=== PATIENT | female | born 1935 | race African-American/Black ===

== ENCOUNTER 2017-05-02 08:40 | Emergency (ER) | payer MEDICARE ==
[2017-05-02] MEDS ORDERED: SODIUM CHLORIDE 0.9% 1,000 ML IV STA (09:14)
--- NOTE | 2017-05-02 09:17 | ED ---
General Adult HPI <Tank Loaiza - Last Filed: 05/02/17 12:12> - General Source: patient, RN notes reviewed Mode of arrival: wheelchair Limitations: no limitations <JeisonHaider - Last Filed: 05/02/17 12:14> - General Chief complaint: Abdominal Pain Stated complaint: POST OP/CATH ABDOMINAL SWELLING AND PAIN Time Seen by Provider: 05/02/17 09:05 - History of Present Illness Initial comments: Patient 81-year-old female status post heart catheterization 2 weeks, who presents emergency room today with a chief complaint of increased abdominal pain swelling over the last 2 weeks since her procedure. Patient believes that she did have a stent placed. She states it was done at [facility]. Patient does admit to some swelling locally to the right groin area since procedure but does admit that it is improving. Patient does admit to a history kidney stones states that she had surgery on the kidney stones was concerned that possibly from the heart catheterization that something could've been affected and came to make sure that over the was okay in her abdomen. Patient does admit that she's had some mild cough congestion. She does admit to feeling nauseated. She denies any other complaints or associated symptoms at this time. Patient denies any recent fever, chills, shortness of breath, chest pain, back pain, vomiting, numbness or tingling, dysuria or hematuria, constipation or diarrhea, headaches or visual changes, or any other complaints. (Haider Mchugh) - Related Data Home Medications Medication Instructions Recorded Confirmed Esomeprazole Magnesium [NexIUM] 40 mg PO QAM 12/29/15 08/17/16 Acetaminophen with Codeine 1 tab PO Q6HR PRN 04/20/16 08/17/16 [Tylenol w/codeine #4] Hydrocodone/Acetaminophen [[place] 1 tab PO Q4HR PRN 04/20/16 08/17/16 5-325] Metoprolol Tartrate [Lopressor] 100 mg PO BID 04/20/16 08/17/16 amLODIPine [Norvasc] 10 mg PO QAM 04/20/16 08/17/16 Advair (Unknown Dose) 1 puff INHALATION RT-BID 08/17/16 08/17/16 Albuterol Inhaler [Ventolin Hfa 2 puff INHALATION RT-Q6H PRN 08/17/16 08/17/16 Inhaler] Albuterol Nebulized [Ventolin 2.5 mg INHALATION RT-Q6H 08/17/16 08/17/16 Nebulized] Aspirin EC [Ecotrin] 325 mg PO DAILY 08/17/16 08/17/16 Budesonide/Formoterol Fumarate 2 puff INHALATION RT-BID 08/17/16 08/17/16 [Symbicort 160-4.5 Mcg Inhaler] metFORMIN HCL [Glucophage] 500 mg PO BID 08/17/16 08/17/16 Previous Rx's Medication Instructions Recorded Clopidogrel [Plavix] 75 mg PO DAILY #30 tab 09/10/15 Nitroglycerin Sl Tabs [Nitrostat] 0.4 mg SUBLINGUAL Q5M PRN #50 tab 09/10/15 Allergies Allergy/AdvReac Type Severity Reaction Status Date / Time Iodinated Contrast Media - Allergy Rash/Hives Verified 05/02/17 08:53 Oral and [Iodinated Contrast Media - IV Dye] Review of Systems ROS Other: All systems not noted in ROS Statement are negative. <Tank Loaiza - Last Filed: 05/02/17 12:12> ROS Other: All systems not noted in ROS Statement are negative. <Haider Mchugh - Last Filed: 05/02/17 12:14> ROS Statement: Those systems with pertinent positive or pertinent negative responses have been documented in the HPI. Past Medical History Past Medical History: Coronary Artery Disease (CAD), Chest Pain / Angina, COPD, Diabetes Mellitus, Hyperlipidemia, Hypertension, Myocardial Infarction ([place]) Additional Past Medical History / Comment(s): 04/20/16 IP FOR GI BLEED/LOW HGB. kdiney stones Last Myocardial Infarction Date:: 1997 History of Any Multi-Drug Resistant Organisms: None Reported Past Surgical History: Coronary Bypass/CABG, Heart Catheterization With Stent, Hysterectomy, Orthopedic Surgery Additional Past Surgical History / Comment(s): CABG 1997. Left total hip replacement, colonoscopy nov 2015, angioplasty left leg. KIDNEY SURGERY FOR STONE REMOVAL. Past Anesthesia/Blood Transfusion Reactions: No Reported Reaction Additional Past Anesthesia/Blood Transfusion Reaction / Comment(s): Pt has recieved blood in the past with kidney surgery without reaction. Date of Last Stent Placement:: 10/02/09. 08/2015. Past Psychological History: No Psychological Hx Reported Smoking Status: Former smoker Past Alcohol Use History: None Reported Past Drug Use History: None Reported, Prescription Drug Abuse - Past Family History Mother Family Medical History: Cancer Father Additional Family Medical History / Comment(s): aneurysm <Haider Mchugh - Last Filed: 05/02/17 12:14> General Exam <Tank Loaiza - Last Filed: 05/02/17 12:12> Limitations: no limitations <Haider Mchugh - Last Filed: 05/02/17 12:14> - General Exam Comments Initial Comments: General: The patient is awake and alert, in no distress, and does not appear acutely ill. Eye: Pupils are equal, round and reactive to light, extra-ocular movements are intact. No nystagmus. There is normal conjunctiva bilaterally. No signs of icterus. Ears, nose, mouth and throat: There are moist mucous membranes and no oral lesions. Neck: The neck is supple, there is no tenderness or JVD. Cardiovascular: There is a regular rate and rhythm. No murmur, rub or gallop is appreciated. Respiratory: Lungs are clear to auscultation, respirations are non-labored, breath sounds are equal. No wheezes, stridor, rales, or rhonchi. Gastrointestinal: No tenderness in the epigastric. Mild tenderness in the right lower quadrant. No rebound tenderness. No guarding. No CVA tenderness. Musculoskeletal: Normal ROM, no tenderness. Strength 5/5. Sensation intact. Pulses equal bilaterally 2+. Neurological: A&O x 3. CN II-XII intact, There are no obvious motor or sensory deficits. Coordination appears grossly intact. Speech is normal. Skin: Skin is warm and dry and no rashes or lesions are noted. Psychiatric: Cooperative, appropriate mood & affect, normal judgment. (Haider Mchugh) Course <Tank Loaiza - Last Filed: 05/02/17 12:12> <Haider Mchugh - Last Filed: 05/02/17 12:14> Vital Signs 05/02/17 05/02/17 05/02/17 08:51 09:55 10:23 Temperature 98.8 F 99.3 F Pulse Rate 59 L 53 L Respiratory 16 18 Rate Blood Pressure 197/77 195/79 218/86 O2 Sat by Pulse 98 95 Oximetry 05/02/17 05/02/1705/02/17 10:36 11:08 11:19 Temperature 98 F Pulse Rate 64 Respiratory 18 Rate Blood Pressure 177/77 204/89 170/74 O2 Sat by Pulse 97 Oximetry 05/02/17 05/02/17 11:42 12:07 Temperature Pulse Rate 60 Respiratory 18 18 Rate Blood Pressure 164/74 161/72 O2 Sat by Pulse 96 Oximetry - Reevaluation(s) Reevaluation #1: 05/02/17 12:12 I did personally do a [id number] evaluation the patient discuss [employer] the patient and her family. She relates his symptoms started after her catheterization. Labs and CT were reviewed no acute findings or is a residual hematoma that is noted. The patient is to follow-up with her doctor. (Tank Loaiza) Medical Decision Making - Lab Data Result diagrams: 05/02/17 09:35 05/02/17 09:35 <Tank Loaiza - Last Filed: 05/02/17 12:12> - Lab Data Result diagrams: 05/02/17 09:35 05/02/17 09:35 <Haider Mchugh - Last Filed: 05/02/17 12:14> - Medical Decision Making Patient's CT abdomen and pelvis reviewed. 1. Incidentally, there is a prior femoral to femoral bypass. 2. Soft tissue bruising within the right greater than the left groins from prior catheter access. Some mild perivascular hematoma extends up to the right retroperitoneum 4.3 cm to the level of the distal right external iliac vessels, axial images 69-76. 3. 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 4.Hiatal hernia, mild to distal sigmoid diverticulosis, and decreasing size of the right renal cyst, now at 3.7 cm. As read by radiologist Dr Alfredo. results discussed with the patient. Patient resting comfortably. Patient will be discharged home advised to follow family doctor with. Advised return if any symptoms increase or worsen or for any other concerns. (Haider Mchugh) - Lab Data Lab Results 05/02/17 05/02/17 05/02/17 Range/Units 09:35 09:35 09:35 WBC 3.5 L (3.8-10.6) k/uL RBC 3.61 L (3.80-5.40) m/uL Hgb 12.1 (11.4-16.0) gm/dL Hct 36.5 (34.0-46.0) % MCV 101.2 H (80.0-100.0) fL MCH 33.6 (25.0-35.0) pg MCHC 33.3 (31.0-37.0) g/dL RDW 14.4 (11.5-15.5) % Plt Count 118 L (150-450) k/uL Neutrophils % 66 % Lymphocytes % 20 % Monocytes % 8 % Eosinophils % 3 % Basophils % 0 % Neutrophils # 2.3 (1.3-7.7) k/uL Lymphocytes # 0.7 L (1.0-4.8) k/uL Monocytes # 0.3 (0-1.0) k/uL Eosinophils # 0.1 (0-0.7) k/uL Basophils # 0.0 (0-0.2) k/uL Macrocytosis Slight PT (9.0-12.0) sec INR (<1.1) APTT (22.0-30.0) sec Sodium 143 (137-145) mmol/L Potassium 4.4 (3.5-5.1) mmol/L Chloride 106 (98-107) mmol/L Carbon Dioxide 27 (22-30) mmol/L Anion Gap 10 mmol/L BUN 15 (7-17) mg/dL Creatinine 1.13 H (0.52-1.04) mg/dL Est GFR (MDRD) Af Amer 56 (>60 ml/min/1.73 sqM) Est GFR (MDRD) Non-Af 46 (>60 ml/min/1.73 sqM) Glucose 119 H (74-99) mg/dL Calcium 8.9 (8.4-10.2) mg/dL Total Bilirubin 1.1 (0.2-1.3) mg/dL AST 40 H (14-36) U/L ALT 38 (9-52) U/L Alkaline Phosphatase 123 (38-126) U/L Total Creatine Kinase 51 (30-135) U/L CK-MB (CK-2) 0.6 (0.0-2.4) ng/mL CK-MB (CK-2) Rel Index 1.2 Troponin I 0.020 (0.000-0.034) ng/mL NT-Pro-B Natriuret Pep pg/mL Total Protein 7.2 (6.3-8.2) g/dL Albumin 3.6 (3.5-5.0) g/dL Urine Color Urine Appearance (Clear) Urine pH (5.0-8.0) Ur Specific [place] (1.001-1.035) Urine Protein (Negative) Urine Glucose (UA) (Negative) Urine Ketones (Negative) Urine Blood (Negative) Urine Nitrite (Negative) Urine Bilirubin (Negative) Urine Urobilinogen (<2.0) mg/dL Ur Leukocyte Esterase (Negative) Urine RBC (0-5) /hpf Urine WBC (0-5) /hpf Ur Squamous Epith Cells (0-4) /hpf Urine Bacteria (None) /hpf Urine Mucus (None) /hpf 05/02/17 05/02/17 05/02/17 Range/Units 09:35 09:35 11:30 WBC (3.8-10.6) k/uL RBC (3.80-5.40) m/uL Hgb (11.4-16.0) gm/dL Hct (34.0-46.0) % MCV (80.0-100.0) fL MCH (25.0-35.0) pg MCHC (31.0-37.0) g/dL RDW (11.5-15.5) % Plt Count (150-450) k/uL Neutrophils % % Lymphocytes % % Monocytes % % Eosinophils % % Basophils % % Neutrophils # (1.3-7.7) k/uL Lymphocytes # (1.0-4.8) k/uL Monocytes # (0-1.0) k/uL Eosinophils # (0-0.7) k/uL Basophils # (0-0.2) k/uL Macrocytosis PT 10.9 (9.0-12.0) sec INR 1.1 (<1.1) APTT 23.7 (22.0-30.0) sec Sodium (137-145) mmol/L Potassium (3.5-5.1) mmol/L Chloride (98-107) mmol/L Carbon Dioxide (22-30) mmol/L Anion Gap mmol/L BUN (7-17) mg/dL Creatinine (0.52-1.04) mg/dL Est GFR (MDRD) Af Amer (>60 ml/min/1.73 sqM) Est GFR (MDRD) Non-Af (>60 ml/min/1.73 sqM) Glucose (74-99) mg/dL Calcium (8.4-10.2) mg/dL Total Bilirubin (0.2-1.3) mg/dL AST (14-36) U/L ALT (9-52) U/L Alkaline Phosphatase (38-126) U/L Total Creatine Kinase (30-135) U/L CK-MB (CK-2) (0.0-2.4) ng/mL CK-MB (CK-2) Rel Index Troponin I (0.000-0.034) ng/mL NT-Pro-B Natriuret Pep 971 pg/mL Total Protein (6.3-8.2) g/dL Albumin (3.5-5.0) g/dL Urine Color Yellow Urine Appearance Clear (Clear) Urine pH 5.5 (5.0-8.0) Ur Specific [place] 1.015 (1.001-1.035) Urine Protein Trace H (Negative) Urine Glucose (UA) Negative (Negative) Urine Ketones Negative (Negative) Urine Blood Negative (Negative) Urine Nitrite Negative (Negative) Urine Bilirubin Negative (Negative) Urine Urobilinogen 2.0 (<2.0) mg/dL Ur Leukocyte Esterase Trace H (Negative) Urine RBC 1 (0-5) /hpf Urine WBC 3 (0-5) /hpf Ur Squamous Epith Cells 5 H (0-4) /hpf Urine Bacteria Rare H (None) /hpf Urine Mucus Rare H (None) /hpf Disposition <Tank Loaiza - Last Filed: 05/02/17 12:12> Time of Disposition: 12:14 <Haider Mchugh - Last Filed: 05/02/17 12:14> Clinical Impression: Abdominal pain Disposition: HOME SELF-CARE Condition: Good Instructions: Abdominal Pain (ED) Additional Instructions: Please use medication as discussed. Please follow-up with family doctor in the next 2 days of symptoms have not improved. Please return to emergency room if the symptoms increase or worsen or for any other concerns. Referrals: Cedrick Leach MD [Primary Care Provider] - 1-2 days
[2017-05-02 09:56] VITALS: RESP 18
[2017-05-02 09:57] LABS: Basophils % (A) 0 %; CH 33.4; CHCM 33.2; Eosinophils # (A) 0.1 k/uL (0-0.7); Eosinophils % (A) 3 %; HCT 36.5 % (34.0-46.0); HDW 2.59; HGB 12.1 gm/dL (11.4-16.0); Luc % (Auto) 3; Lymphocytes # (A) 0.7 k/uL (1.0-4.8); Lymphocytes % (A) 20 %; MCH 33.6 pg (25.0-35.0); MCHC 33.3 g/dL (31.0-37.0); MCV 101.2 fL (80.0-100.0); Macrocytosis Slight; Mean Platelet Volume 7.8; Monocytes # (A) 0.3 k/uL (0-1.0); Monocytes % (A) 8 %; Neutrophils # (A) 2.3 k/uL (1.3-7.7); Neutrophils % (A) 66 %; RBC 3.61 m/uL (3.80-5.40); RDW 14.4 % (11.5-15.5); WBC 3.5 k/uL (3.8-10.6); WBC (Perox) 3.51
[2017-05-02] MEDS ORDERED: hydrALAZINE HCL 20 MG/ML 1 ML VIAL IVP STA (10:01)
[2017-05-02 10:05] LABS: INR 1.1 (<1.1); Partial Thromboplastin Time 23.7 sec (22.0-30.0); Prothrombin Time 10.9 sec (9.0-12.0)
[2017-05-02 10:06] LABS: Calcium 8.9 mg/dL (8.4-10.2); Potassium 4.4 mmol/L (3.5-5.1); Total Bilirubin 1.1 mg/dL (0.2-1.3); Total Protein 7.2 g/dL (6.3-8.2)
--- NOTE | 2017-05-02 10:27 | XR ---
EXAMINATION TYPE: XR KUB DATE OF EXAM: 05/02/2017 CLINICAL DATA: 81-year-old female with pain, PHH COMPARISON: 05/02/2013 FINDINGS: Lung bases are clear. Supine imaging limited for assessment of free intraperitoneal air. No dilated small and bowel. Scattered air and stool seen throughout the colon extending distally into the rectum. Mild stool burden. Stable round calcification right paramedian mid to lower abdomen and phlebolith in the right hemipelv is. Partially visualized left total hip arthroplasty. Moderate degenerative change of the right hip. IMPRESSION: Nonobstructive bowel gas pattern. Mild stool burden.
--- NOTE | 2017-05-02 10:28 | XR ---
EXAMINATION TYPE: XR chest 2V DATE OF EXAM: 05/02/2017 COMPARISON: 08/17/2016 HISTORY: 81-year-old female with pain TECHNIQUE: AP and lateral views FINDINGS: Heart is upper limits of normal in size. Median sternotomy wires and post-CABG clips in the mediastin um. Mild interstitial prominence is chronic. Strandy atelectasis in the lower lungs. No consolidation or pleural effusion. IMPRESSION: Chronic changes without acute cardiopulmonary process.
[2017-05-02 10:36] LABS: Creatine Kinase MB 0.6 ng/mL (0.0-2.4); Troponin I 0.02 ng/mL (0.000-0.034)
[2017-05-02] MEDS ORDERED: HYDROmorphone 1 MG/ML 1 ML SYRINGE IVP STA (11:08)
[2017-05-02] MEDS ORDERED: ONDANSETRON 4 MG/2 ML VIAL IVP STA (11:08)
[2017-05-02] MEDS ORDERED: ACETAMINOPHEN IV (For NPO) 1,000 MG in SALINE 100 100ML.BAG IVPB STA (11:15)
--- NOTE | 2017-05-02 11:22 | CT ---
EXAMINATION TYPE: CT abdomen pelvis wo con DATE OF EXAM: 05/02/2017 COMPARISON: 05/02/2013 HISTORY: 81-year-old female postop catheterization on 04/15/2017 with abdominal swelling and pain. CT DLP: 908.7 mGycm. Automated exposure control for dose reduction was used. TECHNIQUE: Contiguous axial scanning of the abdomen and pelvis without IV contrast. Coronal and sagit lisbeth reconstructions performed. FINDINGS: Heart upper limits of normal in size without pericardial effusion. Some patchy atelectasis at the lef t base with strandy areas of scarring, stable from prior. Tiny hiatal hernia. Noncontrast appearance of the liver, gallbladder, adrenal glands, left kidney, and pancreas show no g ross abnormality. Stable splenomegaly 15.4 cm as compared to 2013. The right mid pole renal cyst is smaller as compared to 2013 now measuring 3.7 cm versus 5.6 cm, prev iously. No dilated small bowel, free fluid, or free air. Moderate atherosclerotic calcifications within the abdominal aorta and iliac arteries. Fusiform ectas ia of the infrarenal abdominal aorta has increased from 2013 now measuring 2.9 cm versus 2.6 cm, prev iously. No mesenteric or retroperitoneal lymphadenopathy. Mid to distal sigmoid diverticulosis. There is mild stool burden without pericolonic inflammatory belinda nge. Bladder is urine distended. Uterus surgically absent. Neither ovary well visualized but the smaller a lso surgically absent. There is evidence of femoral to femoral bypass graft. Patency is not assessed on this noncontrast nani dy. As compared to prior exam, there is new focal fat stranding in the right greater than left groin sugg esting bruising and some soft tissue hemorrhage. On the right, changes are more confluent and extend up the distal right external iliac vessels by 4.3 cm and also extend slightly along the upper right i nguinal canal., Axial images 69 through 76. Bones: Left hip total arthroplasty. Moderate to severe degenerative changes right hip. Additional deg enerative changes lower lumbar spine. Grade 1 anterolisthesis L4-L5. No osseous destructive process. IMPRESSION: 1. Incidentally, there is prior femoral to femoral bypass. 2. Soft tissue bruising within the right greater than left groins from prior catheter access. Some m ild perivascular hematoma extends up the right retroperitoneum by 4.3 cm to the level of the distal r ight external iliac vessels, axial images 69 through 76. 3. 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 4. Tiny hiatal hernia, mid to distal sigmoid diverticulosis, and decreasing size of the right renal cyst, now at 3.7 cm.
[2017-05-02 12:08] LABS: Appearance,Urine Clear (Clear); Bacteria,Urine Rare /hpf; Bilirubin,Urine Negative (Negative); Glucose,Urine (UA) Negative (Negative); Ketones,Urine Negative (Negative); Leukocyte Esterase,Urine Trace (Negative); Mucus,Urine Rare /hpf; Nitrite,Urine Negative (Negative); PH, Urine 5.5 (5.0-8.0); Particle Count 2571; Protein,Urine Trace (Negative); RBC,Urine 1 /hpf (0-5); Specific Gravity,Urine 1.015 (1.001-1.035); Squamous Epithelial Cell,Urine 5 /hpf (0-4); UA Billing (MACRO vs. MICRO) MICRO; WBC,Urine 3 /hpf (0-5)
[2017-05-02 12:09] VITALS: BP 161/72; PULSE 60
[2017-05-02 12:25] VITALS: TEMP 98.3
== END 2017-05-02 12:26 | disposition home or self-care (01) ==
LOC: EC 08:40
DX: T85.898A Other specified complication of other internal prosthetic devices, implants and grafts, initial encounter (principal); K91.871 Postprocedural hematoma of a digestive system organ or structure following other procedure; I77.811 Abdominal aortic ectasia; N28.1 Cyst of kidney, acquired; K57.30 Diverticulosis of large intestine without perforation or abscess without bleeding; K44.9 Diaphragmatic hernia without obstruction or gangrene; R11.0 Nausea; I10 Essential (primary) hypertension; E11.9 Type 2 diabetes mellitus without complications; J44.9 Chronic obstructive pulmonary disease, unspecified; I25.10 Atherosclerotic heart disease of native coronary artery without angina pectoris; I25.2 Old myocardial infarction; Z87.891 Personal history of nicotine dependence; Z79.51 Long term (current) use of inhaled steroids; Z79.82 Long term (current) use of aspirin; Z79.84 Long term (current) use of oral hypoglycemic drugs; Z79.899 Other long term (current) drug therapy; Z91.041 Radiographic dye allergy status; Z95.1 Presence of aortocoronary bypass graft; Z95.5 Presence of coronary angioplasty implant and graft; Z86.79 Personal history of other diseases of the circulatory system; Z95.828 Presence of other vascular implants and grafts; Z53.20 Procedure and treatment not carried out because of patient's decision for unspecified reasons; Y84.0 Cardiac catheterization as the cause of abnormal reaction of the patient, or of later complication, without mention of misadventure at the time of the procedure
CPT/HCPCS: 36415; 93005; 83880; 80053; 82550; 82553; 84484; 85025; 85610; 85730; 81001; 71020; 74000; 74176; 99285; 96365; 96375; 96361 ×2; J0360; J0131

== ENCOUNTER 2018-01-06 22:12 | Observation (INO) | payer MEDICARE ==
[2018-01-06 22:51] LABS: Anisocytosis Slight; HCT 26.8 % (34.0-46.0); Hypochromasia Marked; MCH 26.5 pg (25.0-35.0); MCV 88.3 fL (80.0-100.0); Mean Platelet Volume 9.7; Platelet Count 132 k/uL (150-450); Poikilocytosis Slight; RBC 3.04 m/uL (3.80-5.40); RDW 16.8 % (11.5-15.5); WBC 2.5 k/uL (3.8-10.6)
[2018-01-06 23:02] LABS: Albumin 3.8 g/dL (3.5-5.0); Calcium 9.3 mg/dL (8.4-10.2); Potassium 4.2 mmol/L (3.5-5.1); Total Bilirubin 0.3 mg/dL (0.2-1.3); Total Protein 7.4 g/dL (6.3-8.2)
--- NOTE | 2018-01-06 23:07 | ED ---
Chest Pain HPI - General Chief Complaint: Chest Pain Stated Complaint: Weakness, arm pain Time Seen by Provider: 01/06/18 22:30 Source: patient, family, RN notes reviewed Mode of arrival: ambulatory Limitations: no limitations - History of Present Illness Initial Comments: This is a 82-year-old female history of anemia history of heart disease who presents with complaints of exertional dyspnea and retrosternal chest pain going to her left arm. She states this is been off about a month getting worse so she stated she did not like to come the hospital less he really needed to. She also feels as if she did when she needed a transfusion last time at rest she has no pain no dyspnea on exertion. She states when she does have the pain is almost 10/10. She has a fevers chills nausea vomiting sweats or any other symptoms at this time. MD Complaint: chest pain, other - Related Data Home Medications Medication Instructions Recorded Confirmed Hydrocodone/Acetaminophen [[place] 1 tab PO BID PRN 04/20/16 01/06/18 5-325] Metoprolol Tartrate [Lopressor] 100 mg PO BID 05/02/17 01/06/18 amLODIPine [Norvasc] 10 mg PO DAILY 05/02/17 01/06/18 Aspirin EC [Ecotrin] 325 mg PO DAILY 01/06/18 01/06/18 Esomeprazole Magnesium [NexIUM] 40 mg PO DAILY 01/06/18 01/06/18 metFORMIN HCL [Glucophage] 500 mg PO BID 01/06/18 01/06/18 Previous Rx's Medication Instructions Recorded Nitroglycerin Sl Tabs [Nitrostat] 0.4 mg SUBLINGUAL Q5M PRN #50 tab 09/10/15 Allergies Allergy/AdvReac Type Severity Reaction Status Date / Time Iodinated Contrast- Oral and Allergy Rash/Hives Verified 01/06/18 22:42 IV Dye [Iodinated Contrast Media - IV Dye] shellfish derived [Shellfish] Allergy Rash/Hives Verified 01/06/18 22:42 Review of Systems ROS Statement: Those systems with pertinent positive or pertinent negative responses have been documented in the HPI. ROS Other: All systems not noted in ROS Statement are negative. EKG Findings - EKG Results: EKG: interpreted by ROBIN (Sinus rhythm with a left exodeviation and left bundle- branch block rate was [address] QRS 154 daily since QTC of 476/495 this compares with an EKG dated 05/02/17) Past Medical History Past Medical History: Coronary Artery Disease (CAD), Chest Pain / Angina, COPD, Diabetes Mellitus, Hyperlipidemia, Hypertension, Myocardial Infarction ([place]) Additional Past Medical History / Comment(s): 04/20/16 IP FOR GI BLEED/LOW HGB. kdiney stones Last Myocardial Infarction Date:: 1997 History of Any Multi-Drug Resistant Organisms: None Reported Past Surgical History: Coronary Bypass/CABG, Heart Catheterization With Stent, Hysterectomy, Orthopedic Surgery Additional Past Surgical History / Comment(s): CABG 1997. Left total hip replacement, colonoscopy nov 2015, angioplasty left leg. KIDNEY SURGERY FOR STONE REMOVAL. Stents placed her heart in the last year Past Anesthesia/Blood Transfusion Reactions: No Reported Reaction Additional Past Anesthesia/Blood Transfusion Reaction / Comment(s): Pt has recieved blood in the past with kidney surgery without reaction. Date of Last Stent Placement:: 10/02/09. 08/2015. Past Psychological History: No Psychological Hx Reported Smoking Status: Former smoker Past Alcohol Use History: None Reported Past Drug Use History: None Reported, Prescription Drug Abuse - Past Family History Mother Family Medical History: Cancer Father Additional Family Medical History / Comment(s): aneurysm General Exam - General Exam Comments Initial Comments: This is a well-developed well-nourished awake alert oriented 3 female Limitations: no limitations General appearance: alert, in no apparent distress Head exam: Present: atraumatic, normocephalic, normal inspection Eye exam: Present: normal appearance, PERRL, EOMI, other (Pale conjunctiva). Absent: scleral icterus, conjunctival injection, periorbital swelling ENT exam: Present: normal exam, mucous membranes moist Neck exam: Present: normal inspection. Absent: tenderness, meningismus, lymphadenopathy Respiratory exam: Present: decreased breath sounds. Absent: respiratory distress, wheezes, rales, rhonchi, stridor Cardiovascular Exam: Present: regular rate, normal rhythm, normal heart sounds. Absent: systolic murmur, diastolic murmur, rubs, gallop, clicks GI/Abdominal exam: Present: soft, normal bowel sounds. Absent: distended, tenderness, guarding, rebound, rigid Extremities exam: Present: normal inspection, full ROM, normal capillary refill. Absent: tenderness, pedal edema, joint swelling, calf tenderness Back exam: Present: normal inspection Neurological exam: Present: alert, oriented X3, CN II-XII intact Psychiatric exam: Present: normal affect, normal mood Skin exam: Present: warm, dry, intact, pallor. Absent: rash Course Vital Signs 01/06/18 01/06/18 01/06/18 22:14 22:20 22:39 Temperature 98.9 F Pulse Rate 64 66 60 Respiratory 18 18 20 Rate Blood Pressure 182/80 228/98 O2 Sat by Pulse 100 99 97 Oximetry 01/06/18 01/06/18 23:20 23:42 Temperature Pulse Rate 60 61 Respiratory 22 20 Rate Blood Pressure 204/67 189/77 O2 Sat by Pulse 97 97 Oximetry Chest Pain MDM - MDM ABG reveals no acute findings. Patient remains asymptomatic arrest was symptomatic with exertion. I did discuss case with her and her family as well as with Dr. Lyn. Patient be admitted due to her symptoms and low hemoglobin she'll be given a unit of blood. Cardiology will be consulted. And [facility] will be held at this time Disposition Clinical Impression: Unstable angina pectoris, Symptomatic anemia, Hypertension Disposition: ADMITTED IP TO THIS HOSP Condition: Stable Referrals: Kwan Lyn MD [Primary Care Provider] - 1-2 days
[2018-01-06 23:13] LABS: Prothrombin Time 10.2 sec (9.0-12.0)
--- NOTE | 2018-01-06 23:15 | XR ---
EXAMINATION TYPE: XR chest 2V DATE OF EXAM: 01/06/2018 COMPARISON: 05/02/2017 HISTORY: Chest pain TECHNIQUE: Frontal and lateral views of the chest are obtained. FINDINGS: There is no heart failure nor confluent pneumonic infiltrate. Thoracic aorta is atheromato us. There are sternal wires. There is spurring in the thoracic spine. There are chest leads. IMPRESSION: No active cardiopulmonary disease. Atherosclerotic changes. No change.
[2018-01-06 23:16] LABS: Eosinophils # (M) 0.05 k/uL (0-0.7); Lymphocytes # (M) 0.53 k/uL (1.0-4.8); Neutrophils # (M) 1.63 k/uL (1.3-7.7); Neutrophils % (M) 65 %; Nucleated Red Blood Cells 0 /100 WBC (0-0); Total Cells Counted 100
[2018-01-06 23:22] LABS: Partial Thromboplastin Time 22.4 sec (22.0-30.0)
[2018-01-06 23:28] LABS: Creatine Kinase 62 U/L (30-135)
[2018-01-06 23:40] LABS: Creatine Kinase MB 0.6 ng/mL (0.0-2.4); Troponin I <0.012 ng/mL (0.000-0.034)
[2018-01-06 23:46] LABS: Magnesium 1.9 mg/dL (1.6-2.3)
[2018-01-07] MEDS ORDERED: METOPROLOL TARTRATE 5 MG/5 ML VIAL IVP ONE (00:04)
[2018-01-07] MEDS ORDERED: NITROGLYCERIN SL TABS 0.4 MG TAB SUBLINGUAL PRN (00:07)
[2018-01-07] MEDS ORDERED: HYDROcodone/APAP 5-325MG 1 EACH TAB PO PRN (00:09)
[2018-01-07 01:38] VITALS: BMI 33.7
[2018-01-07] MEDS ORDERED: METOPROLOL TARTRATE 5 MG/5 ML VIAL IVP STA (02:07)
[2018-01-07] MEDS: SODIUM CHLORIDE 0.9% 1,000 ML IV SCH (02:19)
[2018-01-07 06:46] LABS: Glucose,Whole Blood 111 mg/dL (75-99)
[2018-01-07] MEDS: INSULIN ASPART 100 UNIT/ML 1 ML 10 ML VIAL SQ SCH ×4 (07:01→21:45)
[2018-01-07] MEDS: metFORMIN 500 MG TAB PO SCH ×2 (07:01→19:06)
--- NOTE | 2018-01-07 08:04 | P.HPIM ---
History of Present Illness H&P Date: 01/07/18 Chief Complaint: Chest pressure. This is a history and physical 82-year-old white female who states left substernal chest pressure which is made worse with breathing. No significant nausea but there is supposed some diaphoresis. She has history of cervical aneurysm that we are following recently but she has been lost to follow-up and last year secondary to financial constraints. The patient states 3-4 day history of worsening chest pressure. She also states up her respiratory congestion. There is secondhand smoke in the household. There is also history of atherosclerotic vascular disease. She states she has been on Plavix in the past. I will review her old chart and office, again it is been a while since his been in my office. Otherwise, given her overall evaluation emergency room, she was admitted for appropriate rule out Review of Systems Constitutional: Denies chills, Denies fever Eyes: denies blurred vision, denies pain Ears, nose, mouth and throat: Denies headache, Denies sore throat Cardiovascular: Reports chest pain, Reports palpitations, Denies rapid heart beat, Denies shortness of breath Respiratory: Denies cough Genitourinary: Denies dysuria, Denies hematuria Musculoskeletal: Denies myalgias Integumentary: Denies pruritus, Denies rash Neurological: Denies numbness, Denies weakness Endocrine: Denies fatigue, Denies weight change Past Medical History Past Medical History: Coronary Artery Disease (CAD), Chest Pain / Angina, Heart Failure, COPD, CVA/TIA, Diabetes Mellitus, GI Bleed, Hyperlipidemia, Hypertension, Myocardial Infarction ([place]) Additional Past Medical History / Comment(s): 04/20/16 possible GI bleed with low Hgb. kdiney stones, parkinsons Last Myocardial Infarction Date:: 1997 History of Any Multi-Drug Resistant Organisms: None Reported Past Surgical History: Coronary Bypass/CABG, Heart Catheterization With Stent, Hysterectomy, Orthopedic Surgery Additional Past Surgical History / Comment(s): CABG 1997. Left total hip replacement, colonoscopy nov 2015, angioplasty left leg. kidney surgery with stone removal. multiple heart stents. Past Anesthesia/Blood Transfusion Reactions: No Reported Reaction Additional Past Anesthesia/Blood Transfusion Reaction / Comment(s): Pt has recieved blood in the past with kidney surgery without reaction. Date of Last Stent Placement:: 04/15/2017 Past Psychological History: No Psychological Hx Reported Additional Psychological History / Comment(s): Pt resides with her spouse and daughter. She uses no assistive device. She is independent. She drives a car. Smoking Status: Former smoker Past Alcohol Use History: None Reported Additional Past Alcohol Use History / Comment(s): Pt started smoking in 1952 and quit in 1993. She had been a 2-3 ppd smoker. Past Drug Use History: None Reported, Prescription Drug Abuse - Past Family History Mother Family Medical History: Cancer Father Additional Family Medical History / Comment(s): aneurysm Medications and Allergies Home Medications Medication Instructions Recorded Confirmed Type Nitroglycerin Sl Tabs [Nitrostat] 0.4 mg SUBLINGUAL Q5M PRN #50 tab 09/10/15 Rx Hydrocodone/Acetaminophen [[place] 1 tab PO BID PRN 04/20/16 01/06/18 History 5-325] Metoprolol Tartrate [Lopressor] 100 mg PO BID 05/02/17 01/06/18 History amLODIPine [Norvasc] 10 mg PO DAILY 05/02/17 01/06/18 History Aspirin EC [Ecotrin] 325 mg PO DAILY 01/06/18 01/06/18 History Esomeprazole Magnesium [NexIUM] 40 mg PO DAILY 01/06/18 01/06/18 History metFORMIN HCL [Glucophage] 500 mg PO BID 01/06/18 01/06/18 History Allergies Allergy/AdvReac Type Severity Reaction Status Date / Time Iodinated Contrast- Oral and Allergy Rash/Hives Verified 01/06/18 22:42 IV Dye [Iodinated Contrast Media - IV Dye] shellfish derived [Shellfish] Allergy Rash/Hives Verified 01/06/18 22:42 Physical Exam Vitals: Vital Signs Temp Pulse Pulse Resp BP BP Pulse Ox 01/07/18 06:09 98.3 F 56 L 16 180/74 100 01/07/18 04:00 97.6 F 59 L 16 162/74 99 01/07/18 03:59 97.6 F 59 L 16 162/74 99 01/07/18 03:29 97.7 F 62 16 166/71 98 01/07/18 03:19 97.7 F 63 16 147/79 99 01/07/18 02:08 209/119 01/07/18 00:46 97.2 F L 60 18 188/85 98 03/15/18 00:42 59 L 18 168/74 99 01/07/18 00:00 60 18 177/77 99 01/06/18 23:42 61 20 189/77 97 01/06/18 23:20 60 22 204/67 97 01/06/18 22:39 60 20 228/98 97 01/06/18 22:20 66 18 182/80 99 01/06/18 22:14 98.9 F 64 18 100 Intake and Output 01/06/18 01/07/18 01/07/18 22:59 06:59 14:59 Intake Total 310 Balance 310 Intake: Blood Product 310 Rc Pheresis 2 As3 Unit 310 [id number] Other: Voiding Method Toilet # Voids 2 Weight 91.626 kg 94.8 kg - Constitutional General appearance: obese - EENT Eyes: EOMI - Neck Neck: no lymphadenopathy - Respiratory Respiratory: bilateral: CTA - Cardiovascular Rhythm: regular Heart sounds: normal: S1, S2 Abnormal Heart Sounds: no S3 Gallop - Gastrointestinal General gastrointestinal: soft, no tenderness - Neurologic Neurologic: CNII-XII intact - Psychiatric Psychiatric: A&O x's 3, appropriate affect, intact judgment & insight Results CBC & Chem 7: 01/06/18 22:34 01/06/18 22:34 Labs: Abnormal Lab Results - Last 24 Hours (Table) 01/06/18 01/06/18 01/06/18 Range/Units 22:34 22:34 22:34 WBC 2.5 L (3.8-10.6) k/uL RBC 3.04 L (3.80-5.40) m/uL Hgb 8.0 L (11.4-16.0) gm/dL Hct 26.8 L (34.0-46.0) % MCHC 30.0 L (31.0-37.0) g/dL RDW 16.8 H (11.5-15.5) % Plt Count 132 L (150-450) k/uL Lymphocytes # (Manual) 0.53 L (1.0-4.8) k/uL Chloride 108 H (98-107) mmol/L Creatinine 1.10 H (0.52-1.04) mg/dL Glucose 154 H (74-99) mg/dL POC Glucose (mg/dL) (75-99) mg/dL AST 48 H (14-36) U/L Crossmatch See Detail 01/07/18 Range/Units 06:44 WBC (3.8-10.6) k/uL RBC (3.80-5.40) m/uL Hgb (11.4-16.0) gm/dL Hct (34.0-46.0) % MCHC (31.0-37.0) g/dL RDW (11.5-15.5) % Plt Count (150-450) k/uL Lymphocytes # (Manual) (1.0-4.8) k/uL Chloride (98-107) mmol/L Creatinine (0.52-1.04) mg/dL Glucose (74-99) mg/dL POC Glucose (mg/dL) 111 H (75-99) mg/dL AST (14-36) U/L Crossmatch Thrombosis Risk Factor Assmnt - Choose All That Apply Any of the Below Risk Factors Present?: Yes Each Factor Represents 1 point: Medical pt on bed rest, Obesity (BMI >25) Other Risk Factors: Yes Each Risk Factor Represents 2 Points: Patient confined to bed Each Risk Factor Represents 3 Points: Age 75 years or older Other congenital or acquired thrombophilia - If yes, enter type in comment: No Thrombosis Risk Factor Assessment Total Risk Factor Score: 7 Thrombosis Risk Factor Assessment Level: High Risk Assessment and Plan (1) Hypertension Current Visit: Yes Status: Acute Code(s): I10 - ESSENTIAL (PRIMARY) HYPERTENSION SNOMED Code(s): 35063729 (2) Symptomatic anemia Current Visit: Yes Status: Acute Code(s): D64.9 - ANEMIA, UNSPECIFIED SNOMED Code(s): 558883429 (3) Atrial fibrillation Current Visit: No Status: Acute Code(s): I48.91 - UNSPECIFIED ATRIAL FIBRILLATION SNOMED Code(s): 97835572 (4) Chest pain Current Visit: No Status: Acute Code(s): R07.9 - CHEST PAIN, UNSPECIFIED SNOMED Code(s): 48693735 (5) Essential (primary) hypertension Current Visit: No Status: Acute Code(s): I10 - ESSENTIAL (PRIMARY) HYPERTENSION SNOMED Code(s): 59124045 Plan: Rule out myocardial infarction. No significant enzymatic elevation is otherwise noted. With her history of CAD and history of myocardial infraction, stress testing versus cardiac catheterization. However, the pain seems to be more pleuritic. We'll continue follow with cardiology. See orders otherwise.
[2018-01-07 08:09] LABS: Creatine Kinase 52 U/L (30-135)
[2018-01-07 08:15] LABS: Anisocytosis Slight; HCT 25.9 % (34.0-46.0); HGB 7.8 gm/dL (11.4-16.0); Hypochromasia Marked; MCH 26.4 pg (25.0-35.0); MCHC 29.9 g/dL (31.0-37.0); MCV 88.1 fL (80.0-100.0); Mean Platelet Volume 9.1; Platelet Count 109 k/uL (150-450); Poikilocytosis Moderate; RBC 2.94 m/uL (3.80-5.40); RDW 16.3 % (11.5-15.5); WBC 2.2 k/uL (3.8-10.6)
[2018-01-07 08:20] LABS: Creatine Kinase MB 0.5 ng/mL (0.0-2.4); Troponin I <0.012 ng/mL (0.000-0.034)
[2018-01-07] MEDS ORDERED: REGADENOSON 0.4 MG/5 ML SYRINGE IV ONE (08:36)
[2018-01-07] MEDS ORDERED: AMINOPHYLLINE 500 MG/20 ML VIAL IV PRN (08:36)
[2018-01-07] MEDS: ASPIRIN 81 MG PO SCH (09:03)
[2018-01-07] MEDS: amLODIPine 10 MG TAB PO SCH (09:03)
[2018-01-07] MEDS: PANTOPRAZOLE 40 MG TABLET PO SCH (09:03)
[2018-01-07] MEDS: METOPROLOL TARTRATE 50 MG TAB PO SCH ×2 (09:03→20:46)
--- NOTE | 2018-01-07 12:00 | P.CRDCN ---
History of Present Illness History of present illness: Patient presenting with chest pain with radiation of the left arm Severe anemia Known coronary artery disease coronary artery bypass grafting not on statins Diabetic Non-cardiac enzymes, underlying left bundle branch block Suggest Angina exacerbated by severe anemia Anemia workup Maximal medical therapy including aspirin statins and beta blockers for now 2-D echo and Doppler study Avoid invasive therapy at this time Past Medical History Past Medical History: Coronary Artery Disease (CAD), Chest Pain / Angina, Heart Failure, COPD, CVA/TIA, Diabetes Mellitus, GI Bleed, Hyperlipidemia, Hypertension, Myocardial Infarction ([place]) Additional Past Medical History / Comment(s): 04/20/16 possible GI bleed with low Hgb. kdiney stones, parkinsons Last Myocardial Infarction Date:: 1997 History of Any Multi-Drug Resistant Organisms: None Reported Past Surgical History: Coronary Bypass/CABG, Heart Catheterization With Stent, Hysterectomy, Orthopedic Surgery Additional Past Surgical History / Comment(s): CABG 1997. Left total hip replacement, colonoscopy nov 2015, angioplasty left leg. kidney surgery with stone removal. multiple heart stents. Past Anesthesia/Blood Transfusion Reactions: No Reported Reaction Additional Past Anesthesia/Blood Transfusion Reaction / Comment(s): Pt has recieved blood in the past with kidney surgery without reaction. Date of Last Stent Placement:: 04/15/2017 Past Psychological History: No Psychological Hx Reported Additional Psychological History / Comment(s): Pt resides with her spouse and daughter. She uses no assistive device. She is independent. She drives a car. Smoking Status: Former smoker Past Alcohol Use History: None Reported Additional Past Alcohol Use History / Comment(s): Pt started smoking in 1953 and quit in 1993. She had been a 2-3 ppd smoker. Past Drug Use History: None Reported, Prescription Drug Abuse - Past Family History Mother Family Medical History: Cancer Father Additional Family Medical History / Comment(s): aneurysm Medications and Allergies Home Medications Medication Instructions Recorded Confirmed Type Nitroglycerin Sl Tabs [Nitrostat] 0.4 mg SUBLINGUAL Q5M PRN #50 tab 09/10/15 Rx Hydrocodone/Acetaminophen [[place] 1 tab PO BID PRN 04/20/16 01/06/18 History 5-325] Metoprolol Tartrate [Lopressor] 100 mg PO BID 05/02/17 01/06/18 History amLODIPine [Norvasc] 10 mg PO DAILY 05/02/17 01/06/18 History Aspirin EC [Ecotrin] 325 mg PO DAILY 01/06/18 01/06/18 History Esomeprazole Magnesium [NexIUM] 40 mg PO DAILY 01/06/18 01/06/18 History metFORMIN HCL [Glucophage] 500 mg PO BID 01/06/18 01/06/18 History Allergies Allergy/AdvReac Type Severity Reaction Status Date / Time Iodinated Contrast- Oral and Allergy Rash/Hives Verified 01/06/18 22:42 IV Dye [Iodinated Contrast Media - IV Dye] shellfish derived [Shellfish] Allergy Rash/Hives Verified 01/06/18 22:42 Physical Exam Vitals: Vital Signs Temp Pulse Pulse Resp BP BP Pulse Ox 01/07/18 08:00 97.4 F L 58 L 18 168/72 94 L 01/07/18 06:09 98.3 F 56 L 16 180/74 100 01/07/18 04:00 97.6 F 59 L 16 162/74 99 01/07/18 03:59 97.6 F 59 L 16 162/74 99 01/07/18 03:29 97.7 F 62 16 166/71 98 01/07/18 03:19 97.7 F 63 16 147/79 99 01/07/18 02:08 209/119 01/07/18 00:46 97.2 F L 60 18 188/85 98 01/07/18 00:42 59 L 18 168/74 99 01/07/18 00:00 60 18 177/77 99 01/06/18 23:42 61 20 189/77 97 01/06/18 23:20 60 22 204/67 97 01/06/18 22:39 60 20 228/98 97 01/06/18 22:20 66 18 182/80 99 01/06/18 22:14 98.9 F 64 18 100 Intake and Output 01/06/18 01/07/18 01/07/18 22:59 06:59 14:59 Intake Total 310 Balance 310 Intake: Blood Product 310 Rc Pheresis 2 As3 Unit 310 [id number] Other: Voiding Method Toilet # Voids 2 Weight 91.626 kg 94.8 kg Results 01/07/18 07:31 01/06/18 22:34 Cardiac Enzymes 0301/06/18 01/07/18 Range/Units 22:34 22:34 07:31 AST 48 H (14-36) U/L CK-MB (CK-2) 0.6 0.5 (0.0-2.4) ng/mL Troponin I <0.012 <0.012 (0.000-0.034) ng/mL Coagulation 01/06/18 Range/Units 22:34 PT 10.2 (9.0-12.0) sec APTT 22.4 (22.0-30.0) sec CBC 01/06/18 01/07/18 Range/Units 22:34 07:31 WBC 2.5 L 2.2 L (3.8-10.6) k/uL RBC 3.04 L 2.94 L (3.80-5.40) m/uL Hgb 8.0 L 7.8 L (11.4-16.0) gm/dL Hct 26.8 L 25.9 L (34.0-46.0) % Plt Count 132 L 109 L (150-450) k/uL Comprehensive Metabolic Panel 01/06/18 Range/Units 22:34 Sodium 143 (137-145) mmol/L Potassium 4.2 (3.5-5.1) mmol/L Chloride 108 H (98-107) mmol/L Carbon Dioxide 25 (22-30) mmol/L BUN 16 (7-17) mg/dL Creatinine 1.10 H (0.52-1.04) mg/dL Glucose 154 H (74-99) mg/dL Calcium 9.3 (8.4-10.2) mg/dL AST 48 H (14-36) U/L ALT 37 (9-52) U/L Alkaline Phosphatase 103 (38-126) U/L Total Protein 7.4 (6.3-8.2) g/dL Albumin 3.8 (3.5-5.0) g/dL Current Medications Generic Name Dose Route Start Last Admin Trade Name Freq PRN Reason Stop Dose Admin Hydrocodone Bitart/Acetaminophen 1 each 01/07/18 00:09 [place] 5-325 PO BID PRN Pain Aminophylline 100 mg 01/07/18 08:36 Aminophylline IV 01/07/18 23:00 ONCE PRN Patient Response Amlodipine Besylate 10 mg 01/07/18 09:00 01/07/18 09:03 Norvasc PO 10 mg DAILY MACIEL Administration Aspirin 81 mg 01/07/18 09:00 01/07/18 09:03 Aspirin PO 81 mg DAILY [facility] Administration Sodium Chloride 1,000 mls @ 20 mls/hr 01/07/18 00:15 01/07/18 02:19 Saline 0.9% IV 20 mls/hr .Q24H MACIEL Administration Insulin Aspart 0 unit 01/07/18 07:30 01/07/18 07:01 Novolog SQ Not Given ACHS [facility] Protocol Metformin HCl 500 mg 01/07/18 07:30 01/07/18 07:01 Glucophage PO Not Given BID-W/MEALS [facility] Metoprolol Tartrate 100 mg 01/07/18 09:00 01/07/18 09:03 Lopressor PO 100 mg BID [facility] Administration Nitroglycerin 0.4 mg 01/07/18 00:07 Nitrostat SUBLINGUAL Q5M PRN Chest Pain Pantoprazole Sodium 40 mg 01/07/18 09:00 01/07/18 09:03 Protonix PO 40 mg DAILY [facility] Administration Intake and Output 01/06/18 01/07/18 01/07/18 22:59 06:59 14:59 Intake Total 310 Balance 310 Intake: Blood Product 310 Rc Pheresis 2 As3 Unit 310 [id number] Other: Voiding Method Toilet # Voids 2 Weight 91.626 kg 94.8 kg 01/07/18 07:31 01/06/18 22:34
[2018-01-07 12:15] LABS: Glucose,Whole Blood 124 mg/dL (75-99)
--- NOTE | 2018-01-07 12:15 | ECHOF ---
Referral Reason:chest pain MEASUREMENTS -------- HEIGHT: 167.6 cm WEIGHT: 94.3 kg BP: IVSd: 2.0 cm (0.6 - 1.1) LVIDd: 4.1 cm (3.9 - 5.3) LVPWd: 1.7 cm (0.6 - 1.1) IVSs: 2.5 cm LVIDs: 2.4 cm LVPWs: 2.4 cm Ao Diam: 3.2 cm (2.0 - 3.7) AV Cusp: 2.1 cm (1.5 - 2.6) LA Diam: 3.7 cm (2.7 - 3.8) MV EXCURSION: 14.577 mm (> 18.000) MV EF SLOPE: 79 mm/s (70 - 150) EPSS: 0.6 cm MV E Nando: 0.84 m/s MV DecT: 408 ms MV A Nando: 0.63 m/s MV E/A Ratio: 1.33 RAP: 5.00 mmHg RVSP: 42.13 mmHg FINDINGS -------- Sinus rhythm with extra systolic beats. This was a technically difficult study with suboptimal views. The left ventricular size is normal. There is severe concentric left ventricular hypertrophy. Ove rall left ventricular systolic function is low-normal with, an EF between 50 - 55 %. Septal wall mo tion is delayed, and consistent with conduction delay/bundle branch block. The right ventricle is normal in size and function. The left atrium is normal in size. The right atrium is normal in size. 1.5mg of Definity was utilized for enhancement of images The aortic valve is trileaflet, and appears structurally normal. No aortic stenosis or regurgitation. The mitral valve leaflets are mildly thickened. Mild mitral regurgitation is present. Mild tricuspid regurgitation present. There is mild pulmonary hypertension. The right ventricular systolic pressure, as measured by Doppler, is 42.13mmHg. Trace/mild (physiologic) pulmonic regurgitation. The aortic root size is normal. Normal inferior vena cava with normal inspiratory collapse consistent with estimated right atrial pre ssure of 5 mmHg. There is a trivial pericardial effusion present. CONCLUSIONS -------- 1. Sinus rhythm with extra systolic beats. 2. This was a technically difficult study with suboptimal views. 3. The left ventricular size is normal. 4. There is severe concentric left ventricular hypertrophy. 5. Septal wall motion is delayed, and consistent with conduction delay/bundle branch block. 6. The right ventricle is normal in size and function. 7. The left atrium is normal in size. 8. The right atrium is normal in size. 9. There is a trivial pericardial effusion present. 10. Lumason used 11. The aortic valve is trileaflet, and appears structurally normal. No aortic stenosis or regurgitat ion. 12. The mitral valve leaflets are mildly thickened. 13. Mild mitral regurgitation is present. 14. Mild tricuspid regurgitation present. 15. There is mild pulmonary hypertension. 16. The right ventricular systolic pressure, as measured by Doppler, is 42.13mmHg. 17. Trace/mild (physiologic) pulmonic regurgitation. 18. The aortic root size is normal. 19. Normal inferior vena cava with normal inspiratory collapse consistent with estimated right atrial pressure of 5 mmHg. PEPPER PICKER: Anuja Cornelius RDCS
[2018-01-07 12:29] LABS: Creatine Kinase 54 U/L (30-135)
[2018-01-07 12:40] LABS: Creatine Kinase MB 0.5 ng/mL (0.0-2.4); Troponin I <0.012 ng/mL (0.000-0.034)
--- NOTE | 2018-01-07 14:40 | P.CRDCN ---
History of Present Illness Consult date: 01/07/18 Requesting physician: Kwan Lyn Consult reason: chest pain Chief complaint: Chest pain History of present illness: This is a history and physical 82-year-old white female who states left substernal chest pressure which is made worse with breathing. No significant nausea but there is supposed some diaphoresis. Patient does have history of coronary artery disease with prior bypass surgery, hypertension, hyperlipidemia , diabetes, prior TIA. She has history of cervical aneurysm that we are following recently but she has been lost to follow-up and last year secondary to financial constraints. The patient states 3-4 day history of worsening chest pressure. Troponins were negative 3. EKG showed a normal sinus rhythm with a left bundle-branch block pattern. Chest x-ray did not reveal any active cardiopulmonary disease. EchoCardiogram with Doppler study was performed which revealed an ejection fraction of 50-55%. Hematoma globin on admission 8.0, 7.8 this morning. White blood cell count 2.2, platelet count 109. Sodium 143, potassium 4.2, BUN 16, creatinine 1.1. Mag level I.9. Blood pressure 168/70 with a heart rate in the 50s to 60s. Temperature 97.4, 94% on 2 L of oxygen. Past Medical History Past Medical History: Coronary Artery Disease (CAD), Chest Pain / Angina, Heart Failure, COPD, CVA/TIA, Diabetes Mellitus, GI Bleed, Hyperlipidemia, Hypertension, Myocardial Infarction (MD) Additional Past Medical History / Comment(s): 04/20/16 possible GI bleed with low Hgb. kdiney stones, parkinsons Last Myocardial Infarction Date:: 1997 History of Any Multi-Drug Resistant Organisms: None Reported Past Surgical History: Coronary Bypass/CABG, Heart Catheterization With Stent, Hysterectomy, Orthopedic Surgery Additional Past Surgical History / Comment(s): CABG 1997. Left total hip replacement, colonoscopy nov 2015, angioplasty left leg. kidney surgery with stone removal. multiple heart stents. Past Anesthesia/Blood Transfusion Reactions: No Reported Reaction Additional Past Anesthesia/Blood Transfusion Reaction / Comment(s): Pt has recieved blood in the past with kidney surgery without reaction. Date of Last Stent Placement:: 04/15/2017 Past Psychological History: No Psychological Hx Reported Additional Psychological History / Comment(s): Pt resides with her spouse and daughter. She uses no assistive device. She is independent. She drives a car. Smoking Status: Former smoker Past Alcohol Use History: None Reported Additional Past Alcohol Use History / Comment(s): Pt started smoking in 1953 and quit in 1993. She had been a 2-3 ppd smoker. Past Drug Use History: None Reported, Prescription Drug Abuse - Past Family History Mother Family Medical History: Cancer Father Additional Family Medical History / Comment(s): aneurysm Medications and Allergies Home Medications Medication Instructions Recorded Confirmed Type Nitroglycerin Sl Tabs [Nitrostat] 0.4 mg SUBLINGUAL Q5M PRN #50 tab 09/10/15 Rx Hydrocodone/Acetaminophen [[place] 1 tab PO BID PRN 04/20/16 01/06/18 History 5-325] Metoprolol Tartrate [Lopressor] 100 mg PO BID 05/02/17 01/06/18 History amLODIPine [Norvasc] 10 mg PO DAILY 05/02/17 01/06/18 History Aspirin EC [Ecotrin] 325 mg PO DAILY 01/06/18 01/06/18 History Esomeprazole Magnesium [NexIUM] 40 mg PO DAILY 01/06/18 01/06/18 History metFORMIN HCL [Glucophage] 500 mg PO BID 01/06/18 01/06/18 History Allergies Allergy/AdvReac Type Severity Reaction Status Date / Time Iodinated Contrast- Oral and Allergy Rash/Hives Verified 01/06/18 22:42 IV Dye [Iodinated Contrast Media - IV Dye] shellfish derived [Shellfish] Allergy Rash/Hives Verified 01/06/18 22:42 Physical Exam Vitals: Vital Signs Temp Pulse Pulse Resp BP BP Pulse Ox 01/07/18 08:00 97.4 F L 58 L 18 168/72 94 L 01/07/18 06:09 98.3 F 56 L 16 180/74 100 01/07/18 04:00 97.6 F 59 L 16 162/74 99 01/07/18 03:59 97.6 F 59 L 16 162/74 99 01/07/18 03:29 97.7 F 62 16 166/71 98 01/07/18 03:19 97.7 F 63 16 147/79 99 01/07/18 02:08 209/119 01/07/18 00:46 97.2 F L 60 18 188/85 98 01/07/18 00:42 59 L 18 168/74 99 01/07/18 00:00 60 18 177/77 99 01/06/18 23:42 61 20 189/77 97 01/06/18 23:20 60 22 204/67 97 01/06/18 22:39 60 20 228/98 97 01/06/18 22:20 66 18 182/80 99 01/06/18 22:14 98.9 F 64 18 100 Intake and Output 01/06/18 01/07/18 01/07/18 22:59 06:59 14:59 Intake Total 310 Balance 310 Intake: Blood Product 310 Rc Pheresis 2 As3 Unit 310 [id number] Other: Voiding Method Toilet # Voids 2 Weight 91.626 kg 94.8 kg PHYSICAL EXAMINATION: HEENT: Head is atraumatic, normocephalic. Pupils equal, round. Neck is supple. There is no elevated jugular venous pressure. HEART EXAMINATION: Heart S1, S2 normal. No murmur or gallop heard. CHEST EXAMINATION: Lungs are clear to auscultation and precussion. No chest wall tenderness is noted on palpation or with deep breathing. ABDOMEN: Soft, nontender. Bowel sounds are heard. No organomegaly noted. EXTREMITIES: 2+ peripheral pulses with no evidence of peripheral edema and no calf tenderness noted. NEUROLOGIC patient is awake, alert and oriented -3. . Results 01/07/18 07:31 01/06/18 22:34 Cardiac Enzymes 01/06/18 01/06/18 01/07/18 Range/Units 22:34 22:34 07:31 AST 48 H (14-36) U/L CK-MB (CK-2) 0.6 0.5 (0.0-2.4) ng/mL Troponin I <0.012 <0.012 (0.000-0.034) ng/mL 01/07/18 Range/Units 11:40 AST (14-36) U/L CK-MB (CK-2) 0.5 (0.0-2.4) ng/mL Troponin I <0.012 (0.000-0.034) ng/mL Coagulation 01/06/18 Range/Units 22:34 PT 10.2 (9.0-12.0) sec APTT 22.4 (22.0-30.0) sec CBC 01/06/18 01/07/18 Range/Units 22:34 07:31 WBC 2.5 L 2.2 L (3.8-10.6) k/uL RBC 3.04 L 2.94 L (3.80-5.40) m/uL Hgb 8.0 L 7.8 L (11.4-16.0) gm/dL Hct 26.8 L 25.9 L (34.0-46.0) % Plt Count 132 L 109 L (150-450) k/uL Comprehensive Metabolic Panel 01/06/18 Range/Units 22:34 Sodium 143 (137-145) mmol/L Potassium 4.2 (3.5-5.1) mmol/L Chloride 108 H (98-107) mmol/L Carbon Dioxide 25 (22-30) mmol/L BUN 16 (7-17) mg/dL Creatinine 1.10 H (0.52-1.04) mg/dL Glucose 154 H (74-99) mg/dL Calcium 9.3 (8.4-10.2) mg/dL AST 48 H (14-36) U/L ALT 37 (9-52) U/L Alkaline Phosphatase 103 (38-126) U/L Total Protein 7.4 (6.3-8.2) g/dL Albumin 3.8 (3.5-5.0) g/dL Current Medications Generic Name Dose Route Start Last Admin Trade Name Freq PRN Reason Stop Dose Admin Hydrocodone Bitart/Acetaminophen 1 each 01/07/18 00:09 [place] 5-325 PO BID PRN Pain Aminophylline 100 mg 01/07/18 08:36 Aminophylline IV 01/07/18 23:00 ONCE PRN Patient Response Amlodipine Besylate 10 mg 01/07/18 09:00 01/07/18 09:03 Norvasc PO 10 mg DAILY MACIEL Administration Aspirin 81 mg 01/07/18 09:00 01/07/18 09:03 Aspirin PO 81 mg DAILY MACIEL Administration Sodium Chloride 1,000 mls @ 20 mls/hr 01/07/18 00:15 01/07/18 02:19 Saline 0.9% IV 20 mls/hr .Q24H MACIEL Administration Insulin Aspart 0 unit 01/07/18 07:30 01/07/18 07:01 Novolog SQ Not Given ACHS MACIEL Protocol Metformin HCl 500 mg 01/07/18 07:30 01/07/18 07:01 Glucophage PO Not Given BID-W/MEALS [facility] Metoprolol Tartrate 100 mg 01/07/18 09:00 01/07/18 09:03 Lopressor PO 100 mg BID MACIEL Administration Nitroglycerin 0.4 mg 01/07/18 00:07 Nitrostat SUBLINGUAL Q5M PRN Chest Pain Pantoprazole Sodium 40 mg 01/07/18 09:00 01/07/18 09:03 Protonix PO 40 mg DAILY MACIEL Administration Intake and Output 01/06/18 01/07/18 01/07/18 22:59 06:59 14:59 Intake Total 310 Balance 310 Intake: Blood Product 310 Rc Pheresis 2 As3 Unit 310 [id number] Other: Voiding Method Toilet # Voids 2 Weight 91.626 kg 94.8 kg 01/07/18 07:31 01/06/18 22:34 EKG Interpretations (text) EKG shows a normal sinus rhythm with a left bundle-branch block pattern. Assessment and Plan Plan: Assessment and plan #1 chest pain, likely exacerbated by severe anemia. Echo shows normal LV function. Troponins negative 3. #2 known history of coronary artery disease with prior bypass surgery #3 diabetes #4 hyperlipidemia #5 prior CVA #6 history of prior GI bleed #7 Parkinson's Plan Echocardiogram with Doppler study was performed which revealed a normal left ventricular systolic function. We will maximize medical therapy including aspirin, statins, and beta blockers for now, avoid invasive therapy at this time. DNP note has been reviewed, I agree with a documented findings and plan of care. Patient was seen and examined.
[2018-01-07 16:54] LABS: Glucose,Whole Blood 123 mg/dL (75-99)
[2018-01-07] MEDS ORDERED: ATORVASTATIN 40 MG TAB PO SCH (21:00)
[2018-01-07 21:44] LABS: Glucose,Whole Blood 124 mg/dL (75-99)
[2018-01-08] MEDS: SODIUM CHLORIDE 0.9% 1,000 ML IV SCH (03:35)
[2018-01-08 05:32] VITALS: RESP 16
[2018-01-08] MEDS: INSULIN ASPART 100 UNIT/ML 1 ML 10 ML VIAL SQ SCH (06:26)
[2018-01-08] MEDS: metFORMIN 500 MG TAB PO SCH (06:30)
[2018-01-08 06:38] LABS: Glucose,Whole Blood 147 mg/dL (75-99)
[2018-01-08 06:49] LABS: Cholesterol 201 mg/dL (<200); HDL Cholesterol 44 mg/dL (40-60); LDL Cholesterol,Calculated 135 mg/dL (0-99); Triglycerides 109 mg/dL (<150)
[2018-01-08 06:52] LABS: Anisocytosis Slight; HGB 8.3 gm/dL (11.4-16.0); Hypochromasia Marked; MCHC 30.8 g/dL (31.0-37.0); MCV 87.7 fL (80.0-100.0); Mean Platelet Volume 9.5; Platelet Count 107 k/uL (150-450); Poikilocytosis Moderate; RBC 3.08 m/uL (3.80-5.40); RDW 16.3 % (11.5-15.5); WBC 2.5 k/uL (3.8-10.6)
--- NOTE | 2018-01-08 07:54 | P.DS ---
Providers Date of admission: 01/07/18 00:07 Attending physician: Kwan Lyn Consults: 01/07/18 00:07 Consult Physician Urgent Consulting Provider: Sravan Velazco Consult Reason/Comments: Chest pain, symptomatic anemia Do you want consulting provider notified?: Yes, Notify in am Primary care physician: Kwan Lyn - Discharge Diagnosis(es) (1) Hypertension Current Visit: Yes Status: Acute (2) Symptomatic anemia Current Visit: Yes Status: Acute (3) Atrial fibrillation Current Visit: No Status: Acute (4) Chest pain Current Visit: No Status: Acute (5) Essential (primary) hypertension Current Visit: No Status: Acute Hospital Course: This is a discharge summary a 82-year-old black female who was admitted for chest pain. Cardiac enzymes are negative. We suspect it is more related to her underlying anemia. He suspect anemia of chronic disease. But she does have an underlying history of CAD. She has had colonoscopy within the last 3 years which is nominal. No significant fever or chills. She is tolerating diet. We will discharged in stable condition to follow-up with me to investigate anemia if necessary. Patient Condition at Discharge: Stable Plan - Discharge Summary Discharge Rx Participant: No New Discharge Prescriptions: New Atorvastatin [Lipitor] 40 mg PO HS #30 tab Continue Nitroglycerin Sl Tabs [Nitrostat] 0.4 mg SUBLINGUAL Q5M PRN #50 tab PRN Reason: Chest Pain Hydrocodone/Acetaminophen [[place] 5-325] 1 tab PO BID PRN PRN Reason: Pain amLODIPine [Norvasc] 10 mg PO DAILY Metoprolol Tartrate [Lopressor] 100 mg PO BID Esomeprazole Magnesium [NexIUM] 40 mg PO DAILY metFORMIN HCL [Glucophage] 500 mg PO BID Aspirin EC [Ecotrin] 325 mg PO DAILY Discharge Medication List Nitroglycerin Sl Tabs [Nitrostat] 0.4 mg SUBLINGUAL Q5M PRN #50 tab 09/10/15 [Rx ] Hydrocodone/Acetaminophen [[place] 5-325] 1 tab PO BID PRN 04/20/16 [History] Metoprolol Tartrate [Lopressor] 100 mg PO BID 05/02/17 [History] amLODIPine [Norvasc] 10 mg PO DAILY 05/02/17 [History] Aspirin EC [Ecotrin] 325 mg PO DAILY 01/06/18 [History] Esomeprazole Magnesium [NexIUM] 40 mg PO DAILY 01/06/18 [History] metFORMIN HCL [Glucophage] 500 mg PO BID 01/06/18 [History] Atorvastatin [Lipitor] 40 mg PO HS #30 tab 01/08/18 [Rx] Follow up Appointment(s)/Referral(s): Kwan Lyn MD [Primary Care Provider] - 1-2 days
[2018-01-08] MEDS ORDERED: ASPIRIN 325 MG TAB PO SCH (09:00)
[2018-01-08] MEDS: METOPROLOL TARTRATE 50 MG TAB PO SCH (09:42)
[2018-01-08] MEDS: PANTOPRAZOLE 40 MG TABLET PO SCH (09:42)
[2018-01-08] MEDS: amLODIPine 10 MG TAB PO SCH (09:42)
[2018-01-08] MEDS: ASPIRIN 81 MG PO SCH (09:42)
[2018-01-08 09:52] VITALS: BP 117/54; PULSE 55; TEMP 98.3
--- NOTE | 2018-01-08 11:31 | P.PN ---
Progress Note - Text Patient is doing well. Pain-free. Hemoglobin 8.0. No evidence for acute pericardial infarction. Suggest maximal medical therapy for CAD and proceed with Lexiscan Cardilate stress test as an outpatient I will see her again thereafter I have emphasized the need for antiplatelet therapy and statins as well as beta blockers Patient admitted with severe hypertension greater than 200 mmHg systolic Echo shows severe LVH Patient is diabetic type II Known CAD status post coronary artery bypass grafting many years back Anemia Noncompliance of medications particularly statins Left bundle branch block pattern LVH, severe Low normal LV systolic function Maximal medical treatment for hypertension him a keep blood pressure consistently below 130/80 mmHg
--- NOTE | 2018-01-08 12:28 | P.PN ---
Subjective Progress Note Date: 01/08/18 This is an 82-year-old white female who presenrts with left substernal chest pressure which is made worse with breathing. No significant nausea but there is supposed some diaphoresis. Patient does have history of coronary artery disease with prior bypass surgery, hypertension, hyperlipidemia, diabetes, prior TIA. She has history of cervical aneurysm that we are following recently but she has been lost to follow-up and last year secondary to financial constraints. The patient states 3-4 day history of worsening chest pressure. Troponins were negative 3. EKG showed a normal sinus rhythm with a left bundle -branch block pattern. Chest x-ray did not reveal any active cardiopulmonary disease. EchoCardiogram with Doppler study was performed which revealed an ejection fraction of 50-55%. Hematomaglobin on admission 8.0, 7.8 this morning. White blood cell count 2.2, platelet count 109. Sodium 143, potassium 4.2, BUN 16, creatinine 1.1. Mag level I.9. Blood pressure 168/70 with a heart rate in the 50s to 60s. Temperature 97.4, 94% on 2 L of oxygen. 01/08/2018 Patient was seen and examined this morning, denies any further chest discomfort. Breathing overall stable. Blood pressure 118/50 with a heart rate in the 50s, temperature 98.3, 96% on room air. Hemoglobin 8.3 this morning, platelet count 107. Arrangements are being made for the patient to be discharged home today. We will make her a follow-up appointment in the office with Dr. Cooper, patient will be scheduled as an outpatient for stress test. DNP note has been reviewed, I agree with a documented findings and plan of care. Patient was seen and examined. Objective - Vital Signs Vital signs: Vital Signs Temp 98.3 F 01/08/18 08:00 Pulse 55 L 01/08/18 08:00 Resp 16 01/08/18 08:00 BP 117/54 01/08/18 08:00 Pulse Ox 96 01/08/18 08:00 Intake & Output 01/07/18 01/08/18 01/08/18 18:59 06:59 18:59 Intake Total 436 480 240 Balance 436 480 240 Weight 94.5 kg Intake: Oral 436 480 240 Other: Voiding Method Toilet # Voids 2 3 2 - Labs CBC & Chem 7: 01/08/18 06:28 01/06/18 22:34 Labs: Abnormal Lab Results - Last 24 Hours (Table) 01/07/18 01/07/18 01/08/18 Range/Units 16:51 21:28 06:19 WBC (3.8-10.6) k/uL RBC (3.80-5.40) m/uL Hgb (11.4-16.0) gm/dL Hct (34.0-46.0) % MCHC (31.0-37.0) g/dL RDW (11.5-15.5) % Plt Count (150-450) k/uL POC Glucose (mg/dL) 123 H 124 H 147 H (75-99) mg/dL Cholesterol (<200) mg/dL LDL Cholesterol, Calc (0-99) mg/dL 01/08/18 01/08/18 Range/Units 06:28 06:28 WBC 2.5 L (3.8-10.6) k/uL RBC 3.08 L (3.80-5.40) m/uL Hgb 8.3 L (11.4-16.0) gm/dL Hct 27.0 L (34.0-46.0) % MCHC 30.8 L (31.0-37.0) g/dL RDW 16.3 H (11.5-15.5) % Plt Count 107 L (150-450) k/uL POC Glucose (mg/dL) (75-99) mg/dL Cholesterol 201 H (<200) mg/dL LDL Cholesterol, Calc 135 H (0-99) mg/dL
== END 2018-01-08 11:35 | disposition home or self-care (01) ==
LOC: EC 22:12 → 6SEL 01-07 00:07 → INTOOBSV 01-07 00:07
PROVIDERS: ADMIT Family Medicine; ATTEND Family Medicine
DX: R07.89 Other chest pain (principal); D64.9 Anemia, unspecified; I11.0 Hypertensive heart disease with heart failure; I50.9 Heart failure, unspecified; I48.91 Unspecified atrial fibrillation; E11.9 Type 2 diabetes mellitus without complications; I25.110 Atherosclerotic heart disease of native coronary artery with unstable angina pectoris; E78.5 Hyperlipidemia, unspecified; J44.9 Chronic obstructive pulmonary disease, unspecified; I44.7 Left bundle-branch block, unspecified; E66.9 Obesity, unspecified; Z68.33 Body mass index [BMI] 33.0-33.9, adult; G20 Parkinson's disease; Z91.14 Patient's other noncompliance with medication regimen; Z95.1 Presence of aortocoronary bypass graft; Z87.891 Personal history of nicotine dependence; Z77.22 Contact with and (suspected) exposure to environmental tobacco smoke (acute) (chronic); I25.2 Old myocardial infarction; Z95.5 Presence of coronary angioplasty implant and graft; Z86.73 Personal history of transient ischemic attack (TIA), and cerebral infarction without residual deficits; Z79.82 Long term (current) use of aspirin; Z79.84 Long term (current) use of oral hypoglycemic drugs; Z79.899 Other long term (current) drug therapy; Z91.041 Radiographic dye allergy status; Z91.013 Allergy to seafood; Z87.19 Personal history of other diseases of the digestive system; Z82.49 Family history of ischemic heart disease and other diseases of the circulatory system; Z80.9 Family history of malignant neoplasm, unspecified
CPT/HCPCS: 99285 ×2; 96374 ×2; 96376; 36415; 93005; 86900; 86901; 83880; 80061; 80053; 82550 ×2; 82553 ×2; 83735; 84484 ×2; 85027 ×3; 85610; 85730; 86850; 86920; 71046; G0378 ×3; C8929; P9016; Q9950; 93306

== ENCOUNTER 2018-04-18 18:45 | Inpatient (IN) | payer MEDICARE ==
[2018-04-18 20:13] LABS: Anisocytosis Moderate; MCHC 32.7 g/dL (31.0-37.0); MCV 100.9 fL (80.0-100.0); Macrocytosis Moderate; Mean Platelet Volume 12.8; RBC 2.09 m/uL (3.80-5.40); RDW 21.2 % (11.5-15.5)
[2018-04-18 20:16] LABS: Albumin 3.7 g/dL (3.5-5.0); Potassium 4.3 mmol/L (3.5-5.1); Total Bilirubin 0.4 mg/dL (0.2-1.3); Total Protein 6.8 g/dL (6.3-8.2)
[2018-04-18 20:19] LABS: Creatine Kinase 55 U/L (30-135); HGB 6.9 gm/dL (11.4-16.0); INR 1.1 (<1.2); Partial Thromboplastin Time 22.5 sec (22.0-30.0); Platelet Count 40 k/uL (150-450); Prothrombin Time 10.6 sec (9.0-12.0); WBC 1.2 k/uL (3.8-10.6)
--- NOTE | 2018-04-18 20:25 | ED ---
General Adult HPI - General Source: patient, family, RN notes reviewed Mode of arrival: wheelchair Limitations: physical limitation <Jt Ackerman - Last Filed: 04/18/18 20:19> <Reymundo Fragoso - Last Filed: 04/18/18 21:53> - General Chief complaint: Weakness Stated complaint: Weakness Time Seen by Provider: 04/18/18 20:10 - History of Present Illness Initial comments: Patient is a pleasant 82-year-old female presenting to the emergency department generalized weakness. Patient states she has not felt well for months. Patient states symptoms are somewhat worse the past several days. Patient does have a history of similar symptoms previously associated with anemia. Unclear why patient has anemia. Patient does feel like her skin looks pale and so does her family member. Patient has dark stools normally secondary to iron pills. No isolated area of weakness. No confusion. No significant injury from frequent falling. No significant pain at this time. (Jt Ackerman) - Related Data Home Medications Medication Instructions Recorded Confirmed Hydrocodone/Acetaminophen [[place] 1 tab PO BID PRN 04/20/16 01/06/18 5-325] Metoprolol Tartrate [Lopressor] 100 mg PO BID 05/02/17 01/06/18 amLODIPine [Norvasc] 10 mg PO DAILY 05/02/17 01/06/18 Aspirin EC [Ecotrin] 325 mg PO DAILY 01/06/18 01/06/18 Esomeprazole Magnesium [NexIUM] 40 mg PO DAILY 01/06/18 01/06/18 metFORMIN HCL [Glucophage] 500 mg PO BID 01/06/18 01/06/18 Previous Rx's Medication Instructions Recorded Nitroglycerin Sl Tabs [Nitrostat] 0.4 mg SUBLINGUAL Q5M PRN #50 tab 09/10/15 Atorvastatin [Lipitor] 40 mg PO HS #30 tab 01/08/18 Allergies Allergy/AdvReac Type Severity Reaction Status Date / Time Iodinated Contrast- Oral and Allergy Rash/Hives Verified 04/18/18 19:18 IV Dye [Iodinated Contrast Media - IV Dye] shellfish derived [Shellfish] Allergy Rash/Hives Verified 04/18/18 19:18 Review of Systems ROS Other: All systems not noted in ROS Statement are negative. Constitutional: Denies: fever Eyes: Denies: eye pain ENT: Denies: ear pain Respiratory: Denies: cough Cardiovascular: Denies: chest pain Endocrine: Reports: fatigue Gastrointestinal: Denies: abdominal pain Genitourinary: Denies: dysuria Musculoskeletal: Denies: back pain Skin: Denies: rash Neurological: Reports: weakness (Generalized). Denies: headache, confusion <Jt Ackerman - Last Filed: 04/18/18 20:19> ROS Other: All systems not noted in ROS Statement are negative. <Reymundo Fragoso - Last Filed: 04/18/18 21:53> ROS Statement: Those systems with pertinent positive or pertinent negative responses have been documented in the HPI. Past Medical History Past Medical History: Coronary Artery Disease (CAD), Chest Pain / Angina, Heart Failure, COPD, CVA/TIA, Diabetes Mellitus, GI Bleed, Hyperlipidemia, Hypertension, Myocardial Infarction ([place]) Additional Past Medical History / Comment(s): 04/20/16 possible GI bleed with low Hgb. kdiney stones, parkinsons Last Myocardial Infarction Date:: 1997 History of Any Multi-Drug Resistant Organisms: None Reported Past Surgical History: Coronary Bypass/CABG, Heart Catheterization With Stent, Hysterectomy, Orthopedic Surgery Additional Past Surgical History / Comment(s): CABG 1997. Left total hip replacement, colonoscopy nov 2015, angioplasty left leg. kidney surgery with stone removal. multiple heart stents. Past Anesthesia/Blood Transfusion Reactions: No Reported Reaction Additional Past Anesthesia/Blood Transfusion Reaction / Comment(s): Pt has recieved blood in the past with kidney surgery without reaction. Date of Last Stent Placement:: 04/15/2017 Past Psychological History: No Psychological Hx Reported Smoking Status: Former smoker Past Alcohol Use History: None Reported Past Drug Use History: None Reported, Prescription Drug Abuse - Past Family History Mother Family Medical History: Cancer Father Additional Family Medical History / Comment(s): aneurysm <Jt Ackerman - Last Filed: 04/18/18 20:19> General Exam Limitations: physical limitation General appearance: alert, in no apparent distress Head exam: Present: atraumatic Eye exam: Present: normal appearance, PERRL ENT exam: Present: normal oropharynx Neck exam: Present: normal inspection Respiratory exam: Present: normal lung sounds bilaterally Cardiovascular Exam: Present: regular rate, normal rhythm GI/Abdominal exam: Present: soft. Absent: distended, tenderness, guarding Extremities exam: Present: normal inspection Back exam: Present: normal inspection Neurological exam: Present: alert, oriented X3, CN II-XII intact. Absent: motor sensory deficit Expanded Neurological exam: Present: protecting the airway Speech: Present: fluid speech Cranial nerves: EOM's Intact: Normal Motor strength exam: RUE: 5, LUE: 5, RLE: 5, LLE: 5 Eye Response: (4) open spontaneously Motor Response: (6) obeys commands Verbal Response: (5) oriented Psychiatric exam: Present: normal affect, normal mood Skin exam: Present: normal color <Jt Ackerman - Last Filed: 04/18/18 20:19> Course <Jt Ackerman - Last Filed: 04/18/18 20:19> <Reymundo Fragoso - Last Filed: 04/18/18 21:53> Vital Signs 04/18/18 04/18/18 04/18/18 19:14 19:55 21:29 Temperature 99.2 F Pulse Rate 66 81 64 Respiratory 15 18 28 H Rate Blood Pressure 157/58 163/85 167/53 O2 Sat by Pulse 99 99 100 Oximetry - Reevaluation(s) Reevaluation #1: 04/18/18 21:52 Patient with persistent weakness, will be transfused here in the emergency room (Reymundo Fragoso) EKG Findings - EKG Comments: EKG Findings:: Normal sinus rhythm 65. PA 154. QRS 156. QT 496. QTC 515. Left axis. Left bundle branch block. Nonspecific ST-T. <Jt Ackerman Last Filed: 04/18/18 20:19> - EKG Comments: EKG Findings:: EKG shows normal sinus rhythm rate of 86, PA 202, QRS 96, QTc 447 <Reymundo Fragoso - Last Filed: 04/18/18 21:53> Medical Decision Making <Jt Ackerman - Last Filed: 04/18/18 20:19> - Lab Data Result diagrams: 04/18/18 19:40 04/18/18 19:40 - Radiology Data Radiology results: report reviewed (CT brain, chest x-ray negative for acute disease), image reviewed <Reymundo Fragoso - Last Filed: 04/18/18 21:53> - Medical Decision Making 82 female the ER positive GI bleed positive anemia. Patient be admitted for blood transfusion, monitoring of hemodynamic state (Reymundo Fragoso) - Lab Data Lab Results 04/18/18 04/18/18 04/18/18 Range/Units 19:40 19:40 19:40 WBC 1.2 L* (3.8-10.6) k/uL RBC 2.09 L (3.80-5.40) m/uL Hgb 6.9 L* (11.4-16.0) gm/dL Hct 21.0 L (34.0-46.0) % MCV 100.9 H (80.0-100.0) fL MCH 33.0 (25.0-35.0) pg MCHC 32.7 (31.0-37.0) g/dL RDW 21.2 H (11.5-15.5) % Plt Count 40 L* (150-450) k/uL Neutrophils % (Manual) 40 % Lymphocytes % (Manual) 50 % Monocytes % (Manual) 4 % Eosinophils % (Manual) 6 % Neutrophils # (Manual) 0.48 L (1.3-7.7) k/uL Lymphocytes # (Manual) 0.60 L (1.0-4.8) k/uL Monocytes # (Manual) 0.05 (0-1.0) k/uL Eosinophils # (Manual) 0.07 (0-0.7) k/uL Nucleated RBCs 0 (0-0) /100 WBC Manual Slide Review Performed Large Platelets Present Anisocytosis Moderate Anisocytosis (manual) Present Macrocytosis Moderate PT (9.0-12.0) sec INR (<1.2) APTT (22.0-30.0) sec Sodium 142 (137-145) mmol/L Potassium 4.3 (3.5-5.1) mmol/L Chloride 109 H (98-107) mmol/L Carbon Dioxide 23 (22-30) mmol/L Anion Gap 10 mmol/L BUN 17 (7-17) mg/dL Creatinine 1.10 H (0.52-1.04) mg/dL Est GFR (CKD-EPI)AfAm 55 (>60 ml/min/1.73 sqM) Est GFR (CKD-EPI)NonAf 48 (>60 ml/min/1.73 sqM) Glucose 91 (74-99) mg/dL Calcium 9.0 (8.4-10.2) mg/dL Total Bilirubin 0.4 (0.2-1.3) mg/dL AST 31 (14-36) U/L ALT 28 (9-52) U/L Alkaline Phosphatase 92 (38-126) U/L Total Creatine Kinase 55 (30-135) U/L CK-MB (CK-2) 0.3 (0.0-2.4) ng/mL CK-MB (CK-2) Rel Index 0.5 Troponin I <0.012 (0.000-0.034) ng/mL NT-Pro-B Natriuret Pep pg/mL Total Protein 6.8 (6.3-8.2) g/dL Albumin 3.7 (3.5-5.0) g/dL Urine Color Urine Appearance (Clear) Urine pH (5.0-8.0) Ur Specific [place] (1.001-1.035) Urine Protein (Negative) Urine Glucose (UA) (Negative) Urine Ketones (Negative) Urine Blood (Negative) Urine Nitrite (Negative) Urine Bilirubin (Negative) Urine Urobilinogen (<2.0) mg/dL Ur Leukocyte Esterase (Negative) Urine RBC (0-5) /hpf Urine WBC (0-5) /hpf Ur Squamous Epith Cells (0-4) /hpf Urine Mucus (None) /hpf 04/18/18 04/18/18 04/18/18 Range/Units 19:40 19:40 21:25 WBC (3.8-10.6) k/uL RBC (3.80-5.40) m/uL Hgb (11.4-16.0) gm/dL Hct (34.0-46.0) % MCV (80.0-100.0) fL MCH (25.0-35.0) pg MCHC (31.0-37.0) g/dL RDW (11.5-15.5) % Plt Count (150-450) k/uL Neutrophils % (Manual) % Lymphocytes % (Manual) % Monocytes % (Manual) % Eosinophils % (Manual) % Neutrophils # (Manual) (1.3-7.7) k/uL Lymphocytes # (Manual) (1.0-4.8) k/uL Monocytes # (Manual) (0-1.0) k/uL Eosinophils # (Manual) (0-0.7) k/uL Nucleated RBCs (0-0) /100 WBC Manual Slide Review Large Platelets Anisocytosis Anisocytosis (manual) Macrocytosis PT 10.6 (9.0-12.0) sec INR 1.1 (<1.2) APTT 22.5 (22.0-30.0) sec Sodium (137-145) mmol/L Potassium (3.5-5.1) mmol/L Chloride (98-107) mmol/L Carbon Dioxide (22-30) mmol/L Anion Gap mmol/L BUN (7-17) mg/dL Creatinine (0.52-1.04) mg/dL Est GFR (CKD-EPI)AfAm (>60 ml/min/1.73 sqM) Est GFR (CKD-EPI)NonAf (>60 ml/min/1.73 sqM) Glucose (74-99) mg/dL Calcium (8.4-10.2) mg/dL Total Bilirubin (0.2-1.3) mg/dL AST (14-36) U/L ALT (9-52) U/L Alkaline Phosphatase (38-126) U/L Total Creatine Kinase (30-135) U/L CK-MB (CK-2) (0.0-2.4) ng/mL CK-MB (CK-2) Rel Index Troponin I (0.000-0.034) ng/mL NT-Pro-B Natriuret Pep 1310 pg/mL Total Protein (6.3-8.2) g/dL Albumin (3.5-5.0) g/dL Urine Color Yellow Urine Appearance Clear (Clear) Urine pH 5.5 (5.0-8.0) Ur Specific [place] 1.013 (1.001-1.035) Urine Protein Trace H (Negative) Urine Glucose (UA) Negative (Negative) Urine Ketones Negative (Negative) Urine Blood Negative (Negative) Urine Nitrite Negative (Negative) Urine Bilirubin Negative (Negative) Urine Urobilinogen <2.0 (<2.0) mg/dL Ur Leukocyte Esterase Trace H (Negative) Urine RBC <1 (0-5) /hpf Urine WBC 3 (0-5) /hpf Ur Squamous Epith Cells 3 (0-4) /hpf Urine Mucus Rare H (None) /hpf Disposition <Jt Ackerman - Last Filed: 04/18/18 20:19> Is patient prescribed a controlled substance at d/c from ED?: No <Reymundo Fragoso - Last Filed: 04/18/18 21:53> Clinical Impression: Symptomatic anemia, Anemia, GI bleed Disposition: ADMITTED IP TO THIS HOSP Condition: Serious Referrals: Kwan Lyn MD [Primary Care Provider] - 1-2 days
[2018-04-18 20:33] LABS: Creatine Kinase MB 0.3 ng/mL (0.0-2.4); Troponin I <0.012 ng/mL (0.000-0.034)
--- NOTE | 2018-04-18 20:37 | XR ---
EXAMINATION TYPE: XR chest 2V DATE OF EXAM: 04/18/2018 COMPARISON: 01/06/2018 INDICATION: Heaviness and left-sided chest TECHNIQUE: Frontal and lateral views of the chest are obtained. FINDINGS: The heart size is normal. The pulmonary vasculature is normal. The lungs are clear. IMPRESSION: 1. No acute pulmonary process.
[2018-04-18 20:50] LABS: Eosinophils # (M) 0.07 k/uL (0-0.7); Monocytes # (M) 0.05 k/uL (0-1.0); Neutrophils # (M) 0.48 k/uL (1.3-7.7); Neutrophils % (M) 40 %; Nucleated Red Blood Cells 0 /100 WBC (0-0); Total Cells Counted 50
[2018-04-18 20:51] LABS: Anisocytosis (M) Present; Large Platelets Present
--- NOTE | 2018-04-18 21:35 | CT ---
EXAMINATION TYPE: CT brain wo con DATE OF EXAM: 04/18/2018 COMPARISON: 04/20/2016 INDICATION: Syncope DLP: 1096.40 mGycm, Automated exposure control for dose reduction was used. CONTRAST: None CT of the brain is performed utilizing 3 mm thick sections through the posterior fossa and 3 mm thick sections through the remaining calvarium. Study is performed within 24 hours of arrival to the hosp [facility]. No abnormal hyperdensity is present to suggest an acute intracranial hemorrhage. No mass lesion is evident. No acute infarcts are evident. Ventricles and sulci are prominent for the patient age. Paranasal sinuses and mastoid air cells within the [id number] are clear. Hyperostosis frontalis internus is present, normal variant. IMPRESSIONS: 1. Age-related atrophy
[2018-04-18 21:50] LABS: Appearance,Urine Clear (Clear); Bilirubin,Urine Negative (Negative); Blood,Urine Negative (Negative); Color,Urine Yellow; Glucose,Urine (UA) Negative (Negative); Ketones,Urine Negative (Negative); Leukocyte Esterase,Urine Trace (Negative); Mucus,Urine Rare /hpf; Nitrite,Urine Negative (Negative); PH, Urine 5.5 (5.0-8.0); Protein,Urine Trace (Negative); RBC,Urine <1 /hpf (0-5); Specific Gravity,Urine 1.013 (1.001-1.035); Squamous Epithelial Cell,Urine 3 /hpf (0-4); Urobilinogen,Urine <2.0 mg/dL (<2.0); WBC,Urine 3 /hpf (0-5)
[2018-04-18] MEDS ORDERED: SODIUM CHLORIDE 0.9% 1,000 ML IV ONE (21:51)
[2018-04-19] MEDS ORDERED: NITROGLYCERIN SL TABS 0.4 MG TAB SUBLINGUAL PRN (08:03)
--- NOTE | 2018-04-19 08:11 | P.HPIM ---
History of Present Illness H&P Date: 04/19/18 Chief Complaint: Progressive weakness. This is a 82-year-old -[place] female admitted for worsening weakness over the last several weeks. She has history of diabetes, hypertension. However, symptomatic anemia was diagnosed in emergency room. She has vague complaints of significant numbness. She is able to give history today but seems significantly weak. She has usually high energy when she sees me. No fever or chills stated. No signs of sepsis stated. Review of Systems Constitutional: Reports fatigue, Reports weakness Eyes: denies blurred vision, denies pain Cardiovascular: Denies chest pain, Denies shortness of breath Respiratory: Denies cough Gastrointestinal: Reports as per HPI Genitourinary: Denies dysuria, Denies hematuria Musculoskeletal: Reports as per HPI Integumentary: Denies pruritus, Denies rash Past Medical History Past Medical History: Coronary Artery Disease (CAD), Chest Pain / Angina, Heart Failure, COPD, CVA/TIA, Diabetes Mellitus, GI Bleed, Hyperlipidemia, Hypertension, Myocardial Infarction ([place]) Additional Past Medical History / Comment(s): 04/20/16 possible GI bleed with low Hgb. kdiney stones, parkinsons Last Myocardial Infarction Date:: 1997 History of Any Multi-Drug Resistant Organisms: None Reported Past Surgical History: Coronary Bypass/CABG, Heart Catheterization With Stent, Hysterectomy, Orthopedic Surgery Additional Past Surgical History / Comment(s): CABG 1997. Left total hip replacement, colonoscopy nov 2015, angioplasty left leg. kidney surgery with stone removal. multiple heart stents. Past Anesthesia/Blood Transfusion Reactions: No Reported Reaction Additional Past Anesthesia/Blood Transfusion Reaction / Comment(s): Pt has recieved blood in the past with kidney surgery without reaction. Date of Last Stent Placement:: 04/15/2017 Past Psychological History: No Psychological Hx Reported Additional Psychological History / Comment(s): Pt resides with her spouse and daughter. She uses no assistive device. She is independent. She drives a car. Smoking Status: Former smoker Past Alcohol Use History: None Reported Additional Past Alcohol Use History / Comment(s): Pt started smoking in 1952 and quit in 1993. She had been a 2-3 ppd smoker. Past Drug Use History: None Reported, Prescription Drug Abuse - Past Family History Mother Family Medical History: Cancer Father Additional Family Medical History / Comment(s): aneurysm Medications and Allergies Home Medications Medication Instructions Recorded Confirmed Type Nitroglycerin Sl Tabs [Nitrostat] 0.4 mg SUBLINGUAL Q5M PRN #50 tab 09/10/15 Rx Hydrocodone/Acetaminophen [[place] 1 tab PO BID PRN 04/20/16 01/06/18 History 5-325] Metoprolol Tartrate [Lopressor] 100 mg PO BID 05/02/17 01/06/18 History amLODIPine [Norvasc] 10 mg PO DAILY 05/02/17 01/06/18 History Aspirin EC [Ecotrin] 325 mg PO DAILY 01/06/18 01/06/18 History Esomeprazole Magnesium [NexIUM] 40 mg PO DAILY 01/06/18 01/06/18 History metFORMIN HCL [Glucophage] 500 mg PO BID 01/06/18 01/06/18 History Atorvastatin [Lipitor] 40 mg PO HS #30 tab 01/08/18 Rx Allergies Allergy/AdvReac Type Severity Reaction Status Date / Time Iodinated Contrast- Oral and Allergy Rash/Hives Verified 04/18/18 19:18 IV Dye [Iodinated Contrast Media - IV Dye] shellfish derived [Shellfish] Allergy Rash/Hives Verified 04/18/18 19:18 Physical Exam Vitals: Vital Signs Temp Pulse Pulse Resp BP BP Pulse Ox 04/19/18 07:10 96 04/19/18 05:12 98.8 F 68 16 121/60 96 04/19/18 00:00 61 18 04/18/18 23:00 98.4 F 61 18 170/74 98 04/18/18 22:23 98.4 F 64 20 04/18/18 22:07 97.4 F L 64 18 99 04/18/18 21:29 64 28 H 167/53 100 04/18/18 19:55 81 18 163/85 99 04/18/18 19:14 99.2 F 66 15 157/58 99 Intake and Output 04/18/18 04/19/18 04/19/18 22:59 06:59 14:59 Intake Total 700 Balance 700 Intake: Intake, IV Titration 700 Amount Sodium Chloride 0.9% 1, 700 000 ml @ 100 mls/hr IV . Q10H ONE Rx#:[id number] Other: Voiding Method Toilet Bedside Commode # Voids 1 Weight 91.626 kg - Constitutional General appearance: no acute distress, obese - EENT Eyes: EOMI - Neck Neck: no lymphadenopathy - Respiratory Respiratory: bilateral: CTA - Cardiovascular Rhythm: regular Heart sounds: normal: S1, S2 Abnormal Heart Sounds: no S3 Gallop - Gastrointestinal General gastrointestinal: soft, no tenderness - Musculoskeletal Musculoskeletal: generalized weakness - Psychiatric Psychiatric: A&O x's 3, intact judgment & insight Results CBC & Chem 7: 04/18/18 19:40 04/18/18 19:40 Labs: Abnormal Lab Results - Last 24 Hours (Table) 04/18/18 04/18/18 04/18/18 Range/Units 19:40 19:40 21:25 WBC 1.2 L* (3.8-10.6) k/uL RBC 2.09 L (3.80-5.40) m/uL Hgb 6.9 L* (11.4-16.0) gm/dL Hct 21.0 L (34.0-46.0) % MCV 100.9 H (80.0-100.0) fL RDW 21.2 H (11.5-15.5) % Plt Count 40 L* (150-450) k/uL Neutrophils # (Manual) 0.48 L (1.3-7.7) k/uL Lymphocytes # (Manual) 0.60 L (1.0-4.8) k/uL Chloride 109 H (98-107) mmol/L Creatinine 1.10 H (0.52-1.04) mg/dL Urine Protein Trace H (Negative) Ur Leukocyte Esterase Trace H (Negative) Urine Mucus Rare H (None) /hpf Crossmatch 04/18/18 04/19/18 Range/Units 23:24 02:03 WBC (3.8-10.6) k/uL RBC (3.80-5.40) m/uL Hgb (11.4-16.0) gm/dL Hct (34.0-46.0) % MCV (80.0-100.0) fL RDW (11.5-15.5) % Plt Count (150-450) k/uL Neutrophils # (Manual) (1.3-7.7) k/uL Lymphocytes # (Manual) (1.0-4.8) k/uL Chloride (98-107) mmol/L Creatinine (0.52-1.04) mg/dL Urine Protein (Negative) Ur Leukocyte Esterase (Negative) Urine Mucus (None) /hpf Crossmatch See Detail See Detail Thrombosis Risk Factor Assmnt - Choose All That Apply Each Risk Factor Represents 3 Points: Age 75 years or older Other congenital or acquired thrombophilia - If yes, enter type in comment: No Thrombosis Risk Factor Assessment Total Risk Factor Score: 3 Thrombosis Risk Factor Assessment Level: Moderate Risk Assessment and Plan (1) GI bleed Current Visit: Yes Status: Acute Code(s): K92.2 - GASTROINTESTINAL HEMORRHAGE, UNSPECIFIED SNOMED Code(s): 20543385 (2) Symptomatic anemia Current Visit: Yes Status: Acute Code(s): D64.9 - ANEMIA, UNSPECIFIED SNOMED Code(s): 943256016 (3) At risk for readmission to hospital Current Visit: No Status: Acute Code(s): Z91.89 - OTH PERSONAL RISK FACTORS , NOT ELSEWHERE CLASSIFIED SNOMED Code(s): 3171741000048 (4) Diabetes Current Visit: No Status: Acute Code(s): E11.9 - TYPE 2 DIABETES MELLITUS WITHOUT COMPLICATIONS SNOMED Code(s): 13458618 (5) Essential (primary) hypertension Current Visit: No Status: Acute Code(s): I10 - ESSENTIAL (PRIMARY) HYPERTENSION SNOMED Code(s): 99440021 (6) Hyperlipidemia Current Visit: No Status: Acute Code(s): E78.5 - HYPERLIPIDEMIA, UNSPECIFIED SNOMED Code(s): 83945950 (7) Hypertension Current Visit: No Status: Acute Code(s): I10 - ESSENTIAL (PRIMARY) HYPERTENSION SNOMED Code(s): 83365665 Plan: Symptomatic anemia most likely requiring transfusion. Check CBC in a.m. per GI consultation is noted. We'll go ahead and check iron studies and indices. Reconcile home medications. Prognosis is guarded. We'll continue to follow. Time with Patient: Greater than 30
[2018-04-19] MEDS: METOPROLOL TARTRATE 50 MG TAB PO SCH ×2 (09:28→20:32)
[2018-04-19] MEDS: amLODIPine 10 MG TAB PO SCH ×3 (09:28→20:33)
[2018-04-19 10:31] LABS: Reticulocyte % 2.8 % (0.5-2.0)
[2018-04-19 11:43] LABS: Glucose,Whole Blood 137 mg/dL (75-99)
[2018-04-19 16:26] LABS: Folate, Serum 8.2 ng/mL
[2018-04-19 17:46] LABS: Glucose,Whole Blood 111 mg/dL (75-99)
[2018-04-19 19:09] LABS: Hemoglobin A1C 6.3 % (4.0-6.0)
--- NOTE | 2018-04-19 19:52 | P.CONS ---
History of Present Illness - Reason for Consult Consult date: 04/19/18 pancytopenia Requesting physician: Kwan Lyn - Chief Complaint anemia, weakness - History of Present Illness Ms. Mortensen is a very pleasant female pt we have been asked to see for progressive pancytopenia. We saw pt in 2016 for anemia, iron deficiency found, pt has had endoscopy-including capsule-with no underlying cause found, she takes oral iron supplement, she also had slightly low WBCs at that time but on work up nothing was identified, she never followed up in the office. Pt states ongoing trouble with anemia, needing blood transfusions, it is causing her to be weak, not able to get around much, denied fevers, sweats, unintentional we loss, autoimmune disease diagnosis or treatment, she has had some intermittent vomiting, loss of appetite, her face gets numb, she states Parkinson's disease, no bleeding to report, her stool is always dark from iron, no other physical c/ o on a 10 point ROS . Review of Systems 10 point ROS as stated in HPI Past Medical History Past Medical History: Coronary Artery Disease (CAD), Chest Pain / Angina, Heart Failure, COPD, CVA/TIA, Diabetes Mellitus, GI Bleed, Hyperlipidemia, Hypertension, Myocardial Infarction ([place]) Additional Past Medical History / Comment(s): 04/20/16 possible GI bleed with low Hgb. kdiney stones, parkinsons Last Myocardial Infarction Date:: 1997 History of Any Multi-Drug Resistant Organisms: None Reported Past Surgical History: Coronary Bypass/CABG, Heart Catheterization With Stent, Hysterectomy, Orthopedic Surgery Additional Past Surgical History / Comment(s): CABG 1997. Left total hip replacement, colonoscopy nov 2015, angioplasty left leg. kidney surgery with stone removal. multiple heart stents. Past Anesthesia/Blood Transfusion Reactions: No Reported Reaction Additional Past Anesthesia/Blood Transfusion Reaction / Comm: Pt has recieved blood in the past with kidney surgery without reaction. Date of Last Stent Placement:: 04/15/2017 Past Psychological History: No Psychological Hx Reported Additional Psychological History / Comment(s): Pt resides with her spouse and daughter. She uses no assistive device. She is independent. She drives a car. Smoking Status: Former smoker Past Alcohol Use History: None Reported Additional Past Alcohol Use History / Comment(s): Pt started smoking in 1953 and quit in 1993. She had been a 2-3 ppd smoker. Past Drug Use History: None Reported, Prescription Drug Abuse - Past Family History Mother Family Medical History: Cancer Father Additional Family Medical History / Comment(s): aneurysm Medications and Allergies Home Medications Medication Instructions Recorded Confirmed Type Nitroglycerin Sl Tabs [Nitrostat] 0.4 mg SUBLINGUAL Q5M PRN #50 tab 09/10/15 Rx Hydrocodone/Acetaminophen [[place] 1 tab PO Q6H PRN 04/20/16 04/19/18 History 5-325] Metoprolol Tartrate [Lopressor] 100 mg PO BID 05/02/17 04/19/18 History amLODIPine [Norvasc] 10 mg PO DAILY 05/02/17 04/19/18 History Aclidinium [place] [Tudorza 1 puff INHALATION RT-BID 04/19/18 04/19/18 History Pressair] Aspirin EC [Ecotrin Low Dose] 81 mg PO DAILY 04/19/18 04/19/18 History Atorvastatin [Lipitor] 80 mg PO HS 04/19/18 04/19/18 History Budesonide-Formot 160-4.5 Mcg 2 puff INHALATION RT-BID 04/19/18 04/19/18 History [Symbicort 160-4.5 Mcg Inhaler] Clopidogrel Bisulfate [Plavix] 75 mg PO DAILY 04/19/18 04/19/18 History Docusate [Colace] 100 mg PO DAILY 04/19/18 04/19/18 History Ferrous Sulfate [Feosol] 325 mg PO TID 04/19/18 04/19/18 History Omeprazole [PriLOSEC] 20 mg PO DAILY 04/19/18 04/19/18 History Primidone [Mysoline] 100 mg PO DAILY 04/19/18 04/19/18 History glipiZIDE [Glucotrol] 5 mg PO AC-BID 04/19/18 04/19/18 History metFORMIN HCL [Glucophage] 1,000 mg PO BID 04/19/18 04/19/18 History Allergies Allergy/AdvReac Type Severity Reaction Status Date / Time Iodinated Contrast- Oral and Allergy Rash/Hives Verified 04/19/18 09:21 IV Dye [Iodinated Contrast Media - IV Dye] shellfish derived [Shellfish] Allergy Rash/Hives Verified 04/19/18 09:21 Physical Exam Vitals: Vital Signs Temp Pulse Pulse Pulse Resp BP BP 04/19/18 16:00 68 69 16 04/19/18 15:16 98.2 F 69 16 151/67 04/19/18 10:44 68 16 04/19/18 07:10 04/19/18 05:12 98.8 F 68 16 121/60 04/19/18 00:00 61 18 04/18/18 23:00 98.4 F 61 18 170/74 04/18/18 22:23 98.4 F 64 20 04/18/18 22:07 97.4 F L 64 18 04/18/18 21:29 64 28 H 167/53 04/18/18 19:55 81 18 163/85 Pulse Ox 04/19/18 16:00 04/19/18 15:16 97 04/19/18 10:44 04/19/18 07:10 96 04/19/18 05:12 96 04/19/18 00:00 04/18/18 23:00 98 04/18/18 22:23 04/18/18 22:07 99 04/18/18 21:29 100 04/18/18 19:55 99 Intake and Output 04/19/18 04/19/18 04/19/18 06:59 14:59 22:59 Intake Total 700 700 Balance 700 700 Intake: Intake, IV Titration 700 700 Amount Sodium Chloride 0.9% 1, 700 700 000 ml @ 100 mls/hr IV . Q10H ONE Rx#:[id number] Other: Voiding Method Toilet Toilet Toilet Bedside Commode Bedside Commode Bedside Commode # Voids 1 Weight 91.626 kg - Constitutional General appearance: cooperative, no acute distress, obese - EENT Eyes: anicteric sclerae, EOMI ENT: normal oropharynx - Neck Neck: no lymphadenopathy - Respiratory Respiratory: bilateral: CTA - Cardiovascular Heart sounds: normal: S1, S2 - Gastrointestinal General gastrointestinal: normal bowel sounds, soft, splenomegaly, tenderness Localized gastrointestinal: tender: LUQ - Integumentary Integumentary: pale - Neurologic Neurologic: CNII-XII intact - Musculoskeletal Musculoskeletal: generalized weakness - Psychiatric Psychiatric: A&O x's 3, appropriate affect, intact judgment & insight Results CBC & Chem 7: 04/18/18 19:40 04/18/18 19:40 Labs: Abnormal Lab Results - Last 24 Hours (Table) 04/18/18 04/18/18 04/18/18 Range/Units 19:40 19:40 21:25 WBC 1.2 L* (3.8-10.6) k/uL RBC 2.09 L (3.80-5.40) m/uL Hgb 6.9 L* (11.4-16.0) gm/dL Hct 21.0 L (34.0-46.0) % MCV 100.9 H (80.0-100.0) fL RDW 21.2 H (11.5-15.5) % Plt Count 40 L* (150-450) k/uL Neutrophils # (Manual) 0.48 L (1.3-7.7) k/uL Lymphocytes # (Manual) 0.60 L (1.0-4.8) k/uL Retic Count (0.5-2.0) % Chloride 109 H (98-107) mmol/L Creatinine 1.10 H (0.52-1.04) mg/dL POC Glucose (mg/dL) (75-99) mg/dL Urine Protein Trace H (Negative) Ur Leukocyte Esterase Trace H (Negative) Urine Mucus Rare H (None) /hpf Crossmatch 04/18/18 04/19/18 04/19/18 Range/Units 23:24 02:03 09:04 WBC (3.8-10.6) k/uL RBC (3.80-5.40) m/uL Hgb (11.4-16.0) gm/dL Hct (34.0-46.0) % MCV (80.0-100.0) fL RDW (11.5-15.5) % Plt Count (150-450) k/uL Neutrophils # (Manual) (1.3-7.7) k/uL Lymphocytes # (Manual) (1.0-4.8) k/uL Retic Count 2.8 H (0.5-2.0) % Chloride (98-107) mmol/L Creatinine (0.52-1.04) mg/dL POC Glucose (mg/dL) (75-99) mg/dL Urine Protein (Negative) Ur Leukocyte Esterase (Negative) Urine Mucus (None) /hpf Crossmatch See Detail See Detail 04/19/18 04/19/18 Range/Units 11:41 17:35 WBC (3.8-10.6) k/uL RBC (3.80-5.40) m/uL Hgb (11.4-16.0) gm/dL Hct (34.0-46.0) % MCV (80.0-100.0) fL RDW (11.5-15.5) % Plt Count (150-450) k/uL Neutrophils # (Manual) (1.3-7.7) k/uL Lymphocytes # (Manual) (1.0-4.8) k/uL Retic Count (0.5-2.0) % Chloride (98-107) mmol/L Creatinine (0.52-1.04) mg/dL POC Glucose (mg/dL) 137 H 111 H (75-99) mg/dL Urine Protein (Negative) Ur Leukocyte Esterase (Negative) Urine Mucus (None) /hpf Crossmatch Microbiology - Last 24 Hours (Table) 04/18/18 21:25 Urine Culture - Preliminary Urine,Voided Chest x-ray: report reviewed CT Scan - head: report reviewed Assessment and Plan (1) Pancytopenia Narrative/Plan: Multiple labs ordered to evaluate for a primary marrow disorder or deficient state, CBC daily. Transfuse to keep Hgb>7 or if symptomatic, no asa,NSAIDs or anticoagulants for plt<50,000, no GCSF yet. Bone marrow biopsoy was mentioned to pt but will wait for peripheral lab results before proceeding. GI consulted, await their recommendations Current Visit: Yes Status: Acute Priority: High Code(s): D61.818 - OTHER PANCYTOPENIA SNOMED Code(s): 083659492 Plan: Doctor attests:I have performed a history and physical exam of this pt, discussed with dictator. I agree with dictated note, documented as a scribe.
[2018-04-19 20:03] LABS: Glucose,Whole Blood 179 mg/dL (75-99)
[2018-04-19] MEDS ORDERED: ATORVASTATIN 40 MG TAB PO SCH (21:00)
--- NOTE | 2018-04-19 21:11 | CONS ---
CONSULTATION DATE OF DICTATION: 04/19/2018 REASON FOR CONSULTATION: Severe symptomatic anemia. HISTORY OF PRESENT ILLNESS: The patient is an 82-year-old pleasant white female admitted to the hospital because of progressive weakness, not feeling well, fatigued, for the last one month's duration. She came into the emergency room and was noted to have severe pancytopenia with a hemoglobin 6.9, WBC of 1.2 and platelets of 40,000. The patient was initially diagnosed with severe symptomatic anemia in June of 2016, at which time she had an upper endoscopy as well as colonoscopy done by Dr. Beasley. Colonoscopy revealed polyp in the hepatic flexure that was removed and sigmoid diverticulosis. Upper endoscopy revealed some gastritis. She subsequently had a small bowel capsule endoscopy in December of 2016 and according to the patient it was within normal limits. Over the last one year she has been transfusion-dependent and receiving transfusions almost every 2 to 3 months. The last transfusion was in December of this year. She is currently scheduled to receive 2 units of RBC transfusion. She denies any abdominal pain. She reports no nausea or vomiting. Denies any rectal bleeding or melena. PAST MEDICAL HISTORY: 1. Hypertension. 2. Hyperlipidemia. 3. Diabetes mellitus. 4. CVA. 5. COPD. 6. Congestive heart failure. 7. Coronary artery disease, status post AK in the past. PAST SURGICAL HISTORY: 1. CABG. 2. Hysterectomy. 3. EGD and colonoscopy in April of 2017. 4. Total left hip replacement. HOME MEDICATIONS: 1. Nitroglycerin. 2. Hydrocodone. 3. Metoprolol. 4. Norvasc. 5. Ecotrin. 6. Nexium. 7. Lipitor. 8. Glucophage. ALLERGIES: IV DYE. SOCIAL HISTORY: No smoking or alcohol use. FAMILY HISTORY: Unremarkable. REVIEW OF SYSTEMS: CARDIOPULMONARY: No chest pain or shortness of breath. GENITOURINARY: No dysuria or hematuria. MUSCULOSKELETAL: Unremarkable. SKIN: Unremarkable. ENT/VISION: Unremarkable. CONSTITUTIONAL: No recent weight loss. No fever, chills, night sweats. PHYSICAL EXAMINATION: She appears comfortable, in no apparent distress. VITAL SIGNS: Stable. Blood pressure is 151/67, temperature 98.2. HEENT EXAMINATION: Unremarkable. Conjunctivae pink. Sclerae anicteric. Oral cavity no lesions. NECK: No JVD or lymph node enlargement. Chest was clear to auscultation. HEART: Regular rate and rhythm. ABDOMEN: Soft. It was nontender, nondistended. Liver and spleen are not palpable. EXTREMITIES: No pedal edema. SKIN: No rashes. NEURO: She is alert and oriented x3. No focal deficits. LABS: WBC 4.2, hemoglobin 6.9, platelets 40,000. PT/INR is within normal limits. Labs in December of 2017 showed hemoglobin 7.8, WBC 2.2 and platelets were 109. CMP is within normal limits. ALT, AST, bilirubin and alkaline phosphatase are within normal limits. IMPRESSION: Patient who presents to the hospital with fatigue, weakness and noted to have severe symptomatic anemia with a hemoglobin of 6.9. She was also noted 1.2 and platelets of 40,000. No history of chronic liver disease. Possibility of bone marrow pathology needs to be considered. She did have extensive GI workup over the last 2 years, including an upper endoscopy as well as colonoscopy by Dr. Beasley in April of 2016, as mentioned above, that showed a polyp and diverticulosis and some gastritis. Small bowel capsule endoscopy done a year ago was unremarkable. RECOMMENDATIONS: 1. I agree with consultation. 2. No need for repeat GI workup at the present time. 3. We will follow her closely. Thank you for this consultation. MMODL / IJN: [id number] /
[2018-04-19] MEDS: HYDROcodone/APAP 5-325MG 1 EACH TAB PO PRN (23:14)
[2018-04-20 07:13] LABS: Glucose,Whole Blood 120 mg/dL (75-99)
[2018-04-20] MEDS: amLODIPine 10 MG TAB PO SCH (07:54)
[2018-04-20] MEDS: METOPROLOL TARTRATE 50 MG TAB PO SCH ×2 (07:55→20:29)
[2018-04-20 08:20] LABS: Albumin 3.1 g/dL (3.5-5.0); Calcium 8.5 mg/dL (8.4-10.2); Potassium 3.8 mmol/L (3.5-5.1); Total Bilirubin 1.5 mg/dL (0.2-1.3); Total Protein 6.1 g/dL (6.3-8.2)
--- NOTE | 2018-04-20 08:24 | US ---
EXAMINATION TYPE: US abdomen complete DATE OF EXAM: 04/19/2018 COMPARISON: CT abdomen pelvis 05/02/2017, abdomen ultrasound 10/14/2013 CLINICAL HISTORY: pancytopenia, evaluate spleen size. Patient states having a low blood count. EXAM MEASUREMENTS: Liver Length: 16.0 cm Gallbladder Wall: 0.2 cm CBD: 0.5 cm CHD: 0.3 cm Spleen: 13.3 cm Right Kidney: 10.5 x 3.7 x 4.5 cm Left Kidney: 10.9 x 4.5 x 4.9 cm Pancreas: Appears echogenic and heterogenous. Tail obscured by overlying bowel gas Liver: Liver is somewhat poorly penetrated by the ultrasound beam. Gallbladder: wnl Evidence for sonographic New's sign: neg CBD: wnl CHD: wnl Spleen: Enlarged Right Kidney: Appears lobular. Mid cystic appearing lesion = 3.4 x 2.5 x 2.6 cm Left Kidney: wnl Upper IVC: wnl Abd Aorta: Distal aorta not visualized. At mid portion, a slight curve is seen. There is no ascites. Kidneys show normal cortical medullary differentiation. IMPRESSION: There are some limitations to the exam. Possible hepatocellular disease, hepatic steatosi s. [place] right cortical cyst again noted, stable. Splenomegaly.
[2018-04-20] MEDS: IPRATROPIUM 0.5 MG/2.5 ML NEBU INHALATION SCH ×4 (08:42→20:34)
[2018-04-20] MEDS: SYMBICORT 160-4.5 MCG INHALER INHALATION SCH ×2 (08:44→20:34)
--- NOTE | 2018-04-20 08:58 | P.PN ---
Subjective Principal diagnosis: Pancytopenia This is a continue proximal on 82-year-old -[place] female who is admitted for significant fatigue with anemia. She is status post 2 units PRBC and feels much better. Appreciate hematology input. No other voiding symptoms. She seems to be resting more comfortably and seems to be more alert this morning than yesterday. Objective - Vital Signs Vital signs: Vital Signs Temp 98.8 F 04/20/18 05:38 Pulse 64 04/20/18 08:45 Resp 16 04/20/18 08:45 BP 130/70 04/20/18 05:38 Pulse Ox 97 04/20/18 05:38 Intake & Output 04/19/18 04/20/18 04/20/18 18:59 06:59 18:59 Intake Total 700 620 Balance 700 620 Weight 91.626 kg Intake: Intake, IV Titration 700 Amount Sodium Chloride 0.9% 1, 700 000 ml @ 100 mls/hr IV . Q10H ONE Rx#:[id number] Blood Product 620 Rc As-1 Unit 310 [id number] Rc Pheresis 2 As3 Unit 310 [id number] Other: Voiding Method Toilet Toilet Toilet Bedside Commode Bedside Commode Bedside Commode # Voids 2 - Constitutional General appearance: Present: obese - EENT Eyes: Absent: abnormal pupil - Respiratory Respiratory: bilateral: CTA - Cardiovascular Rhythm: regular Heart sounds: normal: S1, S2 Abnormal Heart Sounds: Absent: S3 Gallop - Gastrointestinal General gastrointestinal: Present: soft. Absent: tenderness - Psychiatric Psychiatric: Present: A&O x's 3 - Labs CBC & Chem 7: 04/18/18 19:40 04/20/18 07:17 Labs: Abnormal Lab Results - Last 24 Hours (Table) 04/18/18 04/19/18 04/19/18 Range/Units 08:56 02:03 09:04 Retic Count 2.8 H (0.5-2.0) % Chloride (98-107) mmol/L Glucose (74-99) mg/dL POC Glucose (mg/dL) (75-99) mg/dL Hemoglobin A1c 6.3 H (4.0-6.0) % Total Bilirubin (0.2-1.3) mg/dL Total Protein (6.3-8.2) g/dL Albumin (3.5-5.0) g/dL Crossmatch See Detail 04/19/18 04/19/18 04/19/18 Range/Units 11:41 17:35 20:01 Retic Count (0.5-2.0) % Chloride (98-107) mmol/L Glucose (74-99) mg/dL POC Glucose (mg/dL) 137 H 111 H 179 H (75-99) mg/dL Hemoglobin A1c (4.0-6.0) % Total Bilirubin (0.2-1.3) mg/dL Total Protein (6.3-8.2) g/dL Albumin (3.5-5.0) g/dL Crossmatch 04/20/18 04/20/18 Range/Units 07:03 07:17 Retic Count (0.5-2.0) % Chloride 108 H (98-107) mmol/L Glucose 113 H (74-99) mg/dL POC Glucose (mg/dL) 120 H (75-99) mg/dL Hemoglobin A1c (4.0-6.0) % Total Bilirubin 1.5 H (0.2-1.3) mg/dL Total Protein 6.1 L (6.3-8.2) g/dL Albumin 3.1 L (3.5-5.0) g/dL Crossmatch Microbiology - Last 24 Hours (Table) 04/18/18 21:03 Blood Culture - Preliminary Blood No Growth after 24 hours 04/18/18 21:25 Urine Culture - Preliminary Urine,Voided Assessment and Plan (1) GI bleed Current Visit: Yes Status: Acute Code(s): K92.2 - GASTROINTESTINAL HEMORRHAGE, UNSPECIFIED SNOMED Code(s): 31531975 (2) Symptomatic anemia Current Visit: Yes Status: Acute Code(s): D64.9 - ANEMIA, UNSPECIFIED SNOMED Code(s): 030996863 (3) At risk for readmission to hospital Current Visit: Yes Status: Acute Code(s): Z91.89 - OTH PERSONAL RISK FACTORS , NOT ELSEWHERE CLASSIFIED SNOMED Code(s): 6487127748146 (4) Diabetes Current Visit: No Status: Acute Code(s): E11.9 - TYPE 2 DIABETES MELLITUS WITHOUT COMPLICATIONS SNOMED Code(s): 12339506 (5) Essential (primary) hypertension Current Visit: No Status: Acute Code(s): I10 - ESSENTIAL (PRIMARY) HYPERTENSION SNOMED Code(s): 81449189 (6) Hyperlipidemia Current Visit: No Status: Acute Code(s): E78.5 - HYPERLIPIDEMIA, UNSPECIFIED SNOMED Code(s): 51050643 (7) Hypertension Current Visit: No Status: Acute Code(s): I10 - ESSENTIAL (PRIMARY) HYPERTENSION SNOMED Code(s): 81925241 Plan: Continue current regimen of treatment. Check CBC in the a.m. Appreciate hematology input. New pair the patient is improving. We will go ahead and reconcile medications today. See orders otherwise. Time with Patient: Less than 30
[2018-04-20] MEDS: PANTOPRAZOLE 40 MG TABLET PO SCH (09:11)
[2018-04-20 09:12] LABS: Anisocytosis Moderate; HCT 25.8 % (34.0-46.0); MCH 32.4 pg (25.0-35.0); MCHC 33.2 g/dL (31.0-37.0); Macrocytosis Moderate; Mean Platelet Volume 11.6; RBC 2.64 m/uL (3.80-5.40); RDW 22.7 % (11.5-15.5)
[2018-04-20] MEDS: DOCUSATE 100 MG CAP PO SCH (09:12)
[2018-04-20] MEDS: ASPIRIN 81 MG PO SCH (09:12)
[2018-04-20] MEDS: glipiZIDE 5 MG TAB PO SCH (09:12)
[2018-04-20] MEDS: CLOPIDOGREL 75 MG TAB PO SCH (09:12)
[2018-04-20] MEDS: PRIMIDONE 50 MG TAB PO SCH (09:13)
[2018-04-20] MEDS: FERROUS SULFATE 325 MG TAB PO SCH ×3 (09:13→20:30)
[2018-04-20] MEDS: metFORMIN 500 MG TAB PO SCH ×2 (09:14→20:30)
[2018-04-20 09:37] LABS: HGB 8.6 gm/dL (11.4-16.0); MCV 97.5 fL (80.0-100.0); Platelet Count 35 k/uL (150-450)
[2018-04-20 11:43] LABS: Glucose,Whole Blood 94 mg/dL (75-99)
[2018-04-20 14:56] LABS: Albumin 3.16 g/dL (3.80-4.90); Gamma Globulin 1.48 g/dL (0.70-1.50); Protein, Total 6.4 g/dL (6.2-8.2)
[2018-04-20 17:12] LABS: Glucose,Whole Blood 84 mg/dL (75-99)
[2018-04-20] MEDS: ATORVASTATIN 80 MG TAB PO SCH (20:29)
[2018-04-20 20:36] LABS: Glucose,Whole Blood 156 mg/dL (75-99)
[2018-04-21 07:12] LABS: Glucose,Whole Blood 119 mg/dL (75-99)
[2018-04-21] MEDS: IPRATROPIUM 0.5 MG/2.5 ML NEBU INHALATION SCH ×4 (07:20→19:53)
[2018-04-21] MEDS: SYMBICORT 160-4.5 MCG INHALER INHALATION SCH ×2 (07:20→19:53)
[2018-04-21 08:02] LABS: Anisocytosis Moderate; HCT 24.5 % (34.0-46.0); HGB 8.2 gm/dL (11.4-16.0); MCH 32.2 pg (25.0-35.0); MCHC 33.5 g/dL (31.0-37.0); MCV 96.2 fL (80.0-100.0); Macrocytosis Slight; Mean Platelet Volume 13.6; RBC 2.54 m/uL (3.80-5.40); RDW 21.7 % (11.5-15.5)
[2018-04-21 09:28] LABS: Albumin 3.1 g/dL (3.5-5.0); Calcium 8.3 mg/dL (8.4-10.2); Potassium 4.1 mmol/L (3.5-5.1); Total Bilirubin 1.1 mg/dL (0.2-1.3); Total Protein 6.1 g/dL (6.3-8.2)
[2018-04-21 11:05] LABS: Glucose,Whole Blood 50 mg/dL (75-99)
[2018-04-21] MEDS: PANTOPRAZOLE 40 MG TABLET PO SCH (11:06)
[2018-04-21] MEDS: amLODIPine 10 MG TAB PO SCH (11:06)
[2018-04-21] MEDS: glipiZIDE 5 MG TAB PO SCH ×2 (11:06→18:01)
[2018-04-21] MEDS: ASPIRIN 81 MG PO SCH (11:07)
[2018-04-21] MEDS: FERROUS SULFATE 325 MG TAB PO SCH ×3 (11:07→20:45)
[2018-04-21] MEDS: DOCUSATE 100 MG CAP PO SCH (11:07)
[2018-04-21] MEDS: CLOPIDOGREL 75 MG TAB PO SCH (11:07)
[2018-04-21] MEDS: PRIMIDONE 50 MG TAB PO SCH (11:08)
[2018-04-21] MEDS: METOPROLOL TARTRATE 50 MG TAB PO SCH ×2 (11:08→20:44)
[2018-04-21] MEDS: metFORMIN 500 MG TAB PO SCH ×2 (11:08→20:45)
[2018-04-21 11:33] LABS: Glucose,Whole Blood 63 mg/dL (75-99)
[2018-04-21 11:38] LABS: Platelet Count 36 k/uL (150-450)
[2018-04-21 11:56] LABS: Glucose,Whole Blood 93 mg/dL (75-99)
--- NOTE | 2018-04-21 12:56 | P.GSCN ---
History of Present Illness Consult date: 04/21/18 Reason for Consult: Anemia History of present illness: Patient on our service from previous evaluations of anemia. She came to the hospital complaining of fatigue. Was found to be pancytopenic at this time. She was already seen by GI and hematology. They're considering bone marrow biopsy. Patient has had multiple endoscopies in the last few years. She had a small bowel capsule endoscopy last year that was normal. She does not see any rectal bleeding. She does have dark colored stools when she is taking her iron. Review of Systems The patient denies any acute changes in vision or hearing, no dysphagia or odynophagia, no chest pain or shortness of breath, no dysuria or hematuria, no headache, no runny nose, no rectal bleeding, no unexplained weight loss Past Medical History Past Medical History: Coronary Artery Disease (CAD), Chest Pain / Angina, Heart Failure, COPD, CVA/TIA, Diabetes Mellitus, GI Bleed, Hyperlipidemia, Hypertension, Myocardial Infarction ([place]) Additional Past Medical History / Comment(s): 04/20/16 possible GI bleed with low Hgb. kdiney stones, parkinsons Last Myocardial Infarction Date:: 1997 History of Any Multi-Drug Resistant Organisms: None Reported Past Surgical History: Coronary Bypass/CABG, Heart Catheterization With Stent, Hysterectomy, Orthopedic Surgery Additional Past Surgical History / Comment(s): CABG 1997. Left total hip replacement, colonoscopy nov 2015, angioplasty left leg. kidney surgery with stone removal. multiple heart stents. Past Anesthesia/Blood Transfusion Reactions: No Reported Reaction Additional Past Anesthesia/Blood Transfusion Reaction / Comm: Pt has recieved blood in the past with kidney surgery without reaction. Date of Last Stent Placement:: 04/15/2017 Past Psychological History: No Psychological Hx Reported Additional Psychological History / Comment(s): Pt resides with her spouse and daughter. She uses no assistive device. She is independent. She drives a car. Smoking Status: Former smoker Past Alcohol Use History: None Reported Additional Past Alcohol Use History / Comment(s): Pt started smoking in 3 and quit in 1993. She had been a 2-3 ppd smoker. Past Drug Use History: None Reported, Prescription Drug Abuse - Past Family History Mother Family Medical History: Cancer Father Additional Family Medical History / Comment(s): aneurysm Medications and Allergies Home Medications Medication Instructions Recorded Confirmed Type Nitroglycerin Sl Tabs [Nitrostat] 0.4 mg SUBLINGUAL Q5M PRN #50 tab 09/10/15 Rx Hydrocodone/Acetaminophen [[place] 1 tab PO Q6H PRN 04/20/16 04/19/18 History 5-325] Metoprolol Tartrate [Lopressor] 100 mg PO BID 05/02/17 04/19/18 History amLODIPine [Norvasc] 10 mg PO DAILY 05/02/17 04/19/18 History Aclidinium [place] [[place]ud[place]za 1 puff INHALATION RT-BID 04/19/18 04/19/18 History Pressair] Aspirin EC [Ecotrin Low Dose] 81 mg PO DAILY 04/19/18 04/19/18 History Atorvastatin [Lipitor] 80 mg PO HS 04/19/18 04/19/18 History Budesonide-Formot 160-4.5 Mcg 2 puff INHALATION RT-BID 04/19/18 04/19/18 History [Symbicort 160-4.5 Mcg Inhaler] Clopidogrel Bisulfate [Plavix] 75 mg PO DAILY 04/19/18 04/19/18 History Docusate [Colace] 100 mg PO DAILY 04/19/18 04/19/18 History Ferrous Sulfate [Feosol] 325 mg PO TID 04/19/18 04/19/18 History Omeprazole [PriLOSEC] 20 mg PO DAILY 04/19/18 04/19/18 History Primidone [Mysoline] 100 mg PO DAILY 04/19/18 04/19/18 History glipiZIDE [Glucotrol] 5 mg PO AC-BID 04/19/18 04/19/18 History metFORMIN HCL [Glucophage] 1,000 mg PO BID 04/19/18 04/19/18 History Allergies Allergy/AdvReac Type Severity Reaction Status Date / Time Iodinated Contrast- Oral and Allergy Rash/Hives Verified 04/19/18 09:21 IV Dye [Iodinated Contrast Media - IV Dye] shellfish derived [Shellfish] Allergy Rash/Hives Verified 04/19/18 09:21 Surgical - Exam Vital Signs Temp Pulse Resp BP Pulse Ox 99.2 F 66 15 157/58 99 04/18/18 19:14 04/18/18 19:14 04/18/18 19:14 04/18/18 19:14 04/18/18 19:14 Results - Labs 04/21/18 06:35 04/20/18 07:17 Abnormal Lab Results - Last 24 Hours (Table) 04/19/18 04/19/18 04/20/18 Range/Units 02:03 09:04 20:26 WBC (3.8-10.6) k/uL RBC (3.80-5.40) m/uL Hgb (11.4-16.0) gm/dL Hct (34.0-46.0) % RDW (11.5-15.5) % Plt Count (150-450) k/uL POC Glucose (mg/dL) 156 H (75-99) mg/dL Albumin (PEP) 3.16 L (3.80-4.90) g/dL Stool Occult Blood (Negative) Free [place] LC, Quant 5.35 H (0.33-1.94) mg/dL Free [place] LC, Quant 3.75 H (0.57-2.63) mg/dL Crossmatch See Detail 04/21/18 04/21/18 04/21/18 Range/Units 03:10 06:35 07:09 WBC 1.0 L* (3.8-10.6) k/uL RBC 2.54 L (3.80-5.40) m/uL Hgb 8.2 L (11.4-16.0) gm/dL Hct 24.5 L (34.0-46.0) % RDW 21.7 H (11.5-15.5) % Plt Count 36 L* (150-450) k/uL POC Glucose (mg/dL) 119 H (75-99) mg/dL Albumin (PEP) (3.80-4.90) g/dL Stool Occult Blood Positive H (Negative) Free [place] LC, Quant (0.33-1.94) mg/dL Free Lambda LC, Quant (0.57-2.63) mg/dL Crossmatch 04/21/18 04/21/18 Range/Units 10:59 11:14 WBC (3.8-10.6) k/uL RBC (3.80-5.40) m/uL Hgb (11.4-16.0) gm/dL Hct (34.0-46.0) % RDW (11.5-15.5) % Plt Count (150-450) k/uL POC Glucose (mg/dL) 50 L 63 L (75-99) mg/dL Albumin (PEP) (3.80-4.90) g/dL Stool Occult Blood (Negative) Free [place] LC, Quant (0.33-1.94) mg/dL Free Lambda LC, Quant (0.57-2.63) mg/dL Crossmatch Microbiology - Last 24 Hours (Table) 04/18/18 21:03 Blood Culture - Preliminary Blood No Growth after 48 hours 04/18/18 21:25 Urine Culture - Final Urine,Voided Assessment and Plan (1) Anemia Narrative/Plan: Continue diet as tolerated. Agree with plans for bone marrow biopsy. Current Visit: Yes Status: Acute Code(s): D64.9 - ANEMIA, UNSPECIFIED SNOMED Code(s): 857259911
[2018-04-21 17:34] LABS: Glucose,Whole Blood 90 mg/dL (75-99)
[2018-04-21] MEDS: ATORVASTATIN 80 MG TAB PO SCH (20:44)
[2018-04-21 21:06] LABS: Glucose,Whole Blood 212 mg/dL (75-99)
--- NOTE | 2018-04-21 22:13 | P.PN ---
Subjective Principal diagnosis: Pancytopenia Was admitted for pancytopenia. The patient is status post 2 units PRBC and doing much better. Unfortunately, positive stool for occult blood is noted. We will go ahead and consult General surgery for possible colonoscopy. Objective - Vital Signs Vital signs: Vital Signs Temp 97.8 F 04/21/18 21:01 Pulse 78 04/21/18 21:01 Resp 16 04/21/18 21:01 BP 134/86 04/21/18 21:01 Pulse Ox 96 04/21/18 21:01 Intake & Output 04/21/18 04/21/18 04/22/18 06:59 18:59 06:59 Intake Total 150 Balance 150 Intake: Oral 150 Other: Voiding Method Toilet Toilet Bedside Commode Bedside Commode # Voids 1 4 1 # Bowel Movements 1 - Constitutional General appearance: Present: obese - EENT Eyes: Absent: abnormal pupil - Respiratory Respiratory: bilateral: CTA - Cardiovascular Rhythm: regular Heart sounds: normal: S1, S2 Abnormal Heart Sounds: Absent: S3 Gallop - Gastrointestinal General gastrointestinal: Present: soft. Absent: tenderness - Neurologic Neurologic: Present: CNII-XII intact - Labs CBC & Chem 7: 04/21/18 06:35 04/21/18 06:35 Labs: Abnormal Lab Results - Last 24 Hours (Table) 04/21/18 04/21/18 04/21/18 Range/Units 03:10 06:35 06:35 WBC 1.0 L* (3.8-10.6) k/uL RBC 2.54 L (3.80-5.40) m/uL Hgb 8.2 L (11.4-16.0) gm/dL Hct 24.5 L (34.0-46.0) % RDW 21.7 H (11.5-15.5) % Plt Count 36 L* (150-450) k/uL Chloride 108 H (98-107) mmol/L Glucose 115 H (74-99) mg/dL POC Glucose (mg/dL) (75-99) mg/dL Calcium 8.3 L (8.4-10.2) mg/dL Total Protein 6.1 L (6.3-8.2) g/dL Albumin 3.1 L (3.5-5.0) g/dL Stool Occult Blood Positive H (Negative) 04/21/18 04/21/18 04/21/18 Range/Units 07:09 10:59 11:14 WBC (3.8-10.6) k/uL RBC (3.80-5.40) m/uL Hgb (11.4-16.0) gm/dL Hct (34.0-46.0) % RDW (11.5-15.5) % Plt Count (150-450) k/uL Chloride (98-107) mmol/L Glucose (74-99) mg/dL POC Glucose (mg/dL) 119 H 50 L 63 L (75-99) mg/dL Calcium (8.4-10.2) mg/dL Total Protein (6.3-8.2) g/dL Albumin (3.5-5.0) g/dL Stool Occult Blood (Negative) 04/21/18 Range/Units 20:54 WBC (3.8-10.6) k/uL RBC (3.80-5.40) m/uL Hgb (11.4-16.0) gm/dL Hct (34.0-46.0) % RDW (11.5-15.5) % Plt Count (150-450) k/uL Chloride (98-107) mmol/L Glucose (74-99) mg/dL POC Glucose (mg/dL) 212 H (75-99) mg/dL Calcium (8.4-10.2) mg/dL Total Protein (6.3-8.2) g/dL Albumin (3.5-5.0) g/dL Stool Occult Blood (Negative) Microbiology - Last 24 Hours (Table) 04/18/18 21:03 Blood Culture - Preliminary Blood No Growth after 48 hours Assessment and Plan (1) GI bleed Current Visit: Yes Status: Acute Code(s): K92.2 - GASTROINTESTINAL HEMORRHAGE, UNSPECIFIED SNOMED Code(s): 72002654 (2) Symptomatic anemia Current Visit: Yes Status: Acute Code(s): D64.9 - ANEMIA, UNSPECIFIED SNOMED Code(s): 709100712 (3) At risk for readmission to hospital Current Visit: Yes Status: Acute Code(s): Z91.89 - OTH PERSONAL RISK FACTORS , NOT ELSEWHERE CLASSIFIED SNOMED Code(s): 0745937938071 (4) Diabetes Current Visit: No Status: Acute Code(s): E11.9 - TYPE 2 DIABETES MELLITUS WITHOUT COMPLICATIONS SNOMED Code(s): 01529366 (5) Essential (primary) hypertension Current Visit: No Status: Acute Code(s): I10 - ESSENTIAL (PRIMARY) HYPERTENSION SNOMED Code(s): 57008073 (6) Hyperlipidemia Current Visit: No Status: Acute Code(s): E78.5 - HYPERLIPIDEMIA, UNSPECIFIED SNOMED Code(s): 30531108 (7) Hypertension Current Visit: No Status: Acute Code(s): I10 - ESSENTIAL (PRIMARY) HYPERTENSION SNOMED Code(s): 47368291 Plan: CBC and CMP in a.m. Ask general surgery to see the patient for possible colonoscopy. We will continue follow from a medical perspective. I did discuss with the patient of the possibility of having bone marrow biopsy for her pancytopenia. We will continue to follow with hematology also.
[2018-04-22 07:07] LABS: Glucose,Whole Blood 117 mg/dL (75-99)
[2018-04-22 07:31] LABS: Anisocytosis Moderate; HCT 26.6 % (34.0-46.0); HGB 8.9 gm/dL (11.4-16.0); MCH 32.3 pg (25.0-35.0); MCHC 33.3 g/dL (31.0-37.0); MCV 96.9 fL (80.0-100.0); Macrocytosis Slight; Mean Platelet Volume 11.9; RBC 2.75 m/uL (3.80-5.40); RDW 21.4 % (11.5-15.5)
[2018-04-22 07:42] LABS: Platelet Count 40 k/uL (150-450)
[2018-04-22 07:47] LABS: Albumin 3.6 g/dL (3.5-5.0); Potassium 4.4 mmol/L (3.5-5.1); Total Protein 6.7 g/dL (6.3-8.2)
[2018-04-22 07:48] LABS: Calcium 8.9 mg/dL (8.4-10.2)
[2018-04-22] MEDS: IPRATROPIUM 0.5 MG/2.5 ML NEBU INHALATION SCH ×4 (08:35→20:42)
[2018-04-22] MEDS: SYMBICORT 160-4.5 MCG INHALER INHALATION SCH ×2 (08:40→20:42)
[2018-04-22] MEDS: metFORMIN 500 MG TAB PO SCH ×2 (09:47→20:39)
[2018-04-22] MEDS: PRIMIDONE 50 MG TAB PO SCH (09:47)
[2018-04-22] MEDS: FERROUS SULFATE 325 MG TAB PO SCH ×3 (09:48→21:29)
[2018-04-22] MEDS: amLODIPine 10 MG TAB PO SCH (09:48)
[2018-04-22] MEDS: METOPROLOL TARTRATE 50 MG TAB PO SCH ×2 (09:48→21:29)
[2018-04-22] MEDS: PANTOPRAZOLE 40 MG TABLET PO SCH (09:48)
[2018-04-22] MEDS: DOCUSATE 100 MG CAP PO SCH (09:48)
[2018-04-22 10:59] LABS: Glucose,Whole Blood 179 mg/dL (75-99)
--- NOTE | 2018-04-22 12:03 | P.PN ---
<Estefania Biggs M - Last Filed: 04/22/18 11:56> Subjective Progress Note Date: 04/22/18 82-year-old female seen and examined sitting up on the edge of the bed. Patient is being worked up for anemia scheduled tentatively for bone marrow biopsy to be done tomorrow by . Hemoglobin this morning 8.9. White count 1 stool for occult blood positive patient states she had a bowel movement last night is not certain if there was any blood in the stool Objective - Vital Signs Vital signs: Vital Signs Temp 97.9 F 04/22/18 05:55 Pulse 38 L 04/22/18 11:40 Resp 18 04/22/18 08:30 BP 149/67 04/22/18 05:55 Pulse Ox 98 04/22/18 05:55 Intake & Output 04/21/18 04/22/18 04/22/18 18:59 06:59 18:59 Intake Total 240 Balance 240 Weight 82 kg Intake: Oral 240 Other: Voiding Method Toilet Toilet Toilet Bedside Commode Bedside Commode Bedside Commode # Voids 4 1 3 # Bowel Movements 1 - Exam Physical exam 82-year-old female sitting up on the edge of the bed no new events denies shortness of breath chest pain dizziness or lightheadedness alert oriented 3 Lungs adequate air movement bilaterally Heart S1-S2 audible regular Abdomen soft nondistended nontender no nausea no vomiting Extremities no pedal edema - Labs CBC & Chem 7: 04/22/18 07:10 04/22/18 07:10 Labs: Abnormal Lab Results - Last 24 Hours (Table) 04/21/18 04/21/18 04/21/18 Range/Units 03:10 06:35 20:54 WBC (3.8-10.6) k/uL RBC (3.80-5.40) m/uL Hgb (11.4-16.0) gm/dL Hct (34.0-46.0) % RDW (11.5-15.5) % Plt Count (150-450) k/uL Chloride 108 H (98-107) mmol/L Glucose 115 H (74-99) mg/dL POC Glucose (mg/dL) 212 H (75-99) mg/dL Calcium 8.3 L (8.4-10.2) mg/dL Total Protein 6.1 L (6.3-8.2) g/dL Albumin 3.1 L (3.5-5.0) g/dL Stool Occult Blood Positive H (Negative) 04/22/18 04/22/18 04/22/18 Range/Units 07:05 07:10 07:10 WBC 1.0 L* (3.8-10.6) k/uL RBC 2.75 L (3.80-5.40) m/uL Hgb 8.9 L (11.4-16.0) gm/dL Hct 26.6 L (34.0-46.0) % RDW 21.4 H (11.5-15.5) % Plt Count 40 L* (150-450) k/uL Chloride (98-107) mmol/L Glucose 112 H (74-99) mg/dL POC Glucose (mg/dL) 117 H (75-99) mg/dL Calcium (8.4-10.2) mg/dL Total Protein (6.3-8.2) g/dL Albumin (3.5-5.0) g/dL Stool Occult Blood (Negative) 04/22/18 Range/Units 10:56 WBC (3.8-10.6) k/uL RBC (3.80-5.40) m/uL Hgb (11.4-16.0) gm/dL Hct (34.0-46.0) % RDW (11.5-15.5) % Plt Count (150-450) k/uL Chloride (98-107) mmol/L Glucose (74-99) mg/dL POC Glucose (mg/dL) 179 H (75-99) mg/dL Calcium (8.4-10.2) mg/dL Total Protein (6.3-8.2) g/dL Albumin (3.5-5.0) g/dL Stool Occult Blood (Negative) Microbiology - Last 24 Hours (Table) 04/18/18 21:03 Blood Culture - Preliminary Blood No Growth after 72 hours Assessment and Plan Assessment: Impression Severe symptomatic anemia Pancytopenia Small bowel capsule endoscopy done 2016 normal Plan Agree with the plans for bone marrow biopsy to be done tomorrow tentatively scheduled Will follow with you Diet as tolerated The above impression and plan of care have been discussed and directed by signing physician. Estefania Kalyan nurse practitioner acting as scribe for signing physician. <Haider Beasley - Last Filed: 04/22/18 17:20> Objective - Vital Signs Vital signs: Vital Signs Temp 98.3 F 04/22/18 14:13 Pulse 64 04/22/18 16:06 Resp 16 04/22/18 15:56 BP 155/68 04/22/18 14:13 Pulse Ox 99 04/22/18 14:13 Intake & Output 04/21/18 04/22/18 04/22/18 18:59 06:59 18:59 Intake Total 240 Balance 240 Weight 82 kg Intake: Oral 240 Other: Voiding Method Toilet Toilet Toilet Bedside Commode Bedside Commode Bedside Commode # Voids 4 1 3 # Bowel Movements 1 - Labs CBC & Chem 7: 04/22/18 07:10 04/22/18 07:10 Labs: Abnormal Lab Results - Last 24 Hours (Table) 04/18/18 04/21/18 04/22/18 Range/Units 23:24 20:54 07:05 WBC (3.8-10.6) k/uL RBC (3.80-5.40) m/uL Hgb (11.4-16.0) gm/dL Hct (34.0-46.0) % RDW (11.5-15.5) % Plt Count (150-450) k/uL Glucose (74-99) mg/dL POC Glucose (mg/dL) 212 H 117 H (75-99) mg/dL Crossmatch See Detail 04/22/18 04/22/18 04/22/18 Range/Units 07:10 07:10 10:56 WBC 1.0 L* (3.8-10.6) k/uL RBC 2.75 L (3.80-5.40) m/uL Hgb 8.9 L (11.4-16.0) gm/dL Hct 26.6 L (34.0-46.0) % RDW 21.4 H (11.5-15.5) % Plt Count 40 L* (150-450) k/uL Glucose 112 H (74-99) mg/dL POC Glucose (mg/dL) 179 H (75-99) mg/dL Crossmatch 04/22/18 Range/Units 17:03 WBC (3.8-10.6) k/uL RBC (3.80-5.40) m/uL Hgb (11.4-16.0) gm/dL Hct (34.0-46.0) % RDW (11.5-15.5) % Plt Count (150-450) k/uL Glucose (74-99) mg/dL POC Glucose (mg/dL) 106 H (75-99) mg/dL Crossmatch Microbiology - Last 24 Hours (Table) 04/18/18 21:03 Blood Culture - Preliminary Blood No Growth after 72 hours Assessment and Plan Assessment: As above. Patient asymptomatic currently. Tolerating diet. Scheduled for bone marrow biopsy tomorrow. Await those findings. We'll sign off at this point. Patient can follow-up with myself or GI if oncology recommends repeat endoscopy. (1) Anemia Current Visit: Yes Status: Acute Code(s): D64.9 - ANEMIA, UNSPECIFIED SNOMED Code(s): 366589138
--- NOTE | 2018-04-22 13:49 | P.PN ---
Subjective Progress Note Date: 04/22/18 Principal diagnosis: pancytopenia, severe anemia requiring transfusion Pt seen in f/u, she is doing ok, no fevers, nausea, CLARI, she is SOB with exertion but recovers, no diarrhea, constipation, bleeding or acute pain. Objective - Vital Signs Vital signs: Vital Signs Temp 97.9 F 04/22/18 05:55 Pulse 38 L 04/22/18 11:40 Resp 18 04/22/18 08:30 BP 149/67 04/22/18 05:55 Pulse Ox 98 04/22/18 05:55 Intake & Output 04/21/18 04/22/18 04/22/18 18:59 06:59 18:59 Intake Total 240 Balance 240 Weight 82 kg Intake: Oral 240 Other: Voiding Method Toilet Toilet Toilet Bedside Commode Bedside Commode Bedside Commode # Voids 4 1 3 # Bowel Movements 1 - Exam WD, overwieght, sitting at bedside, NAD, able to position self and move slowly, independently - Labs CBC & Chem 7: 04/22/18 07:10 04/22/18 07:10 Labs: Abnormal Lab Results - Last 24 Hours (Table) 04/18/18 04/21/18 04/21/18 Range/Units 23:24 06:35 20:54 WBC (3.8-10.6) k/uL RBC (3.80-5.40) m/uL Hgb (11.4-16.0) gm/dL Hct (34.0-46.0) % RDW (11.5-15.5) % Plt Count (150-450) k/uL Chloride 108 H (98-107) mmol/L Glucose 115 H (74-99) mg/dL POC Glucose (mg/dL) 212 H (75-99) mg/dL Calcium 8.3 L (8.4-10.2) mg/dL Total Protein 6.1 L (6.3-8.2) g/dL Albumin 3.1 L (3.5-5.0) g/dL Crossmatch See Detail 04/22/18 04/22/18 04/22/18 Range/Units 07:05 07:10 07:10 WBC 1.0 L* (3.8-10.6) k/uL RBC 2.75 L (3.80-5.40) m/uL Hgb 8.9 L (11.4-16.0) gm/dL Hct 26.6 L (34.0-46.0) % RDW 21.4 H (11.5-15.5) % Plt Count 40 L* (150-450) k/uL Chloride (98-107) mmol/L Glucose 112 H (74-99) mg/dL POC Glucose (mg/dL) 117 H (75-99) mg/dL Calcium (8.4-10.2) mg/dL Total Protein (6.3-8.2) g/dL Albumin (3.5-5.0) g/dL Crossmatch 04/22/18 Range/Units 10:56 WBC (3.8-10.6) k/uL RBC (3.80-5.40) m/uL Hgb (11.4-16.0) gm/dL Hct (34.0-46.0) % RDW (11.5-15.5) % Plt Count (150-450) k/uL Chloride (98-107) mmol/L Glucose (74-99) mg/dL POC Glucose (mg/dL) 179 H (75-99) mg/dL Calcium (8.4-10.2) mg/dL Total Protein (6.3-8.2) g/dL Albumin (3.5-5.0) g/dL Crossmatch Microbiology - Last 24 Hours (Table) 04/18/18 21:03 Blood Culture - Preliminary Blood No Growth after 72 hours Assessment and Plan (1) Pancytopenia Narrative/Plan: Labs today reviewed by Dr. Gonzalez. No transfusions today. Discussed with pt that there is no evidence of deficiency state or paraproteinemia to explain pancytopenia. Reviewed US of abd finding which showed some liver scarring and mild/moderate splenomegaly that can cause anemia and thrombocytopenia but, recommendation is for bone marrow biopsy and aspirate. It is felt that this is more likely the underlying cause. Dr. Gonzalez reviewed procedure and risks of procedure. Pt had spoken with her family previously and is willing to proceed. Suite requested, NPO after midnight, procedure consent to be obtained. Current Visit: Yes Status: Acute Priority: High Code(s): D61.818 - OTHER PANCYTOPENIA SNOMED Code(s): 314852743 Plan: Doctor attests:I have performed a history and physical exam of this pt, discussed with dictator. I agree with dictated note, documented as a scribe.
--- NOTE | 2018-04-22 15:27 | P.PN ---
Subjective Principal diagnosis: Pancytopenia This is a continuing progress note on 82-year-old black female essentially admitted for anemia and pancytopenia. She had positive guaiac stool, and general surgery was consulted for possible colonoscopy. They are agreeable for bone marrow biopsy to get to the root cause of her anemia/pancytopenia. After 2 units PRBC, she is feeling much better. Objective - Vital Signs Vital signs: Vital Signs Temp 98.3 F 04/22/18 14:13 Pulse 61 04/22/18 14:17 Resp 18 04/22/18 14:17 BP 155/68 04/22/18 14:13 Pulse Ox 99 04/22/18 14:13 Intake & Output 04/21/18 04/22/18 04/22/18 18:59 06:59 18:59 Intake Total 240 Balance 240 Weight 82 kg Intake: Oral 240 Other: Voiding Method Toilet Toilet Toilet Bedside Commode Bedside Commode Bedside Commode # Voids 4 1 3 # Bowel Movements 1 - Constitutional General appearance: Present: obese - EENT Eyes: Absent: abnormal pupil - Neck Neck: Present: lymphadenopathy - Respiratory Respiratory: bilateral: CTA - Cardiovascular Rhythm: regular Heart sounds: normal: S1, S2 Abnormal Heart Sounds: Absent: S3 Gallop - Gastrointestinal General gastrointestinal: Present: soft. Absent: tenderness - Neurologic Neurologic: Present: CNII-XII intact - Musculoskeletal Musculoskeletal: Present: generalized weakness - Labs CBC & Chem 7: 04/22/18 07:10 04/22/18 07:10 Labs: Abnormal Lab Results - Last 24 Hours (Table) 04/18/18 04/21/18 04/22/18 Range/Units 23:24 20:54 07:05 WBC (3.8-10.6) k/uL RBC (3.80-5.40) m/uL Hgb (11.4-16.0) gm/dL Hct (34.0-46.0) % RDW (11.5-15.5) % Plt Count (150-450) k/uL Glucose (74-99) mg/dL POC Glucose (mg/dL) 212 H 117 H (75-99) mg/dL Crossmatch See Detail 04/22/18 04/22/18 04/22/18 Range/Units 07:10 07:10 10:56 WBC 1.0 L* (3.8-10.6) k/uL RBC 2.75 L (3.80-5.40) m/uL Hgb 8.9 L (11.4-16.0) gm/dL Hct 26.6 L (34.0-46.0) % RDW 21.4 H (11.5-15.5) % Plt Count 40 L* (150-450) k/uL Glucose 112 H (74-99) mg/dL POC Glucose (mg/dL) 179 H (75-99) mg/dL Crossmatch Microbiology - Last 24 Hours (Table) 04/18/18 21:03 Blood Culture - Preliminary Blood No Growth after 72 hours Assessment and Plan (1) GI bleed Current Visit: Yes Status: Acute Code(s): K92.2 - GASTROINTESTINAL HEMORRHAGE, UNSPECIFIED SNOMED Code(s): 07953772 (2) Symptomatic anemia Current Visit: Yes Status: Acute Code(s): D64.9 - ANEMIA, UNSPECIFIED SNOMED Code(s): 012209339 (3) At risk for readmission to hospital Current Visit: Yes Status: Acute Code(s): Z91.89 - OTH PERSONAL RISK FACTORS , NOT ELSEWHERE CLASSIFIED SNOMED Code(s): 5133358692196 (4) Diabetes Current Visit: No Status: Acute Code(s): E11.9 - TYPE 2 DIABETES MELLITUS WITHOUT COMPLICATIONS SNOMED Code(s): 28756613 (5) Essential (primary) hypertension Current Visit: No Status: Acute Code(s): I10 - ESSENTIAL (PRIMARY) HYPERTENSION SNOMED Code(s): 48138161 (6) Hyperlipidemia Current Visit: No Status: Acute Code(s): E78.5 - HYPERLIPIDEMIA, UNSPECIFIED SNOMED Code(s): 77076845 (7) Hypertension Current Visit: No Status: Acute Code(s): I10 - ESSENTIAL (PRIMARY) HYPERTENSION SNOMED Code(s): 03367306 Plan: Await bone marrow biopsyFrom hematology. Anticipate discharge in next 24-48 hours if stable blood counts. Appreciate surgery input. Check CBC in a.m.
[2018-04-22 17:06] LABS: Glucose,Whole Blood 106 mg/dL (75-99)
[2018-04-22 20:25] LABS: Glucose,Whole Blood 107 mg/dL (75-99)
[2018-04-22] MEDS: HYDROcodone/APAP 5-325MG 1 EACH TAB PO PRN (20:39)
[2018-04-22] MEDS: ATORVASTATIN 80 MG TAB PO SCH (20:40)
[2018-04-23 07:06] LABS: Glucose,Whole Blood 95 mg/dL (75-99)
[2018-04-23] MEDS: SYMBICORT 160-4.5 MCG INHALER INHALATION SCH ×2 (07:12→20:04)
[2018-04-23] MEDS: IPRATROPIUM 0.5 MG/2.5 ML NEBU INHALATION SCH ×4 (07:12→20:05)
[2018-04-23] MEDS: FERROUS SULFATE 325 MG TAB PO SCH ×3 (08:15→22:15)
[2018-04-23] MEDS: metFORMIN 500 MG TAB PO SCH ×2 (08:15→22:15)
[2018-04-23] MEDS: DOCUSATE 100 MG CAP PO SCH (08:15)
[2018-04-23] MEDS: PANTOPRAZOLE 40 MG TABLET PO SCH (08:15)
[2018-04-23] MEDS: amLODIPine 10 MG TAB PO SCH (08:15)
[2018-04-23] MEDS: PRIMIDONE 50 MG TAB PO SCH (08:15)
[2018-04-23] MEDS: METOPROLOL TARTRATE 50 MG TAB PO SCH ×2 (08:16→22:15)
[2018-04-23 11:50] VITALS: BMI 29.5
[2018-04-23 12:07] LABS: Glucose,Whole Blood 96 mg/dL (75-99)
[2018-04-23] MEDS ORDERED: LIDOCAINE 1% INJ 10MG/ML (20 ML MDV) ONE (12:27)
[2018-04-23] MEDS ORDERED: PROPOFOL 10 MG/ML 20 ML VIAL IV ONE (12:27)
[2018-04-23] MEDS ORDERED: fentaNYL (PF) 50 MCG/ML 2 ML AMP ONE (12:27)
[2018-04-23] MEDS ORDERED: LACTATED RINGERS 1,000 ML IV ONE (12:30)
--- NOTE | 2018-04-23 12:53 | P.PCN ---
Date of Procedure: 04/23/18 Preoperative Diagnosis: Pancytopenia Postoperative Diagnosis: Pancytopenia Procedure(s) Performed: Bone marrow aspiration biopsy Anesthesia: MAC Surgeon: Yuan Gonzalez Logging Crew Supervisor #1: Stated None Logging Crew Supervisor #2: Stated None Estimated Blood Loss (ml): 2 Pathology: other (Bone marrow aspirate and bone marrow biopsy sent for pathology ) Condition: stable Disposition: floor Indications for Procedure: New onset pancytopenia. Lab workup negative Operative Findings: Adequate samples Description of Procedure: The procedure was explained in detail to the patient on the floor. Informed consent was obtained on the fourth. She was brought to the outpatient endoscopy suite where new IV access was obtained. He was placed in the left lateral decubitus position. The area over both posterior iliac crest was cleaned and prepped with chlorhexidine and sterile draping. IV sedation was then initiated. Local anesthesia was administered with 1% lidocaine to the right posterior iliac crest. A Jamshidi needle was then inserted and bone marrow aspirate and biopsy obtained. On withdrawal of the needle hemostasis was easily achieved. Blood loss was minimal and recovery from sedation was satisfactory. She appeared to have tolerated the procedure well without any obvious immediate complications.
[2018-04-23] MEDS: HYDROcodone/APAP 5-325MG 1 EACH TAB PO PRN (13:38)
--- NOTE | 2018-04-23 15:52 | P.PN ---
Subjective Progress Note Date: 04/23/18 Patient is complaining of some increase in back pain. She has persistent fatigue. She denies any fever, chills, nausea or vomiting. She is status post bone marrow aspiration biopsy today. Objective - Vital Signs Vital signs: Vital Signs Temp 98.1 F 04/23/18 13:30 Pulse 55 L 04/23/18 13:45 Resp 16 04/23/18 13:45 BP 166/71 04/23/18 13:45 Pulse Ox 96 04/23/18 13:45 Intake & Output 04/22/18 04/23/18 04/23/18 18:59 06:59 18:59 Intake Total 240 100 Balance 240 100 Weight 83 kg 83 kg Intake: IV 100 Oral 240 Other: Voiding Method Toilet Toilet Toilet Bedside Commode # Voids 3 2 - Constitutional General appearance: Present: no acute distress - EENT Eyes: Present: EOMI ENT: Present: hearing grossly normal, normal oropharynx - Respiratory Respiratory: bilateral: CTA - Cardiovascular Rhythm: regular Heart sounds: normal: S1, S2 - Gastrointestinal General gastrointestinal: Present: normal bowel sounds, soft - Integumentary Integumentary: Present: normal - Neurologic Neurologic: Present: CNII-XII intact - Musculoskeletal Musculoskeletal: Present: generalized weakness, strength equal bilaterally - Psychiatric Psychiatric: Present: A&O x's 3, appropriate affect - Labs CBC & Chem 7: 04/22/18 07:10 04/22/18 07:10 Labs: Abnormal Lab Results - Last 24 Hours (Table) 04/22/18 04/22/18 Range/Units 17:03 20:23 POC Glucose (mg/dL) 106 H 107 H (75-99) mg/dL Microbiology - Last 24 Hours (Table) 04/18/18 21:03 Blood Culture - Preliminary Blood No Growth after 96 hours Assessment and Plan (1) Pancytopenia Narrative/Plan: The patient's lab work was negative. As noted, she was noted to have a nodular appearance to the liver and splenomegaly. However her degree of cytopenias were felt to be too severe to be attributed to the same. Therefore the patient had a bone marrow aspiration biopsy today. She appears to have tolerated the procedure well. She will follow-up in the office in about 2 weeks for discussion of results. Her hemoglobin has improved since transfusion, and has been stable in a safe range (8-9). Platelets are also stable in the safe range, that is about 30-40. White counts remain low at 1000, without evidence of infection or fever. Repeat counts in the a.m. If they remain stable, the patient can potentially be discharged home from our standpoint. I would recommend a repeat CBC next week with repeat transfusion as needed Current Visit: Yes Status: Acute Priority: High Code(s): D61.818 - OTHER PANCYTOPENIA SNOMED Code(s): 030226364 Plan: Defer to the admitting service for management of her multiple other medical problems.
[2018-04-23 17:15] LABS: Glucose,Whole Blood 112 mg/dL (75-99)
[2018-04-23 20:53] LABS: Glucose,Whole Blood 156 mg/dL (75-99)
[2018-04-23] MEDS: ATORVASTATIN 80 MG TAB PO SCH (22:15)
--- NOTE | 2018-04-23 22:45 | P.PN ---
Subjective Principal diagnosis: Pancytopenia The patient is essentially here for pancytopenia. She's had 2 units PRBC and is scheduled for bone marrow biopsy today. Objective - Vital Signs Vital signs: Vital Signs Temp 98.0 F 04/23/18 05:00 Pulse 72 04/23/18 07:22 Resp 16 04/23/18 05:00 BP 120/60 04/23/18 05:00 Pulse Ox 97 04/23/18 05:00 Intake & Output 04/22/18 04/23/18 04/23/18 18:59 06:59 18:59 Intake Total 240 Balance 240 Weight 83 kg Intake: Oral 240 Other: Voiding Method Toilet Toilet Toilet Bedside Commode # Voids 3 2 - Constitutional General appearance: Present: obese - EENT Eyes: Absent: abnormal pupil - Neck Neck: Absent: lymphadenopathy - Respiratory Respiratory: bilateral: CTA - Cardiovascular Rhythm: regular Heart sounds: normal: S1, S2 Abnormal Heart Sounds: Absent: S3 Gallop - Gastrointestinal General gastrointestinal: Present: soft. Absent: tenderness - Neurologic Neurologic: Present: CNII-XII intact - Labs CBC & Chem 7: 04/22/18 07:10 04/22/18 07:10 Labs: Abnormal Lab Results - Last 24 Hours (Table) 04/18/18 04/22/18 04/22/18 Range/Units 23:24 10:56 17:03 POC Glucose (mg/dL) 179 H 106 H (75-99) mg/dL Crossmatch See Detail 04/22/18 Range/Units 20:23 POC Glucose (mg/dL) 107 H (75-99) mg/dL Crossmatch Microbiology - Last 24 Hours (Table) 04/18/18 21:03 Blood Culture - Preliminary Blood No Growth after 96 hours Assessment and Plan (1) GI bleed Current Visit: Yes Status: Acute Code(s): K92.2 - GASTROINTESTINAL HEMORRHAGE, UNSPECIFIED SNOMED Code(s): 79915910 (2) Symptomatic anemia Current Visit: Yes Status: Acute Code(s): D64.9 - ANEMIA, UNSPECIFIED SNOMED Code(s): 297246944 (3) At risk for readmission to hospital Current Visit: Yes Status: Acute Code(s): Z91.89 - OTH PERSONAL RISK FACTORS , NOT ELSEWHERE CLASSIFIED SNOMED Code(s): 8426414216483 (4) Diabetes Current Visit: No Status: Acute Code(s): E11.9 - TYPE 2 DIABETES MELLITUS WITHOUT COMPLICATIONS SNOMED Code(s): 69925867 (5) Essential (primary) hypertension Current Visit: No Status: Acute Code(s): I10 - ESSENTIAL (PRIMARY) HYPERTENSION SNOMED Code(s): 98049747 (6) Hyperlipidemia Current Visit: No Status: Acute Code(s): E78.5 - HYPERLIPIDEMIA, UNSPECIFIED SNOMED Code(s): 16793345 (7) Hypertension Current Visit: No Status: Acute Code(s): I10 - ESSENTIAL (PRIMARY) HYPERTENSION SNOMED Code(s): 51032404 Plan: Essentially awaiting bone marrow aspirate today. Continue following her blood counts. Dr. Zelaya's group will be covering for the weekend. See orders otherwise.
[2018-04-24 07:08] LABS: Glucose,Whole Blood 95 mg/dL (75-99)
[2018-04-24] MEDS: SYMBICORT 160-4.5 MCG INHALER INHALATION SCH ×2 (07:25→19:10)
[2018-04-24] MEDS: IPRATROPIUM 0.5 MG/2.5 ML NEBU INHALATION SCH ×4 (07:26→19:10)
[2018-04-24 07:54] LABS: Anisocytosis Moderate; HCT 23.5 % (34.0-46.0); HGB 7.8 gm/dL (11.4-16.0); MCH 32.2 pg (25.0-35.0); MCHC 33.1 g/dL (31.0-37.0); MCV 97.6 fL (80.0-100.0); Macrocytosis Slight; Mean Platelet Volume 12.3; RBC 2.41 m/uL (3.80-5.40); RDW 20.7 % (11.5-15.5)
[2018-04-24] MEDS: PANTOPRAZOLE 40 MG TABLET PO SCH (07:54)
[2018-04-24] MEDS: metFORMIN 500 MG TAB PO SCH ×2 (07:55→20:56)
[2018-04-24] MEDS: DOCUSATE 100 MG CAP PO SCH (07:55)
[2018-04-24] MEDS: FERROUS SULFATE 325 MG TAB PO SCH ×3 (07:55→21:48)
[2018-04-24] MEDS: PRIMIDONE 50 MG TAB PO SCH (07:56)
[2018-04-24] MEDS: METOPROLOL TARTRATE 50 MG TAB PO SCH ×2 (07:56→21:48)
[2018-04-24] MEDS: amLODIPine 10 MG TAB PO SCH (07:57)
[2018-04-24 07:59] LABS: Platelet Count 29 k/uL (150-450); WBC 0.9 k/uL (3.8-10.6)
[2018-04-24 08:09] LABS: Calcium 8.6 mg/dL (8.4-10.2); Potassium 4.3 mmol/L (3.5-5.1)
[2018-04-24 08:51] LABS: Poikilocytosis (M) Present
[2018-04-24 08:52] LABS: Large Platelets Present
--- NOTE | 2018-04-24 11:06 | P.PN ---
Subjective Patient is admitted for aches and chronic anemia patient does have pancytopenia patient underwent bone marrow biopsy. Patient's hemoglobin is still low at the son pointed patient is mildly dizzy because of which the oncology wanted to keep her and during this time they wanted workup with hepatic function panel which is being ordered by them and do not see and B12 and folic acid levels may be beneficial getting those things. Patient is on aspirin which is being held patient does have history of coronary artery disease his multiple stents in the past. Will discuss with oncology regarding continuation of aspirin with the severe thrombocytopenia. There are no signs or symptoms of acute bleed at this time. Constitutional: Denied any fatigue denied any fever. Cardio vascular: denied any chest pain, palpitations Gastrointestinal denied any nausea vomiting Pulmonary: Denied any shortness of breath cough Neurologic denied any new focal deficits Objective - Vital Signs Vital signs: Vital Signs Temp 97.8 F 04/24/18 06:08 Pulse 60 04/24/18 07:38 Resp 18 04/24/18 06:08 BP 156/68 04/24/18 06:08 Pulse Ox 97 04/24/18 06:08 Intake & Output 04/23/18 04/24/18 04/24/18 18:59 06:59 18:59 Intake Total 100 Output Total 1 Balance 100 -1 Weight 83 kg 88.5 kg Intake: IV 100 Output: Urine 1 Other: Voiding Method Toilet Toilet Bedside Commode # Voids 4 2 - Exam PHYSICAL EXAMINATION: GENERAL: The patient is alert and oriented x3, not in any acute distress. Well developed, well nourished. HEENT: Pupils are round and equally reacting to light. EOMI. No scleral icterus. patient does have conjunctival pallor. Normocephalic, atraumatic. No pharyngeal erythema. No thyromegaly. CARDIOVASCULAR: S1 and S2 present. No murmurs, rubs, or gallops. PULMONARY: Chest is clear to auscultation, no wheezing or crackles. ABDOMEN: Soft, nontender, nondistended, normoactive bowel sounds. No palpable organomegaly. MUSCULOSKELETAL: No joint swelling or deformity. EXTREMITIES: No cyanosis, clubbing, or pedal edema. NEUROLOGICAL: Gross neurological examination did not reveal any focal deficits. SKIN: No rashes. - Labs CBC & Chem 7: 04/24/18 07:29 04/24/18 07:29 Labs: Abnormal Lab Results - Last 24 Hours (Table) 04/23/18 04/23/18 04/24/18 Range/Units 17:12 20:51 07:29 WBC 0.9 L* (3.8-10.6) k/uL RBC 2.41 L (3.80-5.40) m/uL Hgb 7.8 L (11.4-16.0) gm/dL Hct 23.5 L (34.0-46.0) % RDW 20.7 H (11.5-15.5) % Plt Count 29 L* (150-450) k/uL BUN (7-17) mg/dL POC Glucose (mg/dL) 112 H 156 H (75-99) mg/dL 04/24/18 Range/Units 07:29 WBC (3.8-10.6) k/uL RBC (3.80-5.40) m/uL Hgb (11.4-16.0) gm/dL Hct (34.0-46.0) % RDW (11.5-15.5) % Plt Count (150-450) k/uL BUN 19 H (7-17) mg/dL POC Glucose (mg/dL) (75-99) mg/dL Microbiology - Last 24 Hours (Table) 04/18/18 21:03 Blood Culture - Preliminary Blood No Growth after 120 hours Assessment and Plan Plan: -symptomatic anemia: Patient is undergoing further evaluation. Oncology is following the patient patient underwent bone marrow biopsy. Remains to have low platelet count may need 1 more blood transfusion only the addition to oncology patient does have lightheadedness. -pancytopenia: Undergoing further evaluation as mentioned above. -Coronary artery diseasewith multiple stents in the past aspirin is on hold because of her severe thrombocytopenia. Patient had a CABG in the past as well. -COPD without any acute examination of 10-diabetes mellitus -Hyperlipidemia -Hypertension
[2018-04-24 11:12] LABS: Albumin 3.1 g/dL (3.5-5.0); Bilirubin, Delta 0.3 mg/dL (0.0-0.2); Bilirubin,Unconjugated 0.4 mg/dL (0.0-1.1); Total Bilirubin 0.7 mg/dL (0.2-1.3); Total Protein 6.1 g/dL (6.3-8.2)
[2018-04-24 11:51] LABS: Glucose,Whole Blood 74 mg/dL (75-99)
[2018-04-24 16:48] LABS: Appearance,Urine Cloudy (Clear); Bacteria,Urine Occasional /hpf; Bilirubin,Urine Negative (Negative); Blood,Urine Negative (Negative); Color,Urine Yellow; Glucose,Urine (UA) Negative (Negative); Hyaline Casts,Urine 1 /lpf (0-2); Ketones,Urine Negative (Negative); Leukocyte Esterase,Urine Moderate (Negative); Mucus,Urine Occasional /hpf; Nitrite,Urine Negative (Negative); PH, Urine 5.5 (5.0-8.0); Protein,Urine Trace (Negative); RBC,Urine 3 /hpf (0-5); Specific Gravity,Urine 1.015 (1.001-1.035); Squamous Epithelial Cell,Urine 14 /hpf (0-4); WBC,Urine 11 /hpf (0-5)
--- NOTE | 2018-04-24 17:24 | P.PN ---
Subjective Progress Note Date: 04/24/18 Principal diagnosis: Pancytopenia Ms. Mortensen is a very pleasant female pt we have been asked to see for progressive pancytopenia. We saw pt in 2016 for anemia, iron deficiency found, pt has had endoscopy-including capsule-with no underlying cause found, she takes oral iron supplement, she also had slightly low WBCs at that time but on work up nothing was identified, she never followed up in the office. Pt states ongoing trouble with anemia, needing blood transfusions over the years. Seen in follow-up today, she complains of increasing lower pelvis pressure, foul smelling urine, and increased frequency. She continues to feel short of breath with exertion and dizzy when ambulating Objective - Vital Signs Vital signs: Vital Signs Temp 97.8 F 04/24/18 06:08 Pulse 60 04/24/18 11:21 Resp 18 04/24/18 06:08 BP 156/68 04/24/18 06:08 Pulse Ox 97 04/24/18 06:08 Intake & Output 04/23/18 04/24/18 04/24/18 18:59 06:59 18:59 Intake Total 100 Output Total 1 Balance 100 -1 Weight 83 kg 88.5 kg Intake: IV 100 Output: Urine 1 Other: Voiding Method Toilet Toilet Bedside Commode # Voids 4 2 - Constitutional General appearance: Present: cooperative, no acute distress - EENT Eyes: Present: EOMI, PERRLA, dentition normal ENT: Present: hard of hearing, NA/AT, normal oropharynx - Neck Details: supple, trachea midline - Respiratory Respiratory: bilateral: diminished (bilateral bases) - Cardiovascular Rhythm: regular Heart sounds: normal: S1, S2 - Gastrointestinal General gastrointestinal: Present: soft, tenderness - Integumentary Integumentary: Present: pale - Neurologic Neurologic: Present: CNII-XII intact - Musculoskeletal Musculoskeletal: Present: generalized weakness, strength equal bilaterally - Psychiatric Psychiatric: Present: A&O x's 3, appropriate affect, intact judgment & insight - Labs CBC & Chem 7: 04/24/18 07:29 04/24/18 07:29 Labs: Abnormal Lab Results - Last 24 Hours (Table) 04/23/18 04/23/18 04/24/18 Range/Units 17:12 20:51 07:29 WBC 0.9 L* (3.8-10.6) k/uL RBC 2.41 L (3.80-5.40) m/uL Hgb 7.8 L (11.4-16.0) gm/dL Hct 23.5 L (34.0-46.0) % RDW 20.7 H (11.5-15.5) % Plt Count 29 L* (150-450) k/uL BUN (7-17) mg/dL POC Glucose (mg/dL) 112 H 156 H (75-99) mg/dL Delta Bilirubin (0.0-0.2) mg/dL Total Protein (6.3-8.2) g/dL Albumin (3.5-5.0) g/dL 04/24/18 04/24/18 Range/Units 07:29 07:30 WBC (3.8-10.6) k/uL RBC (3.80-5.40) m/uL Hgb (11.4-16.0) gm/dL Hct (34.0-46.0) % RDW (11.5-15.5) % Plt Count (150-450) k/uL BUN 19 H (7-17) mg/dL POC Glucose (mg/dL) (75-99) mg/dL Delta Bilirubin 0.3 H (0.0-0.2) mg/dL Total Protein 6.1 L (6.3-8.2) g/dL Albumin 3.1 L (3.5-5.0) g/dL Microbiology - Last 24 Hours (Table) 04/18/18 21:03 Blood Culture - Preliminary Blood No Growth after 120 hours Assessment and Plan Plan: Assessment and Plan (1) Pancytopenia Narrative/Plan: The patient's lab work was negative. As noted, she was noted to have a nodular appearance to the liver and splenomegaly. However her degree of cytopenias were felt to be too severe to be attributed to the same. Therefore the patient had a bone marrow aspiration biopsy on 04/23/18. We will await results as they are pending. - Hemoglobin is 7.8 today. She does express symptomatic dizzyness and SOB with exertion, will recheck CBC in am and likely require transfusion prior to discharge. - Neutropenic - Need to monitor for signs and symptoms of infection. With foul smelling urine and increased frequency and lower pelvic pain will check Urinalysis. With neutropenia empric antibiotics can be considered, discussed with Dr. Santos and Dr. Schneider. We will check a urinalysis today. - Urinalysis returned and is positive will send for Urine Culture. Start PO Cipro
[2018-04-24 17:33] LABS: Glucose,Whole Blood 106 mg/dL (75-99)
[2018-04-24 20:20] LABS: Glucose,Whole Blood 123 mg/dL (75-99)
[2018-04-24] MEDS: CIPROFLOXACIN HCL 500 MG TAB PO SCH (20:55)
[2018-04-24] MEDS: ATORVASTATIN 80 MG TAB PO SCH (20:55)
[2018-04-24] MEDS: HYDROcodone/APAP 5-325MG 1 EACH TAB PO PRN (23:13)
[2018-04-24 23:22] VITALS: RESP 16
[2018-04-25 06:04] VITALS: BP 117/56; TEMP 98.2
[2018-04-25 07:02] LABS: Glucose,Whole Blood 98 mg/dL (75-99)
[2018-04-25] MEDS: SYMBICORT 160-4.5 MCG INHALER INHALATION SCH (07:13)
[2018-04-25] MEDS: IPRATROPIUM 0.5 MG/2.5 ML NEBU INHALATION SCH ×2 (07:13→11:24)
[2018-04-25] MEDS: DOCUSATE 100 MG CAP PO SCH (07:29)
[2018-04-25] MEDS: CIPROFLOXACIN HCL 500 MG TAB PO SCH (07:29)
[2018-04-25] MEDS: amLODIPine 10 MG TAB PO SCH (07:29)
[2018-04-25] MEDS: PANTOPRAZOLE 40 MG TABLET PO SCH (07:29)
[2018-04-25] MEDS: FERROUS SULFATE 325 MG TAB PO SCH (07:29)
[2018-04-25] MEDS: PRIMIDONE 50 MG TAB PO SCH (07:30)
[2018-04-25] MEDS: metFORMIN 500 MG TAB PO SCH (07:30)
[2018-04-25] MEDS: METOPROLOL TARTRATE 50 MG TAB PO SCH (07:30)
--- NOTE | 2018-04-25 11:15 | P.DS ---
Providers Date of admission: 04/18/18 21:52 Attending physician: Kwan Lyn Consults: 04/19/18 08:12 Consult Physician Routine Consulting Provider: Yuan Gonzalez Consult Reason/Comments: pancytopenia Do you want consulting provider notified?: Yes 04/21/18 10:58 Consult Physician Routine Consulting Provider: Haider Beasley Consult Reason/Comments: anemia, positive occult blood stool, known to pt Do you want consulting provider notified?: Yes Primary care physician: Kwan Lyn Hospital Course: Patient is admitted for aches and chronic anemia patient does have pancytopenia patient underwent bone marrow biopsy. Patient's hemoglobin is still low at the son pointed patient is mildly dizzy because of which the oncology wanted to keep her and during this time they wanted workup with hepatic function panel which is being ordered by them and do not see and B12 and folic acid levels may be beneficial getting those things. Patient is on aspirin which is being held patient does have history of coronary artery disease his multiple stents in the past. Will discuss with oncology regarding continuation of aspirin with the severe thrombocytopenia. There are no signs or symptoms of acute bleed at this time. 04/25/2018 I discussed at length with the patient patient appears to have vaginal candidiasis infection for which we'll use Mycostatin I do not believe patient has urinary tract infection patient the urease consistent with contaminated urine sample. Patient will not require any antibiotics at this time. Regarding antiplatelet therapy patient had a stent in month of June or May last year. Discussed with cardiology on phone. Considering severe anemia and low platelet count both aspirin and Plavix can be significantly deleterious even though her stent was placed less than any other ago. Patient will be asked to follow-up with her cover seamer as an outpatient Plavix will be discontinued aspirin will be continued after discussing with cardiology. Although her hemoglobin is more than 7 patient has undiagnosed pancytopenia most probably bone marrow suppression because of which she will eventually be anemic again and the patient is still having minimal lightheadedness because of which are good and transfuse her 1 unit of blood before she is discharged same thing was discussed with hematology. Patient will follow with hematology as an outpatient. PHYSICAL EXAMINATION: GENERAL: The patient is alert and oriented x3, not in any acute distress. Well developed, well nourished. HEENT: Pupils are round and equally reacting to light. EOMI. No scleral icterus. patient does have conjunctival pallor. Normocephalic, atraumatic. No pharyngeal erythema. No thyromegaly. CARDIOVASCULAR: S1 and S2 present. No murmurs, rubs, or gallops. PULMONARY: Chest is clear to auscultation, no wheezing or crackles. ABDOMEN: Soft, nontender, nondistended, normoactive bowel sounds. No palpable organomegaly. MUSCULOSKELETAL: No joint swelling or deformity. EXTREMITIES: No cyanosis, clubbing, or pedal edema. NEUROLOGICAL: Gross neurological examination did not reveal any focal deficits. SKIN: No rashes. Assessment and Plan Plan: -symptomatic anemia: Patient is undergoing further evaluation. Oncology is following the patient patient underwent bone marrow biopsy. -pancytopenia: Undergoing further evaluation as mentioned above. -Coronary artery diseasewith multiple stents in the past aspirin is on hold because of her severe thrombocytopenia. Patient had a CABG in the past as well. -COPD without any acute exacerbation -Type 2 diabetes mellitus -Hyperlipidemia -Hypertension Patient Condition at Discharge: Serious Plan - Discharge Summary Discharge Rx Participant: Yes New Discharge Prescriptions: New Nystatin 100,000 Unit/gm Powd [Mycostatin Powder] 1 applic TOPICAL BID #10 gm Aspirin 81 mg PO DAILY #30 chewable Discontinued Aspirin EC [Ecotrin Low Dose] 81 mg PO DAILY Clopidogrel Bisulfate [Plavix] 75 mg PO DAILY No Action Nitroglycerin Sl Tabs [Nitrostat] 0.4 mg SUBLINGUAL Q5M PRN #50 tab PRN Reason: Chest Pain Hydrocodone/Acetaminophen [[place] 5-325] 1 tab PO Q6H PRN PRN Reason: Pain amLODIPine [Norvasc] 10 mg PO DAILY Metoprolol Tartrate [Lopressor] 100 mg PO BID Atorvastatin [Lipitor] 80 mg PO HS Docusate [Colace] 100 mg PO DAILY Ferrous Sulfate [Feosol] 325 mg PO TID glipiZIDE [Glucotrol] 5 mg PO AC-BID metFORMIN HCL [Glucophage] 1,000 mg PO BID Omeprazole [PriLOSEC] 20 mg PO DAILY Primidone [Mysoline] 100 mg PO DAILY Budesonide-Formot 160-4.5 Mcg [Symbicort 160-4.5 Mcg Inhaler] 2 puff INHALATION RT-BID Aclidinium [place] [Tudorza Pressair] 1 puff INHALATION RT-BID Discharge Medication List Nitroglycerin Sl Tabs [Nitrostat] 0.4 mg SUBLINGUAL Q5M PRN #50 tab 09/10/15 [Rx ] Hydrocodone/Acetaminophen [[place] 5-325] 1 tab PO Q6H PRN 04/20/16 [History] Metoprolol Tartrate [Lopressor] 100 mg PO BID 05/02/17 [History] amLODIPine [Norvasc] 10 mg PO DAILY 05/02/17 [History] Aclidinium [place] [Tudorza Pressair] 1 puff INHALATION RT-BID 04/19/18 [History ] Atorvastatin [Lipitor] 80 mg PO HS 04/19/18 [History] Budesonide-Formot 160-4.5 Mcg [Symbicort 160-4.5 Mcg Inhaler] 2 puff INHALATION RT-BID 04/19/18 [History] Docusate [Colace] 100 mg PO DAILY 04/19/18 [History] Ferrous Sulfate [Feosol] 325 mg PO TID 04/19/18 [History] Omeprazole [PriLOSEC] 20 mg PO DAILY 04/19/18 [History] Primidone [Mysoline] 100 mg PO DAILY 04/19/18 [History] glipiZIDE [Glucotrol] 5 mg PO AC-BID 04/19/18 [History] metFORMIN HCL [Glucophage] 1,000 mg PO BID 04/19/18 [History] Aspirin 81 mg PO DAILY #30 chewable 04/25/18 [Rx] Nystatin 100,000 Unit/gm Powd [Mycostatin Powder] 1 applic TOPICAL BID #10 gm [Rx] Follow up Appointment(s)/Referral(s): Yuan Gonzalez MD [STAFF PHYSICIAN] - 05/20/18 11:15 am (This appt is at [address]) Kwan Lyn MD [Primary Care Provider] - 3 Days [facility], [NON-STAFF] - 1 Week Discharge Disposition: HOME SELF-CARE
[2018-04-25 11:27] VITALS: PULSE 68
[2018-04-25 12:34] LABS: Anisocytosis Moderate; HCT 25.7 % (34.0-46.0); HGB 8.4 gm/dL (11.4-16.0); MCHC 32.5 g/dL (31.0-37.0); MCV 98.5 fL (80.0-100.0); Macrocytosis Moderate; Mean Platelet Volume 11.9; RBC 2.61 m/uL (3.80-5.40); RDW 21.3 % (11.5-15.5)
[2018-04-25 12:37] LABS: WBC 0.9 k/uL (3.8-10.6)
[2018-04-25 12:38] LABS: Platelet Count 32 k/uL (150-450)
[2018-04-25 12:54] LABS: Poikilocytosis (M) Present
[2018-04-25 12:55] LABS: Large Platelets Present
[2018-04-25 13:14] LABS: Glucose,Whole Blood 170 mg/dL (75-99)
== END 2018-04-25 14:54 | disposition home health service (06) | DRG 809 ==
LOC: EC 18:45 → 5MS5E 21:52
PROVIDERS: ADMIT Family Medicine; ATTEND Family Medicine
PROC: 30233N1 Transfusion of Nonautologous Red Blood Cells into Peripheral Vein, Percutaneous Approach (ICD-10-PCS; 2018-04-19)
PROC: 07DR3ZX Extraction of Iliac Bone Marrow, Percutaneous Approach, Diagnostic (ICD-10-PCS; principal; 2018-04-23 12:30)
DX: D61.818 Other pancytopenia (principal); K92.2 Gastrointestinal hemorrhage, unspecified; B37.3 Candidiasis of vulva and vagina; E11.9 Type 2 diabetes mellitus without complications; E78.5 Hyperlipidemia, unspecified; I25.10 Atherosclerotic heart disease of native coronary artery without angina pectoris; I25.2 Old myocardial infarction; I10 Essential (primary) hypertension; J44.9 Chronic obstructive pulmonary disease, unspecified; E66.9 Obesity, unspecified; K57.30 Diverticulosis of large intestine without perforation or abscess without bleeding; M54.9 Dorsalgia, unspecified; R16.1 Splenomegaly, not elsewhere classified; Z79.02 Long term (current) use of antithrombotics/antiplatelets; Z79.51 Long term (current) use of inhaled steroids; Z79.82 Long term (current) use of aspirin; Z79.84 Long term (current) use of oral hypoglycemic drugs; Z79.899 Other long term (current) drug therapy; Z68.30 Body mass index [BMI] 30.0-30.9, adult; Z86.73 Personal history of transient ischemic attack (TIA), and cerebral infarction without residual deficits; Z96.642 Presence of left artificial hip joint; Z95.5 Presence of coronary angioplasty implant and graft; Z95.1 Presence of aortocoronary bypass graft; Z90.710 Acquired absence of both cervix and uterus; Z87.891 Personal history of nicotine dependence; Z86.010 Personal history of colon polyps; Z91.041 Radiographic dye allergy status; Z91.013 Allergy to seafood
CPT/HCPCS: 36415; 70450; 71046; 76700; 80048; 80053; 80076; 81001; 82272; 82550; 82553; 82607; 82746; 83036; 83880; 83883; 83921; 84165; 84484; 85025; 85027; 85045; 85610; 85730; 86334; 86850; 86860; 86870; 86880; 86885; 86900; 86901; 86902; 86920; 87040; 87086; 87324; 93005; 94640; 94760; 99285

== ENCOUNTER 2018-05-10 23:14 | Inpatient (IN) | payer MEDICARE ==
[2018-05-11] MEDS ORDERED: IBUPROFEN 600 MG TAB PO STA (00:07)
[2018-05-11] MEDS ORDERED: ACETAMINOPHEN TAB 500 MG TAB PO STA (00:07)
--- NOTE | 2018-05-11 00:10 | ED ---
General Adult HPI - General Chief complaint: Neuro Symptoms/Deficit Stated complaint: Stroke symptoms Time Seen by Provider: 05/10/18 23:20 Source: patient, RN notes reviewed Mode of arrival: wheelchair Limitations: altered mental status - History of Present Illness Initial comments: This is an 82-year-old female who presents emergency department with past medical history significant for anemia. Patient states over the last 3 days she 's becoming weaker and weaker. Patient states she thinks she's had a fever but has not taken her temperature. Patient also states she has a bad headache which she hasn't had many many years. Patient denies any neck pain or stiffness. Patient denies any blurred vision or slurred speech. Patient denies any numbness or weakness that is focal. Patient denies abdominal pain patient denies nausea vomiting or diarrhea. Patient denies any chest pain difficulty breathing or shortness of breath. Patient denies any cough. Patient denies dysuria hematuria urinary frequency. - Related Data Home Medications Medication Instructions Recorded Confirmed Hydrocodone/Acetaminophen [[place] 1 tab PO Q6H PRN 04/20/16 04/19/18 5-325] Metoprolol Tartrate [Lopressor] 100 mg PO BID 05/02/17 04/19/18 amLODIPine [Norvasc] 10 mg PO DAILY 05/02/17 04/19/18 Aclidinium [place] [Tudorza 1 puff INHALATION RT-BID 04/19/18 04/19/18 Pressair] Atorvastatin [Lipitor] 80 mg PO HS 04/19/18 04/19/18 Budesonide-Formot 160-4.5 Mcg 2 puff INHALATION RT-BID 04/19/18 04/19/18 [Symbicort 160-4.5 Mcg Inhaler] Docusate [Colace] 100 mg PO DAILY 04/19/18 04/19/18 Ferrous Sulfate [Feosol] 325 mg PO TID 04/19/18 04/19/18 Omeprazole [PriLOSEC] 20 mg PO DAILY 04/19/18 04/19/18 Primidone [Mysoline] 100 mg PO DAILY 04/19/18 04/19/18 glipiZIDE [Glucotrol] 5 mg PO AC-BID 04/19/18 04/19/18 metFORMIN HCL [Glucophage] 1,000 mg PO BID 04/19/18 04/19/18 Previous Rx's Medication Instructions Recorded Nitroglycerin Sl Tabs [Nitrostat] 0.4 mg SUBLINGUAL Q5M PRN #50 tab 09/10/15 Aspirin 81 mg PO DAILY #30 chewable 04/25/18 Nystatin 100,000 Unit/gm Powd 1 applic TOPICAL BID #10 gm 04/25/18 [Mycostatin Powder] Allergies Allergy/AdvReac Type Severity Reaction Status Date / Time Iodinated Contrast- Oral and Allergy Rash/Hives Verified 05/10/18 23:23 IV Dye [Iodinated Contrast Media - IV Dye] shellfish derived [Shellfish] Allergy Rash/Hives Verified 05/10/18 23:23 Review of Systems ROS Statement: Those systems with pertinent positive or pertinent negative responses have been documented in the HPI. ROS Other: All systems not noted in ROS Statement are negative. Past Medical History Past Medical History: Coronary Artery Disease (CAD), Chest Pain / Angina, Heart Failure, COPD, CVA/TIA, Diabetes Mellitus, GI Bleed, Hyperlipidemia, Hypertension, Myocardial Infarction ([place]) Additional Past Medical History / Comment(s): 04/20/16 possible GI bleed with low Hgb. kdiney stones, parkinsons Last Myocardial Infarction Date:: 1997 History of Any Multi-Drug Resistant Organisms: None Reported Past Surgical History: Coronary Bypass/CABG, Heart Catheterization With Stent, Hysterectomy, Orthopedic Surgery Additional Past Surgical History / Comment(s): CABG 1997. Left total hip replacement, colonoscopy nov 2015, angioplasty left leg. kidney surgery with stone removal. multiple heart stents. Past Anesthesia/Blood Transfusion Reactions: No Reported Reaction Additional Past Anesthesia/Blood Transfusion Reaction / Comment(s): Pt has recieved blood in the past with kidney surgery without reaction. Date of Last Stent Placement:: 04/15/2017 Past Psychological History: No Psychological Hx Reported Smoking Status: Former smoker Past Alcohol Use History: None Reported Past Drug Use History: None Reported, Prescription Drug Abuse - Past Family History Mother Family Medical History: Cancer Father Additional Family Medical History / Comment(s): aneurysm General Exam - General Exam Comments Initial Comments: GENERAL: Patient is well-developed and well-nourished. Patient is nontoxic and well- hydrated and is in mild distress. ENT: Neck is soft and supple. No significant lymphadenopathy is noted. Oropharynx is clear. Moist mucous membranes. Neck has full range of motion without eliciting any pain. EYES: The sclera were anicteric and conjunctiva were pink and moist. Extraocular movements were intact and pupils were equal round and reactive to light. Eyelids were unremarkable. PULMONARY: Unlabored respirations. Good breath sounds bilaterally. No audible rales rhonchi or wheezing was noted. CARDIOVASCULAR: There is a regular rate and rhythm without any murmurs gallops or rubs. ABDOMEN: Soft and nontender with normal bowel sounds. No palpable organomegaly was noted. There is no palpable pulsatile mass. SKIN: Skin is clear with no lesions or rashes and otherwise unremarkable. NEUROLOGIC: Patient is alert and oriented x3. Cranial nerves II through XII are grossly intact. Motor and sensory are also intact. Normal speech, volume and content. Symmetrical smile. MUSCULOSKELETAL: Normal extremities with adequate strength and full range of motion. LYMPHATICS: No significant lymphadenopathy is noted PSYCHIATRIC: Normal psychiatric evaluation. Normal interpersonal interactions appears functionally intact in deals appropriately with others. No signs of depression. No signs of anxiety. Limitations: altered mental status Course Vital Signs 05/10/18 05/11/18 23:20 00:37 Temperature 98.4 F 100.2 F H Pulse Rate 74 Respiratory 18 Rate Blood Pressure 161/75 O2 Sat by Pulse 99 Oximetry Medical Decision Making - Medical Decision Making Patient's computed tomography scan showed new lesions in the occipital lobe from a previous CAT scan done less than a month ago. Patient's hemoglobin was 6.2 which is been an ongoing chronic problem when looking back at her previous labs. Chest x-ray shows no acute abnormality. So far there was no source for the fever. I spoke with Dr. Lyn he wanted the patient admitted he wanted me to consult hematology. I gave the patient 1 unit of packed red blood cells in the ER and admitted the patient wrote admitting orders EKG shows normal sinus rhythm at 76 bpm UT interval is 146 QRS is 160 QT interval 474 QTC is 533. Patient has left bundle branch block. - Lab Data Result diagrams: 05/11/18 00:13 05/11/18 00:13 Lab Results 05/11/18 05/11/18 05/11/18 Range/Units 00:13 00:13 00:13 WBC 1.3 L* (3.8-10.6) k/uL RBC 1.96 L (3.80-5.40) m/uL Hgb 6.2 L* D (11.4-16.0) gm/dL Hct 19.1 L* (34.0-46.0) % MCV 97.2 (80.0-100.0) fL MCH 31.6 (25.0-35.0) pg MCHC 32.5 (31.0-37.0) g/dL RDW 20.4 H (11.5-15.5) % Plt Count 46 L* (150-450) k/uL PT (9.0-12.0) sec INR (<1.2) APTT (22.0-30.0) sec Sodium 141 (137-145) mmol/L Potassium 4.0 (3.5-5.1) mmol/L Chloride 109 H (98-107) mmol/L Carbon Dioxide 23 (22-30) mmol/L Anion Gap 9 mmol/L BUN 17 (7-17) mg/dL Creatinine 1.10 H (0.52-1.04) mg/dL Est GFR (CKD-EPI)AfAm 55 (>60 ml/min/1.73 sqM) Est GFR (CKD-EPI)NonAf 48 (>60 ml/min/1.73 sqM) Glucose 136 H (74-99) mg/dL Plasma Lactic Acid [place] (0.7-2.0) mmol/L Calcium 8.8 (8.4-10.2) mg/dL Total Bilirubin 0.8 (0.2-1.3) mg/dL AST 26 (14-36) U/L ALT 22 (9-52) U/L Alkaline Phosphatase 87 (38-126) U/L Total Creatine Kinase 29 L (30-135) U/L CK-MB (CK-2) <0.2 (0.0-2.4) ng/mL CK-MB (CK-2) Rel Index Troponin I <0.012 (0.000-0.034) ng/mL Total Protein 6.8 (6.3-8.2) g/dL Albumin 3.6 (3.5-5.0) g/dL Urine Color Urine Appearance (Clear) Urine pH (5.0-8.0) Ur Specific [place] (1.001-1.035) Urine Protein (Negative) Urine Glucose (UA) (Negative) Urine Ketones (Negative) Urine Blood (Negative) Urine Nitrite (Negative) Urine Bilirubin (Negative) Urine Urobilinogen (<2.0) mg/dL Ur Leukocyte Esterase (Negative) 05/11/18 05/11/18 05/11/18 Range/Units 00:13 00:13 00:20 WBC (3.8-10.6) k/uL RBC (3.80-5.40) m/uL Hgb (11.4-16.0) gm/dL Hct (34.0-46.0) % MCV (80.0-100.0) fL MCH (25.0-35.0) pg MCHC (31.0-37.0) g/dL RDW (11.5-15.5) % Plt Count (150-450) k/uL PT 10.9 (9.0-12.0) sec INR 1.1 (<1.2) APTT 22.2 (22.0-30.0) sec Sodium (137-145) mmol/L Potassium (3.5-5.1) mmol/L Chloride (98-107) mmol/L Carbon Dioxide (22-30) mmol/L Anion Gap mmol/L BUN (7-17) mg/dL Creatinine (0.52-1.04) mg/dL Est GFR (CKD-EPI)AfAm (>60 ml/min/1.73 sqM) Est GFR (CKD-EPI)NonAf (>60 ml/min/1.73 sqM) Glucose (74-99) mg/dL Plasma Lactic Acid [place] 2.3 H* (0.7-2.0) mmol/L Calcium (8.4-10.2) mg/dL Total Bilirubin (0.2-1.3) mg/dL AST (14-36) U/L ALT (9-52) U/L Alkaline Phosphatase (38-126) U/L Total Creatine Kinase (30-135) U/L CK-MB (CK-2) (0.0-2.4) ng/mL CK-MB (CK-2) Rel Index Troponin I (0.000-0.034) ng/mL Total Protein (6.3-8.2) g/dL Albumin (3.5-5.0) g/dL Urine Color Yellow Urine Appearance Clear (Clear) Urine pH 5.5 (5.0-8.0) Ur Specific [place] 1.015 (1.001-1.035) Urine Protein Trace H (Negative) Urine Glucose (UA) Negative (Negative) Urine Ketones Negative (Negative) Urine Blood Negative (Negative) Urine Nitrite Negative (Negative) Urine Bilirubin Negative (Negative) Urine Urobilinogen 2.0 (<2.0) mg/dL Ur Leukocyte Esterase Negative (Negative) Disposition Clinical Impression: Cerebrovascular accident, Anemia Disposition: ADMITTED IP TO THIS HOSP Referrals: Kwan Lyn MD [Primary Care Provider] - 1-2 days Time of Disposition: 02:25
[2018-05-11] MEDS: SODIUM CHLORIDE 0.9% 500 ML IV SCH ×2 (00:27→00:28)
[2018-05-11 00:50] LABS: Albumin 3.6 g/dL (3.5-5.0); Calcium 8.8 mg/dL (8.4-10.2); Total Bilirubin 0.8 mg/dL (0.2-1.3); Total Protein 6.8 g/dL (6.3-8.2)
[2018-05-11 00:53] LABS: Appearance,Urine Clear (Clear); Bilirubin,Urine Negative (Negative); Blood,Urine Negative (Negative); Color,Urine Yellow; Glucose,Urine (UA) Negative (Negative); Ketones,Urine Negative (Negative); Leukocyte Esterase,Urine Negative (Negative); Nitrite,Urine Negative (Negative); PH, Urine 5.5 (5.0-8.0); Protein,Urine Trace (Negative); Specific Gravity,Urine 1.015 (1.001-1.035)
[2018-05-11 00:54] LABS: INR 1.1 (<1.2); Partial Thromboplastin Time 22.2 sec (22.0-30.0); Prothrombin Time 10.9 sec (9.0-12.0)
[2018-05-11 01:01] LABS: Anisocytosis Moderate; Macrocytosis Slight; RDW 20.4 % (11.5-15.5)
--- NOTE | 2018-05-11 01:05 | CT ---
EXAMINATION TYPE: CT brain wo con DATE OF EXAM: 05/11/2018 COMPARISON: 04/18/2018 HISTORY: neuro defecits/left sided weakness CT DLP: 1064.30 mGycm Automated exposure control for dose reduction was used. FINDINGS: There is cerebral cortical atrophy. There is no mass effect nor midline shift. There is no sign of in tracranial hemorrhage. There is 3 x 1.5 cm area of hypodensity in the medial right occipital lobe. Th ere is poorly marginated 3 cm area of hypodensity in the left occipital lobe. The calvarium is intact . IMPRESSION: OLD RIGHT OCCIPITAL LOBE CORTICAL INFARCT. ACUTE INFARCT IN THE LEFT OCCIPITAL LOBE IS A CHANGE CHAYITO RED TO LAST EXAM. NO HEMORRHAGE.
--- NOTE | 2018-05-11 01:06 | XR ---
EXAMINATION TYPE: XR chest 2V DATE OF EXAM: 05/11/2018 COMPARISON: 04/18/2018 HISTORY: Neuro deficits. Left side weakness TECHNIQUE: Frontal and lateral views of the chest are obtained. FINDINGS: There is no heart failure nor confluent pneumonic infiltrate. There are sternal wires. Tho racic aorta is atheromatous. There are chest leads. There is spurring in the thoracic spine. IMPRESSION: No active cardiopulmonary disease. No change.
[2018-05-11 01:21] LABS: MCH 31.6 pg (25.0-35.0); MCHC 32.5 g/dL (31.0-37.0); MCV 97.2 fL (80.0-100.0); Mean Platelet Volume 13.9; RBC 1.96 m/uL (3.80-5.40)
[2018-05-11 01:28] LABS: Creatine Kinase 29 U/L (30-135)
[2018-05-11 01:34] LABS: WBC 1.3 k/uL (3.8-10.6)
[2018-05-11 01:35] LABS: HCT 19.1 % (34.0-46.0); HGB 6.2 gm/dL (11.4-16.0)
[2018-05-11 01:36] LABS: Platelet Count 46 k/uL (150-450)
[2018-05-11 01:41] LABS: Creatine Kinase MB <0.2 ng/mL (0.0-2.4); Troponin I <0.012 ng/mL (0.000-0.034)
[2018-05-11] MEDS: SODIUM CHLORIDE 0.9% 1,000 ML IV SCH ×2 (03:05→14:00)
[2018-05-11 05:07] LABS: Band Neutrophils % 1 %; Eosinophils # (M) 0.05 k/uL (0-0.7); Large Platelets Present; Lymphocytes # (M) 0.82 k/uL (1.0-4.8); Monocytes # (M) 0.08 k/uL (0-1.0); Neutrophils % (M) 26 %; Nucleated Red Blood Cells 2 /100 WBC (0-0); Total Cells Counted 100
[2018-05-11 05:12] LABS: Polychromasia Present
[2018-05-11] MEDS: INSULIN ASPART 100 UNIT/ML 1 ML 10 ML VIAL SQ SCH ×3 (06:24→17:33)
[2018-05-11 06:25] LABS: Glucose,Whole Blood 137 mg/dL (75-99)
[2018-05-11 10:13] LABS: Anisocytosis Moderate; MCH 30.4 pg (25.0-35.0); MCHC 30.3 g/dL (31.0-37.0); MCV 100.6 fL (80.0-100.0); Macrocytosis Moderate; Mean Platelet Volume 13.2; RBC 1.62 m/uL (3.80-5.40); RDW 20.2 % (11.5-15.5)
[2018-05-11 10:30] LABS: HCT 16.3 % (34.0-46.0); HGB 4.9 gm/dL (11.4-16.0); Platelet Count 40 k/uL (150-450); WBC 0.8 k/uL (3.8-10.6)
[2018-05-11 11:53] LABS: Glucose,Whole Blood 128 mg/dL (75-99)
--- NOTE | 2018-05-11 12:39 | P.HPIM ---
History of Present Illness H&P Date: 05/11/18 Chief Complaint: Weakness with jaw pain This is a 82-year-old -[place] female who has history of multifactorial anemia and element of pancytopenia. The patient recently had bone marrow biopsy. However, in the last day she's been having recurrent weakness. She recently had transfusion about 2 weeks ago. The patient does not describe a chest pain or hematemesis hematochezia or any type of hematuria him bleeding or epistaxis. She does state some lower summary bruising. However given her overall laboratory examination the ER she has a appropriately evaluated and admitted to the hospital for significant anemia. Review of Systems Constitutional: Reports fatigue Eyes: denies blurred vision, denies pain Ears, nose, mouth and throat: Denies headache, Denies sore throat Cardiovascular: Denies chest pain, Denies shortness of breath Respiratory: Denies cough Gastrointestinal: Denies abdominal pain, Denies diarrhea, Denies nausea, Denies vomiting Genitourinary: Denies dysuria, Denies hematuria Musculoskeletal: Denies myalgias Past Medical History Past Medical History: Coronary Artery Disease (CAD), Chest Pain / Angina, Heart Failure, COPD, CVA/TIA, Diabetes Mellitus, GI Bleed, Hyperlipidemia, Hypertension, Myocardial Infarction ([place]) Additional Past Medical History / Comment(s): 04/20/16 possible GI bleed with low Hgb. kdiney stones, parkinsons Last Myocardial Infarction Date:: 1997 History of Any Multi-Drug Resistant Organisms: None Reported Past Surgical History: Coronary Bypass/CABG, Heart Catheterization With Stent, Hysterectomy, Orthopedic Surgery Additional Past Surgical History / Comment(s): CABG 1997. Left total hip replacement, colonoscopy nov 2015, angioplasty left leg. kidney surgery with stone removal. multiple heart stents. Past Anesthesia/Blood Transfusion Reactions: No Reported Reaction Additional Past Anesthesia/Blood Transfusion Reaction / Comment(s): Pt has recieved blood in the past with kidney surgery without reaction. Date of Last Stent Placement:: 04/15/2017 Past Psychological History: No Psychological Hx Reported Additional Psychological History / Comment(s): Pt resides with her spouse and daughter. She uses no assistive device. She is independent. She drives a car. Smoking Status: Former smoker Past Alcohol Use History: None Reported Additional Past Alcohol Use History / Comment(s): Pt started smoking in 3 and quit in 1993. She had been a 2-3 ppd smoker. Past Drug Use History: None Reported, Prescription Drug Abuse - Past Family History Mother Family Medical History: Cancer Father Additional Family Medical History / Comment(s): aneurysm Medications and Allergies Home Medications Medication Instructions Recorded Confirmed Type Metoprolol Tartrate [Lopressor] 100 mg PO BID 05/02/17 05/11/18 History amLODIPine [Norvasc] 10 mg PO DAILY 05/02/17 05/11/18 History Ferrous Sulfate [Feosol] 325 mg PO DAILY 04/19/18 05/11/18 History Aspirin 81 mg PO DAILY #30 chewable 04/25/18 05/11/18 Rx Atorvastatin [Lipitor] 40 mg PO HS 05/11/18 05/11/18 History Esomeprazole Magnesium [NexIUM] 40 mg PO BID 05/11/18 05/11/18 History metFORMIN HCL [Glucophage] 500 mg PO BID 05/11/18 05/11/18 History Allergies Allergy/AdvReac Type Severity Reaction Status Date / Time Iodinated Contrast- Oral and Allergy Rash/Hives Verified 05/11/18 07:21 IV Dye [Iodinated Contrast Media - IV Dye] shellfish derived [Shellfish] Allergy Rash/Hives Verified 05/11/18 07:21 Physical Exam Vitals: Vital Signs Temp Pulse Pulse Resp BP BP Pulse Ox 05/11/18 11:25 97.7 F 72 18 142/65 98 05/11/18 08:00 97.2 F L 68 18 122/56 99 05/11/18 06:36 97.3 F L 73 18 184/78 100 05/11/18 06:33 73 18 05/11/18 05:50 66 17 144/82 97 05/11/18 05:26 98.9 F 05/11/18 03:46 97.3 F L 70 18 184/78 100 05/11/18 02:52 68 17 157/81 98 05/11/18 01:00 72 17 173/72 99 05/11/18 00:37 100.2 F H 05/10/18 23:20 98.4 F 74 18 161/75 99 Intake and Output 05/10/18 05/11/18 05/11/18 22:59 06:59 14:59 Intake Total 100 240 Balance 100 240 Intake: Intake, IV Titration 100 Amount Sodium Chloride 0.9% 1, 100 000 ml @ 100 mls/hr IV . Q10H MACIEL Rx#:[id number] Oral 240 Other: Voiding Method Toilet # Voids 1 Weight 88.8 kg - Constitutional General appearance: no acute distress, obese - EENT Eyes: EOMI - Neck Neck: no lymphadenopathy - Respiratory Respiratory: bilateral: CTA - Cardiovascular Rhythm: regular Heart sounds: normal: S1, S2 Abnormal Heart Sounds: no S3 Gallop - Gastrointestinal General gastrointestinal: soft, no tenderness - Neurologic Neurologic: CNII-XII intact - Psychiatric Psychiatric: A&O x's 3, no intact judgment & insight Results CBC & Chem 7: 05/11/18 09:08 05/11/18 00:13 Labs: Abnormal Lab Results - Last 24 Hours (Table) 05/11/18 05/11/18 05/11/18 Range/Units 00:13 00:13 00:13 WBC 1.3 L* (3.8-10.6) k/uL RBC 1.96 L (3.80-5.40) m/uL Hgb 6.2 L* D (11.4-16.0) gm/dL Hct 19.1 L* (34.0-46.0) % MCV (80.0-100.0) fL MCHC (31.0-37.0) g/dL RDW 20.4 H (11.5-15.5) % Plt Count 46 L* (150-450) k/uL Neutrophils # (Manual) 0.30 L (1.3-7.7) k/uL Lymphocytes # (Manual) 0.82 L (1.0-4.8) k/uL Nucleated RBCs 2 H (0-0) /100 WBC Chloride 109 H (98-107) mmol/L Creatinine 1.10 H (0.52-1.04) mg/dL Glucose 136 H (74-99) mg/dL POC Glucose (mg/dL) (75-99) mg/dL Plasma Lactic Acid Cortes (0.7-2.0) mmol/L Total Creatine Kinase 29 L (30-135) U/L Urine Protein (Negative) Crossmatch 05/11/18 05/11/18 05/11/18 Range/Units 00:13 00:13 00:20 WBC (3.8-10.6) k/uL RBC (3.80-5.40) m/uL Hgb (11.4-16.0) gm/dL Hct (34.0-46.0) % MCV (80.0-100.0) fL MCHC (31.0-37.0) g/dL RDW (11.5-15.5) % Plt Count (150-450) k/uL Neutrophils # (Manual) (1.3-7.7) k/uL Lymphocytes # (Manual) (1.0-4.8) k/uL Nucleated RBCs (0-0) /100 WBC Chloride (98-107) mmol/L Creatinine (0.52-1.04) mg/dL Glucose (74-99) mg/dL POC Glucose (mg/dL) (75-99) mg/dL Plasma Lactic Acid Cortes 2.3 H* (0.7-2.0) mmol/L Total Creatine Kinase (30-135) U/L Urine Protein Trace H (Negative) Crossmatch See Detail 05/11/18 05/11/18 05/11/18 Range/Units 06:24 09:08 11:33 WBC 0.8 L* (3.8-10.6) k/uL RBC 1.62 L (3.80-5.40) m/uL Hgb 4.9 L* (11.4-16.0) gm/dL Hct 16.3 L* (34.0-46.0) % MCV 100.6 H (80.0-100.0) fL MCHC 30.3 L (31.0-37.0) g/dL RDW 20.2 H (11.5-15.5) % Plt Count 40 L* (150-450) k/uL Neutrophils # (Manual) (1.3-7.7) k/uL Lymphocytes # (Manual) (1.0-4.8) k/uL Nucleated RBCs (0-0) /100 WBC Chloride (98-107) mmol/L Creatinine (0.52-1.04) mg/dL Glucose (74-99) mg/dL POC Glucose (mg/dL) 137 H 128 H (75-99) mg/dL Plasma Lactic Acid Cortes (0.7-2.0) mmol/L Total Creatine Kinase (30-135) U/L Urine Protein (Negative) Crossmatch Microbiology - Last 24 Hours (Table) 05/11/18 00:20 Urine Culture - Preliminary Urine,Voided Thrombosis Risk Factor Assmnt - Choose All That Apply Any of the Below Risk Factors Present?: Yes Each Factor Represents 1 point: Abnormal pulmonary function (COPD), Obesity ( BMI >25) Other Risk Factors: Yes Each Risk Factor Represents 3 Points: Age 75 years or older Other congenital or acquired thrombophilia - If yes, enter type in comment: No Thrombosis Risk Factor Assessment Total Risk Factor Score: 5 Thrombosis Risk Factor Assessment Level: High Risk Assessment and Plan (1) Anemia Current Visit: No Status: Acute Code(s): D64.9 - ANEMIA, UNSPECIFIED SNOMED Code(s): 946077887 (2) At risk for readmission to hospital Current Visit: No Status: Acute Code(s): Z91.89 - OTH PERSONAL RISK FACTORS , NOT ELSEWHERE CLASSIFIED SNOMED Code(s): 6741815041418 (3) Atrial fibrillation Current Visit: No Status: Acute Code(s): I48.91 - UNSPECIFIED ATRIAL FIBRILLATION SNOMED Code(s): 85114695 (4) 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 Current Visit: No Status: Acute Code(s): Z95.5 - PRESENCE OF CORONARY ANGIOPLASTY IMPLANT AND GRAFT SNOMED Code(s): 573995673 (5) Shortness of breath Current Visit: No Status: Acute Code(s): R06.02 - SHORTNESS OF BREATH SNOMED Code(s): 191084826 Plan: Continue supportive care. Bone marrow biopsy results should dictate her appropriate treatment. Hematology/oncology is not consulted. Check CBC and CMP in a.m. Reconcile home medications as necessary. She orders otherwise.
[2018-05-11] MEDS ORDERED: methylPREDNISolone SOD SUCCI 40 MG/ML 1 ML VIAL IV STA (12:43)
[2018-05-11 16:35] LABS: Glucose,Whole Blood 175 mg/dL (75-99)
[2018-05-11] MEDS: ENALAPRILAT 1.25 MG/ML 1 ML VIAL IVP SCH (17:33)
[2018-05-11] MEDS: HYDROcodone/APAP 5-325MG 1 EACH TAB PO PRN (18:07)
--- NOTE | 2018-05-11 18:28 | P.CONS ---
History of Present Illness - Reason for Consult Consult date: 05/11/18 pancytopenia Requesting physician: Reymundo Ramos - Chief Complaint weakness - History of Present Illness Mrs. Mortensen is a very pleasant female pt we saw in consult late March for progressive pancytopenia. She was seen initially in 2015 for anemia, iron deficiency found, had endoscopy-including capsule, no underlying cause found, also had slightly low WBCs at that time but, on work up nothing was identified, pt never followed up in the office. patient had a bone marrow biopsy and aspirate on April [address] Gonzalez for the pancytopenia, patient canceled one appointment and no showed another. Patient came to the hospital with progressive weakness. She is profoundly anemic with a hemoglobin of 4.9. Patient has an antibody variant making it difficult to crossmatch her. Patient is tearful when seen, states that she is having difficulty remembering, states she's had a stroke. She is weak, can't get around, no appetite, denies fevers , bleeding, she is not in the mood to talk, she wants to have a family meeting. Denies acute pain. Review of Systems patient is very tearful, having difficulty with recall ROS unobtainable: due to mental status Past Medical History Past Medical History: Coronary Artery Disease (CAD), Chest Pain / Angina, Heart Failure, COPD, CVA/TIA, Diabetes Mellitus, GI Bleed, Hyperlipidemia, Hypertension, Myocardial Infarction ([place]) Additional Past Medical History / Comment(s): 04/20/16 possible GI bleed with low Hgb. kdiney stones, parkinsons Last Myocardial Infarction Date:: 1997 History of Any Multi-Drug Resistant Organisms: None Reported Past Surgical History: Coronary Bypass/CABG, Heart Catheterization With Stent, Hysterectomy, Orthopedic Surgery Additional Past Surgical History / Comment(s): CABG 1997. Left total hip replacement, colonoscopy nov 2015, angioplasty left leg. kidney surgery with stone removal. multiple heart stents. Past Anesthesia/Blood Transfusion Reactions: No Reported Reaction Additional Past Anesthesia/Blood Transfusion Reaction / Comm: Pt has recieved blood in the past with kidney surgery without reaction. Date of Last Stent Placement:: 04/15/2017 Past Psychological History: No Psychological Hx Reported Additional Psychological History / Comment(s): Pt resides with her spouse and daughter. She uses no assistive device. She is independent. She drives a car. Smoking Status: Former smoker Past Alcohol Use History: None Reported Additional Past Alcohol Use History / Comment(s): Pt started smoking in 1953 and quit in 1993. She had been a 2-3 ppd smoker. Past Drug Use History: None Reported, Prescription Drug Abuse - Past Family History Mother Family Medical History: Cancer Father Additional Family Medical History / Comment(s): aneurysm Medications and Allergies Home Medications Medication Instructions Recorded Confirmed Type Metoprolol Tartrate [Lopressor] 100 mg PO BID 05/02/17 05/11/18 History amLODIPine [Norvasc] 10 mg PO DAILY 05/02/17 05/11/18 History Ferrous Sulfate [Feosol] 325 mg PO DAILY 04/19/18 05/11/18 History Aspirin 81 mg PO DAILY #30 chewable 04/25/18 05/11/18 Rx Atorvastatin [Lipitor] 40 mg PO HS 05/11/18 05/11/18 History Esomeprazole Magnesium [NexIUM] 40 mg PO BID 05/11/18 05/11/18 History metFORMIN HCL [Glucophage] 500 mg PO BID 05/11/18 05/11/18 History Allergies Allergy/AdvReac Type Severity Reaction Status Date / Time Iodinated Contrast- Oral and Allergy Rash/Hives Verified 05/11/18 07:21 IV Dye [Iodinated Contrast Media - IV Dye] shellfish derived [Shellfish] Allergy Rash/Hives Verified 05/11/18 07:21 Physical Exam Vitals: Vital Signs Temp Pulse Pulse Resp BP BP Pulse Ox 05/11/18 11:25 97.7 F 72 18 142/65 98 05/11/18 08:00 97.2 F L 68 18 122/56 99 05/11/18 06:36 97.3 F L 73 18 184/78 100 05/11/18 06:33 73 18 05/11/18 05:50 66 17 144/82 97 05/11/18 05:26 98.9 F 05/11/18 03:46 97.3 F L 70 18 184/78 100 05/11/18 02:52 68 17 157/81 98 05/11/18 01:00 72 17 173/72 99 05/11/18 00:37 100.2 F H 05/10/18 23:20 98.4 F 74 18 161/75 99 Intake and Output 05/10/18 05/11/18 05/11/18 22:59 06:59 14:59 Intake Total 100 240 Balance 100 240 Intake: Intake, IV Titration 100 Amount Sodium Chloride 0.9% 1, 100 000 ml @ 100 mls/hr IV . Q10H MACIEL Rx#:[id number] Oral 240 Other: Voiding Method Toilet # Voids 1 Weight 88.8 kg - Constitutional General appearance: cooperative, disheveled, mild distress, obese - EENT Eyes: anicteric sclerae, EOMI - Neck Neck: no lymphadenopathy - Respiratory Respiratory: bilateral: diminished (respirations are shallow but unlabored) - Cardiovascular Heart sounds: normal: S1, S2 leg Peripheral Edema: bilateral: Trace - Gastrointestinal General gastrointestinal: no absent bowel sounds, no decreased bowel sounds, no distended, no hepatomegaly, no hyperactive bowel sounds, normal bowel sounds, no organomegaly, no rigid, no scaphoid, soft, no splenomegaly, no tenderness, no umbilical hernia, no ventral hernia - Neurologic patient was slow to follow commands but appropriate - Psychiatric patient tearful, stating being stressed out Psychiatric: A&O x's 3, no appropriate affect, no intact judgment & insight Results CBC & Chem 7: 05/11/18 09:08 05/11/18 00:13 Labs: Abnormal Lab Results - Last 24 Hours (Table) 05/11/18 05/11/18 05/11/18 Range/Units 00:13 00:13 00:13 WBC 1.3 L* (3.8-10.6) k/uL RBC 1.96 L (3.80-5.40) m/uL Hgb 6.2 L* D (11.4-16.0) gm/dL Hct 19.1 L* (34.0-46.0) % MCV (80.0-100.0) fL MCHC (31.0-37.0) g/dL RDW 20.4 H (11.5-15.5) % Plt Count 46 L* (150-450) k/uL Neutrophils # (Manual) 0.30 L (1.3-7.7) k/uL Lymphocytes # (Manual) 0.82 L (1.0-4.8) k/uL Nucleated RBCs 2 H (0-0) /100 WBC Chloride 109 H (98-107) mmol/L Creatinine 1.10 H (0.52-1.04) mg/dL Glucose 136 H (74-99) mg/dL POC Glucose (mg/dL) (75-99) mg/dL Plasma Lactic Acid Cortes (0.7-2.0) mmol/L Total Creatine Kinase 29 L (30-135) U/L Urine Protein (Negative) Crossmatch 05/11/18 05/11/18 05/11/18 Range/Units 00:13 00:13 00:20 WBC (3.8-10.6) k/uL RBC (3.80-5.40) m/uL Hgb (11.4-16.0) gm/dL Hct (34.0-46.0) % MCV (80.0-100.0) fL MCHC (31.0-37.0) g/dL RDW (11.5-15.5) % Plt Count (150-450) k/uL Neutrophils # (Manual) (1.3-7.7) k/uL Lymphocytes # (Manual) (1.0-4.8) k/uL Nucleated RBCs (0-0) /100 WBC Chloride (98-107) mmol/L Creatinine (0.52-1.04) mg/dL Glucose (74-99) mg/dL POC Glucose (mg/dL) (75-99) mg/dL Plasma Lactic Acid Cortes 2.3 H* (0.7-2.0) mmol/L Total Creatine Kinase (30-135) U/L Urine Protein Trace H (Negative) Crossmatch See Detail 05/11/18 05/11/18 05/11/18 Range/Units 06:24 09:08 11:33 WBC 0.8 L* (3.8-10.6) k/uL RBC 1.62 L (3.80-5.40) m/uL Hgb 4.9 L* (11.4-16.0) gm/dL Hct 16.3 L* (34.0-46.0) % MCV 100.6 H (80.0-100.0) fL MCHC 30.3 L (31.0-37.0) g/dL RDW 20.2 H (11.5-15.5) % Plt Count 40 L* (150-450) k/uL Neutrophils # (Manual) (1.3-7.7) k/uL Lymphocytes # (Manual) (1.0-4.8) k/uL Nucleated RBCs (0-0) /100 WBC Chloride (98-107) mmol/L Creatinine (0.52-1.04) mg/dL Glucose (74-99) mg/dL POC Glucose (mg/dL) 137 H 128 H (75-99) mg/dL Plasma Lactic Acid Cortes (0.7-2.0) mmol/L Total Creatine Kinase (30-135) U/L Urine Protein (Negative) Crossmatch Microbiology - Last 24 Hours (Table) 05/11/18 00:20 Urine Culture - Preliminary Urine,Voided CT Scan - head: report reviewed Assessment and Plan (1) Pancytopenia Narrative/Plan: Patient had a bone marrow with Dr. Gonzalez several weeks ago, she canceled one appointment and no showed another appointment. She has a very complex bone marrow pathology report, myelodysplastic syndrome favored, with multiple genetic abnormalities. 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 Dr. Farley did review the case with me. Patient will require prolonged time to get appropriate blood matched and she is still at high risk for transfusion hemolysis. Plan is for family meeting tomorrow morning to discuss bone marrow results, treatment options and how to proceed forward. Confirmed with nursing Current Visit: Yes Status: Acute Priority: High Code(s): D61.818 - OTHER PANCYTOPENIA SNOMED Code(s): 144106371
--- NOTE | 2018-05-11 19:14 | P.CNNES ---
History of Present Illness Consult date: 05/11/18 History of Present Illness: The patient is an 82-year-old -Citizen Of [place] female with multiple medical issues including myelodysplastic syndrome, anemia pancytopenia, heart disease pakinsonsses, diabetes, hypertension, stroke. She presents to the hospital with history of disorientation memory loss loss of balance and left-sided headache for 5 days. She denies any visual changes. She denied any focal weakness. Her daughter states that she had complained of some left-sided numbness which lasted for about 10 minutes yesterday. Patient denies any speech disturbance. She had a CAT scan of the brain in the emergency room showed old right occipital lobe infarct well as an acute infarct in the left occipital lobe Review of Systems Constitutional: Reports as per HPI Eyes: denies blurred vision, denies pain Ears, nose, mouth and throat: Denies headache, Denies sore throat Cardiovascular: Reports as per HPI Respiratory: Denies cough Gastrointestinal: Denies abdominal pain, Denies diarrhea, Denies nausea, Denies vomiting Genitourinary: Denies dysuria, Denies hematuria Musculoskeletal: Denies myalgias Neurological: Denies numbness, Denies weakness Psychiatric: Denies anxiety, Denies depression Past Medical History Past Medical History: Coronary Artery Disease (CAD), Chest Pain / Angina, Heart Failure, COPD, CVA/TIA, Diabetes Mellitus, GI Bleed, Hyperlipidemia, Hypertension, Myocardial Infarction ([place]) Additional Past Medical History / Comment(s): 04/20/16 possible GI bleed with low Hgb. kdiney stones, parkinsons Last Myocardial Infarction Date:: 1997 History of Any Multi-Drug Resistant Organisms: None Reported Past Surgical History: Coronary Bypass/CABG, Heart Catheterization With Stent, Hysterectomy, Orthopedic Surgery Additional Past Surgical History / Comment(s): CABG 1997. Left total hip replacement, colonoscopy nov 2015, angioplasty left leg. kidney surgery with stone removal. multiple heart stents. Past Anesthesia/Blood Transfusion Reactions: No Reported Reaction Additional Past Anesthesia/Blood Transfusion Reaction / Comment(s): Pt has recieved blood in the past with kidney surgery without reaction. Date of Last Stent Placement:: 04/15/2017 Past Psychological History: No Psychological Hx Reported Additional Psychological History / Comment(s): Pt resides with her spouse and daughter. She uses no assistive device. She is independent. She drives a car. Smoking Status: Former smoker Past Alcohol Use History: None Reported Additional Past Alcohol Use History / Comment(s): Pt started smoking in 1953 and quit in 1993. She had been a 2-3 ppd smoker. Past Drug Use History: None Reported, Prescription Drug Abuse - Past Family History Mother Family Medical History: Cancer Father Additional Family Medical History / Comment(s): aneurysm Medications and Allergies Home Medications Medication Instructions Recorded Confirmed Type Metoprolol Tartrate [Lopressor] 100 mg PO BID 05/02/17 05/11/18 History amLODIPine [Norvasc] 10 mg PO DAILY 05/02/17 05/11/18 History Ferrous Sulfate [Feosol] 325 mg PO DAILY 04/19/18 05/11/18 History Aspirin 81 mg PO DAILY #30 chewable 04/25/18 05/11/18 Rx Atorvastatin [Lipitor] 40 mg PO HS 05/11/18 05/11/18 History Esomeprazole Magnesium [NexIUM] 40 mg PO BID 05/11/18 05/11/18 History metFORMIN HCL [Glucophage] 500 mg PO BID 05/11/18 05/11/18 History Allergies Allergy/AdvReac Type Severity Reaction Status Date / Time Iodinated Contrast- Oral and Allergy Rash/Hives Verified 05/11/18 07:21 IV Dye [Iodinated Contrast Media - IV Dye] shellfish derived [Shellfish] Allergy Rash/Hives Verified 05/11/18 07:21 Physical Examination - Vital Signs Vital Signs: Vital Signs Temp Pulse Pulse Resp BP BP Pulse Ox 05/11/18 17:30 98.4 F 92 18 179/80 97 05/11/18 16:00 99.0 F 84 18 209/92 98 05/11/18 14:35 98.4 F 73 18 158/68 96 05/11/18 14:05 98.1 F 76 18 152/68 97 05/11/18 13:55 97.9 F 74 18 160/70 98 05/11/18 11:25 97.7 F 72 18 142/65 98 05/11/18 08:00 97.2 F L 68 18 122/56 99 05/11/18 06:36 97.3 F L 73 18 184/78 100 05/11/18 06:33 73 18 05/11/18 05:50 66 17 144/82 97 05/11/18 05:26 98.9 F 07/17/18 03:46 97.3 F L 70 18 184/78 100 05/11/18 02:52 68 17 157/81 98 05/11/18 01:00 72 17 173/72 99 05/11/18 00:37 100.2 F H 05/10/18 23:20 98.4 F 74 18 161/75 99 Intake and Output 05/11/18 05/11/18 05/11/18 06:59 14:59 22:59 Intake Total 100 1060 550 Balance 100 1060 550 Intake: Intake, IV Titration 100 700 Amount Sodium Chloride 0.9% 1, 100 700 000 ml @ 100 mls/hr IV . Q10H MACIEL Rx#:[id number] Oral 360 240 Blood Product 0 310 Rc As-1 Unit 0 310 [id number] Other: Voiding Method Toilet # Voids 2 Weight 88.8 kg - Constitutional General appearance: average body habitus, cooperative - EENT EENT: PERRL, hearing intact, vision intact - Respiratory Respiratory: lungs clear - Cardiovascular Cardiovascular: regular rate - Neurologic Mental status: She was awake alert and oriented. She answered questions appropriately. There was no a aphasia or dysarthria. Cranial nerve examination: PERRL, EOMI, VFF, face symmetric, tongue midline Speech examination: intact Detailed motor examination: grossly full strength in all extremities Results - Laboratory Findings CBC and BMP: 05/11/18 09:08 05/11/18 00:13 Abnormal Lab Findings: Abnormal Labs 05/11/18 05/11/18 05/11/18 00:13 00:13 00:13 WBC 1.3 L* RBC 1.96 L Hgb 6.2 L* D Hct 19.1 L* MCV MCHC RDW 20.4 H Plt Count 46 L* Neutrophils # (Manual) 0.30 L Lymphocytes # (Manual) 0.82 L Nucleated RBCs 2 H Chloride 109 H Creatinine 1.10 H Glucose 136 H POC Glucose (mg/dL) Plasma Lactic Acid Cortes Total Creatine Kinase 29 L Urine Protein Crossmatch 05/11/18 05/11/18 05/11/18 00:13 00:13 00:20 WBC RBC Hgb Hct MCV MCHC RDW Plt Count Neutrophils # (Manual) Lymphocytes # (Manual) Nucleated RBCs Chloride Creatinine Glucose POC Glucose (mg/dL) Plasma Lactic Acid Cortes 2.3 H* Total Creatine Kinase Urine Protein Trace H Crossmatch See Detail 05/11/18 05/11/18 05/11/18 06:24 09:08 11:33 WBC 0.8 L* RBC 1.62 L Hgb 4.9 L* Hct 16.3 L* MCV 100.6 H MCHC 30.3 L RDW 20.2 H Plt Count 40 L* Neutrophils # (Manual) Lymphocytes # (Manual) Nucleated RBCs Chloride Creatinine Glucose POC Glucose (mg/dL) 137 H 128 H Plasma Lactic Acid Cortes Total Creatine Kinase Urine Protein Crossmatch 05/11/18 16:32 WBC RBC Hgb Hct MCV MCHC RDW Plt Count Neutrophils # (Manual) Lymphocytes # (Manual) Nucleated RBCs Chloride Creatinine Glucose POC Glucose (mg/dL) 175 H Plasma Lactic Acid Cortes Total Creatine Kinase Urine Protein Crossmatch Assessment and Plan (1) Acute left [employer] stroke Current Visit: Yes Status: Acute SNOMED Code(s): 412397432 (2) History of stroke Current Visit: Yes Status: Acute SNOMED Code(s): 007403445 (3) Pancytopenia Current Visit: Yes Status: Acute Priority: High SNOMED Code(s): 572471127 Plan: The patient is a 82-year-old woman with myelodysplastic syndrome and pancytopenia and general weakness. She presents to the hospital with symptoms of weakness and had had an episode of left-sided numbness and left-sided headache. CT of the brain shows subacute left occipital lobe infarct. Discussed findings of CT with patient and her family. They wish to postpone any further testing in regards to the stroke such as carotid ultrasound until her immediate hematologic problem resolves. Recommend monitoring high blood pressure and blood glucose closely.
[2018-05-11 20:45] LABS: Glucose,Whole Blood 210 mg/dL (75-99)
[2018-05-11 20:59] LABS: Hemoglobin A1C 6.5 % (4.0-6.0)
[2018-05-11] MEDS ORDERED: METOPROLOL TARTRATE 50 MG TAB PO SCH (21:00)
[2018-05-11 21:25] LABS: Anisocytosis Slight; Basophils % (A) 3 %; Eosinophils % (A) 0 %; HCT 20.8 % (34.0-46.0); Lymphocytes # (A) 0.3 k/uL (1.0-4.8); Lymphocytes % (A) 44 %; MCH 31.9 pg (25.0-35.0); MCHC 32.5 g/dL (31.0-37.0); MCV 98.2 fL (80.0-100.0); Macrocytosis Moderate; Mean Platelet Volume 12.6; Monocytes # (A) 0.1 k/uL (0-1.0); Monocytes % (A) 8 %; Neutrophils # (A) 0.2 k/uL (1.3-7.7); Neutrophils % (A) 38 %; RBC 2.12 m/uL (3.80-5.40); RDW 19.8 % (11.5-15.5)
[2018-05-11 21:42] LABS: HGB 6.8 gm/dL (11.4-16.0); WBC 0.6 k/uL (3.8-10.6)
[2018-05-11 22:20] LABS: Platelet Count 38 k/uL (150-450)
[2018-05-11 22:21] LABS: Anisocytosis (M) Present
[2018-05-12] MEDS ORDERED: diphenhydrAMINE 50 MG/ML 1 ML VIAL ONE (01:06)
[2018-05-12] MEDS ORDERED: DEXTROSE 5% IN WATER 250 ML BAG IV ONE (05:39)
[2018-05-12] MEDS ORDERED: AMIODARONE 50 MG/ML 9 ML VIAL IV ONE (05:39)
[2018-05-12 05:42] LABS: Glucose,Whole Blood 151 mg/dL (75-99)
[2018-05-12] MEDS ORDERED: DEXTROSE 5% IN WATER 100 ML with AMIODARONE 150 MG IV ONE (05:52)
[2018-05-12] MEDS ORDERED: levETIRAcetam IV 1,000 MG in SALINE 1 100ML.BAG IVPB STA (06:20)
[2018-05-12 06:23] LABS: Glucose,Whole Blood 259 mg/dL (75-99)
[2018-05-12 07:07] LABS: INR 1.2 (<1.2); Partial Thromboplastin Time 23.2 sec (22.0-30.0); Prothrombin Time 11.5 sec (9.0-12.0)
[2018-05-12] MEDS ORDERED: NOREPINEPHRIN 4 MG-0.9% NS PMX 4 MG/250 ML ML IV ONE (07:07)
[2018-05-12] MEDS ORDERED: SODIUM CHLORIDE 0.9% 1,000 ML IV ONE ×2 (07:09→09:04)
[2018-05-12 07:13] LABS: Anisocytosis Slight; HCT 27.1 % (34.0-46.0); Hypochromasia Marked; MCH 32.7 pg (25.0-35.0); MCHC 30.7 g/dL (31.0-37.0); Macrocytosis Marked; Mean Platelet Volume 15.4; RBC 2.54 m/uL (3.80-5.40); RDW 18.6 % (11.5-15.5)
[2018-05-12 07:14] LABS: Albumin 3.2 g/dL (3.5-5.0); Calcium 8.5 mg/dL (8.4-10.2); Magnesium 2.2 mg/dL (1.6-2.3); Potassium 4.4 mmol/L (3.5-5.1)
[2018-05-12 07:22] LABS: HGB 8.3 gm/dL (11.4-16.0); MCV 106.6 fL (80.0-100.0); Platelet Count 77 k/uL (150-450)
[2018-05-12] MEDS ORDERED: PANTOPRAZOLE 40 MG TABLET PO SCH (07:30)
[2018-05-12] MEDS ORDERED: NOREPINEPHRINE 4 MG in DEXTROSE 5% IN WATER 250 ML IV SCH ×2 (07:30)
[2018-05-12 07:45] LABS: Band Neutrophils % 1 %; Eosinophils # (M) 0.05 k/uL (0-0.7); Neutrophils % (M) 33 %; Nucleated Red Blood Cells 5 /100 WBC (0-0); Total Cells Counted 200
[2018-05-12 07:46] LABS: Large Platelets Present; Lymphocytes # (M) 2.61 k/uL (1.0-4.8); Monocytes # (M) 0.36 k/uL (0-1.0); Poikilocytosis (M) Present; WBC 4.5 k/uL (3.8-10.6)
[2018-05-12 07:47] LABS: RBC Fragments Present
--- NOTE | 2018-05-12 07:48 | XR ---
EXAMINATION TYPE: XR chest 1V DATE OF EXAM: 05/12/2018 COMPARISON: Prior chest 05/11/2018 HISTORY: Endotracheal tube placement TECHNIQUE: Single frontal view of the chest is obtained. FINDINGS: Endotracheal tube, NG tube are overlying appropriate positions. Patient is post median saravanan rnotomy and the heart is enlarged. The interstitium is increased. No evident pneumothorax or pleural effusion. IMPRESSION: Correlate for pulmonary venous hypertension and interstitial edema. Endotracheal tube ov erlying appropriate position.
[2018-05-12] MEDS: AMIODARONE 450 MG in DEXTROSE 5% IN WATER 250 ML IV SCH ×6 (08:00→22:13)
[2018-05-12] MEDS: PROPOFOL 1,000 MG in EMPTY BAG 1 BAG IV SCH ×3 (08:00→22:14)
[2018-05-12 08:18] LABS: ABG Base Excess -12.6 mmol/L; ABG HCO3 15 mmol/L (21-25); ABG PCO2 35 mmHg (35-45); ABG PH 7.24 (7.35-7.45); ABG PO2 337 mmHg (83-108); ABG TCO2 16 mmol/L (19-24)
[2018-05-12] MEDS: ATORVASTATIN 40 MG TAB PO SCH ×2 (08:29→22:13)
--- NOTE | 2018-05-12 08:29 | P.CRDCN ---
History of Present Illness Consult date: 05/12/18 Chief complaint: Cardiac arrest History of present illness: This is a pleasant 82-year-old female patient with a past medical history significant for coronary artery disease, diabetes, hypertension, and dyslipidemia, was admitted to the hospital recently with weakness and she was diagnosed with anemia. I was asked to see the patient because change in mental status and possible seizure/cardiac arrest. Currently the patient is intubated and she is on ventilatory and the history was taken from the chart as well as from the nurse taking care of the patient. The patient does have significant history of coronary artery disease and she underwent a heart catheterization in 2014 where at that point she was found to have severe triple-vessel coronary artery disease with severe disease involving the SVG to LAD, patent PAUL to diagonal, and patent SVG to RCA. The SVG to LCx was not visualized at that point. The patient did undergo at that point successful stenting of the SVG to LAD by Dr. MANISHA Vance. The patient was diagnosed recently was with it seems to be myelodysplastic syndrome and she underwent a bone marrow biopsy. She presented to the hospital was overall weakness. No indication of any chest pain or chest discomfort or shortness of breath or dizziness or lightheadedness or syncope. She was found to be anemic and she was admitted for further evaluation and management. While she was on the floor the patient developed an episode of wide-complex tachycardia with a short period of sustained V. tach. Subsequently the patient developed a seizure episode with convulsion movement without any incontinence. Because of that the patient was intubated and was brought to the intensive care unit. Currently the patient is intubated and she is on ventilator. She is hemodynamically unstable and she is requiring vasopressors. She has been in atrial fibrillation with overall controlled heart rate. I am going to add amiodarone bolus and drip to the current medical regimen. Hold any kind of beta jesus or calcium channel jesus. Hold any kind of anticoagulation to rule out any intracranial bleeding. Beside that I am going to rule out acute coronary event and obtain serial cardiac enzymes as well as an echocardiogram. The last echocardiogram was performed in December 2017 with the patient was admitted with chest discomfort and that revealed normal LV function. Past Medical History Past Medical History: Coronary Artery Disease (CAD), Chest Pain / Angina, Heart Failure, COPD, CVA/TIA, Diabetes Mellitus, GI Bleed, Hyperlipidemia, Hypertension, Myocardial Infarction ([place]) Additional Past Medical History / Comment(s): 04/20/16 possible GI bleed with low Hgb. kdiney stones, parkinsons Last Myocardial Infarction Date:: 1997 History of Any Multi-Drug Resistant Organisms: None Reported Past Surgical History: Coronary Bypass/CABG, Heart Catheterization With Stent, Hysterectomy, Orthopedic Surgery Additional Past Surgical History / Comment(s): CABG 1997. Left total hip replacement, colonoscopy nov 2015, angioplasty left leg. kidney surgery with stone removal. multiple heart stents. Past Anesthesia/Blood Transfusion Reactions: No Reported Reaction Additional Past Anesthesia/Blood Transfusion Reaction / Comment(s): Pt has recieved blood in the past with kidney surgery without reaction. Date of Last Stent Placement:: 04/15/2017 Past Psychological History: No Psychological Hx Reported Additional Psychological History / Comment(s): Pt resides with her spouse and daughter. She uses no assistive device. She is independent. She drives a car. Smoking Status: Former smoker Past Alcohol Use History: None Reported Additional Past Alcohol Use History / Comment(s): Pt started smoking in 1952 and quit in 1993. She had been a 2-3 ppd smoker. Past Drug Use History: None Reported, Prescription Drug Abuse - Past Family History Mother Family Medical History: Cancer Father Additional Family Medical History / Comment(s): aneurysm Medications and Allergies Home Medications Medication Instructions Recorded Confirmed Type Metoprolol Tartrate [Lopressor] 100 mg PO BID 05/02/17 05/11/18 History amLODIPine [Norvasc] 10 mg PO DAILY 05/02/17 05/11/18 History Ferrous Sulfate [Feosol] 325 mg PO DAILY 04/19/18 05/11/18 History Aspirin 81 mg PO DAILY #30 chewable 04/25/18 05/11/18 Rx Atorvastatin [Lipitor] 40 mg PO HS 05/11/18 05/11/18 History Esomeprazole Magnesium [NexIUM] 40 mg PO BID 05/11/18 05/11/18 History metFORMIN HCL [Glucophage] 500 mg PO BID 05/11/18 05/11/18 History Allergies Allergy/AdvReac Type Severity Reaction Status Date / Time Iodinated Contrast- Oral and Allergy Rash/Hives Verified 05/11/18 07:21 IV Dye [Iodinated Contrast Media - IV Dye] shellfish derived [Shellfish] Allergy Rash/Hives Verified 05/11/18 07:21 Physical Exam Vitals: Vital Signs Temp Pulse Pulse Resp BP BP Pulse Ox 05/12/18 07:00 62 20 61/33 100 05/12/18 06:50 71 20 78/43 99 05/12/18 06:37 99 05/12/18 06:30 78 133/62 92 L 05/11/18 17:30 98.4 F 92 18 179/80 97 05/11/18 16:00 99.0 F 84 18 209/92 98 05/11/18 14:35 98.4 F 73 18 158/68 96 05/11/18 14:05 98.1 F 76 18 152/68 97 05/11/18 13:55 97.9 F 74 18 160/70 98 05/11/18 11:25 97.7 F 72 18 142/65 98 Intake and Output 05/11/18 05/12/18 05/12/18 22:59 06:59 14:59 Intake Total 550 310 Balance 550 310 Intake: Oral 240 Blood Product 310 310 Rc As-1 Unit 310 [id number] Rc As-1 Unit 310 [id number] - Constitutional General appearance: no acute distress - Respiratory Respiratory: bilateral: rales - Cardiovascular Rhythm: irregularly irregular Heart sounds: normal: S1, S2 Results 05/12/18 06:42 05/12/18 06:42 Cardiac Enzymes 05/12/18 05/12/18 Range/Units 06:42 06:42 AST 27 (14-36) U/L Troponin I 0.018 (0.000-0.034) ng/mL Coagulation 05/12/18 Range/Units 06:42 PT 11.5 (9.0-12.0) sec APTT 23.2 (22.0-30.0) sec Lipids 05/12/18 Range/Units 06:42 Triglycerides 109 (<150) mg/dL Cholesterol 98 (<200) mg/dL HDL Cholesterol 33 L (40-60) mg/dL CBC 05/11/18 05/11/18 05/12/18 Range/Units 09:08 20:34 06:42 WBC 0.8 L* 0.6 L* 4.5 (3.8-10.6) k/uL RBC 1.62 L 2.12 L 2.54 L (3.80-5.40) m/uL Hgb 4.9 L* 6.8 L* D 8.3 L D (11.4-16.0) gm/dL Hct 16.3 L* 20.8 L 27.1 L (34.0-46.0) % Plt Count 40 L* 38 L* 77 L D (150-450) k/uL Comprehensive Metabolic Panel 05/12/18 Range/Units 06:42 Sodium 143 (137-145) mmol/L Potassium 4.4 (3.5-5.1) mmol/L Chloride 114 H (98-107) mmol/L Carbon Dioxide 8 L* (22-30) mmol/L BUN 12 (7-17) mg/dL Creatinine 1.35 H (0.52-1.04) mg/dL Glucose 273 H (74-99) mg/dL Calcium 8.5 (8.4-10.2) mg/dL AST 27 (14-36) U/L ALT 15 (9-52) U/L Alkaline Phosphatase 70 (38-126) U/L Total Protein 6.0 L (6.3-8.2) g/dL Albumin 3.2 L (3.5-5.0) g/dL Current Medications Generic Name Dose Route Start Last Admin Trade Name Freq PRN Reason Stop Dose Admin Hydrocodone Bitart/Acetaminophen 1 each 05/11/18 15:29 05/11/18 18:07 [place] 5-325 PO 1 each Q4HR PRN Administration Moderate Pain Amlodipine Besylate 10 mg 05/12/18 09:00 Norvasc PO DAILY MACIEL Atorvastatin Calcium 40 mg 05/11/18 21:00 Lipitor PO HS MACIEL Enalaprilat 1.25 mg 05/11/18 17:00 05/11/18 17:33 Vasotec IVP 1.25 mg Q6H MACIEL Administration Ferrous Sulfate 325 mg 05/12/18 09:00 Feosol PO DAILY MACIEL Sodium Chloride 1,000 mls @ 100 mls/hr 05/11/18 02:30 05/11/18 14:00 Saline 0.9% IV 100 mls/hr .Q10H MACIEL Administration Levetiracetam 750 mg/ Sodium 107.5 mls @ 400 mls/hr 05/12/18 18:00 Chloride IVPB Q12H MACIEL Norepinephrine Bitartrate 4 mg 250 mls @ 0 mls/hr 05/12/18 07:30 / Dextrose/Water IV .Q0M MACIEL Protocol Titrate Amiodarone HCl 450 mg/ 250 mls @ 33.33 mls/hr 05/12/18 08:00 Dextrose/Water IV 05/13/18 08:01 .Q7H31M MACIEL Protocol 1 MG/MIN Insulin Aspart 0 unit 05/11/18 07:30 05/11/18 17:33 Novolog SQ 2 unit ACHS MACIEL Administration Protocol Metoprolol Tartrate 100 mg 05/11/18 21:00 Lopressor PO BID MACIEL Pantoprazole Sodium 40 mg 05/12/18 07:30 Protonix PO AC-[id number] MACIEL Intake and Output 05/11/18 05/12/18 05/12/18 22:59 06:59 14:59 Intake Total 550 310 Balance 550 310 Intake: Oral 240 Blood Product 310 310 Rc As-1 Unit 310 [id number] Rc As-1 Unit 310 [id number] 05/12/18 06:42 05/12/18 06:42 Assessment and Plan Assessment: Assessment #1 nonsustained ventricular tachycardia #2 atrial fibrillation was controlled heart rate at this point #3 possible seizure #4 severe underlying coronary artery disease and status post CABG and stenting as described above #5 acute respiratory failure and currently the patient is intubated and on ventilator #6 myelodysplastic syndrome #Pancytopenia Plan #1 start the patient on amiodarone bolus and drip #2 hold any kind of anticoagulation in view of the pancytopenia #3 rule out any acute coronary event. We'll obtain serial cardiac enzymes #4 obtain an echocardiogram was Doppler #5 follow-up with the patient. Thank you for allowing us participate in the care of the patient
[2018-05-12] MEDS: LORazepam 2 MG/ML INJ ONE (08:30)
[2018-05-12] MEDS ORDERED: LORazepam 2 MG/ML INJ ONE (08:57)
[2018-05-12] MEDS ORDERED: amLODIPine 10 MG TAB PO SCH (09:00)
[2018-05-12 09:15] LABS: Glucose,Whole Blood 250 mg/dL (75-99)
[2018-05-12] MEDS: CHLORHEXIDINE GLUCONATE 15 ML CUP MUCOUS MEM SCH ×2 (09:21→22:13)
[2018-05-12] MEDS: FERROUS SULFATE 325 MG TAB PO SCH (10:41)
[2018-05-12] MEDS: INSULIN ASPART 100 UNIT/ML 1 ML 10 ML VIAL SQ SCH (10:44)
--- NOTE | 2018-05-12 11:20 | XR ---
EXAMINATION TYPE: XR chest 1V portable DATE OF EXAM: 05/12/2018 COMPARISON: Prior chest 05/12/2018 HISTORY: Status post central venous catheter placement TECHNIQUE: Single frontal view of the chest is obtained. FINDINGS: There is been interval placement of a left jugular central venous catheter with the distal tip in the right atrium. No evident pneumothorax. No other significant interval change. Question bina e increased retrocardiac density possibly left lower lobe atelectasis. IMPRESSION: No evident complication status post central venous catheter placement. Additional findin gs above, follow-up suggested.
[2018-05-12] MEDS ORDERED: INSULIN ASPART 100 UNIT/ML 1 ML 10 ML VIAL SQ SCH (12:00)
[2018-05-12 12:13] LABS: Glucose,Whole Blood 268 mg/dL (75-99)
--- NOTE | 2018-05-12 12:14 | CT ---
EXAMINATION TYPE: CT brain wo con DATE OF EXAM: 05/12/2018 COMPARISON: 05/11/2018 HISTORY: CVA, New Onset of seizure CT DLP: 995.[address] of the brain was performed. The ventricles, basal cisterns and sulci overlying the cerebral convexities demonstrate mild enlargem ent. Stable features of acute CVA left occipital region. Stable remote right occipital infarct. There is decreased attenuation about the periventricular white matter and deep white matter of both c erebral hemispheres, compatible with chronic small vessel ischemia. Differential diagnosis does inclu de demyelination. No mass effects are seen.No midline shift. Osseous calvarium is intact. If symptoms persist consider MRI. IMPRESSION: 1. Stable features of acute CVA left occipital region. Stable remote right occipital infarct.
[2018-05-12] MEDS ORDERED: INSULIN REGULAR BOLUS (FROM DRIP BAG) IV PRN (12:24)
[2018-05-12] MEDS ORDERED: INSULIN REGULAR 100 UNIT in SODIUM CHLORIDE 0.9% 100 ML IV SCH (12:30)
--- NOTE | 2018-05-12 12:54 | PCN ---
PROCEDURE NOTE PLACEMENT OF THE LEFT INTERNAL JUGULAR CENTRAL LINE: PREOPERATIVE DIAGNOSIS: Acute respiratory failure, acute CVA, and acute new onset seizure. POSTOPERATIVE DIAGNOSIS: Acute respiratory failure, acute CVA, and acute new onset seizure. PROCEDURE: Patient was placed in a Trendelenburg position, the area of the left neck was prepared in a sterile fashion and drapes were applied. Using the posterior approach, the area was locally anesthetized using 2 mL of 1% lidocaine. Then, the left internal jugular vein was cannulated easily using the posterior approach, and a guidewire was placed. The area around the guidewire was dilated using a dilator, and I was able to pass a triple-lumen catheter over the guidewire, and the guidewire was removed. Good blood flow in the three different ports of the triple-lumen catheter noted. Chest x-ray postoperatively showed no evidence of any immediate complication. MMPHANL / LISANDRAN: [id number] /
--- NOTE | 2018-05-12 13:00 | PCN ---
PROCEDURE NOTE PLACEMENT OF THE LEFT BRACHIAL ARTERIAL LINE: POSTOPERATIVE DIAGNOSIS: Acute CVA and hypotension as well as respiratory failure. POSTOPERATIVE DIAGNOSIS: Acute CVA and hypotension as well as respiratory failure. ANESTHESIA USED: None deployed. PROCEDURE: Patient was placed in a supine position, the left brachial region was prepared in a sterile fashion and drapes were applied. The left brachial artery was easily palpated, cannulated, and a guidewire was placed. A Cook catheter was inserted over the guidewire, and the guidewire was removed. Good blood flow and good wave flow were noted, no evidence of any immediate complications. MMODL / IJN: [id number] /
[2018-05-12 13:15] LABS: Glucose,Whole Blood 242 mg/dL (75-99)
[2018-05-12 14:12] LABS: Glucose,Whole Blood 226 mg/dL (75-99)
[2018-05-12] MEDS ORDERED: NOREPINEPHRINE 16 MG in DEXTROSE 5% IN WATER 250 ML IV SCH ×2 (14:15)
--- NOTE | 2018-05-12 14:35 | P.CNPUL ---
History of Present Illness Consult date: 05/12/18 Requesting physician: Kwan Lyn Reason for consult: other (Acute respiratory failure, status epilepticus, and acute CVA) Chief complaint: Altered mental status History of present illness: This is an 82-year-old female with history of chronic anemia, possible myelodysplasia, coronary artery disease and previous CABG, previous stents placement, presented to the ER with 3 days history of feeling weak and noted to have mental status change. Patient also described intermittent episodes of headaches, described as severe, initial CT of the brain upon admission showed acute infarct in the left occipital lobe, and possibly an old infarct in the right occipital region. No hemorrhage was noted. Patient was admitted last night to a regular medical floor, already seen by neurology on consultation, and she was felt to have acute left posterior artery stroke. This morning, the patient had a sudden seizure, described as grand mal seizure, she was also noted to have ventricular tachycardia which was nonsustained, patient was unresponsive at the time, intubated, placed on mechanical ventilation, and the transferred to the intensive care unit. Patient required fluid boluses, she also required norepinephrine, and I was consulted on the patient to see in the intensive care unit. Upon my initial evaluation, patient was already on antiseizure medications, and her seizures were well controlled. Her cardiac rhythm was also controlled by amiodarone as ordered by cardiology. Patient was noted to be hypotensive requiring norepinephrine, and I went ahead and placed a left internal jugular central line, and a left brachial arterial line. Ordered repeat CT of the brain. And that came back relatively unchanged, no changes compared to the CT of the brain done on admission. Patient is now on mechanical ventilation, assist control rate of 20, FiO2 is 50%, tidal volume of 450, and PEEP of 5. Chest x-ray was reviewed, labs were reviewed, initial WBC count on admission was 0.6, and today is 4.5. Hemoglobin is 8.3. Platelets were noted to be low at 77,000, ABG showed a pO2 of 337 pCO2 of 35 pH of 7.4. Bicarb on admission was 23, bicarb right after her seizure was 8. No evidence of infection noted in the urine, and her chest x-ray is relatively unremarkable. No evidence of pneumonia. Not much history could be obtained from the patient herself, most of the information was obtained from the chart. Review of Systems ROS unobtainable: due to endotracheal tube Past Medical History Past Medical History: Coronary Artery Disease (CAD), Chest Pain / Angina, Heart Failure, COPD, CVA/TIA, Diabetes Mellitus, GI Bleed, Hyperlipidemia, Hypertension, Myocardial Infarction (CO) Additional Past Medical History / Comment(s): 04/20/16 possible GI bleed with low Hgb. kdiney stones, parkinsons Last Myocardial Infarction Date:: 1997 History of Any Multi-Drug Resistant Organisms: None Reported Past Surgical History: Coronary Bypass/CABG, Heart Catheterization With Stent, Hysterectomy, Orthopedic Surgery Additional Past Surgical History / Comment(s): CABG 1997. Left total hip replacement, colonoscopy nov 2015, angioplasty left leg. kidney surgery with stone removal. multiple heart stents. Past Anesthesia/Blood Transfusion Reactions: No Reported Reaction Additional Past Anesthesia/Blood Transfusion Reaction / Comment(s): Pt has recieved blood in the past with kidney surgery without reaction. Date of Last Stent Placement:: 04/15/2017 Past Psychological History: No Psychological Hx Reported Additional Psychological History / Comment(s): Pt resides with her spouse and daughter. She uses no assistive device. She is independent. She drives a car. Smoking Status: Former smoker Past Alcohol Use History: None Reported Additional Past Alcohol Use History / Comment(s): Pt started smoking in 1953 and quit in 1993. She had been a 2-3 ppd smoker. Past Drug Use History: None Reported, Prescription Drug Abuse - Past Family History Mother Family Medical History: Cancer Father Additional Family Medical History / Comment(s): aneurysm Medications and Allergies Home Medications Medication Instructions Recorded Confirmed Type Metoprolol Tartrate [Lopressor] 100 mg PO BID 05/02/17 05/11/18 History amLODIPine [Norvasc] 10 mg PO DAILY 05/02/17 05/11/18 History Ferrous Sulfate [Feosol] 325 mg PO DAILY 04/19/18 05/11/18 History Aspirin 81 mg PO DAILY #30 chewable 04/25/18 05/11/18 Rx Atorvastatin [Lipitor] 40 mg PO HS 05/11/18 05/11/18 History Esomeprazole Magnesium [NexIUM] 40 mg PO BID 05/11/18 05/11/18 History metFORMIN HCL [Glucophage] 500 mg PO BID 05/11/18 05/11/18 History Allergies Allergy/AdvReac Type Severity Reaction Status Date / Time Iodinated Contrast- Oral and Allergy Rash/Hives Verified 05/11/18 07:21 IV Dye [Iodinated Contrast Media - IV Dye] shellfish derived [Shellfish] Allergy Rash/Hives Verified 05/11/18 07:21 Physical Exam Vitals: Vital Signs Temp Pulse Pulse Resp BP BP Pulse Ox 05/12/18 14:00 56 L 20 114/61 100 05/12/18 13:45 55 L 20 123/58 99 18 13:30 60 20 117/58 99 05/12/18 13:15 57 L 20 114/54 99 05/12/18 13:00 53 L 21 111/54 99 05/12/18 12:45 60 20 112/59 99 05/12/18 12:30 60 20 111/56 99 05/12/18 12:15 60 99 05/12/18 12:11 62 20 99 05/12/18 12:00 99 20 99 05/12/18 11:45 60 20 99 05/12/18 11:30 61 20 99 05/12/18 11:15 62 20 99 18 11:00 63 20 106/56 100 18/18 10:45 62 20 106/56 97 18 10:30 63 20 112/51 100 18 10:15 78 20 96/47 100 18 10:00 67 20 110/55 100 18 09:45 71 20 105/47 100 18/18 09:30 66 20 95/45 100 18 09:15 70 21 116/50 100 18 09:00 76 21 119/53 100 1818 08:45 68 20 116/55 100 18/18 08:30 70 20 113/49 100 18/18 08:15 70 21 120/84 99 1818 08:00 68 99 20 91/46 100 1818 07:45 72 20 81/46 100 1818 07:30 62 20 84/39 97 18 07:00 62 20 61/33 100 18 06:50 71 20 78/43 99 18 06:37 99 18 06:30 78 133/62 92 L 05/12/18 04:30 79 18 05/12/18 00:05 79 18 05/11/18 20:15 79 18 05/11/18 17:30 98.4 F 92 18 179/80 97 05/11/18 16:00 99.0 F 84 18 209/92 98 05/11/18 14:35 98.4 F 73 18 158/68 96 Intake and Output 05/11/18 05/12/18 05/12/18 22:59 06:59 14:59 Intake Total 371 140 9991.945 Output Total 300 500 537 Balance 250 -190 2860.945 Intake: IV 3050 Sodium Chloride 0.9% 1, 800 000 ml @ 100 mls/hr IV . Q10H MACIEL Rx#:[id number] Sodium Chloride 0.9% 1, 2250 000 ml @ 999 mls/hr IV . Q1H1M ONE Rx#:[id number] Intake, IV Titration 107.945 Amount Insulin Regular 100 unit 7.945 In Sodium Chloride 0.9% 100 ml @ Per Protocol IV .Q0M MACIEL Rx#:[id number] Propofol 1,000 mg In 100.000 Empty Bag 1 bag @ Titrate IV .Q0M MACIEL Rx#: [id number] Oral 240 240 Blood Product 310 310 Rc As-1 Unit 310 [id number] Rc As-1 Unit 310 [id number] Output: Urine 300 500 537 Other: Voiding Method Toilet Toilet Indwelling Catheter # Voids 2 Weight 85.1 kg ABP, PAP, CO, CI - Last 8 Hours Arterial Blood Pressure 112/59 Arterial Blood Pressure 139/50 Arterial Blood Pressure 125/55 Arterial Blood Pressure 125/53 Arterial Blood Pressure 130/72 Physical Exam revealed an 82-year-old female in no distress. Sedated, on mechanical ventilation, presently on propofol drip. Head: Atraumatic, normocephalic. Endotracheal tube and orogastric tube are intact. HEENT:[Neck is supple.] [No neck masses.] [No thyromegaly.] [No JVD.] PERRLA, EOMI, no icterus. Chest: [Clear throughout, no crackles, no rhonchi, no wheezes.] Cardiac Exam: [Normal S1 and S2, no S3 gallop, no murmur.] Abdomen: [Soft, nontender, no megaly, no rebound, no guarding, normal bowel sounds.] Extremities: [No clubbing, no edema, no cyanosis.] Neurological Exam: Cannot be assessed, patient is fully sedated, pupils are equally reactive to light. Psychiatric: Cannot be assessed. Lymphatics: No lymphadenopathy. Musculoskeletal cannot be assessed. Patient is fully sedated, on propofol drip. Results - Laboratory Findings CBC and BMP: 05/12/18 06:42 05/12/18 06:42 ABG ABG pH 7.24 (7.35-7.45) L 05/12/18 08:16 ABG pCO2 35 mmHg (35-45) 05/12/18 08:16 ABG pO2 337 mmHg (83-108) H 05/12/18 08:16 ABG O2 Saturation 100.0 % (94-97) H 05/12/18 08:16 PT/INR, D-dimer PT 11.5 sec (9.0-12.0) 05/12/18 06:42 INR 1.2 (<1.2) H 05/12/18 06:42 Abnormal lab findings: Abnormal Labs 05/11/18 05/11/18 05/11/18 00:13 00:13 00:13 WBC 1.3 L* RBC 1.96 L Hgb 6.2 L* D Hct 19.1 L* MCV MCHC RDW 20.4 H Plt Count 46 L* Neutrophils # Neutrophils # (Manual) 0.30 L Lymphocytes # Lymphocytes # (Manual) 0.82 L Nucleated RBCs 2 H INR ABG pH ABG pO2 ABG HCO3 ABG Total CO2 ABG O2 Saturation ABG Lactic Acid Chloride 109 H Carbon Dioxide Creatinine 1.10 H Glucose 136 H POC Glucose (mg/dL) Hemoglobin A1c Plasma Lactic Acid Cortes Total Creatine Kinase 29 L Total Protein Albumin HDL Cholesterol Urine Protein Crossmatch 05/11/18 05/11/18 05/11/18 00:13 00:13 00:20 WBC RBC Hgb Hct MCV MCHC RDW Plt Count Neutrophils # Neutrophils # (Manual) Lymphocytes # Lymphocytes # (Manual) Nucleated RBCs INR ABG pH ABG pO2 ABG HCO3 ABG Total CO2 ABG O2 Saturation ABG Lactic Acid Chloride Carbon Dioxide Creatinine Glucose POC Glucose (mg/dL) Hemoglobin A1c Plasma Lactic Acid Cortes 2.3 H* Total Creatine Kinase Total Protein Albumin HDL Cholesterol Urine Protein Trace H Crossmatch See Detail 05/11/18 05/11/18 05/11/18 06:24 09:08 09:08 WBC 0.8 L* RBC 1.62 L Hgb 4.9 L* Hct 16.3 L* MCV 100.6 H MCHC 30.3 L RDW 20.2 H Plt Count 40 L* Neutrophils # Neutrophils # (Manual) Lymphocytes # Lymphocytes # (Manual) Nucleated RBCs INR ABG pH ABG pO2 ABG HCO3 ABG Total CO2 ABG O2 Saturation ABG Lactic Acid Chloride Carbon Dioxide Creatinine Glucose POC Glucose (mg/dL) 137 H Hemoglobin A1c 6.5 H Plasma Lactic Acid Cortes Total Creatine Kinase Total Protein Albumin HDL Cholesterol Urine Protein Crossmatch 05/11/18 05/11/18 05/11/18 11:33 16:32 20:34 WBC 0.6 L* RBC 2.12 L Hgb 6.8 L* D Hct 20.8 L MCV MCHC RDW 19.8 H Plt Count 38 L* Neutrophils # 0.2 L Neutrophils # (Manual) Lymphocytes # 0.3 L Lymphocytes # (Manual) Nucleated RBCs INR ABG pH ABG pO2 ABG HCO3 ABG Total CO2 ABG O2 Saturation ABG Lactic Acid Chloride Carbon Dioxide Creatinine Glucose POC Glucose (mg/dL) 128 H 175 H Hemoglobin A1c Plasma Lactic Acid Cortes Total Creatine Kinase Total Protein Albumin HDL Cholesterol Urine Protein Crossmatch 05/11/18 05/12/18 05/12/18 20:44 05:40 06:22 WBC RBC Hgb Hct MCV MCHC RDW Plt Count Neutrophils # Neutrophils # (Manual) Lymphocytes # Lymphocytes # (Manual) Nucleated RBCs INR ABG pH ABG pO2 ABG HCO3 ABG Total CO2 ABG O2 Saturation ABG Lactic Acid Chloride Carbon Dioxide Creatinine Glucose POC Glucose (mg/dL) 210 H 151 H 259 H Hemoglobin A1c Plasma Lactic Acid Cortes Total Creatine Kinase Total Protein Albumin HDL Cholesterol Urine Protein Crossmatch 05/12/18 05/12/18 05/12/18 06:42 06:42 06:42 WBC RBC 2.54 L Hgb 8.3 L D Hct 27.1 L MCV 106.6 H D MCHC 30.7 L RDW 18.6 H Plt Count 77 L D Neutrophils # Neutrophils # (Manual) Lymphocytes # Lymphocytes # (Manual) Nucleated RBCs 5 H INR 1.2 H ABG pH ABG pO2 ABG HCO3 ABG Total CO2 ABG O2 Saturation ABG Lactic Acid Chloride 114 H Carbon Dioxide 8 L* Creatinine 1.35 H Glucose 273 H POC Glucose (mg/dL) Hemoglobin A1c Plasma Lactic Acid Cortes Total Creatine Kinase Total Protein 6.0 L Albumin 3.2 L HDL Cholesterol 33 L Urine Protein Crossmatch 05/12/18 05/12/18 05/12/18 06:42 08:16 09:14 WBC RBC Hgb Hct MCV MCHC RDW Plt Count Neutrophils # Neutrophils # (Manual) Lymphocytes # Lymphocytes # (Manual) Nucleated RBCs INR ABG pH 7.24 L ABG pO2 337 H ABG HCO3 15 L ABG Total CO2 16 L ABG O2 Saturation 100.0 H ABG Lactic Acid Chloride Carbon Dioxide Creatinine Glucose POC Glucose (mg/dL) 250 H Hemoglobin A1c Plasma Lactic Acid Cortes 17.7 H* Total Creatine Kinase Total Protein Albumin HDL Cholesterol Urine Protein Crossmatch 05/12/18 05/12/18 05/12/18 11:40 12:13 13:09 WBC RBC Hgb Hct MCV MCHC RDW Plt Count Neutrophils # Neutrophils # (Manual) Lymphocytes # Lymphocytes # (Manual) Nucleated RBCs INR ABG pH ABG pO2 ABG HCO3 ABG Total CO2 ABG O2 Saturation ABG Lactic Acid 1.7 H Chloride Carbon Dioxide Creatinine Glucose POC Glucose (mg/dL) 268 H 242 H Hemoglobin A1c Plasma Lactic Acid Cortes Total Creatine Kinase Total Protein Albumin HDL Cholesterol Urine Protein Crossmatch 05/12/18 14:08 WBC RBC Hgb Hct MCV MCHC RDW Plt Count Neutrophils # Neutrophils # (Manual) Lymphocytes # Lymphocytes # (Manual) Nucleated RBCs INR ABG pH ABG pO2 ABG HCO3 ABG Total CO2 ABG O2 Saturation ABG Lactic Acid Chloride Carbon Dioxide Creatinine Glucose POC Glucose (mg/dL) 226 H Hemoglobin A1c Plasma Lactic Acid Cortes Total Creatine Kinase Total Protein Albumin HDL Cholesterol Urine Protein Crossmatch - Diagnostic Findings Chest x-ray: image reviewed Additional studies: All studies including CT of the brain, and chest x-ray were noted. And reviewed , agree with reading as per radiology. Assessment and Plan Assessment: Impression: 1 acute hypoxic respiratory failure secondary to new onset seizure secondary to CVA. 2 nonsustained ventricular tachycardia 3 acute new onset seizure secondary to CVA. 4 myelodysplastic syndrome, patient presented with pancytopenia, received a unit of packed RBCs since admission, being followed by hematology. 5 history of coronary artery disease, previous CABG and stenting. 6 multiple comorbidities including benign essential hypertension, hyperlipidemia , remote history of GI bleeding, type 2 diabetes, and previous CABG for coronary artery disease. And history of osteoarthritis and left total hip replacement. Recommendation: Continue mechanical ventilation, GI and DVT prophylaxis, supportive care measures nutritional support, seizure precautions and seizure treatment, repeat CT of the brain in the next 24-48 hours, had a long discussion regarding the patient with her family members including daughter and , very well aware of her critical condition, we'll address all her issues accordingly with the other consultants. Critical care time is 45 minutes. Not including the time spent on procedures including central line placement and arterial line placement. Time with Patient: Greater than 30
[2018-05-12 15:28] LABS: Glucose,Whole Blood 187 mg/dL (75-99)
[2018-05-12 16:14] LABS: Glucose,Whole Blood 170 mg/dL (75-99)
[2018-05-12 17:32] LABS: Glucose,Whole Blood 147 mg/dL (75-99)
[2018-05-12 17:42] LABS: Glucose,Whole Blood 147 mg/dL (75-99)
[2018-05-12] MEDS: levETIRAcetam IV 750 MG in SODIUM CHLORIDE 0.9% 100 ML IVPB SCH (17:49)
[2018-05-12 18:18] LABS: Glucose,Whole Blood 138 mg/dL (75-99)
[2018-05-12 19:15] LABS: Glucose,Whole Blood 129 mg/dL (75-99)
[2018-05-12 19:42] LABS: Glucose,Whole Blood 134 mg/dL (75-99)
--- NOTE | 2018-05-12 20:12 | EEG ---
ELECTROENCEPHALOGRAM REPORT DATE OF EE05/12/2018. REFERRING PHYSICIAN: Dr. Lyn. CONSULTING AND INTERPRETING PHYSICIAN: Dr. Natasha Oscar. INDICATION FOR EXAMINATION: This patient is an 82-year-old female with episode of acute ventricular tachycardia and episode of possible new onset seizure. AGE: 82. EEG FINDINGS: A routine 21 channel awake digital EEG recording was accomplished utilizing the 10-20 international system with bipolar and referential montages. The background activity in the most alert resting state consists of a low to medium amplitude, poorly-developed and poorly-sustained 6 Hz activity over the posterior head region. This posterior rhythm attenuates to eye opening. There is a small amount of low amplitude 18-20 Hz beta activity seen maximally over the anterior head regions. Muscle and movement artifact was observed on a few occasions during the tracing. Hyperventilation was not performed. Photic stimulation at flash frequencies of 2-30 Hz produced a minimal occipital driving response. Toward the mid and lateral portion of the tracing, the patient does drift into spontaneous drowsiness. No epileptiform discharges were seen. IMPRESSION: This EEG is moderately abnormal in a diffuse fashion due to slowing of the EEG background. The EEG failed to reveal any focal, lateralized or epileptiform abnormalities. If clinically indicated, a followup EEG is recommended. Clinical correlation is recommended. MMODL / IJN: [id number] /
[2018-05-12] MEDS: SODIUM CHLORIDE 0.9% 1,000 ML IV SCH ×2 (20:14→20:17)
[2018-05-12 20:50] LABS: Glucose,Whole Blood 136 mg/dL (75-99)
--- NOTE | 2018-05-12 21:03 | P.PN ---
Subjective Progress Note Date: 05/12/18 The patient is an 82-year-old woman who was admitted to the hospital with multiple medical issues including myelodysplastic syndrome anemia pancytopenia heart disease Parkinson's diabetes hypertension and stroke. Patient has a history of old stroke as well as recent left occipital stroke. This morning the patient had an episode of V. tach and went into a seizure. She was transferred to ICU and intubated. She was loaded with Keppra. Unable to obtain any history from the patient as patient is on Diprivan and intubated. He had an EEG today which showed diffuse slowing at 6 Hz without any epileptiform activity. Objective - Vital Signs Vital signs: Vital Signs Temp 98.4 F 05/11/18 17:30 Pulse 51 L 05/12/18 19:00 Resp 20 05/12/18 19:00 BP 100/52 05/12/18 19:00 Pulse Ox 100 05/12/18 19:00 Intake & Output 05/12/18 05/12/18 05/13/18 06:59 18:59 06:59 Intake Total 310 4395.364 100 Output Total 800 1012 32 Balance -490 3383.364 68 Weight 85.1 kg Intake: IV 3650 100 Sodium Chloride 0.9% 1, 1300 100 000 ml @ 100 mls/hr IV . Q10H [facility] Rx#:[id number] Sodium Chloride 0.9% 1, 2250 000 ml @ 999 mls/hr IV . Q1H1M ONE Rx#:[id number] levETIRAcetam IV 750 mg 100 In Sodium Chloride 0.9% 100 ml @ 400 mls/hr IVPB Q12H [facility] Rx#:[id number] Intake, IV Titration 505.364 Amount Amiodarone 450 mg In 240.532 Dextrose 5% in Water 250 ml @ 1 MG/MIN 33.33 mls/ hr IV .Q7H31M [facility] Rx#: [id number] Insulin Regular 100 unit 18.849 In Sodium Chloride 0.9% 100 ml @ Per Protocol IV .Q0M [facility] Rx#:[id number] Norepinephrine 16 mg In 145.983 Dextrose 5% in Water 250 ml @ Titrate IV .Q0M [facility] Rx#:[id number] Propofol 1,000 mg In 100.000 Empty Bag 1 bag @ Titrate IV .Q0M [facility] Rx#: [id number] Oral 240 Blood Product 310 Rc As-1 Unit 310 [id number] Output: Urine 800 1012 32 Other: Voiding Method Toilet Indwelling Catheter # Voids 2 ABP, PAP, CO, CI - Last Documented Arterial Blood Pressure 113/40 - Constitutional General appearance: Present: obese - Neurologic Neurologic Comment(s): Neurologic examination: Mental status: The patient is intubated. She is unable to give any type of response. She is on diprovan. Nerve examination: pupils were equal Motor examination unable to test as patient is sedated Cardiac exam regular rate and rhythm Lungs: Clear to auscultation - Labs CBC & Chem 7: 05/12/18 06:42 05/12/18 06:42 Labs: Abnormal Lab Results - Last 24 Hours (Table) 05/11/18 05/11/18 05/11/18 Range/Units 00:13 09:08 20:34 WBC 0.6 L* (3.8-10.6) k/uL RBC 2.12 L (3.80-5.40) m/uL Hgb 6.8 L* D (11.4-16.0) gm/dL Hct 20.8 L (34.0-46.0) % MCV (80.0-100.0) fL MCHC (31.0-37.0) g/dL RDW 19.8 H (11.5-15.5) % Plt Count 38 L* (150-450) k/uL Neutrophils # 0.2 L (1.3-7.7) k/uL Lymphocytes # 0.3 L (1.0-4.8) k/uL Nucleated RBCs (0-0) /100 WBC INR (<1.2) ABG pH (7.35-7.45) ABG pO2 (83-108) mmHg ABG HCO3 (21-25) mmol/L ABG Total CO2 (19-24) mmol/L ABG O2 Saturation (94-97) % ABG Lactic Acid (0.5-1.6) mmol/L Chloride (98-107) mmol/L Carbon Dioxide (22-30) mmol/L Creatinine (0.52-1.04) mg/dL Glucose (74-99) mg/dL POC Glucose (mg/dL) (75-99) mg/dL Hemoglobin A1c 6.5 H (4.0-6.0) % Plasma Lactic Acid Cortes (0.7-2.0) mmol/L Troponin I (0.000-0.034) ng/mL Total Protein (6.3-8.2) g/dL Albumin (3.5-5.0) g/dL HDL Cholesterol (40-60) mg/dL Crossmatch See Detail 05/12/18 05/12/18 05/12/18 Range/Units 05:40 06:22 06:42 WBC (3.8-10.6) k/uL RBC (3.80-5.40) m/uL Hgb (11.4-16.0) gm/dL Hct (34.0-46.0) % MCV (80.0-100.0) fL MCHC (31.0-37.0) g/dL RDW (11.5-15.5) % Plt Count (150-450) k/uL Neutrophils # (1.3-7.7) k/uL Lymphocytes # (1.0-4.8) k/uL Nucleated RBCs (0-0) /100 WBC INR (<1.2) ABG pH (7.35-7.45) ABG pO2 (83-108) mmHg ABG HCO3 (21-25) mmol/L ABG Total CO2 (19-24) mmol/L ABG O2 Saturation (94-97) % ABG Lactic Acid (0.5-1.6) mmol/L Chloride 114 H (98-107) mmol/L Carbon Dioxide 8 L* (22-30) mmol/L Creatinine 1.35 H (0.52-1.04) mg/dL Glucose 273 H (74-99) mg/dL POC Glucose (mg/dL) 151 H 259 H (75-99) mg/dL Hemoglobin A1c (4.0-6.0) % Plasma Lactic Acid Cortes (0.7-2.0) mmol/L Troponin I (0.000-0.034) ng/mL Total Protein 6.0 L (6.3-8.2) g/dL Albumin 3.2 L (3.5-5.0) g/dL HDL Cholesterol 33 L (40-60) mg/dL Crossmatch 05/12/18 05/12/18 05/12/18 Range/Units 06:42 06:42 06:42 WBC (3.8-10.6) k/uL RBC 2.54 L (3.80-5.40) m/uL Hgb 8.3 L D (11.4-16.0) gm/dL Hct 27.1 L (34.0-46.0) % MCV 106.6 H D (80.0-100.0) fL MCHC 30.7 L (31.0-37.0) g/dL RDW 18.6 H (11.5-15.5) % Plt Count 77 L D (150-450) k/uL Neutrophils # (1.3-7.7) k/uL Lymphocytes # (1.0-4.8) k/uL Nucleated RBCs 5 H (0-0) /100 WBC INR 1.2 H (<1.2) ABG pH (7.35-7.45) ABG pO2 (83-108) mmHg ABG HCO3 (21-25) mmol/L ABG Total CO2 (19-24) mmol/L ABG O2 Saturation (94-97) % ABG Lactic Acid (0.5-1.6) mmol/L Chloride (98-107) mmol/L Carbon Dioxide (22-30) mmol/L Creatinine (0.52-1.04) mg/dL Glucose (74-99) mg/dL POC Glucose (mg/dL) (75-99) mg/dL Hemoglobin A1c (4.0-6.0) % Plasma Lactic Acid Cortes 17.7 H* (0.7-2.0) mmol/L Troponin I (0.000-0.034) ng/mL Total Protein (6.3-8.2) g/dL Albumin (3.5-5.0) g/dL HDL Cholesterol (40-60) mg/dL Crossmatch 05/12/18 05/12/18 05/12/18 Range/Units 08:16 09:14 11:40 WBC (3.8-10.6) k/uL RBC (3.80-5.40) m/uL Hgb (11.4-16.0) gm/dL Hct (34.0-46.0) % MCV (80.0-100.0) fL MCHC (31.0-37.0) g/dL RDW (11.5-15.5) % Plt Count (150-450) k/uL Neutrophils # (1.3-7.7) k/uL Lymphocytes # (1.0-4.8) k/uL Nucleated RBCs (0-0) /100 WBC INR (<1.2) ABG pH 7.24 L (7.35-7.45) ABG pO2 337 H (83-108) mmHg ABG HCO3 15 L (21-25) mmol/L ABG Total CO2 16 L (19-24) mmol/L ABG O2 Saturation 100.0 H (94-97) % ABG Lactic Acid 1.7 H (0.5-1.6) mmol/L Chloride (98-107) mmol/L Carbon Dioxide (22-30) mmol/L Creatinine (0.52-1.04) mg/dL Glucose (74-99) mg/dL POC Glucose (mg/dL) 250 H (75-99) mg/dL Hemoglobin A1c (4.0-6.0) % Plasma Lactic Acid Cortes (0.7-2.0) mmol/L Troponin I (0.000-0.034) ng/mL Total Protein (6.3-8.2) g/dL Albumin (3.5-5.0) g/dL HDL Cholesterol (40-60) mg/dL Crossmatch 05/12/18 05/12/18 05/12/18 Range/Units 12:13 13:09 14:08 WBC (3.8-10.6) k/uL RBC (3.80-5.40) m/uL Hgb (11.4-16.0) gm/dL Hct (34.0-46.0) % MCV (80.0-100.0) fL MCHC (31.0-37.0) g/dL RDW (11.5-15.5) % Plt Count (150-450) k/uL Neutrophils # (1.3-7.7) k/uL Lymphocytes # (1.0-4.8) k/uL Nucleated RBCs (0-0) /100 WBC INR (<1.2) ABG pH (7.35-7.45) ABG pO2 (83-108) mmHg ABG HCO3 (21-25) mmol/L ABG Total CO2 (19-24) mmol/L ABG O2 Saturation (94-97) % ABG Lactic Acid (0.5-1.6) mmol/L Chloride (98-107) mmol/L Carbon Dioxide (22-30) mmol/L Creatinine (0.52-1.04) mg/dL Glucose (74-99) mg/dL POC Glucose (mg/dL) 268 H 242 H 226 H (75-99) mg/dL Hemoglobin A1c (4.0-6.0) % Plasma Lactic Acid Cortes (0.7-2.0) mmol/L Troponin I (0.000-0.034) ng/mL Total Protein (6.3-8.2) g/dL Albumin (3.5-5.0) g/dL HDL Cholesterol (40-60) mg/dL Crossmatch 05/12/18 05/12/18 05/12/18 Range/Units 15:09 16:12 17:30 WBC (3.8-10.6) k/uL RBC (3.80-5.40) m/uL Hgb (11.4-16.0) gm/dL Hct (34.0-46.0) % MCV (80.0-100.0) fL MCHC (31.0-37.0) g/dL RDW (11.5-15.5) % Plt Count (150-450) k/uL Neutrophils # (1.3-7.7) k/uL Lymphocytes # (1.0-4.8) k/uL Nucleated RBCs (0-0) /100 WBC INR (<1.2) ABG pH (7.35-7.45) ABG pO2 (83-108) mmHg ABG HCO3 (21-25) mmol/L ABG Total CO2 (19-24) mmol/L ABG O2 Saturation (94-97) % ABG Lactic Acid (0.5-1.6) mmol/L Chloride (98-107) mmol/L Carbon Dioxide (22-30) mmol/L Creatinine (0.52-1.04) mg/dL Glucose (74-99) mg/dL POC Glucose (mg/dL) 187 H 170 H 147 H (75-99) mg/dL Hemoglobin A1c (4.0-6.0) % Plasma Lactic Acid Cortes (0.7-2.0) mmol/L Troponin I (0.000-0.034) ng/mL Total Protein (6.3-8.2) g/dL Albumin (3.5-5.0) g/dL HDL Cholesterol (40-60) mg/dL Crossmatch 05/12/18 05/12/18 05/12/18 Range/Units 17:33 17:41 18:11 WBC (3.8-10.6) k/uL RBC (3.80-5.40) m/uL Hgb (11.4-16.0) gm/dL Hct (34.0-46.0) % MCV (80.0-100.0) fL MCHC (31.0-37.0) g/dL RDW (11.5-15.5) % Plt Count (150-450) k/uL Neutrophils # (1.3-7.7) k/uL Lymphocytes # (1.0-4.8) k/uL Nucleated RBCs (0-0) /100 WBC INR (<1.2) ABG pH (7.35-7.45) ABG pO2 (83-108) mmHg ABG HCO3 (21-25) mmol/L ABG Total CO2 (19-24) mmol/L ABG O2 Saturation (94-97) % ABG Lactic Acid (0.5-1.6) mmol/L Chloride (98-107) mmol/L Carbon Dioxide (22-30) mmol/L Creatinine (0.52-1.04) mg/dL Glucose (74-99) mg/dL POC Glucose (mg/dL) 147 H 138 H (75-99) mg/dL Hemoglobin A1c (4.0-6.0) % Plasma Lactic Acid Cortes (0.7-2.0) mmol/L Troponin I 0.293 H* (0.000-0.034) ng/mL Total Protein (6.3-8.2) g/dL Albumin (3.5-5.0) g/dL HDL Cholesterol (40-60) mg/dL Crossmatch 05/12/18 05/12/18 Range/Units 19:13 19:41 WBC (3.8-10.6) k/uL RBC (3.80-5.40) m/uL Hgb (11.4-16.0) gm/dL Hct (34.0-46.0) % MCV (80.0-100.0) fL MCHC (31.0-37.0) g/dL RDW (11.5-15.5) % Plt Count (150-450) k/uL Neutrophils # (1.3-7.7) k/uL Lymphocytes # (1.0-4.8) k/uL Nucleated RBCs (0-0) /100 WBC INR (<1.2) ABG pH (7.35-7.45) ABG pO2 (83-108) mmHg ABG HCO3 (21-25) mmol/L ABG Total CO2 (19-24) mmol/L ABG O2 Saturation (94-97) % ABG Lactic Acid (0.5-1.6) mmol/L Chloride (98-107) mmol/L Carbon Dioxide (22-30) mmol/L Creatinine (0.52-1.04) mg/dL Glucose (74-99) mg/dL POC Glucose (mg/dL) 129 H 134 H (75-99) mg/dL Hemoglobin A1c (4.0-6.0) % Plasma Lactic Acid Cortes (0.7-2.0) mmol/L Troponin I (0.000-0.034) ng/mL Total Protein (6.3-8.2) g/dL Albumin (3.5-5.0) g/dL HDL Cholesterol (40-60) mg/dL Crossmatch Microbiology - Last 24 Hours (Table) 05/11/18 00:20 Urine Culture - Final Urine,Voided 05/11/18 00:13 Blood Culture - Preliminary Blood No Growth after 24 hours Assessment and Plan (1) 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 This morning she had an episode of ventricular tachycardia and new onset seizure. She has been intubated and started on anticonvulsant medication. There is been no further seizures. She had an EEG which did not show any epileptiform activity. Neurologic examination is inconclusive due to patient being sedated with diprovan. Recommendation: Continue current supportive measures and will check Keppra level in a.m. She has had a follow-up CT this morning which was stable appearing stroke without any hemorrhage.
--- NOTE | 2018-05-12 21:52 | P.PN ---
Subjective Progress Note Date: 05/12/18 Principal diagnosis: Acute mental status change with epileptic activity. This is a continuing progress on an 82-year-old black female essentially who had 2 units PRBC over the last 12 hours and ended up having seizure-like activity which was witnessed. The patient was then transferred to the ICU because of the mental status changes. She had an element of nonsustained V tachycardia. She is now on mechanical ventilation and stabilizing. I do appreciate consultants of cardiology, pulmonology and neurology. Hematology/ oncology is already on the case secondary to her myelodysplastic syndrome. Objective - Vital Signs Vital signs: Vital Signs Temp 97.3 F L 05/12/18 20:00 Pulse 53 L 05/12/18 21:15 Resp 20 05/12/18 21:15 BP 97/55 05/12/18 21:15 Pulse Ox 100 05/12/18 21:15 Intake & Output 05/12/18 05/12/18 05/13/18 06:59 18:59 06:59 Intake Total 310 4395.364 300 Output Total 800 1012 77 Balance -490 3383.364 223 Weight 85.1 kg Intake: IV 3650 300 Sodium Chloride 0.9% 1, 1300 300 000 ml @ 100 mls/hr IV . Q10H [facility] Rx#:[id number] Sodium Chloride 0.9% 1, 2250 000 ml @ 999 mls/hr IV . Q1H1M ONE Rx#:[id number] levETIRAcetam IV 750 mg 100 In Sodium Chloride 0.9% 100 ml @ 400 mls/hr IVPB Q12H [facility] Rx#:[id number] Intake, IV Titration 505.364 Amount Amiodarone 450 mg In 240.532 Dextrose 5% in Water 250 ml @ 1 MG/MIN 33.33 mls/ hr IV .Q7H31M [facility] Rx#: [id number] Insulin Regular 100 unit 18.849 In Sodium Chloride 0.9% 100 ml @ Per Protocol IV .Q0M [facility] Rx#:[id number] Norepinephrine 16 mg In 145.983 Dextrose 5% in Water 250 ml @ Titrate IV .Q0M [facility] Rx#:[id number] Propofol 1,000 mg In 100.000 Empty Bag 1 bag @ Titrate IV .Q0M [facility] Rx#: [id number] Oral 240 Blood Product 310 Rc As-1 Unit 310 [id number] Output: Urine 800 1012 77 Other: Voiding Method Toilet Indwelling Catheter Indwelling Catheter # Voids 2 ABP, PAP, CO, CI - Last Documented Arterial Blood Pressure 127/50 - Constitutional General appearance: Present: obese - EENT Eyes: Absent: abnormal pupil - Neck Neck: Absent: lymphadenopathy - Respiratory Respiratory: bilateral: CTA - Cardiovascular Rhythm: regular Heart sounds: normal: S1, S2 - Gastrointestinal General gastrointestinal: Present: soft. Absent: tenderness - Musculoskeletal Musculoskeletal: Present: gait normal - Labs CBC & Chem 7: 05/12/18 06:42 05/12/18 06:42 Labs: Abnormal Lab Results - Last 24 Hours (Table) 05/11/18 05/11/18 05/11/18 Range/Units 00:13 09:08 20:34 WBC 0.6 L* (3.8-10.6) k/uL RBC 2.12 L (3.80-5.40) m/uL Hgb 6.8 L* D (11.4-16.0) gm/dL Hct 20.8 L (34.0-46.0) % MCV (80.0-100.0) fL MCHC (31.0-37.0) g/dL RDW 19.8 H (11.5-15.5) % Plt Count 38 L* (150-450) k/uL Neutrophils # 0.2 L (1.3-7.7) k/uL Lymphocytes # 0.3 L (1.0-4.8) k/uL Nucleated RBCs (0-0) /100 WBC INR (<1.2) ABG pH (7.35-7.45) ABG pO2 (83-108) mmHg ABG HCO3 (21-25) mmol/L ABG Total CO2 (19-24) mmol/L ABG O2 Saturation (94-97) % ABG Lactic Acid (0.5-1.6) mmol/L Chloride (98-107) mmol/L Carbon Dioxide (22-30) mmol/L Creatinine (0.52-1.04) mg/dL Glucose (74-99) mg/dL POC Glucose (mg/dL) (75-99) mg/dL Hemoglobin A1c 6.5 H (4.0-6.0) % Plasma Lactic Acid Cortes (0.7-2.0) mmol/L Troponin I (0.000-0.034) ng/mL Total Protein (6.3-8.2) g/dL Albumin (3.5-5.0) g/dL HDL Cholesterol (40-60) mg/dL Crossmatch See Detail 05/12/18 05/12/18 05/12/18 Range/Units 05:40 06:22 06:42 WBC (3.8-10.6) k/uL RBC (3.80-5.40) m/uL Hgb (11.4-16.0) gm/dL Hct (34.0-46.0) % MCV (80.0-100.0) fL MCHC (31.0-37.0) g/dL RDW (11.5-15.5) % Plt Count (150-450) k/uL Neutrophils # (1.3-7.7) k/uL Lymphocytes # (1.0-4.8) k/uL Nucleated RBCs (0-0) /100 WBC INR (<1.2) ABG pH (7.35-7.45) ABG pO2 (83-108) mmHg ABG HCO3 (21-25) mmol/L ABG Total CO2 (19-24) mmol/L ABG O2 Saturation (94-97) % ABG Lactic Acid (0.5-1.6) mmol/L Chloride 114 H (98-107) mmol/L Carbon Dioxide 8 L* (22-30) mmol/L Creatinine 1.35 H (0.52-1.04) mg/dL Glucose 273 H (74-99) mg/dL POC Glucose (mg/dL) 151 H 259 H (75-99) mg/dL Hemoglobin A1c (4.0-6.0) % Plasma Lactic Acid Cortes (0.7-2.0) mmol/L Troponin I (0.000-0.034) ng/mL Total Protein 6.0 L (6.3-8.2) g/dL Albumin 3.2 L (3.5-5.0) g/dL HDL Cholesterol 33 L (40-60) mg/dL Crossmatch 05/12/18 05/12/18 05/12/18 Range/Units 06:42 06:42 06:42 WBC (3.8-10.6) k/uL RBC 2.54 L (3.80-5.40) m/uL Hgb 8.3 L D (11.4-16.0) gm/dL Hct 27.1 L (34.0-46.0) % MCV 106.6 H D (80.0-100.0) fL MCHC 30.7 L (31.0-37.0) g/dL RDW 18.6 H (11.5-15.5) % Plt Count 77 L D (150-450) k/uL Neutrophils # (1.3-7.7) k/uL Lymphocytes # (1.0-4.8) k/uL Nucleated RBCs 5 H (0-0) /100 WBC INR 1.2 H (<1.2) ABG pH (7.35-7.45) ABG pO2 (83-108) mmHg ABG HCO3 (21-25) mmol/L ABG Total CO2 (19-24) mmol/L ABG O2 Saturation (94-97) % ABG Lactic Acid (0.5-1.6) mmol/L Chloride (98-107) mmol/L Carbon Dioxide (22-30) mmol/L Creatinine (0.52-1.04) mg/dL Glucose (74-99) mg/dL POC Glucose (mg/dL) (75-99) mg/dL Hemoglobin A1c (4.0-6.0) % Plasma Lactic Acid Cortes 17.7 H* (0.7-2.0) mmol/L Troponin I (0.000-0.034) ng/mL Total Protein (6.3-8.2) g/dL Albumin (3.5-5.0) g/dL HDL Cholesterol (40-60) mg/dL Crossmatch 05/12/18 05/12/18 05/12/18 Range/Units 08:16 09:14 11:40 WBC (3.8-10.6) k/uL RBC (3.80-5.40) m/uL Hgb (11.4-16.0) gm/dL Hct (34.0-46.0) % MCV (80.0-100.0) fL MCHC (31.0-37.0) g/dL RDW (11.5-15.5) % Plt Count (150-450) k/uL Neutrophils # (1.3-7.7) k/uL Lymphocytes # (1.0-4.8) k/uL Nucleated RBCs (0-0) /100 WBC INR (<1.2) ABG pH 7.24 L (7.35-7.45) ABG pO2 337 H (83-108) mmHg ABG HCO3 15 L (21-25) mmol/L ABG Total CO2 16 L (19-24) mmol/L ABG O2 Saturation 100.0 H (94-97) % ABG Lactic Acid 1.7 H (0.5-1.6) mmol/L Chloride (98-107) mmol/L Carbon Dioxide (22-30) mmol/L Creatinine (0.52-1.04) mg/dL Glucose (74-99) mg/dL POC Glucose (mg/dL) 250 H (75-99) mg/dL Hemoglobin A1c (4.0-6.0) % Plasma Lactic Acid Cortes (0.7-2.0) mmol/L Troponin I (0.000-0.034) ng/mL Total Protein (6.3-8.2) g/dL Albumin (3.5-5.0) g/dL HDL Cholesterol (40-60) mg/dL Crossmatch 05/12/18 05/12/18 05/12/18 Range/Units 12:13 13:09 14:08 WBC (3.8-10.6) k/uL RBC (3.80-5.40) m/uL Hgb (11.4-16.0) gm/dL Hct (34.0-46.0) % MCV (80.0-100.0) fL MCHC (31.0-37.0) g/dL RDW (11.5-15.5) % Plt Count (150-450) k/uL Neutrophils # (1.3-7.7) k/uL Lymphocytes # (1.0-4.8) k/uL Nucleated RBCs (0-0) /100 WBC INR (<1.2) ABG pH (7.35-7.45) ABG pO2 (83-108) mmHg ABG HCO3 (21-25) mmol/L ABG Total CO2 (19-24) mmol/L ABG O2 Saturation (94-97) % ABG Lactic Acid (0.5-1.6) mmol/L Chloride (98-107) mmol/L Carbon Dioxide (22-30) mmol/L Creatinine (0.52-1.04) mg/dL Glucose (74-99) mg/dL POC Glucose (mg/dL) 268 H 242 H 226 H (75-99) mg/dL Hemoglobin A1c (4.0-6.0) % Plasma Lactic Acid Cortes (0.7-2.0) mmol/L Troponin I (0.000-0.034) ng/mL Total Protein (6.3-8.2) g/dL Albumin (3.5-5.0) g/dL HDL Cholesterol (40-60) mg/dL Crossmatch 05/12/18 05/12/18 05/12/18 Range/Units 15:09 16:12 17:30 WBC (3.8-10.6) k/uL RBC (3.80-5.40) m/uL Hgb (11.4-16.0) gm/dL Hct (34.0-46.0) % MCV (80.0-100.0) fL MCHC (31.0-37.0) g/dL RDW (11.5-15.5) % Plt Count (150-450) k/uL Neutrophils # (1.3-7.7) k/uL Lymphocytes # (1.0-4.8) k/uL Nucleated RBCs (0-0) /100 WBC INR (<1.2) ABG pH (7.35-7.45) ABG pO2 (83-108) mmHg ABG HCO3 (21-25) mmol/L ABG Total CO2 (19-24) mmol/L ABG O2 Saturation (94-97) % ABG Lactic Acid (0.5-1.6) mmol/L Chloride (98-107) mmol/L Carbon Dioxide (22-30) mmol/L Creatinine (0.52-1.04) mg/dL Glucose (74-99) mg/dL POC Glucose (mg/dL) 187 H 170 H 147 H (75-99) mg/dL Hemoglobin A1c (4.0-6.0) % Plasma Lactic Acid Cortes (0.7-2.0) mmol/L Troponin I (0.000-0.034) ng/mL Total Protein (6.3-8.2) g/dL Albumin (3.5-5.0) g/dL HDL Cholesterol (40-60) mg/dL Crossmatch 05/12/18 05/12/18 05/12/18 Range/Units 17:33 17:41 18:11 WBC (3.8-10.6) k/uL RBC (3.80-5.40) m/uL Hgb (11.4-16.0) gm/dL Hct (34.0-46.0) % MCV (80.0-100.0) fL MCHC (31.0-37.0) g/dL RDW (11.5-15.5) % Plt Count (150-450) k/uL Neutrophils # (1.3-7.7) k/uL Lymphocytes # (1.0-4.8) k/uL Nucleated RBCs (0-0) /100 WBC INR (<1.2) ABG pH (7.35-7.45) ABG pO2 (83-108) mmHg ABG HCO3 (21-25) mmol/L ABG Total CO2 (19-24) mmol/L ABG O2 Saturation (94-97) % ABG Lactic Acid (0.5-1.6) mmol/L Chloride (98-107) mmol/L Carbon Dioxide (22-30) mmol/L Creatinine (0.52-1.04) mg/dL Glucose (74-99) mg/dL POC Glucose (mg/dL) 147 H 138 H (75-99) mg/dL Hemoglobin A1c (4.0-6.0) % Plasma Lactic Acid Cortes (0.7-2.0) mmol/L Troponin I 0.293 H* (0.000-0.034) ng/mL Total Protein (6.3-8.2) g/dL Albumin (3.5-5.0) g/dL HDL Cholesterol (40-60) mg/dL Crossmatch 05/12/18 05/12/18 05/12/18 Range/Units 19:13 19:41 20:48 WBC (3.8-10.6) k/uL RBC (3.80-5.40) m/uL Hgb (11.4-16.0) gm/dL Hct (34.0-46.0) % MCV (80.0-100.0) fL MCHC (31.0-37.0) g/dL RDW (11.5-15.5) % Plt Count (150-450) k/uL Neutrophils # (1.3-7.7) k/uL Lymphocytes # (1.0-4.8) k/uL Nucleated RBCs (0-0) /100 WBC INR (<1.2) ABG pH (7.35-7.45) ABG pO2 (83-108) mmHg ABG HCO3 (21-25) mmol/L ABG Total CO2 (19-24) mmol/L ABG O2 Saturation (94-97) % ABG Lactic Acid (0.5-1.6) mmol/L Chloride (98-107) mmol/L Carbon Dioxide (22-30) mmol/L Creatinine (0.52-1.04) mg/dL Glucose (74-99) mg/dL POC Glucose (mg/dL) 129 H 134 H 136 H (75-99) mg/dL Hemoglobin A1c (4.0-6.0) % Plasma Lactic Acid Cortes (0.7-2.0) mmol/L Troponin I (0.000-0.034) ng/mL Total Protein (6.3-8.2) g/dL Albumin (3.5-5.0) g/dL HDL Cholesterol (40-60) mg/dL Crossmatch Microbiology - Last 24 Hours (Table) 05/11/18 00:20 Urine Culture - Final Urine,Voided 05/11/18 00:13 Blood Culture - Preliminary Blood No Growth after 24 hours Assessment and Plan (1) Anemia Current Visit: No Status: Acute Code(s): D64.9 - ANEMIA, UNSPECIFIED SNOMED Code(s): 810449062 (2) At risk for readmission to hospital Current Visit: No Status: Acute Code(s): Z91.89 - OTH PERSONAL RISK FACTORS , NOT ELSEWHERE CLASSIFIED SNOMED Code(s): 5158645925548 (3) Atrial fibrillation Current Visit: No Status: Acute Code(s): I48.91 - UNSPECIFIED ATRIAL FIBRILLATION SNOMED Code(s): 05785507 (4) 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 Current Visit: No Status: Acute Code(s): Z95.5 - PRESENCE OF CORONARY ANGIOPLASTY IMPLANT AND GRAFT SNOMED Code(s): 307479835 (5) Shortness of breath Current Visit: No Status: Acute Code(s): R06.02 - SHORTNESS OF BREATH SNOMED Code(s): 950571200 (6) Acute left GEAR TESTER stroke Current Visit: Yes Status: Acute Code(s): I63.532 - CEREB INFRC D/T UNSP OCCLS OR STENOS OF LEFT POST CEREB ART SNOMED Code(s): 961065041 (7) Cerebrovascular accident Current Visit: Yes Status: Acute Code(s): I63.9 - CEREBRAL INFARCTION, UNSPECIFIED SNOMED Code(s): 899358961 (8) New onset seizure Current Visit: Yes Status: Acute Code(s): R56.9 - UNSPECIFIED CONVULSIONS SNOMED Code(s): 14730521 Plan: Neurology workup does show subacute occipital infarct. 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 EEG is abnormal. Element of nonsustained atrial tachycardia. We will continue follow from a neurologic perspective. I have a scheduled conference with the family tomorrow morningTo discuss prognostic factors. Prognosis is quite guarded at this time. Time with Patient: Less than 30
[2018-05-12 21:59] LABS: Glucose,Whole Blood 144 mg/dL (75-99)
[2018-05-12 22:55] LABS: Glucose,Whole Blood 154 mg/dL (75-99)
[2018-05-12 23:47] LABS: Glucose,Whole Blood 144 mg/dL (75-99)
[2018-05-13 00:53] LABS: Glucose,Whole Blood 126 mg/dL (75-99)
[2018-05-13] MEDS: PROPOFOL 1,000 MG in EMPTY BAG 1 BAG IV SCH ×2 (01:23→05:00)
[2018-05-13 01:47] LABS: Glucose,Whole Blood 118 mg/dL (75-99)
[2018-05-13 02:52] LABS: Glucose,Whole Blood 119 mg/dL (75-99)
[2018-05-13 04:05] LABS: Glucose,Whole Blood 117 mg/dL (75-99)
[2018-05-13 04:19] LABS: Anisocytosis Slight; HCT 21.3 % (34.0-46.0); MCHC 32.8 g/dL (31.0-37.0); MCV 97.5 fL (80.0-100.0); Macrocytosis Slight; Mean Platelet Volume 13.5; RBC 2.19 m/uL (3.80-5.40)
[2018-05-13 04:31] LABS: Calcium 8.1 mg/dL (8.4-10.2); Phosphorus 4.1 mg/dL (2.5-4.5); Potassium 3.6 mmol/L (3.5-5.1)
[2018-05-13 05:00] LABS: Platelet Count 37 k/uL (150-450)
[2018-05-13] MEDS: SODIUM CHLORIDE 0.9% 1,000 ML IV SCH ×3 (05:01→15:08)
[2018-05-13 05:05] LABS: Band Neutrophils % 2 %; Basophils # (M) 0.01 k/uL (0-0.2); Eosinophils # (M) 0.02 k/uL (0-0.7); Lymphocytes # (M) 0.46 k/uL (1.0-4.8); Monocytes # (M) 0.09 k/uL (0-1.0); Neutrophils % (M) 40 %; Nucleated Red Blood Cells 0 /100 WBC (0-0); Total Cells Counted 100
[2018-05-13 05:06] LABS: Poikilocytosis (M) Present; RBC Fragments Present
[2018-05-13 05:20] LABS: Glucose,Whole Blood 137 mg/dL (75-99)
[2018-05-13] MEDS: levETIRAcetam IV 750 MG in SODIUM CHLORIDE 0.9% 100 ML IVPB SCH ×2 (05:27→18:28)
[2018-05-13] MEDS ORDERED: Potassium Replacement Protocol 1 EACH MISC MISCELLANE PRN (05:33)
[2018-05-13 05:59] LABS: Glucose,Whole Blood 127 mg/dL (75-99)
[2018-05-13] MEDS ORDERED: POTASSIUM BICARBONATE/CIT AC 20 MEQ TABLET.EFF NG-TUBE SCH (06:00)
--- NOTE | 2018-05-13 06:13 | P.PN ---
Subjective Principal diagnosis: Acute mental status change with epileptic activity. The patient is seen this morning continued ventilated. 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 We are anticipating family conference given the children of the events. She is had subacute occipital CVA with epilepsy activity. She is now mechanically ventilated otherwise no overt episodes of ventricular tachycardia since been stabilized in the ICU. Objective - Vital Signs Vital signs: Vital Signs Temp 98.2 F 05/13/18 04:00 Pulse 51 L 05/13/18 05:45 Resp 20 05/13/18 05:45 BP 97/45 05/13/18 05:45 Pulse Ox 98 05/13/18 05:45 Intake & Output 05/12/18 05/12/18 05/13/18 06:59 18:59 06:59 Intake Total 310 4395.364 1533.736 Output Total 800 1012 547 Balance -490 3383.364 986.736 Weight 85.1 kg 91.1 kg Intake: IV 3650 1100 Sodium Chloride 0.9% 1, 1300 1100 000 ml @ 100 mls/hr IV . Q10H [facility] Rx#:[id number] Sodium Chloride 0.9% 1, 2250 000 ml @ 999 mls/hr IV . Q1H1M ONE Rx#:[id number] levETIRAcetam IV 750 mg 100 In Sodium Chloride 0.9% 100 ml @ 400 mls/hr IVPB Q12H [facility] Rx#:[id number] Intake, IV Titration 505.364 408.736 Amount Amiodarone 450 mg In 240.532 116.62 Dextrose 5% in Water 250 ml @ 1 MG/MIN 33.33 mls/ hr IV .Q7H31M [facility] Rx#: [id number] Insulin Regular 100 unit 18.849 1.408 In Sodium Chloride 0.9% 100 ml @ Per Protocol IV .Q0M [facility] Rx#:[id number] Norepinephrine 16 mg In 145.983 35.277 Dextrose 5% in Water 250 ml @ Titrate IV .Q0M [facility] Rx#:[id number] Propofol 1,000 mg In 100.000 255.431 Empty Bag 1 bag @ Titrate IV .Q0M [facility] Rx#: [id number] Oral 240 Blood Product 310 Rc As-1 Unit 310 [id number] Other 25 Output: Urine 800 1012 547 Other: Voiding Method Toilet Indwelling Catheter Indwelling Catheter # Voids 2 2 ABP, PAP, CO, CI - Last Documented Arterial Blood Pressure 126/42 - Constitutional General appearance: Present: obese - Neck Neck: Absent: lymphadenopathy - Respiratory Respiratory: bilateral: diminished - Cardiovascular Rhythm: irregularly irregular Heart sounds: normal: S1, S2 - Gastrointestinal General gastrointestinal: Present: soft. Absent: tenderness - Psychiatric Psychiatric: Absent: A&O x's 3 - Labs CBC & Chem 7: 05/13/18 04:07 05/13/18 04:07 Labs: Abnormal Lab Results - Last 24 Hours (Table) 05/11/18 05/12/18 05/12/18 Range/Units 00:13 06:22 06:42 WBC (3.8-10.6) k/uL RBC (3.80-5.40) m/uL Hgb (11.4-16.0) gm/dL Hct (34.0-46.0) % MCV (80.0-100.0) fL MCHC (31.0-37.0) g/dL RDW (11.5-15.5) % Plt Count (150-450) k/uL Neutrophils # (Manual) (1.3-7.7) k/uL Lymphocytes # (Manual) (1.0-4.8) k/uL Nucleated RBCs (0-0) /100 WBC INR (<1.2) ABG pH (7.35-7.45) ABG pO2 (83-108) mmHg ABG HCO3 (21-25) mmol/L ABG Total CO2 (19-24) mmol/L ABG O2 Saturation (94-97) % ABG Lactic Acid (0.5-1.6) mmol/L Chloride 114 H (98-107) mmol/L Carbon Dioxide 8 L* (22-30) mmol/L Creatinine 1.35 H (0.52-1.04) mg/dL Glucose 273 H (74-99) mg/dL POC Glucose (mg/dL) 259 H (75-99) mg/dL Plasma Lactic Acid Cortes (0.7-2.0) mmol/L Calcium (8.4-10.2) mg/dL Troponin I (0.000-0.034) ng/mL Total Protein 6.0 L (6.3-8.2) g/dL Albumin 3.2 L (3.5-5.0) g/dL HDL Cholesterol 33 L (40-60) mg/dL Crossmatch See Detail 05/12/18 05/12/18 05/12/18 Range/Units 06:42 06:42 06:42 WBC (3.8-10.6) k/uL RBC 2.54 L (3.80-5.40) m/uL Hgb 8.3 L D (11.4-16.0) gm/dL Hct 27.1 L (34.0-46.0) % MCV 106.6 H D (80.0-100.0) fL MCHC 30.7 L (31.0-37.0) g/dL RDW 18.6 H (11.5-15.5) % Plt Count 77 L D (150-450) k/uL Neutrophils # (Manual) (1.3-7.7) k/uL Lymphocytes # (Manual) (1.0-4.8) k/uL Nucleated RBCs 5 H (0-0) /100 WBC INR 1.2 H (<1.2) ABG pH (7.35-7.45) ABG pO2 (83-108) mmHg ABG HCO3 (21-25) mmol/L ABG Total CO2 (19-24) mmol/L ABG O2 Saturation (94-97) % ABG Lactic Acid (0.5-1.6) mmol/L Chloride (98-107) mmol/L Carbon Dioxide (22-30) mmol/L Creatinine (0.52-1.04) mg/dL Glucose (74-99) mg/dL POC Glucose (mg/dL) (75-99) mg/dL Plasma Lactic Acid Cortes 17.7 H* (0.7-2.0) mmol/L Calcium (8.4-10.2) mg/dL Troponin I (0.000-0.034) ng/mL Total Protein (6.3-8.2) g/dL Albumin (3.5-5.0) g/dL HDL Cholesterol (40-60) mg/dL Crossmatch 05/12/18 05/12/18 05/12/18 Range/Units 08:16 09:14 11:40 WBC (3.8-10.6) k/uL RBC (3.80-5.40) m/uL Hgb (11.4-16.0) gm/dL Hct (34.0-46.0) % MCV (80.0-100.0) fL MCHC (31.0-37.0) g/dL RDW (11.5-15.5) % Plt Count (150-450) k/uL Neutrophils # (Manual) (1.3-7.7) k/uL Lymphocytes # (Manual) (1.0-4.8) k/uL Nucleated RBCs (0-0) /100 WBC INR (<1.2) ABG pH 7.24 L (7.35-7.45) ABG pO2 337 H (83-108) mmHg ABG HCO3 15 L (21-25) mmol/L ABG Total CO2 16 L (19-24) mmol/L ABG O2 Saturation 100.0 H (94-97) % ABG Lactic Acid 1.7 H (0.5-1.6) mmol/L Chloride (98-107) mmol/L Carbon Dioxide (22-30) mmol/L Creatinine (0.52-1.04) mg/dL Glucose (74-99) mg/dL POC Glucose (mg/dL) 250 H (75-99) mg/dL Plasma Lactic Acid Cortes (0.7-2.0) mmol/L Calcium (8.4-10.2) mg/dL Troponin I (0.000-0.034) ng/mL Total Protein (6.3-8.2) g/dL Albumin (3.5-5.0) g/dL HDL Cholesterol (40-60) mg/dL Crossmatch 05/12/18 05/12/18 05/12/18 Range/Units 12:13 13:09 14:08 WBC (3.8-10.6) k/uL RBC (3.80-5.40) m/uL Hgb (11.4-16.0) gm/dL Hct (34.0-46.0) % MCV (80.0-100.0) fL MCHC (31.0-37.0) g/dL RDW (11.5-15.5) % Plt Count (150-450) k/uL Neutrophils # (Manual) (1.3-7.7) k/uL Lymphocytes # (Manual) (1.0-4.8) k/uL Nucleated RBCs (0-0) /100 WBC INR (<1.2) ABG pH (7.35-7.45) ABG pO2 (83-108) mmHg ABG HCO3 (21-25) mmol/L ABG Total CO2 (19-24) mmol/L ABG O2 Saturation (94-97) % ABG Lactic Acid (0.5-1.6) mmol/L Chloride (98-107) mmol/L Carbon Dioxide (22-30) mmol/L Creatinine (0.52-1.04) mg/dL Glucose (74-99) mg/dL POC Glucose (mg/dL) 268 H 242 H 226 H (75-99) mg/dL Plasma Lactic Acid Cortes (0.7-2.0) mmol/L Calcium (8.4-10.2) mg/dL Troponin I (0.000-0.034) ng/mL Total Protein (6.3-8.2) g/dL Albumin (3.5-5.0) g/dL HDL Cholesterol (40-60) mg/dL Crossmatch 05/12/18 05/12/18 05/12/18 Range/Units 15:09 16:12 17:30 WBC (3.8-10.6) k/uL RBC (3.80-5.40) m/uL Hgb (11.4-16.0) gm/dL Hct (34.0-46.0) % MCV (80.0-100.0) fL MCHC (31.0-37.0) g/dL RDW (11.5-15.5) % Plt Count (150-450) k/uL Neutrophils # (Manual) (1.3-7.7) k/uL Lymphocytes # (Manual) (1.0-4.8) k/uL Nucleated RBCs (0-0) /100 WBC INR (<1.2) ABG pH (7.35-7.45) ABG pO2 (83-108) mmHg ABG HCO3 (21-25) mmol/L ABG Total CO2 (19-24) mmol/L ABG O2 Saturation (94-97) % ABG Lactic Acid (0.5-1.6) mmol/L Chloride (98-107) mmol/L Carbon Dioxide (22-30) mmol/L Creatinine (0.52-1.04) mg/dL Glucose (74-99) mg/dL POC Glucose (mg/dL) 187 H 170 H 147 H (75-99) mg/dL Plasma Lactic Acid Cortes (0.7-2.0) mmol/L Calcium (8.4-10.2) mg/dL Troponin I (0.000-0.034) ng/mL Total Protein (6.3-8.2) g/dL Albumin (3.5-5.0) g/dL HDL Cholesterol (40-60) mg/dL Crossmatch 05/12/18 05/12/18 05/12/18 Range/Units 17:33 17:41 18:11 WBC (3.8-10.6) k/uL RBC (3.80-5.40) m/uL Hgb (11.4-16.0) gm/dL Hct (34.0-46.0) % MCV (80.0-100.0) fL MCHC (31.0-37.0) g/dL RDW (11.5-15.5) % Plt Count (150-450) k/uL Neutrophils # (Manual) (1.3-7.7) k/uL Lymphocytes # (Manual) (1.0-4.8) k/uL Nucleated RBCs (0-0) /100 WBC INR (<1.2) ABG pH (7.35-7.45) ABG pO2 (83-108) mmHg ABG HCO3 (21-25) mmol/L ABG Total CO2 (19-24) mmol/L ABG O2 Saturation (94-97) % ABG Lactic Acid (0.5-1.6) mmol/L Chloride (98-107) mmol/L Carbon Dioxide (22-30) mmol/L Creatinine (0.52-1.04) mg/dL Glucose (74-99) mg/dL POC Glucose (mg/dL) 147 H 138 H (75-99) mg/dL Plasma Lactic Acid Cortes (0.7-2.0) mmol/L Calcium (8.4-10.2) mg/dL Troponin I 0.293 H* (0.000-0.034) ng/mL Total Protein (6.3-8.2) g/dL Albumin (3.5-5.0) g/dL HDL Cholesterol (40-60) mg/dL Crossmatch 05/12/18 05/12/18 05/12/18 Range/Units 19:13 19:41 20:48 WBC (3.8-10.6) k/uL RBC (3.80-5.40) m/uL Hgb (11.4-16.0) gm/dL Hct (34.0-46.0) % MCV (80.0-100.0) fL MCHC (31.0-37.0) g/dL RDW (11.5-15.5) % Plt Count (150-450) k/uL Neutrophils # (Manual) (1.3-7.7) k/uL Lymphocytes # (Manual) (1.0-4.8) k/uL Nucleated RBCs (0-0) /100 WBC INR (<1.2) ABG pH (7.35-7.45) ABG pO2 (83-108) mmHg ABG HCO3 (21-25) mmol/L ABG Total CO2 (19-24) mmol/L ABG O2 Saturation (94-97) % ABG Lactic Acid (0.5-1.6) mmol/L Chloride (98-107) mmol/L Carbon Dioxide (22-30) mmol/L Creatinine (0.52-1.04) mg/dL Glucose (74-99) mg/dL POC Glucose (mg/dL) 129 H 134 H 136 H (75-99) mg/dL Plasma Lactic Acid Cortes (0.7-2.0) mmol/L Calcium (8.4-10.2) mg/dL Troponin I (0.000-0.034) ng/mL Total Protein (6.3-8.2) g/dL Albumin (3.5-5.0) g/dL HDL Cholesterol (40-60) mg/dL Crossmatch 05/12/18 05/12/18 05/12/18 Range/Units 21:59 22:54 23:46 WBC (3.8-10.6) k/uL RBC (3.80-5.40) m/uL Hgb (11.4-16.0) gm/dL Hct (34.0-46.0) % MCV (80.0-100.0) fL MCHC (31.0-37.0) g/dL RDW (11.5-15.5) % Plt Count (150-450) k/uL Neutrophils # (Manual) (1.3-7.7) k/uL Lymphocytes # (Manual) (1.0-4.8) k/uL Nucleated RBCs (0-0) /100 WBC INR (<1.2) ABG pH (7.35-7.45) ABG pO2 (83-108) mmHg ABG HCO3 (21-25) mmol/L ABG Total CO2 (19-24) mmol/L ABG O2 Saturation (94-97) % ABG Lactic Acid (0.5-1.6) mmol/L Chloride (98-107) mmol/L Carbon Dioxide (22-30) mmol/L Creatinine (0.52-1.04) mg/dL Glucose (74-99) mg/dL POC Glucose (mg/dL) 144 H 154 H 144 H (75-99) mg/dL Plasma Lactic Acid Cortes (0.7-2.0) mmol/L Calcium (8.4-10.2) mg/dL Troponin I (0.000-0.034) ng/mL Total Protein (6.3-8.2) g/dL Albumin (3.5-5.0) g/dL HDL Cholesterol (40-60) mg/dL Crossmatch 05/13/18 05/13/18 05/13/18 Range/Units 00:51 01:45 02:51 WBC (3.8-10.6) k/uL RBC (3.80-5.40) m/uL Hgb (11.4-16.0) gm/dL Hct (34.0-46.0) % MCV (80.0-100.0) fL MCHC (31.0-37.0) g/dL RDW (11.5-15.5) % Plt Count (150-450) k/uL Neutrophils # (Manual) (1.3-7.7) k/uL Lymphocytes # (Manual) (1.0-4.8) k/uL Nucleated RBCs (0-0) /100 WBC INR (<1.2) ABG pH (7.35-7.45) ABG pO2 (83-108) mmHg ABG HCO3 (21-25) mmol/L ABG Total CO2 (19-24) mmol/L ABG O2 Saturation (94-97) % ABG Lactic Acid (0.5-1.6) mmol/L Chloride (98-107) mmol/L Carbon Dioxide (22-30) mmol/L Creatinine (0.52-1.04) mg/dL Glucose (74-99) mg/dL POC Glucose (mg/dL) 126 H 118 H 119 H (75-99) mg/dL Plasma Lactic Acid Cortes (0.7-2.0) mmol/L Calcium (8.4-10.2) mg/dL Troponin I (0.000-0.034) ng/mL Total Protein (6.3-8.2) g/dL Albumin (3.5-5.0) g/dL HDL Cholesterol (40-60) mg/dL Crossmatch 05/13/18 05/13/18 05/13/18 Range/Units 04:03 04:07 04:07 WBC 1.0 L* (3.8-10.6) k/uL RBC 2.19 L (3.80-5.40) m/uL Hgb 7.0 L* (11.4-16.0) gm/dL Hct 21.3 L (34.0-46.0) % MCV (80.0-100.0) fL MCHC (31.0-37.0) g/dL RDW 19.0 H (11.5-15.5) % Plt Count 37 L* D (150-450) k/uL Neutrophils # (Manual) 0.40 L (1.3-7.7) k/uL Lymphocytes # (Manual) 0.46 L (1.0-4.8) k/uL Nucleated RBCs (0-0) /100 WBC INR (<1.2) ABG pH (7.35-7.45) ABG pO2 (83-108) mmHg ABG HCO3 (21-25) mmol/L ABG Total CO2 (19-24) mmol/L ABG O2 Saturation (94-97) % ABG Lactic Acid (0.5-1.6) mmol/L Chloride 117 H (98-107) mmol/L Carbon Dioxide 18 L (22-30) mmol/L Creatinine 1.30 H (0.52-1.04) mg/dL Glucose 133 H (74-99) mg/dL POC Glucose (mg/dL) 117 H (75-99) mg/dL Plasma Lactic Acid Cortes (0.7-2.0) mmol/L Calcium 8.1 L (8.4-10.2) mg/dL Troponin I (0.000-0.034) ng/mL Total Protein (6.3-8.2) g/dL Albumin (3.5-5.0) g/dL HDL Cholesterol (40-60) mg/dL Crossmatch 05/13/18 05/13/18 Range/Units 05:03 05:57 WBC (3.8-10.6) k/uL RBC (3.80-5.40) m/uL Hgb (11.4-16.0) gm/dL Hct (34.0-46.0) % MCV (80.0-100.0) fL MCHC (31.0-37.0) g/dL RDW (11.5-15.5) % Plt Count (150-450) k/uL Neutrophils # (Manual) (1.3-7.7) k/uL Lymphocytes # (Manual) (1.0-4.8) k/uL Nucleated RBCs (0-0) /100 WBC INR (<1.2) ABG pH (7.35-7.45) ABG pO2 (83-108) mmHg ABG HCO3 (21-25) mmol/L ABG Total CO2 (19-24) mmol/L ABG O2 Saturation (94-97) % ABG Lactic Acid (0.5-1.6) mmol/L Chloride (98-107) mmol/L Carbon Dioxide (22-30) mmol/L Creatinine (0.52-1.04) mg/dL Glucose (74-99) mg/dL POC Glucose (mg/dL) 137 H 127 H (75-99) mg/dL Plasma Lactic Acid Cortes (0.7-2.0) mmol/L Calcium (8.4-10.2) mg/dL Troponin I (0.000-0.034) ng/mL Total Protein (6.3-8.2) g/dL Albumin (3.5-5.0) g/dL HDL Cholesterol (40-60) mg/dL Crossmatch Microbiology - Last 24 Hours (Table) 05/11/18 00:13 Blood Culture - Preliminary Blood No Growth after 48 hours 05/11/18 00:20 Urine Culture - Final Urine,Voided Assessment and Plan (1) Anemia Current Visit: No Status: Acute Code(s): D64.9 - ANEMIA, UNSPECIFIED SNOMED Code(s): 371632066 (2) At risk for readmission to hospital Current Visit: No Status: Acute Code(s): Z91.89 - OTH PERSONAL RISK FACTORS , NOT ELSEWHERE CLASSIFIED SNOMED Code(s): 2927800659035 (3) Atrial fibrillation Current Visit: No Status: Acute Code(s): I48.91 - UNSPECIFIED ATRIAL FIBRILLATION SNOMED Code(s): 80935498 (4) 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 Current Visit: No Status: Acute Code(s): Z95.5 - PRESENCE OF CORONARY ANGIOPLASTY IMPLANT AND GRAFT SNOMED Code(s): 075515329 (5) Shortness of breath Current Visit: No Status: Acute Code(s): R06.02 - SHORTNESS OF BREATH SNOMED Code(s): 346910138 (6) Acute left FREIGHT SORTER stroke Current Visit: Yes Status: Acute Code(s): I63.532 - CEREB INFRC D/T UNSP OCCLS OR STENOS OF LEFT POST CEREB ART SNOMED Code(s): 510958184 (7) Cerebrovascular accident Current Visit: Yes Status: Acute Code(s): I63.9 - CEREBRAL INFARCTION, UNSPECIFIED SNOMED Code(s): 661629120 (8) New onset seizure Current Visit: Yes Status: Acute Code(s): R56.9 - UNSPECIFIED CONVULSIONS SNOMED Code(s): 48959596 Plan: At this point, will continue complete supportive care. Prognosis somewhat guarded secondary to her myelodysplasia and underlying issue of diabetes H fibrillation and posterior circulation CVA. Appreciate multiple consultants including cardiology, intensivists with neurology. Prognosis is guarded secondary multiple comorbidities, we will have family conference later this morning.
[2018-05-13] MEDS: INSULIN ASPART 100 UNIT/ML 1 ML 10 ML VIAL SQ SCH ×3 (06:18→18:34)
[2018-05-13] MEDS: AMIODARONE 450 MG in DEXTROSE 5% IN WATER 250 ML IV SCH ×2 (06:36)
[2018-05-13 06:45] LABS: Anisocytosis Slight; MCH 32.8 pg (25.0-35.0); MCHC 33.7 g/dL (31.0-37.0); MCV 97.4 fL (80.0-100.0); Macrocytosis Slight; Mean Platelet Volume 14.1; RBC 2.01 m/uL (3.80-5.40); RDW 18.7 % (11.5-15.5)
[2018-05-13 06:55] LABS: Platelet Count 31 k/uL (150-450); WBC 0.9 k/uL (3.8-10.6)
[2018-05-13 06:56] LABS: HGB 6.6 gm/dL (11.4-16.0)
[2018-05-13 06:57] LABS: HCT 19.6 % (34.0-46.0)
[2018-05-13 07:27] LABS: ABG Base Excess -7.8 mmol/L; ABG HCO3 18 mmol/L (21-25); ABG Oxygen Saturation 98.9 % (94-97); ABG PCO2 30 mmHg (35-45); ABG PH 7.37 (7.35-7.45); ABG PO2 121 mmHg (83-108); ABG TCO2 18 mmol/L (19-24)
[2018-05-13 07:28] LABS: Eosinophils # (M) 0.04 k/uL (0-0.7); Lymphocytes # (M) 0.32 k/uL (1.0-4.8); Monocytes # (M) 0.02 k/uL (0-1.0); Neutrophils # (M) 0.52 k/uL (1.3-7.7); Neutrophils % (M) 58 %; Nucleated Red Blood Cells 0 /100 WBC (0-0); Total Cells Counted 100
[2018-05-13 07:29] LABS: Large Platelets Present
--- NOTE | 2018-05-13 08:05 | P.PN ---
Subjective Progress Note Date: 05/13/18 This is a pleasant 82-year-old female patient with a past medical history significant for coronary artery disease, diabetes, hypertension, and dyslipidemia, was admitted to the hospital recently with weakness and she was diagnosed with anemia. I was asked to see the patient because change in mental status and possible seizure/cardiac arrest. Currently the patient is intubated and she is on ventilatory and the history was taken from the chart as well as from the nurse taking care of the patient. The patient does have significant history of coronary artery disease and she underwent a heart catheterization in 2014 where at that point she was found to have severe triple-vessel coronary artery disease with severe disease involving the SVG to LAD, patent PAUL to diagonal, and patent SVG to RCA. The SVG to LCx was not visualized at that point. The patient did undergo at that point successful stenting of the SVG to LAD by Dr. MANISHA Vance. The patient was diagnosed recently was with it seems to be myelodysplastic syndrome and she underwent a bone marrow biopsy. She presented to the hospital was overall weakness. No indication of any chest pain or chest discomfort or shortness of breath or dizziness or lightheadedness or syncope. She was found to be anemic and she was admitted for further evaluation and management. While she was on the floor the patient developed an episode of wide-complex tachycardia with a short period of sustained V. tach. Subsequently the patient developed a seizure episode with convulsion movement without any incontinence. Because of that the patient was intubated and was brought to the intensive care unit. The patient continues to be intubated on ventilator. Hemodynamically she is a stable and she is not on any vasopressors. She was converted to normal sinus mechanism yesterday. I am going to switch her from amiodarone IV to amiodarone by mouth at 200 mg twice a day in view of her sinus bradycardia. Hold any kind of antiplatelet or anticoagulation for the atrial fibrillation because of the low hemoglobin which is 6.6. The patient does have history of myelodysplasia and oncology is in process of seeing her. The cardiac enzymes were checked and came in to be slightly elevated. Objective - Vital Signs Vital signs: Vital Signs Temp 98.2 F 05/13/18 04:00 Pulse 53 L 05/13/18 07:00 Resp 19 05/13/18 07:00 BP 100/46 05/13/18 07:00 Pulse Ox 100 05/13/18 07:00 Intake & Output 05/12/18 05/13/18 05/13/18 18:59 06:59 18:59 Intake Total 4395.364 1773.402 100 Output Total 1012 562 35 Balance 3383.364 1211.402 65 Weight 85.1 kg 91.1 kg Intake: IV 3650 1200 100 Sodium Chloride 0.9% 1, 1300 1200 100 000 ml @ 100 mls/hr IV . Q10H [facility], [facility]1983 Rx#:[id number] Sodium Chloride 0.9% 1, 2250 000 ml @ 999 mls/hr IV . Q1H1M ONE Rx#:[id number] levETIRAcetam IV 750 mg 100 In Sodium Chloride 0.9% 100 ml @ 400 mls/hr IVPB Q12H [facility] Rx#:[id number] Intake, IV Titration 505.364 548.402 Amount Amiodarone 450 mg In 240.532 256.286 Dextrose 5% in Water 250 ml @ 1 MG/MIN 33.33 mls/ hr IV .Q7H31M [facility], [facility]–1983 Rx#: [id number] Insulin Regular 100 unit 18.849 1.408 In Sodium Chloride 0.9% 100 ml @ Per Protocol IV .Q0M [facility] Rx#:[id number] Norepinephrine 16 mg In 145.983 35.277 Dextrose 5% in Water 250 ml @ Titrate IV .Q0M [facility], [facility] Rx#:[id number] Propofol 1,000 mg In 100.000 255.431 Empty Bag 1 bag @ Titrate IV .Q0M [facility] Rx#: [id number] Oral 240 Other 25 Output: Urine 1012 562 35 Other: Voiding Method Indwelling Catheter Indwelling Catheter # Voids 2 2 ABP, PAP, CO, CI - Last Documented Arterial Blood Pressure 129/47 - Constitutional General appearance: Present: no acute distress - Respiratory Respiratory: bilateral: diminished - Cardiovascular Rhythm: regular Heart sounds: normal: S1, S2 - Labs CBC & Chem 7: 05/13/18 06:10 05/13/18 04:07 Labs: Abnormal Lab Results - Last 24 Hours (Table) 05/12/18 05/12/18 05/12/18 Range/Units 08:16 09:14 11:40 WBC (3.8-10.6) k/uL RBC (3.80-5.40) m/uL Hgb (11.4-16.0) gm/dL Hct (34.0-46.0) % RDW (11.5-15.5) % Plt Count (150-450) k/uL Neutrophils # (Manual) (1.3-7.7) k/uL Lymphocytes # (Manual) (1.0-4.8) k/uL ABG pH 7.24 L (7.35-7.45) ABG pCO2 (35-45) mmHg ABG pO2 337 H (83-108) mmHg ABG HCO3 15 L (21-25) mmol/L ABG Total CO2 16 L (19-24) mmol/L ABG O2 Saturation 100.0 H (94-97) % ABG Lactic Acid 1.7 H (0.5-1.6) mmol/L Chloride (98-107) mmol/L Carbon Dioxide (22-30) mmol/L Creatinine (0.52-1.04) mg/dL Glucose (74-99) mg/dL POC Glucose (mg/dL) 250 H (75-99) mg/dL Calcium (8.4-10.2) mg/dL Troponin I (0.000-0.034) ng/mL 05/12/18 05/12/18 05/12/18 Range/Units 12:13 13:09 14:08 WBC (3.8-10.6) k/uL RBC (3.80-5.40) m/uL Hgb (11.4-16.0) gm/dL Hct (34.0-46.0) % RDW (11.5-15.5) % Plt Count (150-450) k/uL Neutrophils # (Manual) (1.3-7.7) k/uL Lymphocytes # (Manual) (1.0-4.8) k/uL ABG pH (7.35-7.45) ABG pCO2 (35-45) mmHg ABG pO2 (83-108) mmHg ABG HCO3 (21-25) mmol/L ABG Total CO2 (19-24) mmol/L ABG O2 Saturation (94-97) % ABG Lactic Acid (0.5-1.6) mmol/L Chloride (98-107) mmol/L Carbon Dioxide (22-30) mmol/L Creatinine (0.52-1.04) mg/dL Glucose (74-99) mg/dL POC Glucose (mg/dL) 268 H 242 H 226 H (75-99) mg/dL Calcium (8.4-10.2) mg/dL Troponin I (0.000-0.034) ng/mL 05/12/18 05/12/18 05/12/18 Range/Units 15:09 16:12 17:30 WBC (3.8-10.6) k/uL RBC (3.80-5.40) m/uL Hgb (11.4-16.0) gm/dL Hct (34.0-46.0) % RDW (11.5-15.5) % Plt Count (150-450) k/uL Neutrophils # (Manual) (1.3-7.7) k/uL Lymphocytes # (Manual) (1.0-4.8) k/uL ABG pH (7.35-7.45) ABG pCO2 (35-45) mmHg ABG pO2 (83-108) mmHg ABG HCO3 (21-25) mmol/L ABG Total CO2 (19-24) mmol/L ABG O2 Saturation (94-97) % ABG Lactic Acid (0.5-1.6) mmol/L Chloride (98-107) mmol/L Carbon Dioxide (22-30) mmol/L Creatinine (0.52-1.04) mg/dL Glucose (74-99) mg/dL POC Glucose (mg/dL) 187 H 170 H 147 H (75-99) mg/dL Calcium (8.4-10.2) mg/dL Troponin I (0.000-0.034) ng/mL 05/12/18 05/12/18 05/12/18 Range/Units 17:33 17:41 18:11 WBC (3.8-10.6) k/uL RBC (3.80-5.40) m/uL Hgb (11.4-16.0) gm/dL Hct (34.0-46.0) % RDW (11.5-15.5) % Plt Count (150-450) k/uL Neutrophils # (Manual) (1.3-7.7) k/uL Lymphocytes # (Manual) (1.0-4.8) k/uL ABG pH (7.35-7.45) ABG pCO2 (35-45) mmHg ABG pO2 (83-108) mmHg ABG HCO3 (21-25) mmol/L ABG Total CO2 (19-24) mmol/L ABG O2 Saturation (94-97) % ABG Lactic Acid (0.5-1.6) mmol/L Chloride (98-107) mmol/L Carbon Dioxide (22-30) mmol/L Creatinine (0.52-1.04) mg/dL Glucose (74-99) mg/dL POC Glucose (mg/dL) 147 H 138 H (75-99) mg/dL Calcium (8.4-10.2) mg/dL Troponin I 0.293 H* (0.000-0.034) ng/mL 05/12/18 05/12/18 05/12/18 Range/Units 19:13 19:41 20:48 WBC (3.8-10.6) k/uL RBC (3.80-5.40) m/uL Hgb (11.4-16.0) gm/dL Hct (34.0-46.0) % RDW (11.5-15.5) % Plt Count (150-450) k/uL Neutrophils # (Manual) (1.3-7.7) k/uL Lymphocytes # (Manual) (1.0-4.8) k/uL ABG pH (7.35-7.45) ABG pCO2 (35-45) mmHg ABG pO2 (83-108) mmHg ABG HCO3 (21-25) mmol/L ABG Total CO2 (19-24) mmol/L ABG O2 Saturation (94-97) % ABG Lactic Acid (0.5-1.6) mmol/L Chloride (98-107) mmol/L Carbon Dioxide (22-30) mmol/L Creatinine (0.52-1.04) mg/dL Glucose (74-99) mg/dL POC Glucose (mg/dL) 129 H 134 H 136 H (75-99) mg/dL Calcium (8.4-10.2) mg/dL Troponin I (0.000-0.034) ng/mL 05/12/18 05/12/18 05/12/18 Range/Units 21:59 22:54 23:46 WBC (3.8-10.6) k/uL RBC (3.80-5.40) m/uL Hgb (11.4-16.0) gm/dL Hct (34.0-46.0) % RDW (11.5-15.5) % Plt Count (150-450) k/uL Neutrophils # (Manual) (1.3-7.7) k/uL Lymphocytes # (Manual) (1.0-4.8) k/uL ABG pH (7.35-7.45) ABG pCO2 (35-45) mmHg ABG pO2 (83-108) mmHg ABG HCO3 (21-25) mmol/L ABG Total CO2 (19-24) mmol/L ABG O2 Saturation (94-97) % ABG Lactic Acid (0.5-1.6) mmol/L Chloride (98-107) mmol/L Carbon Dioxide (22-30) mmol/L Creatinine (0.52-1.04) mg/dL Glucose (74-99) mg/dL POC Glucose (mg/dL) 144 H 154 H 144 H (75-99) mg/dL Calcium (8.4-10.2) mg/dL Troponin I (0.000-0.034) ng/mL 05/13/18 05/13/18 05/13/18 Range/Units 00:51 01:45 02:51 WBC (3.8-10.6) k/uL RBC (3.80-5.40) m/uL Hgb (11.4-16.0) gm/dL Hct (34.0-46.0) % RDW (11.5-15.5) % Plt Count (150-450) k/uL Neutrophils # (Manual) (1.3-7.7) k/uL Lymphocytes # (Manual) (1.0-4.8) k/uL ABG pH (7.35-7.45) ABG pCO2 (35-45) mmHg ABG pO2 (83-108) mmHg ABG HCO3 (21-25) mmol/L ABG Total CO2 (19-24) mmol/L ABG O2 Saturation (94-97) % ABG Lactic Acid (0.5-1.6) mmol/L Chloride (98-107) mmol/L Carbon Dioxide (22-30) mmol/L Creatinine (0.52-1.04) mg/dL Glucose (74-99) mg/dL POC Glucose (mg/dL) 126 H 118 H 119 H (75-99) mg/dL Calcium (8.4-10.2) mg/dL Troponin I (0.000-0.034) ng/mL 05/13/18 05/13/18 05/13/18 Range/Units 04:03 04:07 04:07 WBC 1.0 L* (3.8-10.6) k/uL RBC 2.19 L (3.80-5.40) m/uL Hgb 7.0 L* (11.4-16.0) gm/dL Hct 21.3 L (34.0-46.0) % RDW 19.0 H (11.5-15.5) % Plt Count 37 L* D (150-450) k/uL Neutrophils # (Manual) 0.40 L (1.3-7.7) k/uL Lymphocytes # (Manual) 0.46 L (1.0-4.8) k/uL ABG pH (7.35-7.45) ABG pCO2 (35-45) mmHg ABG pO2 (83-108) mmHg ABG HCO3 (21-25) mmol/L ABG Total CO2 (19-24) mmol/L ABG O2 Saturation (94-97) % ABG Lactic Acid (0.5-1.6) mmol/L Chloride 117 H (98-107) mmol/L Carbon Dioxide 18 L (22-30) mmol/L Creatinine 1.30 H (0.52-1.04) mg/dL Glucose 133 H (74-99) mg/dL POC Glucose (mg/dL) 117 H (75-99) mg/dL Calcium 8.1 L (8.4-10.2) mg/dL Troponin I (0.000-0.034) ng/mL 05/13/18 05/13/18 05/13/18 Range/Units 05:03 05:57 06:10 WBC 0.9 L* (3.8-10.6) k/uL RBC 2.01 L (3.80-5.40) m/uL Hgb 6.6 L* (11.4-16.0) gm/dL Hct 19.6 L* (34.0-46.0) % RDW 18.7 H (11.5-15.5) % Plt Count 31 L* (150-450) k/uL Neutrophils # (Manual) 0.52 L (1.3-7.7) k/uL Lymphocytes # (Manual) 0.32 L (1.0-4.8) k/uL ABG pH (7.35-7.45) ABG pCO2 (35-45) mmHg ABG pO2 (83-108) mmHg ABG HCO3 (21-25) mmol/L ABG Total CO2 (19-24) mmol/L ABG O2 Saturation (94-97) % ABG Lactic Acid (0.5-1.6) mmol/L Chloride (98-107) mmol/L Carbon Dioxide (22-30) mmol/L Creatinine (0.52-1.04) mg/dL Glucose (74-99) mg/dL POC Glucose (mg/dL) 137 H 127 H (75-99) mg/dL Calcium (8.4-10.2) mg/dL Troponin I (0.000-0.034) ng/mL 05/13/18 Range/Units 07:25 WBC (3.8-10.6) k/uL RBC (3.80-5.40) m/uL Hgb (11.4-16.0) gm/dL Hct (34.0-46.0) % RDW (11.5-15.5) % Plt Count (150-450) k/uL Neutrophils # (Manual) (1.3-7.7) k/uL Lymphocytes # (Manual) (1.0-4.8) k/uL ABG pH (7.35-7.45) ABG pCO2 30 L (35-45) mmHg ABG pO2 121 H (83-108) mmHg ABG HCO3 18 L (21-25) mmol/L ABG Total CO2 18 L (19-24) mmol/L ABG O2 Saturation 98.9 H (94-97) % ABG Lactic Acid (0.5-1.6) mmol/L Chloride (98-107) mmol/L Carbon Dioxide (22-30) mmol/L Creatinine (0.52-1.04) mg/dL Glucose (74-99) mg/dL POC Glucose (mg/dL) (75-99) mg/dL Calcium (8.4-10.2) mg/dL Troponin I (0.000-0.034) ng/mL Microbiology - Last 24 Hours (Table) 05/11/18 00:13 Blood Culture - Preliminary Blood No Growth after 48 hours 05/11/18 00:20 Urine Culture - Final Urine,Voided Assessment and Plan Assessment: Assessment #1 nonsustained ventricular tachycardia #2 atrial fibrillation was controlled heart rate at this point #3 possible seizure #4 severe underlying coronary artery disease and status post CABG and stenting as described above #5 acute respiratory failure and currently the patient is intubated and on ventilator #6 myelodysplastic syndrome #Pancytopenia Plan #1 switch the patient to amiodarone by mouth at 200 mg twice a day #2 hold any kind of anticoagulation in view of the pancytopenia #3 the cardiac enzymes were checked and came in to be slightly abnormal #4 follow-up on the echocardiogram #5 follow-up with the patient. Thank you for allowing us participate in the care of the patient
--- NOTE | 2018-05-13 08:26 | P.PN ---
Subjective Progress Note Date: 05/12/18 The pt developed V tach, and unresponsiveness. She did revert to NSR, but then had a seizure. She was intubated and transferred to the ICU Objective - Vital Signs Vital signs: Vital Signs Temp 98.2 F 05/13/18 04:00 Pulse 53 L 05/13/18 07:00 Resp 19 05/13/18 07:00 BP 100/46 05/13/18 07:00 Pulse Ox 100 05/13/18 07:00 Intake & Output 05/12/18 05/13/18 05/13/18 18:59 06:59 18:59 Intake Total 4395.364 1773.402 100 Output Total 1012 562 35 Balance 3383.364 1211.402 65 Weight 85.1 kg 91.1 kg Intake: IV 3650 1200 100 Sodium Chloride 0.9% 1, 1300 1200 100 000 ml @ 100 mls/hr IV . Q10H [facility] Rx#:[id number] Sodium Chloride 0.9% 1, 2250 000 ml @ 999 mls/hr IV . Q1H1M ONE Rx#:[id number] levETIRAcetam IV 750 mg 100 In Sodium Chloride 0.9% 100 ml @ 400 mls/hr IVPB Q12H [facility] Rx#:[id number] Intake, IV Titration 505.364 548.402 Amount Amiodarone 450 mg In 240.532 256.286 Dextrose 5% in Water 250 ml @ 1 MG/MIN 33.33 mls/ hr IV .Q7H31M [facility] Rx#: [id number] Insulin Regular 100 unit 18.849 1.408 In Sodium Chloride 0.9% 100 ml @ Per Protocol IV .Q0M [facility] Rx#:[id number] Norepinephrine 16 mg In 145.983 35.277 Dextrose 5% in Water 250 ml @ Titrate IV .Q0M [facility] Rx#:[id number] Propofol 1,000 mg In 100.000 255.431 Empty Bag 1 bag @ Titrate IV .Q0M [facility] Rx#: [id number] Oral 240 Other 25 Output: Urine 1012 562 35 Other: Voiding Method Indwelling Catheter Indwelling Catheter # Voids 2 2 ABP, PAP, CO, CI - Last Documented Arterial Blood Pressure 129/47 - Constitutional Constitutional Comment(s): sedated on vent - Respiratory Respiratory: bilateral: diminished - Cardiovascular Rhythm: regular Heart sounds: normal: S1, S2 - Gastrointestinal General gastrointestinal: Present: normal bowel sounds, soft - Neurologic Neurologic Comment(s): sedated on vent, non responsive - Labs CBC & Chem 7: 05/13/18 06:10 05/13/18 04:07 Labs: Abnormal Lab Results - Last 24 Hours (Table) 05/12/18 05/12/18 05/12/18 Range/Units 08:16 09:14 11:40 WBC (3.8-10.6) k/uL RBC (3.80-5.40) m/uL Hgb (11.4-16.0) gm/dL Hct (34.0-46.0) % RDW (11.5-15.5) % Plt Count (150-450) k/uL Neutrophils # (Manual) (1.3-7.7) k/uL Lymphocytes # (Manual) (1.0-4.8) k/uL ABG pH 7.24 L (7.35-7.45) ABG pCO2 (35-45) mmHg ABG pO2 337 H (83-108) mmHg ABG HCO3 15 L (21-25) mmol/L ABG Total CO2 16 L (19-24) mmol/L ABG O2 Saturation 100.0 H (94-97) % ABG Lactic Acid 1.7 H (0.5-1.6) mmol/L Chloride (98-107) mmol/L Carbon Dioxide (22-30) mmol/L Creatinine (0.52-1.04) mg/dL Glucose (74-99) mg/dL POC Glucose (mg/dL) 250 H (75-99) mg/dL Calcium (8.4-10.2) mg/dL Troponin I (0.000-0.034) ng/mL 05/12/18 05/12/18 05/12/18 Range/Units 12:13 13:09 14:08 WBC (3.8-10.6) k/uL RBC (3.80-5.40) m/uL Hgb (11.4-16.0) gm/dL Hct (34.0-46.0) % RDW (11.5-15.5) % Plt Count (150-450) k/uL Neutrophils # (Manual) (1.3-7.7) k/uL Lymphocytes # (Manual) (1.0-4.8) k/uL ABG pH (7.35-7.45) ABG pCO2 (35-45) mmHg ABG pO2 (83-108) mmHg ABG HCO3 (21-25) mmol/L ABG Total CO2 (19-24) mmol/L ABG O2 Saturation (94-97) % ABG Lactic Acid (0.5-1.6) mmol/L Chloride (98-107) mmol/L Carbon Dioxide (22-30) mmol/L Creatinine (0.52-1.04) mg/dL Glucose (74-99) mg/dL POC Glucose (mg/dL) 268 H 242 H 226 H (75-99) mg/dL Calcium (8.4-10.2) mg/dL Troponin I (0.000-0.034) ng/mL 05/12/18 05/12/18 05/12/18 Range/Units 15:09 16:12 17:30 WBC (3.8-10.6) k/uL RBC (3.80-5.40) m/uL Hgb (11.4-16.0) gm/dL Hct (34.0-46.0) % RDW (11.5-15.5) % Plt Count (150-450) k/uL Neutrophils # (Manual) (1.3-7.7) k/uL Lymphocytes # (Manual) (1.0-4.8) k/uL ABG pH (7.35-7.45) ABG pCO2 (35-45) mmHg ABG pO2 (83-108) mmHg ABG HCO3 (21-25) mmol/L ABG Total CO2 (19-24) mmol/L ABG O2 Saturation (94-97) % ABG Lactic Acid (0.5-1.6) mmol/L Chloride (98-107) mmol/L Carbon Dioxide (22-30) mmol/L Creatinine (0.52-1.04) mg/dL Glucose (74-99) mg/dL POC Glucose (mg/dL) 187 H 170 H 147 H (75-99) mg/dL Calcium (8.4-10.2) mg/dL Troponin I (0.000-0.034) ng/mL 05/12/18 05/12/18 05/12/18 Range/Units 17:33 17:41 18:11 WBC (3.8-10.6) k/uL RBC (3.80-5.40) m/uL Hgb (11.4-16.0) gm/dL Hct (34.0-46.0) % RDW (11.5-15.5) % Plt Count (150-450) k/uL Neutrophils # (Manual) (1.3-7.7) k/uL Lymphocytes # (Manual) (1.0-4.8) k/uL ABG pH (7.35-7.45) ABG pCO2 (35-45) mmHg ABG pO2 (83-108) mmHg ABG HCO3 (21-25) mmol/L ABG Total CO2 (19-24) mmol/L ABG O2 Saturation (94-97) % ABG Lactic Acid (0.5-1.6) mmol/L Chloride (98-107) mmol/L Carbon Dioxide (22-30) mmol/L Creatinine (0.52-1.04) mg/dL Glucose (74-99) mg/dL POC Glucose (mg/dL) 147 H 138 H (75-99) mg/dL Calcium (8.4-10.2) mg/dL Troponin I 0.293 H* (0.000-0.034) ng/mL 05/12/18 05/12/18 05/12/18 Range/Units 19:13 19:41 20:48 WBC (3.8-10.6) k/uL RBC (3.80-5.40) m/uL Hgb (11.4-16.0) gm/dL Hct (34.0-46.0) % RDW (11.5-15.5) % Plt Count (150-450) k/uL Neutrophils # (Manual) (1.3-7.7) k/uL Lymphocytes # (Manual) (1.0-4.8) k/uL ABG pH (7.35-7.45) ABG pCO2 (35-45) mmHg ABG pO2 (83-108) mmHg ABG HCO3 (21-25) mmol/L ABG Total CO2 (19-24) mmol/L ABG O2 Saturation (94-97) % ABG Lactic Acid (0.5-1.6) mmol/L Chloride (98-107) mmol/L Carbon Dioxide (22-30) mmol/L Creatinine (0.52-1.04) mg/dL Glucose (74-99) mg/dL POC Glucose (mg/dL) 129 H 134 H 136 H (75-99) mg/dL Calcium (8.4-10.2) mg/dL Troponin I (0.000-0.034) ng/mL 05/12/18 05/12/18 05/12/18 Range/Units 21:59 22:54 23:46 WBC (3.8-10.6) k/uL RBC (3.80-5.40) m/uL Hgb (11.4-16.0) gm/dL Hct (34.0-46.0) % RDW (11.5-15.5) % Plt Count (150-450) k/uL Neutrophils # (Manual) (1.3-7.7) k/uL Lymphocytes # (Manual) (1.0-4.8) k/uL ABG pH (7.35-7.45) ABG pCO2 (35-45) mmHg ABG pO2 (83-108) mmHg ABG HCO3 (21-25) mmol/L ABG Total CO2 (19-24) mmol/L ABG O2 Saturation (94-97) % ABG Lactic Acid (0.5-1.6) mmol/L Chloride (98-107) mmol/L Carbon Dioxide (22-30) mmol/L Creatinine (0.52-1.04) mg/dL Glucose (74-99) mg/dL POC Glucose (mg/dL) 144 H 154 H 144 H (75-99) mg/dL Calcium (8.4-10.2) mg/dL Troponin I (0.000-0.034) ng/mL 05/13/18 05/13/18 05/13/18 Range/Units 00:51 01:45 02:51 WBC (3.8-10.6) k/uL RBC (3.80-5.40) m/uL Hgb (11.4-16.0) gm/dL Hct (34.0-46.0) % RDW (11.5-15.5) % Plt Count (150-450) k/uL Neutrophils # (Manual) (1.3-7.7) k/uL Lymphocytes # (Manual) (1.0-4.8) k/uL ABG pH (7.35-7.45) ABG pCO2 (35-45) mmHg ABG pO2 (83-108) mmHg ABG HCO3 (21-25) mmol/L ABG Total CO2 (19-24) mmol/L ABG O2 Saturation (94-97) % ABG Lactic Acid (0.5-1.6) mmol/L Chloride (98-107) mmol/L Carbon Dioxide (22-30) mmol/L Creatinine (0.52-1.04) mg/dL Glucose (74-99) mg/dL POC Glucose (mg/dL) 126 H 118 H 119 H (75-99) mg/dL Calcium (8.4-10.2) mg/dL Troponin I (0.000-0.034) ng/mL 05/13/18 05/13/18 05/13/18 Range/Units 04:03 04:07 04:07 WBC 1.0 L* (3.8-10.6) k/uL RBC 2.19 L (3.80-5.40) m/uL Hgb 7.0 L* (11.4-16.0) gm/dL Hct 21.3 L (34.0-46.0) % RDW 19.0 H (11.5-15.5) % Plt Count 37 L* D (150-450) k/uL Neutrophils # (Manual) 0.40 L (1.3-7.7) k/uL Lymphocytes # (Manual) 0.46 L (1.0-4.8) k/uL ABG pH (7.35-7.45) ABG pCO2 (35-45) mmHg ABG pO2 (83-108) mmHg ABG HCO3 (21-25) mmol/L ABG Total CO2 (19-24) mmol/L ABG O2 Saturation (94-97) % ABG Lactic Acid (0.5-1.6) mmol/L Chloride 117 H (98-107) mmol/L Carbon Dioxide 18 L (22-30) mmol/L Creatinine 1.30 H (0.52-1.04) mg/dL Glucose 133 H (74-99) mg/dL POC Glucose (mg/dL) 117 H (75-99) mg/dL Calcium 8.1 L (8.4-10.2) mg/dL Troponin I (0.000-0.034) ng/mL 05/13/18 05/13/18 05/13/18 Range/Units 05:03 05:57 06:10 WBC 0.9 L* (3.8-10.6) k/uL RBC 2.01 L (3.80-5.40) m/uL Hgb 6.6 L* (11.4-16.0) gm/dL Hct 19.6 L* (34.0-46.0) % RDW 18.7 H (11.5-15.5) % Plt Count 31 L* (150-450) k/uL Neutrophils # (Manual) 0.52 L (1.3-7.7) k/uL Lymphocytes # (Manual) 0.32 L (1.0-4.8) k/uL ABG pH (7.35-7.45) ABG pCO2 (35-45) mmHg ABG pO2 (83-108) mmHg ABG HCO3 (21-25) mmol/L ABG Total CO2 (19-24) mmol/L ABG O2 Saturation (94-97) % ABG Lactic Acid (0.5-1.6) mmol/L Chloride (98-107) mmol/L Carbon Dioxide (22-30) mmol/L Creatinine (0.52-1.04) mg/dL Glucose (74-99) mg/dL POC Glucose (mg/dL) 137 H 127 H (75-99) mg/dL Calcium (8.4-10.2) mg/dL Troponin I (0.000-0.034) ng/mL 05/13/18 Range/Units 07:25 WBC (3.8-10.6) k/uL RBC (3.80-5.40) m/uL Hgb (11.4-16.0) gm/dL Hct (34.0-46.0) % RDW (11.5-15.5) % Plt Count (150-450) k/uL Neutrophils # (Manual) (1.3-7.7) k/uL Lymphocytes # (Manual) (1.0-4.8) k/uL ABG pH (7.35-7.45) ABG pCO2 30 L (35-45) mmHg ABG pO2 121 H (83-108) mmHg ABG HCO3 18 L (21-25) mmol/L ABG Total CO2 18 L (19-24) mmol/L ABG O2 Saturation 98.9 H (94-97) % ABG Lactic Acid (0.5-1.6) mmol/L Chloride (98-107) mmol/L Carbon Dioxide (22-30) mmol/L Creatinine (0.52-1.04) mg/dL Glucose (74-99) mg/dL POC Glucose (mg/dL) (75-99) mg/dL Calcium (8.4-10.2) mg/dL Troponin I (0.000-0.034) ng/mL Microbiology - Last 24 Hours (Table) 05/11/18 00:13 Blood Culture - Preliminary Blood No Growth after 48 hours 05/11/18 00:20 Urine Culture - Final Urine,Voided Assessment and Plan (1) Acute respiratory failure Narrative/Plan: Events leading to the same noted. The pt is currently in NSR, and is stable on the vent. Defer to CCM and admitting service for further management Current Visit: Yes Status: Acute Code(s): J96.00 - ACUTE RESPIRATORY FAILURE , UNSP W HYPOXIA OR HYPERCAPNIA SNOMED Code(s): 38750142 (2) Myelodysplastic syndrome Narrative/Plan: The pt's bone marrow confirmed the same. She has had a comparitively aggressive presentation in terms of development of cytopenias. The bone marrow showed 7-10% blasts indicating transitioned to RAEB 2. Ideally this condition should be treated with chemotherapy. The patient is not a candidate for any aggressive treatment, obviously, at this time. From our previous conversations , it was not clear if the patient even desired aggressive treatment or not. There for the plan was for us to have a family meeting today. Family were informed of the same, but did not turn up. Case was discussed with nursing. They will attempt to contact the family to try to reschedule a meeting tomorrow. In the meantime, continue to monitor counts with supportive transfusions as needed, to keep hemoglobin greater than 7, and platelets greater than 10 ( unless there is evidence of active bleeding or an invasive procedure is needed) Current Visit: Yes Status: Acute Code(s): D46.9 - MYELODYSPLASTIC SYNDROME, UNSPECIFIED SNOMED Code(s): 439121926
[2018-05-13] MEDS: AMIODARONE 200 MG TAB PO SCH ×2 (08:32→22:32)
[2018-05-13] MEDS: PANTOPRAZOLE 40 MG/10 ML VIAL IVP SCH (08:33)
[2018-05-13] MEDS: CHLORHEXIDINE GLUCONATE 15 ML CUP MUCOUS MEM SCH (08:33)
[2018-05-13] MEDS: FERROUS SULFATE 325 MG TAB PO SCH (08:33)
--- NOTE | 2018-05-13 08:38 | XR ---
EXAMINATION TYPE: XR chest 1V portable DATE OF EXAM: 05/13/2018 COMPARISON: Prior chest 05/12/2018 HISTORY: Intubated TECHNIQUE: Single frontal view of the chest is obtained. FINDINGS: Endotracheal and NG tube, left jugular central venous catheter are stable and are overlyin g appropriate positions. There are overlying cardiac leads. Lung volumes are low. Retrocardiac densit y obscures the left hemidiaphragm, no pneumothorax. Patient is post median sternotomy and the heart r emains enlarged. Central vascularity and interstitium somewhat increased. IMPRESSION: Correlate to exclude pulmonary venous hypertension and interstitial edema, there may be lower lobe atelectasis versus pneumonia or edema, effusion. Follow-up recommended.
--- NOTE | 2018-05-13 10:23 | ECHOF ---
Referral Reason:assess Lvf MEASUREMENTS -------- HEIGHT: 167.6 cm WEIGHT: 88.5 kg BP: 119/53 RVIDd: 3.8 cm (< 3.3) IVSd: 1.2 cm (0.6 - 1.1) LVIDd: 4.9 cm (3.9 - 5.3) LVPWd: 1.2 cm (0.6 - 1.1) IVSs: 1.5 cm LVIDs: 3.3 cm LVPWs: 1.7 cm LAESV Index (A-L): 38.71 ml/m Ao Diam: 2.9 cm (2.0 - 3.7) AV Cusp: 1.8 cm (1.5 - 2.6) LA Diam: 4.1 cm (2.7 - 3.8) EPSS: 0.8 cm MV E Nando: 0.72 m/s MV DecT: 255 ms MV A Nando: 0.84 m/s MV E/A Ratio: 0.86 AV maxP.95 mmHg AV meanP.81 mmHg RAP: 15.00 mmHg RVSP: 51.24 mmHg MV EF SLOPE: 74.14 mm/s (70 - 150) MV EXCURSION: 1.12 cm (> 18.000) FINDINGS -------- BBB This was a technically difficult study with suboptimal views. The left ventricular size is normal. There is mild concentric left ventricular hypertrophy. Overa ll left ventricular systolic function is moderate-severely impaired with, an EF between 30 - 35 %. Paradoxical motion of the distal septum. Distal half of the left ventricle is poorly contractile, i ncluding the septum, inferior, and apical portions. The right ventricle is moderately enlarged. Normal LA size by volume 22+/-6 ml/m2. RA appears enlarged. 3ml of Lumason was utilized for enhancement of images. Aortic valve is trileaflet and is mildly thickened. There is no evidence of aortic regurgitation. There is no evidence of aortic stenosis. The mitral valve leaflets are mildly thickened. Mild mitral annular calcification present. Mild m itral regurgitation is present. Severe tricuspid regurgitation present. There is mild pulmonary hypertension. The right ventricul ar systolic pressure, as measured by Doppler, is 51.24mmHg. Trace/mild (physiologic) pulmonic regurgitation. The aortic root size is normal. The inferior vena cava is dilated with poor inspiratory collapse which is consistent with estimated r ight atrial pressure of 20 mmHg. There is no pericardial effusion. CONCLUSIONS -------- 1. BBB 2. This was a technically difficult study with suboptimal views. 3. The left ventricular size is normal. 4. There is mild concentric left ventricular hypertrophy. 5. Overall left ventricular systolic function is moderate-severely impaired with, an EF between 30 - 35 %. 6. Paradoxical motion of the distal septum. 7. Distal half of the left ventricle is poorly contractile, including the septum, inferior, and apica l portions. 8. The right ventricle is moderately enlarged. 9. Normal LA size by volume 22+/-6 ml/m2. 10. RA appears enlarged. 11. 3ml of Lumason was utilized for enhancement of images. 12. Aortic valve is trileaflet and is mildly thickened. 13. The mitral valve leaflets are mildly thickened. 14. Mild mitral annular calcification present. 15. Mild mitral regurgitation is present. 16. Severe tricuspid regurgitation present. 17. There is mild pulmonary hypertension. 18. The right ventricular systolic pressure, as measured by Doppler, is 51.24mmHg. 19. Trace/mild (physiologic) pulmonic regurgitation. 20. The aortic root size is normal. 21. The inferior vena cava is dilated with poor inspiratory collapse which is consistent with estimat ed right atrial pressure of 20 mmHg. 22. There is no pericardial effusion. STATE APPELLATE CLERK: Main Best RDCS
[2018-05-13] MEDS: CLEVIDIPINE BUTYRATE 25 MG in EMPTY BAG 1 BAG IV SCH ×3 (10:36→21:21)
[2018-05-13] MEDS: ACETAMINOPHEN IV (For NPO) 1,000 MG in EMPTY BAG 1 BAG IVPB SCH ×2 (12:50→16:30)
[2018-05-13 12:54] LABS: ABG Base Excess -9.5 mmol/L; ABG HCO3 15 mmol/L (21-25); ABG Oxygen Saturation 93.1 % (94-97); ABG PCO2 24 mmHg (35-45); ABG PH 7.41 (7.35-7.45); ABG PO2 61 mmHg (83-108); ABG TCO2 16 mmol/L (19-24)
[2018-05-13 12:55] LABS: Glucose,Whole Blood 163 mg/dL (75-99)
--- NOTE | 2018-05-13 12:57 | P.PN ---
Subjective Progress Note Date: 05/13/18 Principal diagnosis: Acute hypoxic respiratory failure, acute CVA, status epilepticus, nonsustained ventricular tachycardia This is an 82-year-old female with history of chronic anemia, possible myelodysplasia, coronary artery disease and previous CABG, previous stents placement, presented to the ER with 3 days history of feeling weak and noted to have mental status change. Patient also described intermittent episodes of headaches, described as severe, initial CT of the brain upon admission showed acute infarct in the left occipital lobe, and possibly an old infarct in the right occipital region. No hemorrhage was noted. Patient was admitted last night to a regular medical floor, already seen by neurology on consultation, and she was felt to have acute left posterior artery stroke. This morning, the patient had a sudden seizure, described as grand mal seizure, she was also noted to have ventricular tachycardia which was nonsustained, patient was unresponsive at the time, intubated, placed on mechanical ventilation, and the transferred to the intensive care unit. Patient required fluid boluses, she also required norepinephrine, and I was consulted on the patient to see in the intensive care unit. Upon my initial evaluation, patient was already on antiseizure medications, and her seizures were well controlled. Her cardiac rhythm was also controlled by amiodarone as ordered by cardiology. Patient was noted to be hypotensive requiring norepinephrine, and I went ahead and placed a left internal jugular central line, and a left brachial arterial line. Ordered repeat CT of the brain. And that came back relatively unchanged, no changes compared to the CT of the brain done on admission. Patient is now on mechanical ventilation, assist control rate of 20, FiO2 is 50%, tidal volume of 450, and PEEP of 5. Chest x-ray was reviewed, labs were reviewed, initial WBC count on admission was 0.6, and today is 4.5. Hemoglobin is 8.3. Platelets were noted to be low at 77,000, ABG showed a pO2 of 337 pCO2 of 35 pH of 7.4. Bicarb on admission was 23, bicarb right after her seizure was 8. No evidence of infection noted in the urine, and her chest x-ray is relatively unremarkable. No evidence of pneumonia. Not much history could be obtained from the patient herself, most of the information was obtained from the chart. Reevaluated today, patient remains on mechanical ventilation, same ventilator settings as noted above, ABG this morning showed a pO2 of 121 pCO2 of 30 pH of 7.37. CBC is quite abnormal showing WBC count of 0.9 hemoglobin 6.6 and platelets are low 12/999, all consistent with severe pancytopenia secondary to myelodysplastic syndrome. Patient seems to be a bit agitated and restless off propofol, trying to pull her endotracheal tube out, hence I gave her a short trial of pressure support and CPAP, she was doing well, and I was able to calm her down hence proceeded to extubating the patient to a nasal cannula. Postextubation patient was noted to be a bit confused, but in no form of respiratory distress. Will have speech therapy evaluation, and will continue to monitor in the ICU. Patient will be transfused by hematology for low hemoglobin, and her other hematologic abnormalities are being addressed by hematology on the case. Neurology is still following the patient, and she remains on antiseizure medications. all her labs and chest x-ray were reviewed patient remains on amiodarone, she is also on Keppra, and she is still on GI prophylaxis. Asked x-ray showed minimal lower lobe atelectasis, doubt pneumonia. This is mostly in the left lower lobe area. Objective - Vital Signs Vital signs: Vital Signs Temp 101.1 F H 05/13/18 12:15 Pulse 104 H 05/13/18 12:45 Resp 38 H 05/13/18 12:45 BP 162/81 05/13/18 12:45 Pulse Ox 94 L 05/13/18 12:45 Intake & Output 05/12/18 05/13/18 05/13/18 18:59 06:59 18:59 Intake Total 4395.364 5944.540 9649.222 Output Total 1012 562 590 Balance 3383.364 1211.402 430.222 Weight 85.1 kg 91.1 kg Intake: IV 3650 1200 400 Sodium Chloride 0.9% 1, 1300 1200 400 000 ml @ 100 mls/hr IV . Q10H FOR[facility]LY [facility], 1928–1983 Rx#:[id number] Sodium Chloride 0.9% 1, 2250 000 ml @ 999 mls/hr IV . Q1H1M ONE Rx#:[id number] levETIRAcetam IV 750 mg 100 In Sodium Chloride 0.9% 100 ml @ 400 mls/hr IVPB Q12H [facility], [facility]–1983 Rx#:[id number] Intake, IV Titration 505.364 548.402 70.222 Amount Amiodarone 450 mg In 240.532 256.286 Dextrose 5% in Water 250 ml @ 1 MG/MIN 33.33 mls/ hr IV .Q7H31M [facility] Rx#: [id number] Clevidipine Butyrate 25 2.233 mg In Empty Bag 1 bag @ 1 MG/HR 2 mls/hr IV .Q24H [facility] Rx#:[id number] Insulin Regular 100 unit 18.849 1.408 In Sodium Chloride 0.9% 100 ml @ Per Protocol IV .Q0M [facility] Rx#:[id number] Norepinephrine 16 mg In 145.983 35.277 Dextrose 5% in Water 250 ml @ Titrate IV .Q0M [facility] Rx#:[id number] Propofol 1,000 mg In 100.000 255.431 67.989 Empty Bag 1 bag @ Titrate IV .Q0M [facility] Rx#: [id number] Oral 240 240 Blood Product 310 Rc As-1 Unit 310 [id number] Other 25 Output: Urine 1012 562 590 Other: Voiding Method Indwelling Catheter Indwelling Catheter # Voids 2 2 ABP, PAP, CO, CI - Last Documented Arterial Blood Pressure 164/55 - Exam Physical Exam revealed an 82-year-old female in no distress. Awake, bit agitated, but can easily calmed down by talking to her. Head: Atraumatic, normocephalic. Endotracheal tube and orogastric tube are intact. HEENT:[Neck is supple.] [No neck masses.] [No thyromegaly.] [No JVD.] PERRLA, EOMI, no icterus. Chest: [Clear throughout, no crackles, no rhonchi, no wheezes.] Cardiac Exam: [Normal S1 and S2, no S3 gallop, no murmur.] Abdomen: [Soft, nontender, no megaly, no rebound, no guarding, normal bowel sounds.] Extremities: [No clubbing, no edema, no cyanosis.] Neurological Exam: Awake, off propofol, and bit agitated, Marrero down easily by talking to her. Follows very simple instructions. Psychiatric: Cannot be assessed. Lymphatics: No lymphadenopathy. - Labs CBC & Chem 7: 05/13/18 06:10 05/13/18 04:07 Labs: Abnormal Lab Results - Last 24 Hours (Table) 05/11/18 05/12/18 05/12/18 Range/Units 00:13 13:09 14:08 WBC (3.8-10.6) k/uL RBC (3.80-5.40) m/uL Hgb (11.4-16.0) gm/dL Hct (34.0-46.0) % RDW (11.5-15.5) % Plt Count (150-450) k/uL Neutrophils # (Manual) (1.3-7.7) k/uL Lymphocytes # (Manual) (1.0-4.8) k/uL ABG pCO2 (35-45) mmHg ABG pO2 (83-108) mmHg ABG HCO3 (21-25) mmol/L ABG Total CO2 (19-24) mmol/L ABG O2 Saturation (94-97) % Chloride (98-107) mmol/L Carbon Dioxide (22-30) mmol/L Creatinine (0.52-1.04) mg/dL Glucose (74-99) mg/dL POC Glucose (mg/dL) 242 H 226 H (75-99) mg/dL Calcium (8.4-10.2) mg/dL Troponin I (0.000-0.034) ng/mL Crossmatch See Detail 05/12/18 05/12/18 05/12/18 Range/Units 15:09 16:12 17:30 WBC (3.8-10.6) k/uL RBC (3.80-5.40) m/uL Hgb (11.4-16.0) gm/dL Hct (34.0-46.0) % RDW (11.5-15.5) % Plt Count (150-450) k/uL Neutrophils # (Manual) (1.3-7.7) k/uL Lymphocytes # (Manual) (1.0-4.8) k/uL ABG pCO2 (35-45) mmHg ABG pO2 (83-108) mmHg ABG HCO3 (21-25) mmol/L ABG Total CO2 (19-24) mmol/L ABG O2 Saturation (94-97) % Chloride (98-107) mmol/L Carbon Dioxide (22-30) mmol/L Creatinine (0.52-1.04) mg/dL Glucose (74-99) mg/dL POC Glucose (mg/dL) 187 H 170 H 147 H (75-99) mg/dL Calcium (8.4-10.2) mg/dL Troponin I (0.000-0.034) ng/mL Crossmatch 05/12/18 05/12/18 05/12/18 Range/Units 17:33 17:41 18:11 WBC (3.8-10.6) k/uL RBC (3.80-5.40) m/uL Hgb (11.4-16.0) gm/dL Hct (34.0-46.0) % RDW (11.5-15.5) % Plt Count (150-450) k/uL Neutrophils # (Manual) (1.3-7.7) k/uL Lymphocytes # (Manual) (1.0-4.8) k/uL ABG pCO2 (35-45) mmHg ABG pO2 (83-108) mmHg ABG HCO3 (21-25) mmol/L ABG Total CO2 (19-24) mmol/L ABG O2 Saturation (94-97) % Chloride (98-107) mmol/L Carbon Dioxide (22-30) mmol/L Creatinine (0.52-1.04) mg/dL Glucose (74-99) mg/dL POC Glucose (mg/dL) 147 H 138 H (75-99) mg/dL Calcium (8.4-10.2) mg/dL Troponin I 0.293 H* (0.000-0.034) ng/mL Crossmatch 05/12/18 05/12/18 05/12/18 Range/Units 19:13 19:41 20:48 WBC (3.8-10.6) k/uL RBC (3.80-5.40) m/uL Hgb (11.4-16.0) gm/dL Hct (34.0-46.0) % RDW (11.5-15.5) % Plt Count (150-450) k/uL Neutrophils # (Manual) (1.3-7.7) k/uL Lymphocytes # (Manual) (1.0-4.8) k/uL ABG pCO2 (35-45) mmHg ABG pO2 (83-108) mmHg ABG HCO3 (21-25) mmol/L ABG Total CO2 (19-24) mmol/L ABG O2 Saturation (94-97) % Chloride (98-107) mmol/L Carbon Dioxide (22-30) mmol/L Creatinine (0.52-1.04) mg/dL Glucose (74-99) mg/dL POC Glucose (mg/dL) 129 H 134 H 136 H (75-99) mg/dL Calcium (8.4-10.2) mg/dL Troponin I (0.000-0.034) ng/mL Crossmatch 05/12/18 05/12/18 05/12/18 Range/Units 21:59 22:54 23:46 WBC (3.8-10.6) k/uL RBC (3.80-5.40) m/uL Hgb (11.4-16.0) gm/dL Hct (34.0-46.0) % RDW (11.5-15.5) % Plt Count (150-450) k/uL Neutrophils # (Manual) (1.3-7.7) k/uL Lymphocytes # (Manual) (1.0-4.8) k/uL ABG pCO2 (35-45) mmHg ABG pO2 (83-108) mmHg ABG HCO3 (21-25) mmol/L ABG Total CO2 (19-24) mmol/L ABG O2 Saturation (94-97) % Chloride (98-107) mmol/L Carbon Dioxide (22-30) mmol/L Creatinine (0.52-1.04) mg/dL Glucose (74-99) mg/dL POC Glucose (mg/dL) 144 H 154 H 144 H (75-99) mg/dL Calcium (8.4-10.2) mg/dL Troponin I (0.000-0.034) ng/mL Crossmatch 05/13/18 05/13/18 05/13/18 Range/Units 00:51 01:45 02:51 WBC (3.8-10.6) k/uL RBC (3.80-5.40) m/uL Hgb (11.4-16.0) gm/dL Hct (34.0-46.0) % RDW (11.5-15.5) % Plt Count (150-450) k/uL Neutrophils # (Manual) (1.3-7.7) k/uL Lymphocytes # (Manual) (1.0-4.8) k/uL ABG pCO2 (35-45) mmHg ABG pO2 (83-108) mmHg ABG HCO3 (21-25) mmol/L ABG Total CO2 (19-24) mmol/L ABG O2 Saturation (94-97) % Chloride (98-107) mmol/L Carbon Dioxide (22-30) mmol/L Creatinine (0.52-1.04) mg/dL Glucose (74-99) mg/dL POC Glucose (mg/dL) 126 H 118 H 119 H (75-99) mg/dL Calcium (8.4-10.2) mg/dL Troponin I (0.000-0.034) ng/mL Crossmatch 05/13/18 05/13/18 05/13/18 Range/Units 04:03 04:07 04:07 WBC 1.0 L* (3.8-10.6) k/uL RBC 2.19 L (3.80-5.40) m/uL Hgb 7.0 L* (11.4-16.0) gm/dL Hct 21.3 L (34.0-46.0) % RDW 19.0 H (11.5-15.5) % Plt Count 37 L* D (150-450) k/uL Neutrophils # (Manual) 0.40 L (1.3-7.7) k/uL Lymphocytes # (Manual) 0.46 L (1.0-4.8) k/uL ABG pCO2 (35-45) mmHg ABG pO2 (83-108) mmHg ABG HCO3 (21-25) mmol/L ABG Total CO2 (19-24) mmol/L ABG O2 Saturation (94-97) % Chloride 117 H (98-107) mmol/L Carbon Dioxide 18 L (22-30) mmol/L Creatinine 1.30 H (0.52-1.04) mg/dL Glucose 133 H (74-99) mg/dL POC Glucose (mg/dL) 117 H (75-99) mg/dL Calcium 8.1 L (8.4-10.2) mg/dL Troponin I (0.000-0.034) ng/mL Crossmatch 0705/13/18 05/13/18 Range/Units 05:03 05:57 06:10 WBC 0.9 L* (3.8-10.6) k/uL RBC 2.01 L (3.80-5.40) m/uL Hgb 6.6 L* (11.4-16.0) gm/dL Hct 19.6 L* (34.0-46.0) % RDW 18.7 H (11.5-15.5) % Plt Count 31 L* (150-450) k/uL Neutrophils # (Manual) 0.52 L (1.3-7.7) k/uL Lymphocytes # (Manual) 0.32 L (1.0-4.8) k/uL ABG pCO2 (35-45) mmHg ABG pO2 (83-108) mmHg ABG HCO3 (21-25) mmol/L ABG Total CO2 (19-24) mmol/L ABG O2 Saturation (94-97) % Chloride (98-107) mmol/L Carbon Dioxide (22-30) mmol/L Creatinine (0.52-1.04) mg/dL Glucose (74-99) mg/dL POC Glucose (mg/dL) 137 H 127 H (75-99) mg/dL Calcium (8.4-10.2) mg/dL Troponin I (0.000-0.034) ng/mL Crossmatch 05/13/18 Range/Units 07:25 WBC (3.8-10.6) k/uL RBC (3.80-5.40) m/uL Hgb (11.4-16.0) gm/dL Hct (34.0-46.0) % RDW (11.5-15.5) % Plt Count (150-450) k/uL Neutrophils # (Manual) (1.3-7.7) k/uL Lymphocytes # (Manual) (1.0-4.8) k/uL ABG pCO2 30 L (35-45) mmHg ABG pO2 121 H (83-108) mmHg ABG HCO3 18 L (21-25) mmol/L ABG Total CO2 18 L (19-24) mmol/L ABG O2 Saturation 98.9 H (94-97) % Chloride (98-107) mmol/L Carbon Dioxide (22-30) mmol/L Creatinine (0.52-1.04) mg/dL Glucose (74-99) mg/dL POC Glucose (mg/dL) (75-99) mg/dL Calcium (8.4-10.2) mg/dL Troponin I (0.000-0.034) ng/mL Crossmatch Microbiology - Last 24 Hours (Table) 05/11/18 00:13 Blood Culture - Preliminary Blood No Growth after 48 hours 05/11/18 00:20 Urine Culture - Final Urine,Voided Assessment and Plan Assessment: Impression: 1 acute hypoxic respiratory failure secondary to new onset seizure secondary to CVA. 2 nonsustained ventricular tachycardia 3 acute new onset seizure secondary to CVA. 4 myelodysplastic syndrome, patient presented with pancytopenia, received a unit of packed RBCs since admission, being followed by hematology. 5 history of coronary artery disease, previous CABG and stenting. 6 multiple comorbidities including benign essential hypertension, hyperlipidemia , remote history of GI bleeding, type 2 diabetes, and previous CABG for coronary artery disease. And history of osteoarthritis and left total hip replacement. Recommendation: Patient was extubated after a short trial of pressure support and CPAP, continue GI and DVT prophylaxis, supportive care measures nutritional support, seizure precautions and seizure treatment, we'll continue to monitor in the ICU, discussed her condition with other consultants and with the family at bedside. No evidence of seizure activity at this point, however the patient seems to be a bit confused. But in no distress. Critical care time is 40 minutes. Time with Patient: Greater than 30
[2018-05-13] MEDS ORDERED: LORazepam 2 MG/ML INJ IV STA (13:07)
[2018-05-13] MEDS: LORazepam 2 MG/ML INJ ONE (13:10)
[2018-05-13 13:52] LABS: Anisocytosis Slight; HCT 26.4 % (34.0-46.0); MCHC 33.3 g/dL (31.0-37.0); MCV 95.8 fL (80.0-100.0); Macrocytosis Slight; Mean Platelet Volume 13.3; RBC 2.76 m/uL (3.80-5.40); RDW 18.2 % (11.5-15.5)
[2018-05-13 13:55] LABS: Platelet Count 37 k/uL (150-450); WBC 1.5 k/uL (3.8-10.6)
[2018-05-13 13:57] LABS: HGB 8.8 gm/dL (11.4-16.0)
--- NOTE | 2018-05-13 14:25 | P.PN ---
Subjective Progress Note Date: 05/13/18 The patient is an 82-year-old woman who was admitted to the hospital with multiple medical issues including myelodysplastic syndrome ,anemia ,pancytopenia , heart disease ,Parkinson's diabetes ,hypertension,and stroke. Patient has a history of old stroke as well as recent left occipital stroke. Yesterday she had an episode of ventricular tachycardia followed by a seizure. She was loaded with anticonvulsant medication. She has had no further seizures. She had a CAT scan without any acute process. Results of EEG and CT results were discussed with the family at bedside. The diprovan had been stopped and patient is waking up and did follow a few simple commands. Objective - Vital Signs Vital signs: Vital Signs Temp 100.7 F H 05/13/18 13:15 Pulse 108 H 05/13/18 13:30 Resp 34 H 05/13/18 13:30 BP 161/74 05/13/18 13:30 Pulse Ox 93 L 05/13/18 13:30 Intake & Output 05/12/18 05/13/18 05/13/18 18:59 06:59 18:59 Intake Total 4395.364 8060.403 7645.222 Output Total 1012 562 750 Balance 3383.364 1211.402 370.222 Weight 85.1 kg 91.1 kg Intake: IV 3650 1200 500 Sodium Chloride 0.9% 1, 1300 1200 500 000 ml @ 100 mls/hr IV . Q10H [facility] Rx#:[id number] Sodium Chloride 0.9% 1, 2250 000 ml @ 999 mls/hr IV . Q1H1M ONE Rx#:[id number] levETIRAcetam IV 750 mg 100 In Sodium Chloride 0.9% 100 ml @ 400 mls/hr IVPB Q12H [facility] Rx#:[id number] Intake, IV Titration 505.364 548.402 70.222 Amount Amiodarone 450 mg In 240.532 256.286 Dextrose 5% in Water 250 ml @ 1 MG/MIN 33.33 mls/ hr IV .Q7H31M [facility] Rx#: [id number] Clevidipine Butyrate 25 2.233 mg In Empty Bag 1 bag @ 1 MG/HR 2 mls/hr IV .Q24H [facility] Rx#:[id number] Insulin Regular 100 unit 18.849 1.408 In Sodium Chloride 0.9% 100 ml @ Per Protocol IV .Q0M [facility] Rx#:[id number] Norepinephrine 16 mg In 145.983 35.277 Dextrose 5% in Water 250 ml @ Titrate IV .Q0M [facility] Rx#:[id number] Propofol 1,000 mg In 100.000 255.431 67.989 Empty Bag 1 bag @ Titrate IV .Q0M [facility] Rx#: [id number] Oral 240 240 Blood Product 310 Rc As-1 Unit 310 [id number] Other 25 Output: Urine 1012 562 750 Other: Voiding Method Indwelling Catheter Indwelling Catheter # Voids 2 2 ABP, PAP, CO, CI - Last Documented Arterial Blood Pressure 168/60 - Constitutional General appearance: Present: obese - EENT Eyes: Present: PERRLA - Neurologic Neurologic Comment(s): Neurologic examination Mental status: Patient has just been slowly waking up after the Diprovan has been stopped. She is still intubated . Cranial nerves: Pupils were equal and reactive to light Motor- unable to check - Labs CBC & Chem 7: 05/13/18 13:35 05/13/18 04:07 Labs: Abnormal Lab Results - Last 24 Hours (Table) 05/11/18 05/12/18 05/12/18 Range/Units 00:13 14:08 15:09 WBC (3.8-10.6) k/uL RBC (3.80-5.40) m/uL Hgb (11.4-16.0) gm/dL Hct (34.0-46.0) % RDW (11.5-15.5) % Plt Count (150-450) k/uL Neutrophils # (Manual) (1.3-7.7) k/uL Lymphocytes # (Manual) (1.0-4.8) k/uL ABG pCO2 (35-45) mmHg ABG pO2 (83-108) mmHg ABG HCO3 (21-25) mmol/L ABG Total CO2 (19-24) mmol/L ABG O2 Saturation (94-97) % Chloride (98-107) mmol/L Carbon Dioxide (22-30) mmol/L Creatinine (0.52-1.04) mg/dL Glucose (74-99) mg/dL POC Glucose (mg/dL) 226 H 187 H (75-99) mg/dL Calcium (8.4-10.2) mg/dL Troponin I (0.000-0.034) ng/mL Crossmatch See Detail 05/12/18 05/12/18 05/12/18 Range/Units 16:12 17:30 17:33 WBC (3.8-10.6) k/uL RBC (3.80-5.40) m/uL Hgb (11.4-16.0) gm/dL Hct (34.0-46.0) % RDW (11.5-15.5) % Plt Count (150-450) k/uL Neutrophils # (Manual) (1.3-7.7) k/uL Lymphocytes # (Manual) (1.0-4.8) k/uL ABG pCO2 (35-45) mmHg ABG pO2 (83-108) mmHg ABG HCO3 (21-25) mmol/L ABG Total CO2 (19-24) mmol/L ABG O2 Saturation (94-97) % Chloride (98-107) mmol/L Carbon Dioxide (22-30) mmol/L Creatinine (0.52-1.04) mg/dL Glucose (74-99) mg/dL POC Glucose (mg/dL) 170 H 147 H (75-99) mg/dL Calcium (8.4-10.2) mg/dL Troponin I 0.293 H* (0.000-0.034) ng/mL Crossmatch 05/12/18 05/12/18 05/12/18 Range/Units 17:41 18:11 19:13 WBC (3.8-10.6) k/uL RBC (3.80-5.40) m/uL Hgb (11.4-16.0) gm/dL Hct (34.0-46.0) % RDW (11.5-15.5) % Plt Count (150-450) k/uL Neutrophils # (Manual) (1.3-7.7) k/uL Lymphocytes # (Manual) (1.0-4.8) k/uL ABG pCO2 (35-45) mmHg ABG pO2 (83-108) mmHg ABG HCO3 (21-25) mmol/L ABG Total CO2 (19-24) mmol/L ABG O2 Saturation (94-97) % Chloride (98-107) mmol/L Carbon Dioxide (22-30) mmol/L Creatinine (0.52-1.04) mg/dL Glucose (74-99) mg/dL POC Glucose (mg/dL) 147 H 138 H 129 H (75-99) mg/dL Calcium (8.4-10.2) mg/dL Troponin I (0.000-0.034) ng/mL Crossmatch 05/12/18 05/12/18 05/12/18 Range/Units 19:41 20:48 21:59 WBC (3.8-10.6) k/uL RBC (3.80-5.40) m/uL Hgb (11.4-16.0) gm/dL Hct (34.0-46.0) % RDW (11.5-15.5) % Plt Count (150-450) k/uL Neutrophils # (Manual) (1.3-7.7) k/uL Lymphocytes # (Manual) (1.0-4.8) k/uL ABG pCO2 (35-45) mmHg ABG pO2 (83-108) mmHg ABG HCO3 (21-25) mmol/L ABG Total CO2 (19-24) mmol/L ABG O2 Saturation (94-97) % Chloride (98-107) mmol/L Carbon Dioxide (22-30) mmol/L Creatinine (0.52-1.04) mg/dL Glucose (74-99) mg/dL POC Glucose (mg/dL) 134 H 136 H 144 H (75-99) mg/dL Calcium (8.4-10.2) mg/dL Troponin I (0.000-0.034) ng/mL Crossmatch 05/12/18 05/12/18 05/13/18 Range/Units 22:54 23:46 00:51 WBC (3.8-10.6) k/uL RBC (3.80-5.40) m/uL Hgb (11.4-16.0) gm/dL Hct (34.0-46.0) % RDW (11.5-15.5) % Plt Count (150-450) k/uL Neutrophils # (Manual) (1.3-7.7) k/uL Lymphocytes # (Manual) (1.0-4.8) k/uL ABG pCO2 (35-45) mmHg ABG pO2 (83-108) mmHg ABG HCO3 (21-25) mmol/L ABG Total CO2 (19-24) mmol/L ABG O2 Saturation (94-97) % Chloride (98-107) mmol/L Carbon Dioxide (22-30) mmol/L Creatinine (0.52-1.04) mg/dL Glucose (74-99) mg/dL POC Glucose (mg/dL) 154 H 144 H 126 H (75-99) mg/dL Calcium (8.4-10.2) mg/dL Troponin I (0.000-0.034) ng/mL Crossmatch 05/13/18 05/13/18 05/13/18 Range/Units 01:45 02:51 04:03 WBC (3.8-10.6) k/uL RBC (3.80-5.40) m/uL Hgb (11.4-16.0) gm/dL Hct (34.0-46.0) % RDW (11.5-15.5) % Plt Count (150-450) k/uL Neutrophils # (Manual) (1.3-7.7) k/uL Lymphocytes # (Manual) (1.0-4.8) k/uL ABG pCO2 (35-45) mmHg ABG pO2 (83-108) mmHg ABG HCO3 (21-25) mmol/L ABG Total CO2 (19-24) mmol/L ABG O2 Saturation (94-97) % Chloride (98-107) mmol/L Carbon Dioxide (22-30) mmol/L Creatinine (0.52-1.04) mg/dL Glucose (74-99) mg/dL POC Glucose (mg/dL) 118 H 119 H 117 H (75-99) mg/dL Calcium (8.4-10.2) mg/dL Troponin I (0.000-0.034) ng/mL Crossmatch 05/13/18 05/13/18 05/13/18 Range/Units 04:07 04:07 05:03 WBC 1.0 L* (3.8-10.6) k/uL RBC 2.19 L (3.80-5.40) m/uL Hgb 7.0 L* (11.4-16.0) gm/dL Hct 21.3 L (34.0-46.0) % RDW 19.0 H (11.5-15.5) % Plt Count 37 L* D (150-450) k/uL Neutrophils # (Manual) 0.40 L (1.3-7.7) k/uL Lymphocytes # (Manual) 0.46 L (1.0-4.8) k/uL ABG pCO2 (35-45) mmHg ABG pO2 (83-108) mmHg ABG HCO3 (21-25) mmol/L ABG Total CO2 (19-24) mmol/L ABG O2 Saturation (94-97) % Chloride 117 H (98-107) mmol/L Carbon Dioxide 18 L (22-30) mmol/L Creatinine 1.30 H (0.52-1.04) mg/dL Glucose 133 H (74-99) mg/dL POC Glucose (mg/dL) 137 H (75-99) mg/dL Calcium 8.1 L (8.4-10.2) mg/dL Troponin I (0.000-0.034) ng/mL Crossmatch 05/13/18 05/13/18 05/13/18 Range/Units 05:57 06:10 07:25 WBC 0.9 L* (3.8-10.6) k/uL RBC 2.01 L (3.80-5.40) m/uL Hgb 6.6 L* (11.4-16.0) gm/dL Hct 19.6 L* (34.0-46.0) % RDW 18.7 H (11.5-15.5) % Plt Count 31 L* (150-450) k/uL Neutrophils # (Manual) 0.52 L (1.3-7.7) k/uL Lymphocytes # (Manual) 0.32 L (1.0-4.8) k/uL ABG pCO2 30 L (35-45) mmHg ABG pO2 121 H (83-108) mmHg ABG HCO3 18 L (21-25) mmol/L ABG Total CO2 18 L (19-24) mmol/L ABG O2 Saturation 98.9 H (94-97) % Chloride (98-107) mmol/L Carbon Dioxide (22-30) mmol/L Creatinine (0.52-1.04) mg/dL Glucose (74-99) mg/dL POC Glucose (mg/dL) 127 H (75-99) mg/dL Calcium (8.4-10.2) mg/dL Troponin I (0.000-0.034) ng/mL Crossmatch 05/13/18 05/13/18 05/13/18 Range/Units 12:52 12:54 13:35 WBC 1.5 L* (3.8-10.6) k/uL RBC 2.76 L (3.80-5.40) m/uL Hgb 8.8 L D (11.4-16.0) gm/dL Hct 26.4 L (34.0-46.0) % RDW 18.2 H (11.5-15.5) % Plt Count 37 L* (150-450) k/uL Neutrophils # (Manual) (1.3-7.7) k/uL Lymphocytes # (Manual) (1.0-4.8) k/uL ABG pCO2 24 L (35-45) mmHg ABG pO2 61 L (83-108) mmHg ABG HCO3 15 L (21-25) mmol/L ABG Total CO2 16 L (19-24) mmol/L ABG O2 Saturation 93.1 L (94-97) % Chloride (98-107) mmol/L Carbon Dioxide (22-30) mmol/L Creatinine (0.52-1.04) mg/dL Glucose (74-99) mg/dL POC Glucose (mg/dL) 163 H (75-99) mg/dL Calcium (8.4-10.2) mg/dL Troponin I (0.000-0.034) ng/mL Crossmatch Microbiology - Last 24 Hours (Table) 05/11/18 00:13 Blood Culture - Preliminary Blood No Growth after 48 hours 05/11/18 00:20 Urine Culture - Final Urine,Voided Assessment and Plan (1) Acute left [employer] stroke Current Visit: Yes Status: Acute SNOMED Code(s): 204608424 (2) History of stroke Current Visit: Yes Status: Acute SNOMED Code(s): 950467373 (3) Pancytopenia Current Visit: Yes Status: Acute Priority: High SNOMED Code(s): 481400827 (4) Acute respiratory failure Current Visit: Yes Status: Acute SNOMED Code(s): 34315896 (5) New onset seizure Current Visit: Yes Status: Acute SNOMED Code(s): 13524855 Plan: The patient is an 82-yea old woman with recent left occipital stroke and recent episode of ventricular tachycardia, followed by seizure.She has not had any breakthru seizures. CT brain did not show any changes. EEG did not show any seizure activity. Keppra level is pending. Discussed patients neuro status with family. Plan continue supportive care. Follow up CT in 24 hours.
[2018-05-13 14:28] LABS: Band Neutrophils % 2 %; Large Platelets Present; Lymphocytes # (M) 0.47 k/uL (1.0-4.8); Monocytes # (M) 0.08 k/uL (0-1.0); Neutrophils % (M) 62 %; Nucleated Red Blood Cells 2 /100 WBC (0-0); RBC Fragments Present; Total Cells Counted 100
[2018-05-13] MEDS ORDERED: diphenhydrAMINE 50 MG/ML 1 ML VIAL IVP ONE (14:29)
[2018-05-13] MEDS ORDERED: HYDROCORTISONE SUCCINATE 100 MG/2 ML VIAL IV STA (14:29)
[2018-05-13] MEDS ORDERED: LORazepam 2 MG/ML INJ IV PRN (15:05)
[2018-05-13] MEDS: LORazepam 2 MG/ML INJ IV PRN (17:16)
[2018-05-13] MEDS: PIPERACILLIN-TAZOBACTAM 3.375 GM in DEXTROSE/WATER 1 50ML.BAG IVPB SCH (18:22)
[2018-05-13 18:35] LABS: Glucose,Whole Blood 165 mg/dL (75-99)
[2018-05-13] MEDS ORDERED: DEXMEDETOMIDINE/0.9% NACL(PMX) 400 MCG in EMPTY BAG 1 BAG IV SCH (19:00)
[2018-05-13] MEDS ORDERED: AMIODARONE 450 MG in DEXTROSE 5% IN WATER 250 ML IV SCH ×2 (22:00)
[2018-05-13] MEDS: ATORVASTATIN 40 MG TAB PO SCH (22:32)
[2018-05-14] MEDS ORDERED: INSULIN ASPART 100 UNIT/ML 1 ML 10 ML VIAL SQ ONE
[2018-05-14] MEDS ORDERED: PIPERACILLIN-TAZO 3.375 GM/50 ML PMX BAG ONE
[2018-05-14] MEDS ORDERED: ACETAMINOPHEN IV (For NPO) 1,000 MG/100 ML VIAL ONE
[2018-05-14 05:47] LABS: Anisocytosis Slight; HCT 21.6 % (34.0-46.0); MCH 32.2 pg (25.0-35.0); MCHC 33.4 g/dL (31.0-37.0); MCV 96.4 fL (80.0-100.0); Macrocytosis Slight; Mean Platelet Volume 12.5; RBC 2.24 m/uL (3.80-5.40); RDW 18.2 % (11.5-15.5)
[2018-05-14 06:01] LABS: Calcium 8.2 mg/dL (8.4-10.2); Magnesium 1.9 mg/dL (1.6-2.3); Phosphorus 3.1 mg/dL (2.5-4.5)
[2018-05-14] MEDS: DEXTROSE 5% IN WATER 250 ML with AMIODARONE 450 MG IV SCH ×2 (06:24→23:27)
[2018-05-14] MEDS: PIPERACILLIN-TAZOBACTAM 3.375 GM in DEXTROSE/WATER 1 50ML.BAG IVPB SCH ×3 (06:34→16:04)
[2018-05-14 06:35] LABS: Glucose,Whole Blood 141 mg/dL (75-99)
[2018-05-14] MEDS: SODIUM CHLORIDE 0.9% 1,000 ML IV SCH (06:35)
[2018-05-14] MEDS: INSULIN ASPART 100 UNIT/ML 1 ML 10 ML VIAL SQ SCH ×5 (06:37→20:03)
[2018-05-14 06:46] LABS: Platelet Count 28 k/uL (150-450)
[2018-05-14 07:01] LABS: Band Neutrophils % 5 %; Eosinophils # (M) 0.01 k/uL (0-0.7); Lymphocytes # (M) 0.42 k/uL (1.0-4.8); Monocytes # (M) 0.01 k/uL (0-1.0); Neutrophils % (M) 51 %; Nucleated Red Blood Cells 8 /100 WBC (0-0); Total Cells Counted 200
[2018-05-14 07:02] LABS: Anisocytosis (M) Present; Poikilocytosis (M) Present; Polychromasia Present; RBC Fragments Present
[2018-05-14 07:18] LABS: HGB 7.2 gm/dL (11.4-16.0)
[2018-05-14] MEDS: levETIRAcetam IV 750 MG in SODIUM CHLORIDE 0.9% 100 ML IVPB SCH ×2 (07:24→18:00)
--- NOTE | 2018-05-14 08:02 | P.PN ---
Subjective Progress Note Date: 05/13/18 The patient is stable in terms of mental requirements. She was awake, but somewhat agitated. Weaning trials are being considered at this point. No active bleeding noted. No fever or rigors Objective - Vital Signs Vital signs: Vital Signs Temp 99.2 F 05/13/18 20:00 Pulse 55 L 05/14/18 07:00 Resp 20 05/14/18 07:00 BP 102/47 05/14/18 07:00 Pulse Ox 97 05/14/18 07:00 Intake & Output 05/13/18 05/14/18 05/14/18 18:59 06:59 18:59 Intake Total 1767.989 505.667 50 Output Total 1510 460 25 Balance 257.989 45.667 25 Intake: IV 1100 450 50 ACETAMINOPHEN IV (For NPO 100 ) 1,000 mg In Empty Bag 1 bag @ 400 mls/hr IVPB Q6HR [facility] Rx#:[id number] Sodium Chloride 0.9% 1, 850 000 ml @ 100 mls/hr IV . Q10H [facility] Rx#:[id number] Sodium Chloride 0.9% 1, 50 450 50 000 ml @ 50 mls/hr IV . Q20H [facility] Rx#:[id number] levETIRAcetam IV 750 mg 100 In Sodium Chloride 0.9% 100 ml @ 400 mls/hr IVPB Q12H [facility] Rx#:[id number] Intake, IV Titration 117.989 55.667 Amount Clevidipine Butyrate 25 50.000 55.667 mg In Empty Bag 1 bag @ 1 MG/HR 2 mls/hr IV .Q24H [facility] Rx#:[id number] Propofol 1,000 mg In 67.989 Empty Bag 1 bag @ Titrate IV .Q0M [facility] Rx#: [id number] Oral 240 Blood Product 310 Rc As-1 Unit 310 [id number] Output: Urine 1510 460 25 Other: Voiding Method Indwelling Catheter Indwelling Catheter ABP, PAP, CO, CI - Last Documented Arterial Blood Pressure 114/47 - Constitutional Constitutional Comment(s): On ventilator. Agitated - EENT Eyes: Present: EOMI - Respiratory Respiratory: bilateral: CTA - Cardiovascular Rhythm: regular Heart sounds: normal: S1, S2 - Gastrointestinal General gastrointestinal: Present: soft - Integumentary Integumentary: Present: normal - Musculoskeletal Musculoskeletal: Present: generalized weakness, strength equal bilaterally - Labs CBC & Chem 7: 05/14/18 05:40 05/14/18 05:40 Labs: Abnormal Lab Results - Last 24 Hours (Table) 05/11/18 05/13/18 05/13/18 Range/Units 00:13 12:52 12:54 WBC (3.8-10.6) k/uL RBC (3.80-5.40) m/uL Hgb (11.4-16.0) gm/dL Hct (34.0-46.0) % RDW (11.5-15.5) % Plt Count (150-450) k/uL Neutrophils # (Manual) (1.3-7.7) k/uL Lymphocytes # (Manual) (1.0-4.8) k/uL Nucleated RBCs (0-0) /100 WBC ABG pCO2 24 L (35-45) mmHg ABG pO2 61 L (83-108) mmHg ABG HCO3 15 L (21-25) mmol/L ABG Total CO2 16 L (19-24) mmol/L ABG O2 Saturation 93.1 L (94-97) % Chloride (98-107) mmol/L Carbon Dioxide (22-30) mmol/L Creatinine (0.52-1.04) mg/dL Glucose (74-99) mg/dL POC Glucose (mg/dL) 163 H (75-99) mg/dL Calcium (8.4-10.2) mg/dL Crossmatch See Detail 05/13/18 05/13/18 05/14/18 Range/Units 13:35 18:33 05:40 WBC 1.5 L* 1.0 L* (3.8-10.6) k/uL RBC 2.76 L 2.24 L (3.80-5.40) m/uL Hgb 8.8 L D 7.2 L D (11.4-16.0) gm/dL Hct 26.4 L 21.6 L (34.0-46.0) % RDW 18.2 H 18.2 H (11.5-15.5) % Plt Count 37 L* 28 L* (150-450) k/uL Neutrophils # (Manual) 0.90 L 0.50 L (1.3-7.7) k/uL Lymphocytes # (Manual) 0.47 L 0.42 L (1.0-4.8) k/uL Nucleated RBCs 2 H 8 H (0-0) /100 WBC ABG pCO2 (35-45) mmHg ABG pO2 (83-108) mmHg ABG HCO3 (21-25) mmol/L ABG Total CO2 (19-24) mmol/L ABG O2 Saturation (94-97) % Chloride (98-107) mmol/L Carbon Dioxide (22-30) mmol/L Creatinine (0.52-1.04) mg/dL Glucose (74-99) mg/dL POC Glucose (mg/dL) 165 H (75-99) mg/dL Calcium (8.4-10.2) mg/dL Crossmatch 05/14/18 05/14/18 Range/Units 05:40 06:33 WBC (3.8-10.6) k/uL RBC (3.80-5.40) m/uL Hgb (11.4-16.0) gm/dL Hct (34.0-46.0) % RDW (11.5-15.5) % Plt Count (150-450) k/uL Neutrophils # (Manual) (1.3-7.7) k/uL Lymphocytes # (Manual) (1.0-4.8) k/uL Nucleated RBCs (0-0) /100 WBC ABG pCO2 (35-45) mmHg ABG pO2 (83-108) mmHg ABG HCO3 (21-25) mmol/L ABG Total CO2 (19-24) mmol/L ABG O2 Saturation (94-97) % Chloride 121 H* (98-107) mmol/L Carbon Dioxide 19 L (22-30) mmol/L Creatinine 1.40 H (0.52-1.04) mg/dL Glucose 141 H (74-99) mg/dL POC Glucose (mg/dL) 141 H (75-99) mg/dL Calcium 8.2 L (8.4-10.2) mg/dL Crossmatch Microbiology - Last 24 Hours (Table) 05/11/18 00:13 Blood Culture - Preliminary Blood No Growth after 72 hours Assessment and Plan (1) Acute respiratory failure Narrative/Plan: The patient is stable in terms of vent requirements, and is awake. Other than her current agitation, she is felt to be a reasonable candidate for weaning trials, hopefully later in the day. She has not had any recurrent seizure activity. Defer to critical care medicine, and the admitting service for continued management Current Visit: Yes Status: Acute Code(s): J96.00 - ACUTE RESPIRATORY FAILURE , UNSP W HYPOXIA OR HYPERCAPNIA SNOMED Code(s): 13601663 (2) Myelodysplastic syndrome Narrative/Plan: The patient was awake, and was informed of her diagnosis. At this time, her comprehension was unclear. She appeared agreeable, with gestures, to me discussing the diagnosis and implications with her family. This was done in detail with her and multiple other family members. The pathophysiology was discussed. They were informed that her condition appears to have a somewhat aggressive course, given the speed of onset, as well as the presence of elevated blast percentage at 7-10%. 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 Given her significant cytopenias, ideally, the patient should be treated with hypo-methylating chemotherapy. They were advised that this treatment is not curative, but is effective in about 50-60% of cases, and can provide some degree of remission, for about 7-8 months on average. At this time, obviously, the patient is not a candidate for any chemotherapy. The family does want to continue aggressive care for now. Therefore the patient will continue to be supported with transfusions. There were advised that she would be a candidate for treatment only if her performance status improved significantly. CODE STATUS was also discussed. For now they do want her to be full code, including reintubation and CPR (assuming that she is able to be extubated ). I did discuss with them that recurrent episodes of the same nature requiring life support, would worsen her prognosis significantly, and indicate a progressively decreasing likelihood of her recovering enough to have chemotherapy. They expressed understanding of the same Current Visit: Yes Status: Acute Code(s): D46.9 - MYELODYSPLASTIC SYNDROME, UNSPECIFIED SNOMED Code(s): 564240390
--- NOTE | 2018-05-14 08:10 | P.PN ---
Subjective Progress Note Date: 05/14/18 Principal diagnosis: Cardiac arrhythmia This is a pleasant 82-year-old female patient with a past medical history significant for coronary artery disease, diabetes, hypertension, and dyslipidemia, was admitted to the hospital recently with weakness and she was diagnosed with anemia. I was asked to see the patient because change in mental status and possible seizure/cardiac arrest. Currently the patient is intubated and she is on ventilatory and the history was taken from the chart as well as from the nurse taking care of the patient. The patient does have significant history of coronary artery disease and she underwent a heart catheterization in 2014 where at that point she was found to have severe triple-vessel coronary artery disease with severe disease involving the SVG to LAD, patent PAUL to diagonal, and patent SVG to RCA. The SVG to LCx was not visualized at that point. The patient did undergo at that point successful stenting of the SVG to LAD by Dr. MANISHA Vance. The patient was diagnosed recently was with it seems to be myelodysplastic syndrome and she underwent a bone marrow biopsy. She presented to the hospital was overall weakness. No indication of any chest pain or chest discomfort or shortness of breath or dizziness or lightheadedness or syncope. She was found to be anemic and she was admitted for further evaluation and management. While she was on the floor the patient developed an episode of wide-complex tachycardia with a short period of sustained V. tach. Subsequently the patient developed a seizure episode with convulsion movement without any incontinence. Because of that the patient was intubated and was brought to the intensive care unit. On follow-up with the patient today, 05/14/2018, the patient was extubated yesterday. She is hemodynamically stable. She has been maintaining normal sinus mechanism on amiodarone by mouth at 200 mg twice a day. She received blood yesterday and the hemoglobin today is 7.2. The patient does have history of myelodysplasia. I would continue holding any kind of antiplatelet or anticoagulation for the atrial fibrillation in view of the low hemoglobin and possible bleeding. Beside that the echocardiogram revealed impaired LV function with EF around 35%. Unfortunately can't add any medication for the cardiomyopathy in view of her marginally low blood pressure and marginally low heart rate as well. Objective - Vital Signs Vital signs: Vital Signs Temp 99.2 F 05/13/18 20:00 Pulse 55 L 05/14/18 07:00 Resp 20 05/14/18 07:00 BP 102/47 05/14/18 07:00 Pulse Ox 97 05/14/18 07:00 Intake & Output 05/13/18 05/14/18 05/14/18 18:59 06:59 18:59 Intake Total 1767.989 505.667 50 Output Total 1510 460 25 Balance 257.989 45.667 25 Intake: IV 1100 450 50 ACETAMINOPHEN IV (For NPO 100 ) 1,000 mg In Empty Bag 1 bag @ 400 mls/hr IVPB Q6HR [facility] Rx#:[id number] Sodium Chloride 0.9% 1, 850 000 ml @ 100 mls/hr IV . Q10H [facility] Rx#:[id number] Sodium Chloride 0.9% 1, 50 450 50 000 ml @ 50 mls/hr IV . Q20H [facility] Rx#:[id number] levETIRAcetam IV 750 mg 100 In Sodium Chloride 0.9% 100 ml @ 400 mls/hr IVPB Q12H [facility] Rx#:[id number] Intake, IV Titration 117.989 55.667 Amount Clevidipine Butyrate 25 50.000 55.667 mg In Empty Bag 1 bag @ 1 MG/HR 2 mls/hr IV .Q24H [facility] Rx#:[id number] Propofol 1,000 mg In 67.989 Empty Bag 1 bag @ Titrate IV .Q0M [facility] Rx#: [id number] Oral 240 Blood Product 310 Rc As-1 Unit 310 [id number] Output: Urine 1510 460 25 Other: Voiding Method Indwelling Catheter Indwelling Catheter ABP, PAP, CO, CI - Last Documented Arterial Blood Pressure 114/47 - Constitutional General appearance: Present: no acute distress - Respiratory Respiratory: bilateral: diminished - Cardiovascular Rhythm: regular Heart sounds: normal: S1, S2 - Labs CBC & Chem 7: 05/14/18 05:40 05/14/18 05:40 Labs: Abnormal Lab Results - Last 24 Hours (Table) 05/11/18 05/13/18 05/13/18 Range/Units 00:13 12:52 12:54 WBC (3.8-10.6) k/uL RBC (3.80-5.40) m/uL Hgb (11.4-16.0) gm/dL Hct (34.0-46.0) % RDW (11.5-15.5) % Plt Count (150-450) k/uL Neutrophils # (Manual) (1.3-7.7) k/uL Lymphocytes # (Manual) (1.0-4.8) k/uL Nucleated RBCs (0-0) /100 WBC ABG pCO2 24 L (35-45) mmHg ABG pO2 61 L (83-108) mmHg ABG HCO3 15 L (21-25) mmol/L ABG Total CO2 16 L (19-24) mmol/L ABG O2 Saturation 93.1 L (94-97) % Chloride (98-107) mmol/L Carbon Dioxide (22-30) mmol/L Creatinine (0.52-1.04) mg/dL Glucose (74-99) mg/dL POC Glucose (mg/dL) 163 H (75-99) mg/dL Calcium (8.4-10.2) mg/dL Crossmatch See Detail 05/13/18 05/13/18 05/14/18 Range/Units 13:35 18:33 05:40 WBC 1.5 L* 1.0 L* (3.8-10.6) k/uL RBC 2.76 L 2.24 L (3.80-5.40) m/uL Hgb 8.8 L D 7.2 L D (11.4-16.0) gm/dL Hct 26.4 L 21.6 L (34.0-46.0) % RDW 18.2 H 18.2 H (11.5-15.5) % Plt Count 37 L* 28 L* (150-450) k/uL Neutrophils # (Manual) 0.90 L 0.50 L (1.3-7.7) k/uL Lymphocytes # (Manual) 0.47 L 0.42 L (1.0-4.8) k/uL Nucleated RBCs 2 H 8 H (0-0) /100 WBC ABG pCO2 (35-45) mmHg ABG pO2 (83-108) mmHg ABG HCO3 (21-25) mmol/L ABG Total CO2 (19-24) mmol/L ABG O2 Saturation (94-97) % Chloride (98-107) mmol/L Carbon Dioxide (22-30) mmol/L Creatinine (0.52-1.04) mg/dL Glucose (74-99) mg/dL POC Glucose (mg/dL) 165 H (75-99) mg/dL Calcium (8.4-10.2) mg/dL Crossmatch 05/14/18 05/14/18 Range/Units 05:40 06:33 WBC (3.8-10.6) k/uL RBC (3.80-5.40) m/uL Hgb (11.4-16.0) gm/dL Hct (34.0-46.0) % RDW (11.5-15.5) % Plt Count (150-450) k/uL Neutrophils # (Manual) (1.3-7.7) k/uL Lymphocytes # (Manual) (1.0-4.8) k/uL Nucleated RBCs (0-0) /100 WBC ABG pCO2 (35-45) mmHg ABG pO2 (83-108) mmHg ABG HCO3 (21-25) mmol/L ABG Total CO2 (19-24) mmol/L ABG O2 Saturation (94-97) % Chloride 121 H* (98-107) mmol/L Carbon Dioxide 19 L (22-30) mmol/L Creatinine 1.40 H (0.52-1.04) mg/dL Glucose 141 H (74-99) mg/dL POC Glucose (mg/dL) 141 H (75-99) mg/dL Calcium 8.2 L (8.4-10.2) mg/dL Crossmatch Microbiology - Last 24 Hours (Table) 05/11/18 00:13 Blood Culture - Preliminary Blood No Growth after 72 hours Assessment and Plan Assessment: Assessment #1 nonsustained ventricular tachycardia #2 paroxysmal atrial fibrillation #3 possible seizure #4 severe underlying coronary artery disease and status post CABG and stenting as described above #5 acute respiratory failure and currently the patient is intubated and on ventilator #6 myelodysplastic syndrome #7 Pancytopenia #8 cardiomyopathy likely to be ischemic. Plan #1 continue the amiodarone by mouth #2 hold any kind of anticoagulation in view of the pancytopenia #3 hold any kind of antiplatelet or anticoagulation #4 she did not have any more episodes of nonsustained ventricular tachycardia #5 follow-up with the patient. Thank you for allowing us participate in the care of the patient
[2018-05-14] MEDS ORDERED: SODIUM CHLORIDE 0.45% 1,000 ML IV SCH (09:00)
[2018-05-14] MEDS: MAGNESIUM SULFATE-D5W PMX 1 GM in DEXTROSE/WATER 1 100ML.BAG IVPB SCH ×2 (09:00→10:59)
--- NOTE | 2018-05-14 09:09 | XR ---
EXAMINATION TYPE: XR chest 1V portable DATE OF EXAM: 05/14/2018 COMPARISON: Prior chest 05/13/2018 HISTORY: Aspiration pneumonia TECHNIQUE: Single frontal view of the chest is obtained. FINDINGS: Patient is rotated and post median sternotomy, left-sided central venous catheter is stabl e overlying appropriate position. There is been interval extubation. There may be some improvement in lung volume, heart remains enlarged. No pneumothorax. Patchy basilar density persists. IMPRESSION: Rotated exam. There may be some improvement in aeration, additional follow-up recommende d.
[2018-05-14] MEDS: FERROUS SULFATE 325 MG TAB PO SCH (09:40)
[2018-05-14] MEDS: AMIODARONE 200 MG TAB PO SCH ×2 (09:40→20:06)
[2018-05-14] MEDS: PANTOPRAZOLE 40 MG/10 ML VIAL IVP SCH ×2 (09:41→11:24)
--- NOTE | 2018-05-14 10:49 | CT ---
EXAMINATION TYPE: CT brain wo con DATE OF EXAM: 05/14/2018 COMPARISON: 05/12/2018 HISTORY: follow up to CVA. Mental status changes. CT DLP: 1281 mGycm Automated exposure control for dose reduction was used. FINDINGS: There is redemonstration of encephalomalacia in the right occipital lobe from prior infarct with volu me loss as well as a focal area of hypoattenuation within the left occipital lobe involving both haines and white matter with mass effect upon the peripheral sulci related to subacute infarct. There is no evidence of hemorrhagic transformation. Overall volume appears similar to the prior of 05/12/2018. No new evidence of intracranial hemorrhage or midline shift is seen. Again there is diffuse prominence of the ventricular system and peripheral sulci compatible with age-related volume loss. Very mild pat angel nonspecific white matter changes seen within the periventricular white matter. Paranasal sinuses are well aerated as are the mastoid air cells. Calvarium is intact. Atherosclerosis of the intracrani al vasculature is noted. IMPRESSION: 1. SIMILAR VOLUME OF THE SMALL LEFT OCCIPITAL SUBACUTE INFARCT WITHOUT HEMORRHAGIC TRANSFORMATION OR INTERVAL DEVELOPMENT OF MIDLINE SHIFT. 2. UNCHANGED ENCEPHALOMALACIA WITHIN THE RIGHT OCCIPITAL LOBE FROM PRIOR INFARCT.
[2018-05-14] MEDS ORDERED: FUROSEMIDE 10 MG/ML 2 ML VIAL IV ONE (10:57)
[2018-05-14 12:03] LABS: Glucose,Whole Blood 139 mg/dL (75-99)
--- NOTE | 2018-05-14 13:25 | P.PN ---
Subjective Principal diagnosis: Acute mental status change with epileptic activity. 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 During this time, she has had significant pancytopenia but has had occipital acute stroke. She is recently off ventilatory support doing well from that perspective however, she is continues to struggle with pancytopenia. I had a long discussion with the family regarding her overall trajectory and prognostic indicators. Multiple comorbidities are otherwise noted. Objective - Vital Signs Vital signs: Vital Signs Temp 98.6 F 05/14/18 07:30 Pulse 50 L 05/14/18 09:30 Resp 17 05/14/18 09:30 BP 79/45 05/14/18 09:00 Pulse Ox 93 L 05/14/18 09:30 Intake & Output 05/13/18 05/14/18 05/14/18 18:59 06:59 18:59 Intake Total 1767.989 802.008 5738 Output Total 1510 460 70 Balance 257.989 45.667 1280 Intake: IV 4510 846 9582 ACETAMINOPHEN IV (For NPO 100 ) 1,000 mg In Empty Bag 1 bag @ 400 mls/hr IVPB Q6HR [facility] Rx#:[id number] Piperacillin-Tazobactam 3 50 .375 gm In Dextrose/Water 1 50ml.bag @ 12.5 mls/hr IVPB Q8HR [facility] Rx#: [id number] Sodium Chloride 0.9% 1, 850 000 ml @ 100 mls/hr IV . Q10H [facility] Rx#:[id number] Sodium Chloride 0.9% 1, 50 450 1300 000 ml @ 50 mls/hr IV . Q20H [facility] Rx#:[id number] levETIRAcetam IV 750 mg 100 In Sodium Chloride 0.9% 100 ml @ 400 mls/hr IVPB Q12H [facility] Rx#:[id number] Intake, IV Titration 117.989 55.667 Amount Clevidipine Butyrate 25 50.000 55.667 mg In Empty Bag 1 bag @ 1 MG/HR 2 mls/hr IV .Q24H [facility] Rx#:[id number] Propofol 1,000 mg In 67.989 Empty Bag 1 bag @ Titrate IV .Q0M [facility] Rx#: [id number] Oral 240 Blood Product 310 Rc As-1 Unit 310 [id number] Output: Urine 1510 460 70 Other: Voiding Method Indwelling Catheter Indwelling Catheter ABP, PAP, CO, CI - Last Documented Arterial Blood Pressure 92/37 - Constitutional General appearance: Present: obese - EENT Eyes: Absent: abnormal pupil - Neck Neck: Absent: lymphadenopathy Thyroid: bilateral: normal size - Respiratory Respiratory: bilateral: CTA, diminished - Cardiovascular Rhythm: irregularly irregular Heart sounds: normal: S1, S2 Abnormal Heart Sounds: Absent: S3 Gallop - Gastrointestinal General gastrointestinal: Present: soft. Absent: tenderness - Labs CBC & Chem 7: 05/14/18 05:40 05/14/18 05:40 Labs: Abnormal Lab Results - Last 24 Hours (Table) 05/11/18 05/13/18 05/13/18 Range/Units 00:13 13:35 18:33 WBC 1.5 L* (3.8-10.6) k/uL RBC 2.76 L (3.80-5.40) m/uL Hgb 8.8 L D (11.4-16.0) gm/dL Hct 26.4 L (34.0-46.0) % RDW 18.2 H (11.5-15.5) % Plt Count 37 L* (150-450) k/uL Neutrophils # (Manual) 0.90 L (1.3-7.7) k/uL Lymphocytes # (Manual) 0.47 L (1.0-4.8) k/uL Nucleated RBCs 2 H (0-0) /100 WBC Chloride (98-107) mmol/L Carbon Dioxide (22-30) mmol/L Creatinine (0.52-1.04) mg/dL Glucose (74-99) mg/dL POC Glucose (mg/dL) 165 H (75-99) mg/dL Calcium (8.4-10.2) mg/dL Crossmatch See Detail 05/14/18 05/14/18 05/14/18 Range/Units 05:40 05:40 06:33 WBC 1.0 L* (3.8-10.6) k/uL RBC 2.24 L (3.80-5.40) m/uL Hgb 7.2 L D (11.4-16.0) gm/dL Hct 21.6 L (34.0-46.0) % RDW 18.2 H (11.5-15.5) % Plt Count 28 L* (150-450) k/uL Neutrophils # (Manual) 0.50 L (1.3-7.7) k/uL Lymphocytes # (Manual) 0.42 L (1.0-4.8) k/uL Nucleated RBCs 8 H (0-0) /100 WBC Chloride 121 H* (98-107) mmol/L Carbon Dioxide 19 L (22-30) mmol/L Creatinine 1.40 H (0.52-1.04) mg/dL Glucose 141 H (74-99) mg/dL POC Glucose (mg/dL) 141 H (75-99) mg/dL Calcium 8.2 L (8.4-10.2) mg/dL Crossmatch 05/14/18 Range/Units 12:02 WBC (3.8-10.6) k/uL RBC (3.80-5.40) m/uL Hgb (11.4-16.0) gm/dL Hct (34.0-46.0) % RDW (11.5-15.5) % Plt Count (150-450) k/uL Neutrophils # (Manual) (1.3-7.7) k/uL Lymphocytes # (Manual) (1.0-4.8) k/uL Nucleated RBCs (0-0) /100 WBC Chloride (98-107) mmol/L Carbon Dioxide (22-30) mmol/L Creatinine (0.52-1.04) mg/dL Glucose (74-99) mg/dL POC Glucose (mg/dL) 139 H (75-99) mg/dL Calcium (8.4-10.2) mg/dL Crossmatch Microbiology - Last 24 Hours (Table) 05/11/18 00:13 Blood Culture - Preliminary Blood No Growth after 72 hours Assessment and Plan (1) Anemia Current Visit: No Status: Acute Code(s): D64.9 - ANEMIA, UNSPECIFIED SNOMED Code(s): 693730458 (2) At risk for readmission to hospital Current Visit: No Status: Acute Code(s): Z91.89 - OTH PERSONAL RISK FACTORS , NOT ELSEWHERE CLASSIFIED SNOMED Code(s): 2207769321404 (3) Atrial fibrillation Current Visit: No Status: Acute Code(s): I48.91 - UNSPECIFIED ATRIAL FIBRILLATION SNOMED Code(s): 31518030 (4) 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 Current Visit: No Status: Acute Code(s): Z95.5 - PRESENCE OF CORONARY ANGIOPLASTY IMPLANT AND GRAFT SNOMED Code(s): 111164492 (5) Shortness of breath Current Visit: No Status: Acute Code(s): R06.02 - SHORTNESS OF BREATH SNOMED Code(s): 303515198 (6) Acute left [employer] WORK stroke Current Visit: Yes Status: Acute Code(s): I63.532 - CEREB INFRC D/T UNSP OCCLS OR STENOS OF LEFT POST CEREB ART SNOMED Code(s): 926903319 (7) Cerebrovascular accident Current Visit: Yes Status: Acute Code(s): I63.9 - CEREBRAL INFARCTION, UNSPECIFIED SNOMED Code(s): 510846109 (8) New onset seizure Current Visit: Yes Status: Acute Code(s): R56.9 - UNSPECIFIED CONVULSIONS SNOMED Code(s): 88139012 Plan: Continue current supportive care. Multiple consultations including neurology, pulmonology, cardiology are appreciated. Prognosis is guarded given her multiple comorbidities of diabetes, atrial fibrillation mild dysplastic syndrome and recent Occipital CVA. Check appropriate CBC, CMP in the a.m. Dr. Zelaya's group will be covering for the weekend.
--- NOTE | 2018-05-14 14:28 | P.PN ---
Subjective Progress Note Date: 05/14/18 Principal diagnosis: Acute hypoxic respiratory failure, acute CVA, status epilepticus, nonsustained ventricular tachycardia This is an 82-year-old female with history of chronic anemia, possible myelodysplasia, coronary artery disease and previous CABG, previous stents placement, presented to the ER with 3 days history of feeling weak and noted to have mental status change. Patient also described intermittent episodes of headaches, described as severe, initial CT of the brain upon admission showed acute infarct in the left occipital lobe, and possibly an old infarct in the right occipital region. No hemorrhage was noted. Patient was admitted last night to a regular medical floor, already seen by neurology on consultation, and she was felt to have acute left posterior artery stroke. This morning, the patient had a sudden seizure, described as grand mal seizure, she was also noted to have ventricular tachycardia which was nonsustained, patient was unresponsive at the time, intubated, placed on mechanical ventilation, and the transferred to the intensive care unit. Patient required fluid boluses, she also required norepinephrine, and I was consulted on the patient to see in the intensive care unit. Upon my initial evaluation, patient was already on antiseizure medications, and her seizures were well controlled. Her cardiac rhythm was also controlled by amiodarone as ordered by cardiology. Patient was noted to be hypotensive requiring norepinephrine, and I went ahead and placed a left internal jugular central line, and a left brachial arterial line. Ordered repeat CT of the brain. And that came back relatively unchanged, no changes compared to the CT of the brain done on admission. Patient is now on mechanical ventilation, assist control rate of 20, FiO2 is 50%, tidal volume of 450, and PEEP of 5. Chest x-ray was reviewed, labs were reviewed, initial WBC count on admission was 0.6, and today is 4.5. Hemoglobin is 8.3. Platelets were noted to be low at 77,000, ABG showed a pO2 of 337 pCO2 of 35 pH of 7.4. Bicarb on admission was 23, bicarb right after her seizure was 8. No evidence of infection noted in the urine, and her chest x-ray is relatively unremarkable. No evidence of pneumonia. Not much history could be obtained from the patient herself, most of the information was obtained from the chart. Reevaluated today, patient remains on mechanical ventilation, same ventilator settings as noted above, ABG this morning showed a pO2 of 121 pCO2 of 30 pH of 7.37. CBC is quite abnormal showing WBC count of 0.9 hemoglobin 6.6 and platelets are low 12/999, all consistent with severe pancytopenia secondary to myelodysplastic syndrome. Patient seems to be a bit agitated and restless off propofol, trying to pull her endotracheal tube out, hence I gave her a short trial of pressure support and CPAP, she was doing well, and I was able to calm her down hence proceeded to extubating the patient to a nasal cannula. Postextubation patient was noted to be a bit confused, but in no form of respiratory distress. Will have speech therapy evaluation, and will continue to monitor in the ICU. Patient will be transfused by hematology for low hemoglobin, and her other hematologic abnormalities are being addressed by hematology on the case. Neurology is still following the patient, and she remains on antiseizure medications. all her labs and chest x-ray were reviewed patient remains on amiodarone, she is also on Keppra, and she is still on GI prophylaxis. Asked x-ray showed minimal lower lobe atelectasis, doubt pneumonia. This is mostly in the left lower lobe area. Patient was reevaluated today on 05/14/2018, she was extubated yesterday, and she tolerated the extubation quite well. However the patient was extremely agitated postextubation, and I recommended a trial off Precedex infusion because she did not improve much with multiple Ativan injections. She did very well on the Precedex, and she basically had a relatively uneventful night overnight. She remained calm, and today the patient was still on Precedex early this morning I plan to discontinue Precedex, and the patient is scheduled to have a repeat CT of the brain. CT of the brain showed basically small left occipital subacute infarct without hemorrhagic transformation, and unchanged encephalomalacia within the right occipital lobe from previous infarct. Again no changes noted in the findings of the CT of the brain. Patient is arousable, she seems to be alert oriented 3, and not in any form of distress today. Labs were reviewed, she clearly has pancytopenia with low WBC count low hemoglobin and low platelets. Her electrolytes were reviewed, urine output is marginal, and we have been giving the patient fluid infusions and fluid boluses hoping to improve her urine output. CODE STATUS remains full code, however considering the overall clinical status of the patient, family may have to be approached again regarding possibly DO NOT RESUSCITATE CODE STATUS. Apparently this has been discussed with the family by Dr. Gonzalez and by the admitting physician. Pulmonary-[facility], the patient does not seem to be in any form of distress. Blood pressure was noted, and her urine output is marginal. Objective - Vital Signs Vital signs: Vital Signs Temp 94.7 F L 05/14/18 13:30 Pulse 53 L 05/14/18 13:30 Resp 17 05/14/18 13:30 BP 98/48 05/14/18 13:30 Pulse Ox 100 05/14/18 13:30 Intake & Output 05/13/18 05/14/18 05/14/18 18:59 06:59 18:59 Intake Total 1767.989 526.342 1447 Output Total 1510 460 310 Balance 257.989 45.667 1340 Intake: IV 7595 390 3311 ACETAMINOPHEN IV (For NPO 100 ) 1,000 mg In Empty Bag 1 bag @ 400 mls/hr IVPB Q6HR [facility] Rx#:[id number] Piperacillin-Tazobactam 3 50 .375 gm In Dextrose/Water 1 50ml.bag @ 12.5 mls/hr IVPB Q8HR [facility] Rx#: [id number] Sodium Chloride 0.45% 1, 300 000 ml @ 100 mls/hr IV . Q10H [facility] Rx#:[id number] Sodium Chloride 0.9% 1, 850 000 ml @ 100 mls/hr IV . Q10H [facility] Rx#:[id number] Sodium Chloride 0.9% 1, 50 450 1300 000 ml @ 50 mls/hr IV . Q20H [facility] Rx#:[id number] levETIRAcetam IV 750 mg 100 In Sodium Chloride 0.9% 100 ml @ 400 mls/hr IVPB Q12H [facility] Rx#:[id number] Intake, IV Titration 117.989 55.667 Amount Clevidipine Butyrate 25 50.000 55.667 mg In Empty Bag 1 bag @ 1 MG/HR 2 mls/hr IV .Q24H [facility] Rx#:[id number] Propofol 1,000 mg In 67.989 Empty Bag 1 bag @ Titrate IV .Q0M [facility] Rx#: [id number] Oral 240 Blood Product 310 Rc As-1 Unit 310 [id number] Output: Urine 1510 460 310 Other: Voiding Method Indwelling Catheter Indwelling Catheter ABP, PAP, CO, CI - Last Documented Arterial Blood Pressure 121/45 - Exam Physical Exam revealed an 82-year-old female in no distress. Quite calm today on Precedex. Head: Atraumatic, normocephalic. Patient is on nasal cannula, she does have dry mucous membranes.. HEENT:[Neck is supple.] [No neck masses.] [No thyromegaly.] [No JVD.] PERRLA, EOMI, no icterus. PERRLA, EOMI. No icterus, dry mucous membranes noted. Chest: [Diminished breath sounds at the right base with minimal crackles, no rhonchi and no wheezes. Cardiac Exam: [Normal S1 and S2, no S3 gallop, no murmur.] Abdomen: [Soft, nontender, no megaly, no rebound, no guarding, normal bowel sounds.] Extremities: [No clubbing, no edema, no cyanosis.] Neurological Exam: Awake, alert oriented 3. Psychiatric: Blunted affect, otherwise unremarkable. Lymphatics: No lymphadenopathy. - Labs CBC & Chem 7: 05/14/18 05:40 05/14/18 05:40 Labs: Abnormal Lab Results - Last 24 Hours (Table) 05/11/18 05/13/18 05/13/18 Range/Units 00:13 13:35 18:33 WBC (3.8-10.6) k/uL RBC (3.80-5.40) m/uL Hgb (11.4-16.0) gm/dL Hct (34.0-46.0) % RDW (11.5-15.5) % Plt Count (150-450) k/uL Neutrophils # (Manual) 0.90 L (1.3-7.7) k/uL Lymphocytes # (Manual) 0.47 L (1.0-4.8) k/uL Nucleated RBCs 2 H (0-0) /100 WBC Chloride (98-107) mmol/L Carbon Dioxide (22-30) mmol/L Creatinine (0.52-1.04) mg/dL Glucose (74-99) mg/dL POC Glucose (mg/dL) 165 H (75-99) mg/dL Calcium (8.4-10.2) mg/dL Crossmatch See Detail 05/14/18 05/14/18 05/14/18 Range/Units 05:40 05:40 06:33 WBC 1.0 L* (3.8-10.6) k/uL RBC 2.24 L (3.80-5.40) m/uL Hgb 7.2 L D (11.4-16.0) gm/dL Hct 21.6 L (34.0-46.0) % RDW 18.2 H (11.5-15.5) % Plt Count 28 L* (150-450) k/uL Neutrophils # (Manual) 0.50 L (1.3-7.7) k/uL Lymphocytes # (Manual) 0.42 L (1.0-4.8) k/uL Nucleated RBCs 8 H (0-0) /100 WBC Chloride 121 H* (98-107) mmol/L Carbon Dioxide 19 L (22-30) mmol/L Creatinine 1.40 H (0.52-1.04) mg/dL Glucose 141 H (74-99) mg/dL POC Glucose (mg/dL) 141 H (75-99) mg/dL Calcium 8.2 L (8.4-10.2) mg/dL Crossmatch 05/14/18 Range/Units 12:02 WBC (3.8-10.6) k/uL RBC (3.80-5.40) m/uL Hgb (11.4-16.0) gm/dL Hct (34.0-46.0) % RDW (11.5-15.5) % Plt Count (150-450) k/uL Neutrophils # (Manual) (1.3-7.7) k/uL Lymphocytes # (Manual) (1.0-4.8) k/uL Nucleated RBCs (0-0) /100 WBC Chloride (98-107) mmol/L Carbon Dioxide (22-30) mmol/L Creatinine (0.52-1.04) mg/dL Glucose (74-99) mg/dL POC Glucose (mg/dL) 139 H (75-99) mg/dL Calcium (8.4-10.2) mg/dL Crossmatch Microbiology - Last 24 Hours (Table) 05/11/18 00:13 Blood Culture - Preliminary Blood No Growth after 72 hours Assessment and Plan Assessment: Impression: 1 acute hypoxic respiratory failure secondary to new onset seizure secondary to CVA. Patient was extubated on 05/13/2018, tolerated the extubation well. 2 nonsustained ventricular tachycardia 3 acute new onset seizure secondary to CVA. 4 myelodysplastic syndrome, patient presented with pancytopenia, being followed by hematology. 5 history of coronary artery disease, previous CABG and stenting. 6 multiple comorbidities including benign essential hypertension, hyperlipidemia , remote history of GI bleeding, type 2 diabetes, and previous CABG for coronary artery disease. And history of osteoarthritis and left total hip replacement. Recommendation: Continue present supportive care measures, once her urine output improves may consider transferring the patient out of the ICU to a monitor bed on selective. Patient is being followed by many other consultants including neurology, hematology, and cardiology. Time with Patient: Less than 30
[2018-05-14] MEDS: SODIUM CHLORIDE 0.45% 1,000 ML IV SCH (15:08)
[2018-05-14] MEDS ORDERED: MAGNESIUM SULFATE-D5W PMX 1 GM in DEXTROSE/WATER 1 100ML.BAG IVPB SCH (15:15)
--- NOTE | 2018-05-14 17:27 | P.PN ---
Subjective Progress Note Date: 05/14/18 The patient is an 82-year-old woman who was admitted to the hospital with multiple medical problems including weakness small myelodysplastic syndrome and anemia pancytopenia heart disease Parkinson's disease and diabetes. She has a history of previous stroke and had a subacute infarct seen on at admission with CT of the brain. The patient was transferred to ICU after having sustained an episode of ventricular tachycardia followed by seizure and respiratory failure. She was intubated and is currently extubated. She is able to speak and complains only of a sore throat. She is able to follow simple commands and is doing much better today. She has been placed on Keppra and Keppra level is pending. He has not had any further seizures. Objective - Vital Signs Vital signs: Vital Signs Temp 97.8 F 05/14/18 16:00 Pulse 62 05/14/18 17:00 Resp 21 05/14/18 17:00 BP 106/59 05/14/18 17:00 Pulse Ox 97 05/14/18 17:00 Intake & Output 05/13/18 05/14/18 05/14/18 18:59 06:59 18:59 Intake Total 1767.989 455.550 9085.0 Output Total 9055 815 9393 Balance 257.989 45.667 2040.0 Intake: IV 7390 567 9323.0 ACETAMINOPHEN IV (For NPO 100 ) 1,000 mg In Empty Bag 1 bag @ 400 mls/hr IVPB Q6HR [facility] Rx#:[id number] Magnesium Sulfate-D5w Pmx 100 1 gm In Dextrose/Water 1 100ml.bag @ 100 mls/hr IVPB Q1H [facility] Rx#: [id number] Piperacillin-Tazobactam 3 75.0 .375 gm In Dextrose/Water 1 50ml.bag @ 12.5 mls/hr IVPB Q8HR [facility] Rx#: [id number] Sodium Chloride 0.45% 1, 2700 000 ml @ 100 mls/hr IV . Q10H [facility] Rx#:[id number] Sodium Chloride 0.9% 1, 850 000 ml @ 100 mls/hr IV . Q10H [facility] Rx#:[id number] Sodium Chloride 0.9% 1, 50 450 200 000 ml @ 50 mls/hr IV . Q20H [facility] Rx#:[id number] levETIRAcetam IV 750 mg 100 In Sodium Chloride 0.9% 100 ml @ 400 mls/hr IVPB Q12H [facility] Rx#:[id number] Intake, IV Titration 117.989 55.667 Amount Clevidipine Butyrate 25 50.000 55.667 mg In Empty Bag 1 bag @ 1 MG/HR 2 mls/hr IV .Q24H [facility] Rx#:[id number] Propofol 1,000 mg In 67.989 Empty Bag 1 bag @ Titrate IV .Q0M [facility] Rx#: [id number] Oral 240 Blood Product 310 Rc As-1 Unit 310 [id number] Output: Urine 0022 187 0413 Other: Voiding Method Indwelling Catheter Indwelling Catheter Indwelling Catheter ABP, PAP, CO, CI - Last Documented Arterial Blood Pressure 143/47 - Constitutional General appearance: Present: obese - EENT Eyes: Present: EOMI, PERRLA - Neurologic Neurologic Comment(s): Neurologic examination: Mental status the patient was lying with eyes closed but easily arousable. She was able able to give her name and she was able to follow simple commands. When asked where she was she states she didn't know. According to staff the patient didn't recognize her family members earlier. The patient denied any headache. Cranial nerve examination: There is no facial asymmetry extract the movements were intact and there was no facial asymmetry Motor examination no focal weakness detected - Labs CBC & Chem 7: 05/14/18 05:40 05/14/18 05:40 Labs: Abnormal Lab Results - Last 24 Hours (Table) 05/13/18 05/14/18 05/14/18 Range/Units 18:33 05:40 05:40 WBC 1.0 L* (3.8-10.6) k/uL RBC 2.24 L (3.80-5.40) m/uL Hgb 7.2 L D (11.4-16.0) gm/dL Hct 21.6 L (34.0-46.0) % RDW 18.2 H (11.5-15.5) % Plt Count 28 L* (150-450) k/uL Neutrophils # (Manual) 0.50 L (1.3-7.7) k/uL Lymphocytes # (Manual) 0.42 L (1.0-4.8) k/uL Nucleated RBCs 8 H (0-0) /100 WBC Chloride 121 H* (98-107) mmol/L Carbon Dioxide 19 L (22-30) mmol/L Creatinine 1.40 H (0.52-1.04) mg/dL Glucose 141 H (74-99) mg/dL POC Glucose (mg/dL) 165 H (75-99) mg/dL Calcium 8.2 L (8.4-10.2) mg/dL 05/14/18 05/14/18 Range/Units 06:33 12:02 WBC (3.8-10.6) k/uL RBC (3.80-5.40) m/uL Hgb (11.4-16.0) gm/dL Hct (34.0-46.0) % RDW (11.5-15.5) % Plt Count (150-450) k/uL Neutrophils # (Manual) (1.3-7.7) k/uL Lymphocytes # (Manual) (1.0-4.8) k/uL Nucleated RBCs (0-0) /100 WBC Chloride (98-107) mmol/L Carbon Dioxide (22-30) mmol/L Creatinine (0.52-1.04) mg/dL Glucose (74-99) mg/dL POC Glucose (mg/dL) 141 H 139 H (75-99) mg/dL Calcium (8.4-10.2) mg/dL Microbiology - Last 24 Hours (Table) 05/14/18 11:55 Urine Culture - Preliminary Urine,Catheterized 05/11/18 00:13 Blood Culture - Preliminary Blood No Growth after 72 hours Assessment and Plan (1) Acute left [employer] stroke Current Visit: Yes Status: Acute SNOMED Code(s): 759583462 (2) History of stroke Current Visit: Yes Status: Acute SNOMED Code(s): 918552759 (3) Pancytopenia Current Visit: Yes Status: Acute Priority: High SNOMED Code(s): 269086723 (4) Acute respiratory failure Current Visit: Yes Status: Acute SNOMED Code(s): 84579393 (5) New onset seizure Current Visit: Yes Status: Acute SNOMED Code(s): 43316006 Plan: The patient is an 82-year-old woman with multiple medical problems including myelodysplastic syndrome, pancytopenia, anemia, heart disease, hypertension, stroke, and Parkinson's disease. She also has new onset seizure. She has not had any further seizures. She has been extubated and is to be in no acute distress.. She is not complaining of any headache. She is cooperative and able to follow simple commands. She is on Keppra for seizure management and there is been no breakthrough seizures. Keppra level is pending. A follow-up CT shows no changes. Plan is to continue supportive care.
--- NOTE | 2018-05-14 17:35 | P.PN ---
Subjective Progress Note Date: 05/14/18 The patient has been extubated. She remains somewhat weak and complains of a sore throat. However she is oriented 3 and appropriately responsive Objective - Vital Signs Vital signs: Vital Signs Temp 97.8 F 05/14/18 16:00 Pulse 62 05/14/18 17:00 Resp 21 05/14/18 17:00 BP 106/59 05/14/18 17:00 Pulse Ox 97 05/14/18 17:00 Intake & Output 05/13/18 05/14/18 05/14/18 18:59 06:59 18:59 Intake Total 1767.989 857.097 1603.0 Output Total 8762 560 6215 Balance 257.989 45.667 2040.0 Intake: IV 1943 300 5657.0 ACETAMINOPHEN IV (For NPO 100 ) 1,000 mg In Empty Bag 1 bag @ 400 mls/hr IVPB Q6HR [facility] Rx#:[id number] Magnesium Sulfate-D5w Pmx 100 1 gm In Dextrose/Water 1 100ml.bag @ 100 mls/hr IVPB Q1H [facility] Rx#: [id number] Piperacillin-Tazobactam 3 75.0 .375 gm In Dextrose/Water 1 50ml.bag @ 12.5 mls/hr IVPB Q8HR [facility] Rx#: [id number] Sodium Chloride 0.45% 1, 2700 000 ml @ 100 mls/hr IV . Q10H [facility] Rx#:[id number] Sodium Chloride 0.9% 1, 850 000 ml @ 100 mls/hr IV . Q10H [facility] Rx#:[id number] Sodium Chloride 0.9% 1, 50 450 200 000 ml @ 50 mls/hr IV . Q20H [facility] Rx#:[id number] levETIRAcetam IV 750 mg 100 In Sodium Chloride 0.9% 100 ml @ 400 mls/hr IVPB Q12H [facility] Rx#:[id number] Intake, IV Titration 117.989 55.667 Amount Clevidipine Butyrate 25 50.000 55.667 mg In Empty Bag 1 bag @ 1 MG/HR 2 mls/hr IV .Q24H [facility] Rx#:[id number] Propofol 1,000 mg In 67.989 Empty Bag 1 bag @ Titrate IV .Q0M [facility] Rx#: [id number] Oral 240 Blood Product 310 Rc As-1 Unit 310 [id number] Output: Urine [id number] Other: Voiding Method Indwelling Catheter Indwelling Catheter Indwelling Catheter ABP, PAP, CO, CI - Last Documented Arterial Blood Pressure 143/47 - Constitutional General appearance: Present: no acute distress - EENT ENT: Present: hearing grossly normal, normal oropharynx - Respiratory Respiratory: bilateral: CTA - Cardiovascular Rhythm: regular Heart sounds: normal: S1, S2 - Gastrointestinal General gastrointestinal: Present: normal bowel sounds, soft - Integumentary Integumentary Comment(s): Scattered bruises - Neurologic Neurologic: Present: CNII-XII intact - Musculoskeletal Musculoskeletal: Present: generalized weakness, strength equal bilaterally - Psychiatric Psychiatric Comment(s): Quite lethargic, but oriented 3 and appropriately responsive - Labs CBC & Chem 7: 05/14/18 05:40 05/14/18 05:40 Labs: Abnormal Lab Results - Last 24 Hours (Table) 05/13/18 05/14/18 05/14/18 Range/Units 18:33 05:40 05:40 WBC 1.0 L* (3.8-10.6) k/uL RBC 2.24 L (3.80-5.40) m/uL Hgb 7.2 L D (11.4-16.0) gm/dL Hct 21.6 L (34.0-46.0) % RDW 18.2 H (11.5-15.5) % Plt Count 28 L* (150-450) k/uL Neutrophils # (Manual) 0.50 L (1.3-7.7) k/uL Lymphocytes # (Manual) 0.42 L (1.0-4.8) k/uL Nucleated RBCs 8 H (0-0) /100 WBC Chloride 121 H* (98-107) mmol/L Carbon Dioxide 19 L (22-30) mmol/L Creatinine 1.40 H (0.52-1.04) mg/dL Glucose 141 H (74-99) mg/dL POC Glucose (mg/dL) 165 H (75-99) mg/dL Calcium 8.2 L (8.4-10.2) mg/dL 05/14/18 05/14/18 Range/Units 06:33 12:02 WBC (3.8-10.6) k/uL RBC (3.80-5.40) m/uL Hgb (11.4-16.0) gm/dL Hct (34.0-46.0) % RDW (11.5-15.5) % Plt Count (150-450) k/uL Neutrophils # (Manual) (1.3-7.7) k/uL Lymphocytes # (Manual) (1.0-4.8) k/uL Nucleated RBCs (0-0) /100 WBC Chloride (98-107) mmol/L Carbon Dioxide (22-30) mmol/L Creatinine (0.52-1.04) mg/dL Glucose (74-99) mg/dL POC Glucose (mg/dL) 141 H 139 H (75-99) mg/dL Calcium (8.4-10.2) mg/dL Microbiology - Last 24 Hours (Table) 05/14/18 11:55 Urine Culture - Preliminary Urine,Catheterized 05/11/18 00:13 Blood Culture - Preliminary Blood No Growth after 72 hours Assessment and Plan (1) Acute respiratory failure Narrative/Plan: This was felt to be multifactorial. The patient was able to be extubated today and is currently stable off the vent. Defer to the critical care service and IM for continued management Current Visit: Yes Status: Acute Code(s): J96.00 - ACUTE RESPIRATORY FAILURE , UNSP W HYPOXIA OR HYPERCAPNIA SNOMED Code(s): 57822776 (2) Myelodysplastic syndrome Narrative/Plan: The diagnosis was briefly discussed with the patient today. As noted, it was discussed in detail with the rest of the family. Assuming that the patient continues to improve, we will revisit this with her, along with possible options going forward. In the meantime continue to monitor counts were transfusion support as needed Current Visit: Yes Status: Acute Code(s): D46.9 - MYELODYSPLASTIC SYNDROME, UNSPECIFIED SNOMED Code(s): 941643864
[2018-05-14 17:57] LABS: Glucose,Whole Blood 130 mg/dL (75-99)
[2018-05-14 20:04] LABS: Glucose,Whole Blood 122 mg/dL (75-99)
[2018-05-14] MEDS: ATORVASTATIN 40 MG TAB PO SCH (20:06)
[2018-05-15] MEDS: PIPERACILLIN-TAZOBACTAM 3.375 GM in DEXTROSE/WATER 1 50ML.BAG IVPB SCH ×4 (00:48→23:19)
[2018-05-15] MEDS: SODIUM CHLORIDE 0.45% 1,000 ML IV SCH ×3 (00:49→19:49)
[2018-05-15] MEDS: levETIRAcetam IV 750 MG in SODIUM CHLORIDE 0.9% 100 ML IVPB SCH ×2 (05:15→17:40)
[2018-05-15] MEDS: HYDROcodone/APAP 5-325MG 1 EACH TAB PO PRN ×2 (05:20→19:47)
[2018-05-15 06:50] LABS: Calcium 7.7 mg/dL (8.4-10.2)
[2018-05-15 06:57] LABS: Phosphorus 3.2 mg/dL (2.5-4.5); Potassium 3.9 mmol/L (3.5-5.1)
[2018-05-15 06:58] LABS: Magnesium 1.8 mg/dL (1.6-2.3)
[2018-05-15] MEDS ORDERED: POTASSIUM CHLORIDE ER 20 MEQ TAB.ER PO SCH (07:00)
[2018-05-15 07:02] LABS: Anisocytosis Slight; HCT 23.1 % (34.0-46.0); HGB 7.6 gm/dL (11.4-16.0); MCH 32.3 pg (25.0-35.0); MCV 97.8 fL (80.0-100.0); Macrocytosis Slight; Mean Platelet Volume 14.3; RBC 2.37 m/uL (3.80-5.40); RDW 18.6 % (11.5-15.5)
[2018-05-15] MEDS: INSULIN ASPART 100 UNIT/ML 1 ML 10 ML VIAL SQ SCH ×4 (07:02→21:31)
[2018-05-15 07:08] LABS: Platelet Count 31 k/uL (150-450); WBC 1.2 k/uL (3.8-10.6)
--- NOTE | 2018-05-15 07:19 | XR ---
EXAMINATION TYPE: XR chest 1V portable DATE OF EXAM: 05/15/2018 HISTORY: shortness of breath. REFERENCE: Previous study dated 05/14/2018. FINDINGS: There has been a midline sternotomy. There is a left subclavian catheter in place. Its tip is at the cavoatrial junction. The heart is mildly enlarged. There is bibasilar airspace disease. There are bilateral effusions. The overall appearance has not changed significantly. IMPRESSION: NO SIGNIFICANT INTERVAL CHANGE IN APPEARANCE OF THE CHEST.
[2018-05-15 08:11] LABS: Band Neutrophils % 3 %; Eosinophils # (M) 0.01 k/uL (0-0.7); Lymphocytes # (M) 0.48 k/uL (1.0-4.8); Monocytes # (M) 0.07 k/uL (0-1.0); Neutrophils % (M) 50 %; Nucleated Red Blood Cells 0 /100 WBC (0-0); Polychromasia Present; Total Cells Counted 100
[2018-05-15] MEDS: MAGNESIUM SULFATE-D5W PMX 1 GM in DEXTROSE/WATER 1 100ML.BAG IVPB SCH ×2 (08:16→09:14)
[2018-05-15] MEDS: FERROUS SULFATE 325 MG TAB PO SCH (09:15)
[2018-05-15] MEDS: AMIODARONE 200 MG TAB PO SCH ×2 (09:15→21:33)
[2018-05-15] MEDS: PANTOPRAZOLE 40 MG/10 ML VIAL IVP SCH (09:15)
[2018-05-15 11:48] LABS: Glucose,Whole Blood 113 mg/dL (75-99)
--- NOTE | 2018-05-15 14:19 | P.PN ---
Subjective Progress Note Date: 05/15/18 The patient is an 82-year-old woman who was admitted to the hospital with multiple medical problems including weakness, myelodysplastic syndrome ,anemia ,pancytopenia ,heart disease ,Parkinson's disease and diabetes. She has a history of old stroke in the right occipital and new stroke in the left occipital lobe. The patient was transferred to ICU after having sustained an episode of ventricular tachycardia followed by seizure and respiratory failure. The patient is sitting up in bed and eating. She has no specific complaints. She just feels generally tired. She is alert and oriented 3. Her cognitive function is improved. Objective - Vital Signs Vital signs: Vital Signs Temp 98.9 F 05/15/18 12:00 Pulse 77 05/15/18 14:00 Resp 24 05/15/18 14:00 BP 149/84 05/15/18 14:00 Pulse Ox 96 05/15/18 14:00 Intake & Output 05/14/18 05/15/18 05/15/18 18:59 06:59 18:59 Intake Total 3262.5 1262.5 1730.0 Output Total 7974 439 6840 Balance 2152.5 502.5 665.0 Weight 93 kg Intake: IV 3262.5 1262.5 1250.0 Magnesium Sulfate-D5w Pmx 100 200 1 gm In Dextrose/Water 1 100ml.bag @ 100 mls/hr IVPB Q1H [facility] Rx#: [id number] Piperacillin-Tazobactam 3 87.5 62.5 50.0 .375 gm In Dextrose/Water 1 50ml.bag @ 12.5 mls/hr IVPB Q8HR [facility] Rx#: [id number] Sodium Chloride 0.45% 1, 2775 1200 500 000 ml @ 100 mls/hr IV . Q10H [facility] Rx#:[id number] Sodium Chloride 0.45% 1, 500 000 ml @ 100 mls/hr IV . Q10H [facility] Rx#:[id number] Sodium Chloride 0.9% 1, 200 000 ml @ 50 mls/hr IV . Q20H [facility] Rx#:[id number] levETIRAcetam IV 750 mg 100 In Sodium Chloride 0.9% 100 ml @ 400 mls/hr IVPB Q12H [facility] Rx#:[id number] Oral 480 Output: Urine 3154 [id number] Other: Voiding Method Indwelling Catheter Indwelling Catheter Indwelling Catheter ABP, PAP, CO, CI - Last Documented Arterial Blood Pressure 147/45 - Constitutional General appearance: Present: cooperative - EENT Eyes: Present: EOMI, PERRLA - Respiratory Respiratory: bilateral: CTA - Cardiovascular Rhythm: regular - Neurologic Neurologic Comment(s): Neurologic examination: Mental status: She was awake alert and oriented 3. Her speech was fluent. There was no a aphasia or dysarthria. Cranial nerves II through XII: Pupils were 3 mm equal and reactive. There was no facial asymmetry. Next Motor examination: No focal weakness detected - Labs CBC & Chem 7: 05/15/18 06:30 05/15/18 06:30 Labs: Abnormal Lab Results - Last 24 Hours (Table) 05/14/18 05/14/18 05/15/18 Range/Units 17:55 20:02 06:30 WBC (3.8-10.6) k/uL RBC (3.80-5.40) m/uL Hgb (11.4-16.0) gm/dL Hct (34.0-46.0) % RDW (11.5-15.5) % Plt Count (150-450) k/uL Neutrophils # (Manual) (1.3-7.7) k/uL Lymphocytes # (Manual) (1.0-4.8) k/uL Chloride 117 H (98-107) mmol/L Carbon Dioxide 20 L (22-30) mmol/L Creatinine 1.47 H (0.52-1.04) mg/dL Glucose 112 H (74-99) mg/dL POC Glucose (mg/dL) 130 H 122 H (75-99) mg/dL Calcium 7.7 L (8.4-10.2) mg/dL 05/15/18 05/15/18 Range/Units 06:30 11:47 WBC 1.2 L* (3.8-10.6) k/uL RBC 2.37 L (3.80-5.40) m/uL Hgb 7.6 L (11.4-16.0) gm/dL Hct 23.1 L (34.0-46.0) % RDW 18.6 H (11.5-15.5) % Plt Count 31 L* (150-450) k/uL Neutrophils # (Manual) 0.60 L (1.3-7.7) k/uL Lymphocytes # (Manual) 0.48 L (1.0-4.8) k/uL Chloride (98-107) mmol/L Carbon Dioxide (22-30) mmol/L Creatinine (0.52-1.04) mg/dL Glucose (74-99) mg/dL POC Glucose (mg/dL) 113 H (75-99) mg/dL Calcium (8.4-10.2) mg/dL Microbiology - Last 24 Hours (Table) 05/14/18 11:55 Urine Culture - Final Urine,Catheterized 05/14/18 08:18 Blood Culture - Preliminary Blood No Growth after 24 hours 05/11/18 00:13 Blood Culture - Preliminary Blood No Growth after 96 hours 05/13/18 15:56 Blood Culture - Preliminary Blood No Growth after 24 hours Assessment and Plan (1) Acute left SILK EXAMINER stroke Current Visit: Yes Status: Acute SNOMED Code(s): 319471473 (2) History of stroke Current Visit: Yes Status: Acute SNOMED Code(s): 033078979 (3) Pancytopenia Current Visit: Yes Status: Acute Priority: High SNOMED Code(s): 261334473 (4) Acute respiratory failure Current Visit: Yes Status: Acute SNOMED Code(s): 69346968 (5) New onset seizure Current Visit: Yes Status: Acute SNOMED Code(s): 67922541 Plan: The patient is an 82-year-old woman with multiple medical problems including myelodysplastic syndrome, pancytopenia, anemia, heart disease, hypertension, stroke, and Parkinson's disease. She also has new onset seizure. She has not had any further seizures. Plan is to continue supportive care. She has been extubated and doing stable neurologically. She has not had any breakthrough seizures. Her Keppra level is still pending. She has had an old stroke in the right occipital lobe and a new stroke in the left occipital lobe. Her last carotid ultrasound was in 2014. We'll repeat carotid ultrasound.
--- NOTE | 2018-05-15 15:22 | P.PN ---
Subjective Progress Note Date: 05/15/18 Principal diagnosis: Acute hypoxic respiratory failure, acute CVA, status epilepticus, nonsustained ventricular tachycardia This is an 82-year-old female with history of chronic anemia, possible myelodysplasia, coronary artery disease and previous CABG, previous stents placement, presented to the ER with 3 days history of feeling weak and noted to have mental status change. Patient also described intermittent episodes of headaches, described as severe, initial CT of the brain upon admission showed acute infarct in the left occipital lobe, and possibly an old infarct in the right occipital region. No hemorrhage was noted. Patient was admitted last night to a regular medical floor, already seen by neurology on consultation, and she was felt to have acute left posterior artery stroke. This morning, the patient had a sudden seizure, described as grand mal seizure, she was also noted to have ventricular tachycardia which was nonsustained, patient was unresponsive at the time, intubated, placed on mechanical ventilation, and the transferred to the intensive care unit. Patient required fluid boluses, she also required norepinephrine, and I was consulted on the patient to see in the intensive care unit. Upon my initial evaluation, patient was already on antiseizure medications, and her seizures were well controlled. Her cardiac rhythm was also controlled by amiodarone as ordered by cardiology. Patient was noted to be hypotensive requiring norepinephrine, and I went ahead and placed a left internal jugular central line, and a left brachial arterial line. Ordered repeat CT of the brain. And that came back relatively unchanged, no changes compared to the CT of the brain done on admission. Patient is now on mechanical ventilation, assist control rate of 20, FiO2 is 50%, tidal volume of 450, and PEEP of 5. Chest x-ray was reviewed, labs were reviewed, initial WBC count on admission was 0.6, and today is 4.5. Hemoglobin is 8.3. Platelets were noted to be low at 77,000, ABG showed a pO2 of 337 pCO2 of 35 pH of 7.4. Bicarb on admission was 23, bicarb right after her seizure was 8. No evidence of infection noted in the urine, and her chest x-ray is relatively unremarkable. No evidence of pneumonia. Not much history could be obtained from the patient herself, most of the information was obtained from the chart. Reevaluated today, patient remains on mechanical ventilation, same ventilator settings as noted above, ABG this morning showed a pO2 of 121 pCO2 of 30 pH of 7.37. CBC is quite abnormal showing WBC count of 0.9 hemoglobin 6.6 and platelets are low 12/999, all consistent with severe pancytopenia secondary to myelodysplastic syndrome. Patient seems to be a bit agitated and restless off propofol, trying to pull her endotracheal tube out, hence I gave her a short trial of pressure support and CPAP, she was doing well, and I was able to calm her down hence proceeded to extubating the patient to a nasal cannula. Postextubation patient was noted to be a bit confused, but in no form of respiratory distress. Will have speech therapy evaluation, and will continue to monitor in the ICU. Patient will be transfused by hematology for low hemoglobin, and her other hematologic abnormalities are being addressed by hematology on the case. Neurology is still following the patient, and she remains on antiseizure medications. all her labs and chest x-ray were reviewed patient remains on amiodarone, she is also on Keppra, and she is still on GI prophylaxis. Asked x-ray showed minimal lower lobe atelectasis, doubt pneumonia. This is mostly in the left lower lobe area. Patient was reevaluated today on 05/14/2018, she was extubated yesterday, and she tolerated the extubation quite well. However the patient was extremely agitated postextubation, and I recommended a trial off Precedex infusion because she did not improve much with multiple Ativan injections. She did very well on the Precedex, and she basically had a relatively uneventful night overnight. She remained calm, and today the patient was still on Precedex early this morning I plan to discontinue Precedex, and the patient is scheduled to have a repeat CT of the brain. CT of the brain showed basically small left occipital subacute infarct without hemorrhagic transformation, and unchanged encephalomalacia within the right occipital lobe from previous infarct. Again no changes noted in the findings of the CT of the brain. Patient is arousable, she seems to be alert oriented 3, and not in any form of distress today. Labs were reviewed, she clearly has pancytopenia with low WBC count low hemoglobin and low platelets. Her electrolytes were reviewed, urine output is marginal, and we have been giving the patient fluid infusions and fluid boluses hoping to improve her urine output. CODE STATUS remains full code, however considering the overall clinical status of the patient, family may have to be approached again regarding possibly DO NOT RESUSCITATE CODE STATUS. Apparently this has been discussed with the family by Dr. Gonzalez and by the admitting physician. Pul[facility], the patient does not seem to be in any form of distress. Blood pressure was noted, and her urine output is marginal. Reevaluated today on 05/15/2018, patient tolerated extubation well over the last 2 days, her neurological status is improving, mentation and cognitive functioning is definitely improved. She is not agitated, not confused, and she is basically almost back to her baseline. Patient is sitting in bed, no complaints whatsoever. She feels generally tired otherwise no other symptoms. CBC remains abnormal with WBC count of 1.2 hemoglobin is 7.6 platelets are low at 51,000. Renal profile showed a BUN of 16 and creatinine of 1.47. Patient denies any shortness of breath. Objective - Vital Signs Vital signs: Vital Signs Temp 98.9 F 05/15/18 12:00 Pulse 77 05/15/18 14:00 Resp 24 05/15/18 14:00 BP 149/84 05/15/18 14:00 Pulse Ox 96 05/15/18 14:00 Intake & Output 05/14/18 05/15/18 05/15/18 18:59 06:59 18:59 Intake Total 3262.5 1262.5 1730.0 Output Total 1066 224 8986 Balance 2152.5 502.5 665.0 Weight 93 kg Intake: IV 3262.5 1262.5 1250.0 Magnesium Sulfate-D5w Pmx 100 200 1 gm In Dextrose/Water 1 100ml.bag @ 100 mls/hr IVPB Q1H [facility] Rx#: [id number] Piperacillin-Tazobactam 3 87.5 62.5 50.0 .375 gm In Dextrose/Water 1 50ml.bag @ 12.5 mls/hr IVPB Q8HR [facility] Rx#: [id number] Sodium Chloride 0.45% 1, 2775 1200 500 000 ml @ 100 mls/hr IV . Q10H [facility] Rx#:[id number] Sodium Chloride 0.45% 1, 500 000 ml @ 100 mls/hr IV . Q10H [facility] Rx#:[id number] Sodium Chloride 0.9% 1, 200 000 ml @ 50 mls/hr IV . Q20H [facility] Rx#:[id number] levETIRAcetam IV 750 mg 100 In Sodium Chloride 0.9% 100 ml @ 400 mls/hr IVPB Q12H [facility] Rx#:[id number] Oral 480 Output: Urine [id number] Other: Voiding Method Indwelling Catheter Indwelling Catheter Indwelling Catheter ABP, PAP, CO, CI - Last Documented Arterial Blood Pressure 147/45 - Exam Physical Exam revealed an 82-year-old female in no distress. Head: Atraumatic, normocephalic. Patient is on nasal cannula, moist mucous membranes HEENT:[Neck is supple.] [No neck masses.] [No thyromegaly.] [No JVD.] PERRLA, EOMI, no icterus. PERRLA, EOMI. No icterus, Chest: [Diminished breath sounds at the right base with minimal crackles, no rhonchi and no wheezes. Cardiac Exam: [Normal S1 and S2, no S3 gallop, no murmur.] Abdomen: [Soft, nontender, no megaly, no rebound, no guarding, normal bowel sounds.] Extremities: [No clubbing, no edema, no cyanosis.] Neurological Exam: Awake, alert oriented 3. Psychiatric: Blunted affect, otherwise unremarkable. Judgment seems to be intact. Lymphatics: No lymphadenopathy. - Labs CBC & Chem 7: 05/15/18 06:30 05/15/18 06:30 Labs: Abnormal Lab Results - Last 24 Hours (Table) 05/14/18 05/14/18 05/15/18 Range/Units 17:55 20:02 06:30 WBC (3.8-10.6) k/uL RBC (3.80-5.40) m/uL Hgb (11.4-16.0) gm/dL Hct (34.0-46.0) % RDW (11.5-15.5) % Plt Count (150-450) k/uL Neutrophils # (Manual) (1.3-7.7) k/uL Lymphocytes # (Manual) (1.0-4.8) k/uL Chloride 117 H (98-107) mmol/L Carbon Dioxide 20 L (22-30) mmol/L Creatinine 1.47 H (0.52-1.04) mg/dL Glucose 112 H (74-99) mg/dL POC Glucose (mg/dL) 130 H 122 H (75-99) mg/dL Calcium 7.7 L (8.4-10.2) mg/dL 05/15/18 05/15/18 Range/Units 06:30 11:47 WBC 1.2 L* (3.8-10.6) k/uL RBC 2.37 L (3.80-5.40) m/uL Hgb 7.6 L (11.4-16.0) gm/dL Hct 23.1 L (34.0-46.0) % RDW 18.6 H (11.5-15.5) % Plt Count 31 L* (150-450) k/uL Neutrophils # (Manual) 0.60 L (1.3-7.7) k/uL Lymphocytes # (Manual) 0.48 L (1.0-4.8) k/uL Chloride (98-107) mmol/L Carbon Dioxide (22-30) mmol/L Creatinine (0.52-1.04) mg/dL Glucose (74-99) mg/dL POC Glucose (mg/dL) 113 H (75-99) mg/dL Calcium (8.4-10.2) mg/dL Microbiology - Last 24 Hours (Table) 05/14/18 11:55 Urine Culture - Final Urine,Catheterized 05/14/18 08:18 Blood Culture - Preliminary Blood No Growth after 24 hours 05/11/18 00:13 Blood Culture - Preliminary Blood No Growth after 96 hours 05/13/18 15:56 Blood Culture - Preliminary Blood No Growth after 24 hours Assessment and Plan Assessment: Impression: 1 acute hypoxic respiratory failure secondary to new onset seizure secondary to CVA. Patient was extubated on 05/13/2018, tolerated the extubation well. 2 nonsustained ventricular tachycardia 3 acute new onset seizure secondary to CVA. 4 myelodysplastic syndrome, patient presented with pancytopenia, being followed by hematology. 5 history of coronary artery disease, previous CABG and stenting. 6 multiple comorbidities including benign essential hypertension, hyperlipidemia , remote history of GI bleeding, type 2 diabetes, and previous CABG for coronary artery disease. And history of osteoarthritis and left total hip replacement. Recommendation: Continue present supportive care measures, consider transferring the patient out of the ICU to a monitor bed on selective, being followed by neurology and other consultants, will follow as needed. Time with Patient: Less than 30
--- NOTE | 2018-05-15 16:04 | US ---
EXAMINATION TYPE: US carotid duplex BILAT DATE OF EXAM: 05/15/2018 COMPARISON: US 10/01/2015, MR angio head 04/22/2016 CLINICAL HISTORY: Stroke. EXAM MEASUREMENTS: RIGHT: Peak Systolic Velocity (PSV) cm/sec ----- Right CCA: 88.6 ----- Right ICA: 108.2 ----- Right ECA: 267.3 ICA/CCA ratio: 1.2 RIGHT: End Diastole cm/sec ----- Right CCA: 17.3 ----- Right ICA: 31.3 ----- Right ECA: 7.4 LEFT: Peak Systolic Velocity (PSV) cm/sec ----- Left CCA: 81.3 ----- Left ICA: 135.8 ----- Left ECA: 313.9 ICA/CCA ratio: 1.7 LEFT: End Diastole cm/sec ----- Left CCA: 18.8 ----- Left ICA: 47.1 ----- Left ECA: 11.3 VERTEBRALS (direction of flow): Right Vertebral: Antegrade Left Vertebral: Antegrade Rhythm: Normal Moderate/severe amount of plaque visualized bilaterally. Elevated velocities visualized within the ri ght ECA, left proximal ICA, and left ECA. IMPRESSION: Antegrade flow through both vertebral arteries. Elevation of the systolic velocities at the right external carotid artery as well as the left interna l and left external carotid artery. Suspect between 50-69% stenosis on the left carotid bifurcation. No hemodynamically significant stenosis on the right. Criteria for Assigning % of Stenosis / Diameter reduction (Estimation based on the indirect measurements of the internal carotid artery velocities (ICA PSV). 1. Normal (no stenosis)=ICA PSV < 125 cm/s: ratio < 2.0: ICA EDV<40 cm/s. 2. Less than 50% stenosis=ICA PSV < 125 cm/s: ratio < 2.0: ICA EDV<40 cm/s. 3. 50 to 69% stenosis=ICA PSV of 125 to 230 cm/s: ration 2.0 ? 4.0: ICA EDV 40-100 cm/s. 4. Greater than 70% stenosis to near occlusion= ICA PSV > 230 cm/s: ratio > 4.0: ICA EDV > 100 cm/s. 5. Near occlusion= ICA PSV velocities may be low or undetectable: variable ratio and ICA EDV. 6. Total occlusion=unable to detect flow.
--- NOTE | 2018-05-15 16:12 | PN ---
PROGRESS NOTE Mr. Mortensen is an 82-year-old male who presented with an acute respiratory failure, status epilepticus and an episode of non-sustained ventricular tachycardia. He has a history of chronic anemia, status post coronary artery bypass grafting and percutaneous revascularization. He is extubated, doing well this morning. Breathing is stable. He is denying any chest pain. Denies any dizziness or palpitations. He denies any nausea. Hemodynamically, he is stable. He had no further episode of ventricular tachycardia. His echocardiogram showed ejection fraction of 30-35%. Reviewing his prior testing, he had an echocardiogram in December of this year that revealed an ejection fraction of 50-55% and the depression of the LV function at this point could be related to the acute event. He continues to be at this time on amiodarone 200 mg twice a day, Lipitor 40 mg daily. PHYSICAL EXAMINATION: Blood pressure: 148/70 with a heart in the 70s. LUNGS: Clear. HEART: Regular rate and rhythm, S1, S2. No S3. No rub. ABDOMEN: Soft, nontender. Extremities: No significant edema. LAB DATA: Lab data revealed a white blood cell 1.2, hemoglobin of 7.6, platelets count 31,000. BUN and creatinine of 16 and 1.47. IMPRESSION: 1. Pancytopenia with malignancy. 2. Respiratory failure resolved. 3. Episode of non-sustained ventricular tachycardia stable. 4. History of coronary artery disease status post percutaneous revascularization coronary artery bypass grafting. 5. Cardiomyopathy could be related to the acute event. RECOMMENDATIONS: From the cardiac standpoint, at this time, he is not a candidate for aspirin. I will re-initiate treatment with beta jesus. Continue the rest of his medical regimen and depending on his progress, further recommendations will be made. MMODL / IJN: [id number] /
--- NOTE | 2018-05-15 16:39 | P.PN ---
Subjective This is a pleasant 82 old female with past medical history of mild dysplastic syndrome with pancytopenia, coronary artery disease, CHF, COPD, CVA/TIA, diabetes mellitus, GI bleed, hyperlipidemia, hypertension, who presents from home because originally she was confused where she has difficulty operating her TV, so she came to emergency room. On admission patient has low hemoglobin at 8.3 and 67 going down to 6.6. Patient got blood transfusion which was complicated by status epilepticus and V. tach, patient was intubated temporarily and sent to the ICU patient was extubated yesterday and clinically she is more stable currently. Her last hemoglobin is 7.6, patient also noticed to be pancytopenia with WBC 1.2 and platelets 31 area that INR is 1.1. Her creatinine is trending up from 1.1-1.4 Objective - Vital Signs Vital signs: Vital Signs Temp 98.9 F 05/15/18 12:00 Pulse 77 05/15/18 14:00 Resp 24 05/15/18 14:00 BP 149/84 05/15/18 14:00 Pulse Ox 96 05/15/18 14:00 Intake & Output 05/14/18 05/15/18 05/15/18 18:59 06:59 18:59 Intake Total 3262.5 1262.5 1730.0 Output Total 9908 255 7099 Balance 2152.5 502.5 665.0 Weight 93 kg Intake: IV 3262.5 1262.5 1250.0 Magnesium Sulfate-D5w Pmx 100 200 1 gm In Dextrose/Water 1 100ml.bag @ 100 mls/hr IVPB Q1H [facility] Rx#: [id number] Piperacillin-Tazobactam 3 87.5 62.5 50.0 .375 gm In Dextrose/Water 1 50ml.bag @ 12.5 mls/hr IVPB Q8HR [facility] Rx#: [id number] Sodium Chloride 0.45% 1, 2775 1200 500 000 ml @ 100 mls/hr IV . Q10H [facility] Rx#:[id number] Sodium Chloride 0.45% 1, 500 000 ml @ 100 mls/hr IV . Q10H [facility] Rx#:[id number] Sodium Chloride 0.9% 1, 200 000 ml @ 50 mls/hr IV . Q20H [facility] Rx#:[id number] levETIRAcetam IV 750 mg 100 In Sodium Chloride 0.9% 100 ml @ 400 mls/hr IVPB Q12H [facility] Rx#:[id number] Oral 480 Output: Urine 0139 216 1216 Other: Voiding Method Indwelling Catheter Indwelling Catheter Indwelling Catheter ABP, PAP, CO, CI - Last Documented Arterial Blood Pressure 147/45 - Labs CBC & Chem 7: 05/15/18 06:30 05/15/18 06:30 Labs: Abnormal Lab Results - Last 24 Hours (Table) 05/14/18 05/14/18 05/15/18 Range/Units 17:55 20:02 06:30 WBC (3.8-10.6) k/uL RBC (3.80-5.40) m/uL Hgb (11.4-16.0) gm/dL Hct (34.0-46.0) % RDW (11.5-15.5) % Plt Count (150-450) k/uL Neutrophils # (Manual) (1.3-7.7) k/uL Lymphocytes # (Manual) (1.0-4.8) k/uL Chloride 117 H (98-107) mmol/L Carbon Dioxide 20 L (22-30) mmol/L Creatinine 1.47 H (0.52-1.04) mg/dL Glucose 112 H (74-99) mg/dL POC Glucose (mg/dL) 130 H 122 H (75-99) mg/dL Calcium 7.7 L (8.4-10.2) mg/dL 05/15/18 05/15/18 Range/Units 06:30 11:47 WBC 1.2 L* (3.8-10.6) k/uL RBC 2.37 L (3.80-5.40) m/uL Hgb 7.6 L (11.4-16.0) gm/dL Hct 23.1 L (34.0-46.0) % RDW 18.6 H (11.5-15.5) % Plt Count 31 L* (150-450) k/uL Neutrophils # (Manual) 0.60 L (1.3-7.7) k/uL Lymphocytes # (Manual) 0.48 L (1.0-4.8) k/uL Chloride (98-107) mmol/L Carbon Dioxide (22-30) mmol/L Creatinine (0.52-1.04) mg/dL Glucose (74-99) mg/dL POC Glucose (mg/dL) 113 H (75-99) mg/dL Calcium (8.4-10.2) mg/dL Microbiology - Last 24 Hours (Table) 05/14/18 11:55 Urine Culture - Final Urine,Catheterized 05/14/18 08:18 Blood Culture - Preliminary Blood No Growth after 24 hours 05/11/18 00:13 Blood Culture - Preliminary Blood No Growth after 96 hours 05/13/18 15:56 Blood Culture - Preliminary Blood No Growth after 24 hours Assessment and Plan Assessment: Ovarian cancer with metastases Pancytopenia Metabolic encephalopathy, resolving Severe anemia, status post blood transfusion Seizure Episodic V. tach Acute renal failure Plan: This is a 10 years old female with musculoskeletal history of metastatic cancer who presents with pancytopenia picture and metabolic encephalopathy. At the complicated by blood transfusion reaction. Intensive care and put on follow-up is appreciated. Cardiology and hem/onc are on the case. Her antihypertensives were restarted with metoprolol 25 mg twice a day. And Lasix. Continue with antibiotics to Zoclintn, got 1 dose of vancomycin. Patient on amiodarone per cardiology team and [facility] neurology R following the patient. Continue with GI and DVT prophylaxis. Further recommendation based on the clinical course. Prognosis is guarded
[2018-05-15 17:35] LABS: Glucose,Whole Blood 111 mg/dL (75-99)
[2018-05-15 20:54] LABS: Glucose,Whole Blood 116 mg/dL (75-99)
[2018-05-15] MEDS: ATORVASTATIN 40 MG TAB PO SCH (21:33)
[2018-05-15] MEDS: METOPROLOL TARTRATE 25 MG TAB PO SCH (21:33)
[2018-05-16] MEDS: HYDROcodone/APAP 5-325MG 1 EACH TAB PO PRN ×5 (00:44→21:33)
[2018-05-16] MEDS: LORazepam 2 MG/ML INJ IV PRN (00:45)
[2018-05-16] MEDS: SODIUM CHLORIDE 0.45% 1,000 ML IV SCH ×2 (06:03→09:14)
[2018-05-16] MEDS: levETIRAcetam IV 750 MG in SODIUM CHLORIDE 0.9% 100 ML IVPB SCH ×2 (06:03→18:40)
[2018-05-16] MEDS: INSULIN ASPART 100 UNIT/ML 1 ML 10 ML VIAL SQ SCH ×4 (06:22→21:30)
[2018-05-16 06:25] LABS: Glucose,Whole Blood 102 mg/dL (75-99)
[2018-05-16 07:01] LABS: Anisocytosis Slight; HCT 23.2 % (34.0-46.0); HGB 7.6 gm/dL (11.4-16.0); MCH 32.2 pg (25.0-35.0); MCHC 32.9 g/dL (31.0-37.0); MCV 97.8 fL (80.0-100.0); Macrocytosis Slight; Mean Platelet Volume 12.8; RBC 2.37 m/uL (3.80-5.40); RDW 17.8 % (11.5-15.5)
[2018-05-16 07:09] LABS: Albumin 2.5 g/dL (3.5-5.0); Calcium 7.8 mg/dL (8.4-10.2); Magnesium 1.9 mg/dL (1.6-2.3); Potassium 3.9 mmol/L (3.5-5.1); Total Bilirubin 1.4 mg/dL (0.2-1.3); Total Protein 5.1 g/dL (6.3-8.2)
[2018-05-16 07:14] LABS: Platelet Count 29 k/uL (150-450)
[2018-05-16 07:42] LABS: Eosinophils # (M) 0.01 k/uL (0-0.7); Lymphocytes # (M) 0.68 k/uL (1.0-4.8); Monocytes # (M) 0.01 k/uL (0-1.0); Neutrophils % (M) 30 %; Nucleated Red Blood Cells 0 /100 WBC (0-0); Polychromasia Present; Total Cells Counted 100
--- NOTE | 2018-05-16 07:51 | XR ---
EXAMINATION TYPE: XR chest 1V portable DATE OF EXAM: 05/16/2018 HISTORY: shortness of breath. REFERENCE: Previous study dated 05/15/2018. FINDINGS: There has been a midline sternotomy. There is a left internal jugular catheter in place. It s tip is at the cavoatrial junction. There is bibasilar airspace disease. The heart is mildly enlarged. There are small effusions. IMPRESSION: NO SIGNIFICANT INTERVAL CHANGE IN THE APPEARANCE OF THE CHEST.
[2018-05-16] MEDS: PIPERACILLIN-TAZOBACTAM 3.375 GM in DEXTROSE/WATER 1 50ML.BAG IVPB SCH ×3 (09:14→23:10)
[2018-05-16] MEDS: METOPROLOL TARTRATE 25 MG TAB PO SCH ×2 (09:25→20:34)
[2018-05-16] MEDS: FERROUS SULFATE 325 MG TAB PO SCH (09:25)
[2018-05-16] MEDS: AMIODARONE 200 MG TAB PO SCH ×2 (09:25→20:33)
[2018-05-16] MEDS: PANTOPRAZOLE 40 MG/10 ML VIAL IVP SCH (09:25)
[2018-05-16 11:32] LABS: Glucose,Whole Blood 113 mg/dL (75-99)
--- NOTE | 2018-05-16 13:34 | PN ---
PROGRESS NOTE Mrs. Mortensen is an 82-year-old female who presented to the hospital with respiratory failure with status epilepticus and had an episode of non-sustained ventricular tachycardia. She had pancytopenia on presentation. She has a evidence of impaired left ventricular systolic function on this admission, although in the past has been normal. She is status post coronary artery bypass grafting and percutaneous revascularization. She is feeling better today. She continues to be fatigued. She has no chest pain. No dizziness. Her breathing is stable. She continues to be at this time on amiodarone 200 mg twice a day, Lipitor 40 mg daily, metoprolol tartrate 25 mg twice a day. PHYSICAL EXAMINATION: Blood pressure 135/60 with a heart in the 60s. LUNGS: Clear. HEART: Regular rate and rhythm. S1, S2. No S3. No rub. ABDOMEN: Soft, nontender. EXTREMITIES: No significant edema. LAB DATA: Lab data revealed a white blood cell of 1000, hemoglobin 7.6, platelets count 29,000. BUN and creatinine of 13 and 1.39. IMPRESSION: 1. Pancytopenia persistent. 2. History of coronary artery disease, status post bypass grafting. 3. Cardiomyopathy new, could be related to the acute event of respiratory failure and status epilepticus. 4. Chronic kidney disease. 5. Episode of non-sustained ventricular tachycardia, resolved. 6. Hyperlipidemia. RECOMMENDATION: I will continue to hold the aspirin. She was started on beta jesus yesterday. I will follow her renal function and depending on the trend, decision will be made regarding the addition of an [place] inhibitor. Unfortunately, the prognosis is guarded in view of the pancytopenia. MMODL / IJN: [id number] /
[2018-05-16] MEDS: guaiFENesin-DM 600/30MG 1 EACH TAB.ER.12H PO SCH ×2 (14:58→20:34)
[2018-05-16] MEDS: IPRATROPIUM-ALBUTEROL 3 ML NEB INHALATION PRN ×2 (15:34→20:10)
[2018-05-16 16:22] LABS: Glucose,Whole Blood 117 mg/dL (75-99)
[2018-05-16] MEDS: ATORVASTATIN 40 MG TAB PO SCH (20:33)
[2018-05-16 21:09] LABS: Glucose,Whole Blood 122 mg/dL (75-99)
[2018-05-17] MEDS: IPRATROPIUM-ALBUTEROL 3 ML NEB INHALATION PRN ×6 (00:49→23:27)
[2018-05-17] MEDS: SODIUM CHLORIDE 0.45% 1,000 ML IV SCH ×3 (02:30→22:28)
[2018-05-17] MEDS: guaiFENesin SYRUP 100MG/5ML 200 MG/10 ML CUP PO PRN ×3 (04:44→22:23)
[2018-05-17] MEDS: HYDROcodone/APAP 5-325MG 1 EACH TAB PO PRN ×4 (04:44→23:24)
[2018-05-17 06:18] LABS: Glucose,Whole Blood 126 mg/dL (75-99)
[2018-05-17] MEDS: INSULIN ASPART 100 UNIT/ML 1 ML 10 ML VIAL SQ SCH ×4 (06:19→22:27)
[2018-05-17 06:38] LABS: Glucose,Whole Blood 159 mg/dL (75-99)
[2018-05-17 06:50] LABS: Anisocytosis Slight; HGB 7.5 gm/dL (11.4-16.0); MCH 32.2 pg (25.0-35.0); MCHC 32.7 g/dL (31.0-37.0); MCV 98.4 fL (80.0-100.0); Macrocytosis Slight; Mean Platelet Volume 13.2; RBC 2.33 m/uL (3.80-5.40); RDW 17.9 % (11.5-15.5)
[2018-05-17 06:55] LABS: Platelet Count 25 k/uL (150-450); WBC 0.8 k/uL (3.8-10.6)
[2018-05-17 07:01] LABS: Calcium 7.9 mg/dL (8.4-10.2); Potassium 3.6 mmol/L (3.5-5.1)
--- NOTE | 2018-05-17 07:36 | P.PN ---
Subjective Principal diagnosis: Acute mental status change with epileptic activity. This continue present on an 82-year-old -[place] female who essentially was admitted for mild spastic syndrome with pancytopenia. She essentially had CVA last week and is now recovering. She is able to recognize and follow commands closely. She is nonambulatory. Appetite is poor Objective - Vital Signs Vital signs: Vital Signs Temp 97.6 F 05/17/18 04:00 Pulse 77 05/17/18 04:40 Resp 18 05/17/18 04:00 BP 161/65 05/17/18 04:00 Pulse Ox 97 05/17/18 04:00 Intake & Output 05/16/18 05/17/18 05/17/18 18:59 06:59 18:59 Intake Total 810 150 Output Total 700 Balance 110 150 Weight 102 kg Intake: IV 330 Invasive Line 3 30 Piperacillin-Tazobactam 3 100 .375 gm In Dextrose/Water 1 50ml.bag @ 12.5 mls/hr IVPB Q8HR [facility] Rx#: [id number] Sodium Chloride 0.45% 1, 200 000 ml @ 100 mls/hr IV . Q10H [facility] Rx#:[id number] Oral 480 150 Output: Urine 700 Other: Voiding Method Bedside Commode Bedside Commode # Voids 2 # Bowel Movements 1 ABP, PAP, CO, CI - Last Documented Arterial Blood Pressure 147/45 - Constitutional General appearance: Present: obese - Respiratory Respiratory: bilateral: CTA - Cardiovascular Rhythm: regular Heart sounds: normal: S1, S2 Abnormal Heart Sounds: Absent: S3 Gallop - Gastrointestinal General gastrointestinal: Present: soft. Absent: tenderness - Psychiatric Psychiatric: Present: A&O x's 3 - Labs CBC & Chem 7: 05/17/18 06:02 05/17/18 06:02 Labs: Abnormal Lab Results - Last 24 Hours (Table) 05/14/18 05/16/18 05/16/18 Range/Units 00:48 06:24 11:25 WBC (3.8-10.6) k/uL RBC (3.80-5.40) m/uL Hgb (11.4-16.0) gm/dL Hct (34.0-46.0) % RDW (11.5-15.5) % Plt Count (150-450) k/uL Neutrophils # (Manual) 0.30 L (1.3-7.7) k/uL Lymphocytes # (Manual) 0.68 L (1.0-4.8) k/uL Chloride (98-107) mmol/L Carbon Dioxide (22-30) mmol/L Creatinine (0.52-1.04) mg/dL Glucose (74-99) mg/dL POC Glucose (mg/dL) 159 H 113 H (75-99) mg/dL Calcium (8.4-10.2) mg/dL 05/16/18 05/16/18 05/17/18 Range/Units 16:13 21:04 06:02 WBC (3.8-10.6) k/uL RBC (3.80-5.40) m/uL Hgb (11.4-16.0) gm/dL Hct (34.0-46.0) % RDW (11.5-15.5) % Plt Count (150-450) k/uL Neutrophils # (Manual) (1.3-7.7) k/uL Lymphocytes # (Manual) (1.0-4.8) k/uL Chloride 116 H (98-107) mmol/L Carbon Dioxide 20 L (22-30) mmol/L Creatinine 1.36 H (0.52-1.04) mg/dL Glucose 121 H (74-99) mg/dL POC Glucose (mg/dL) 117 H 122 H (75-99) mg/dL Calcium 7.9 L (8.4-10.2) mg/dL 05/17/18 05/17/18 Range/Units 06:02 06:16 WBC 0.8 L* (3.8-10.6) k/uL RBC 2.33 L (3.80-5.40) m/uL Hgb 7.5 L (11.4-16.0) gm/dL Hct 23.0 L (34.0-46.0) % RDW 17.9 H (11.5-15.5) % Plt Count 25 L* (150-450) k/uL Neutrophils # (Manual) (1.3-7.7) k/uL Lymphocytes # (Manual) (1.0-4.8) k/uL Chloride (98-107) mmol/L Carbon Dioxide (22-30) mmol/L Creatinine (0.52-1.04) mg/dL Glucose (74-99) mg/dL POC Glucose (mg/dL) 126 H (75-99) mg/dL Calcium (8.4-10.2) mg/dL Microbiology - Last 24 Hours (Table) 05/11/18 00:13 Blood Culture - Final Blood No Growth after 144 hours 05/13/18 15:56 Blood Culture - Preliminary Blood No Growth after 72 hours 05/14/18 08:18 Blood Culture - Preliminary Blood No Growth after 48 hours Assessment and Plan (1) Anemia Current Visit: No Status: Acute Code(s): D64.9 - ANEMIA, UNSPECIFIED SNOMED Code(s): 077741178 (2) At risk for readmission to hospital Current Visit: No Status: Acute Code(s): Z91.89 - OTH PERSONAL RISK FACTORS , NOT ELSEWHERE CLASSIFIED SNOMED Code(s): 7026408873357 (3) Atrial fibrillation Current Visit: No Status: Acute Code(s): I48.91 - UNSPECIFIED ATRIAL FIBRILLATION SNOMED Code(s): 25675991 (4) 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 Current Visit: No Status: Acute Code(s): Z95.5 - PRESENCE OF CORONARY ANGIOPLASTY IMPLANT AND GRAFT SNOMED Code(s): 662374241 (5) Shortness of breath Current Visit: No Status: Acute Code(s): R06.02 - SHORTNESS OF BREATH SNOMED Code(s): 490610266 (6) Acute left [employer] stroke Current Visit: Yes Status: Acute Code(s): I63.532 - CEREB INFRC D/T UNSP OCCLS OR STENOS OF LEFT POST CEREB ART SNOMED Code(s): 201910673 (7) Cerebrovascular accident Current Visit: Yes Status: Acute Code(s): I63.9 - CEREBRAL INFARCTION, UNSPECIFIED SNOMED Code(s): 100486988 (8) New onset seizure Current Visit: Yes Status: Acute Code(s): R56.9 - UNSPECIFIED CONVULSIONS SNOMED Code(s): 62101991 Plan: Continue current supportive care. Multiple consultations including neurology, pulmonology, cardiology are appreciated. Prognosis is guarded given her multiple comorbidities of diabetes, atrial fibrillation mild dysplastic syndrome and recent Occipital CVA. Discharge planning with therapy. Check CBC and CMP in a.m. Advanced nutritional support. Time with Patient: Less than 30
[2018-05-17 07:56] LABS: Poikilocytosis (M) Present; RBC Fragments Present
[2018-05-17] MEDS: AMIODARONE 200 MG TAB PO SCH ×2 (08:53→20:09)
[2018-05-17] MEDS: PANTOPRAZOLE 40 MG/10 ML VIAL IVP SCH (08:54)
[2018-05-17] MEDS: FERROUS SULFATE 325 MG TAB PO SCH (08:54)
[2018-05-17] MEDS: METOPROLOL TARTRATE 25 MG TAB PO SCH ×2 (08:54→20:09)
[2018-05-17] MEDS: levETIRAcetam IV 750 MG in SODIUM CHLORIDE 0.9% 100 ML IVPB SCH ×2 (08:59→20:00)
[2018-05-17] MEDS: guaiFENesin-DM 600/30MG 1 EACH TAB.ER.12H PO SCH ×2 (08:59→20:09)
[2018-05-17] MEDS: PIPERACILLIN-TAZOBACTAM 3.375 GM in DEXTROSE/WATER 1 50ML.BAG IVPB SCH ×3 (09:08→23:17)
--- NOTE | 2018-05-17 11:04 | CDI ---
Last Revision, September 2017 Documentation Clarification Form Date: 05/17/18 1102 From: Jayne Ocasio RN, CCDS Admit Date: 05/11/2018 2:26:00 AM Patient Name: Jose Mortensen I Visit Number: [id number] ATTENTION: The Clinical Documentation Specialists (CDI) and [facility] Coding Staff appreciate your assistance in clarifying documentation. Please respond to the clarification below the line at the bottom and electronically sign. The CDI & [facility] Coding staff will review the response and follow-up if needed. Please note: Queries are made part of the Legal Health Record. If you have any questions, please contact the author of this message via ITS. Dr. Idris Weldon Hx of Heart Failure has been documented and requires further specificity. History/Risk Factors: Heart failure, CAD, Chest Pain, DM, GIB, Hyperlipidemia, PA Clinical Indicators: VS/Pulse OX on admission: Temp 98.4, HR 74, RR 18, B/P 161//75, spo2 99% RA BNP: not done 05/12/18 Echocardiogram Results: EF 30-35%, mild concentric LVH, severe tricuspid regurg 05/13/18 Chest X Ray: Correlate to exclude pulmonary venous hypertension and interstitial edema, there may be lower lobe atelectasis versus pneumonia or edema, effusion." All subsequent CXR state "no significant interval of change" Treatment: Furosemide 20 mg IVP x 1 Norvasc 10 mg PO QD Lopressor 25 mg PO BID increased to 100 mg PO BID In your professional opinion, can you please clarify the acuity and type of CHF if known? Chronic Systolic Heart Failure: Chronic Systolic & Diastolic Heart Failure Unable to Determine Other, please specify Please continue to document in your progress notes and discharge summary in order to capture severity of illness and risk of mortality. Include clinical findings that support your diagnosis. MTDD
[2018-05-17 11:19] LABS: Glucose,Whole Blood 123 mg/dL (75-99)
--- NOTE | 2018-05-17 15:25 | P.PN ---
Subjective Progress Note Date: 05/17/18 This is an 82-year-old female who presented to the hospital with respiratory failure, status post epilepticus who had an episode of nonsustained ventricular tachycardia. Patient also has pancytopenia. She has evidence of impaired left ventricular systolic function on this admission, although in the past at his been documented to be normal. Patient has known history of coronary artery disease with prior bypass surgery and percutaneous revascularization. Patient was seen and examined today, sitting up in the chair at bedside. Apparently the patient has been having frequent diarrhea stools today, and also has been coughing up a significant amount of sputum. She is also noted today to have increase in her peripheral edema. Blood pressure 152/70 with a heart rate in the 70s, 97% on 2 L of oxygen. Blood cell count 0.8, hemoglobin 7.5, platelet count 25. Sodium 141, potassium 3.6, BUN 11, creatinine 1.3. Objective - Vital Signs Vital signs: Vital Signs Temp 98.9 F 05/17/18 08:00 Pulse 78 05/17/18 12:36 Resp 16 05/17/18 12:36 BP 153/75 05/17/18 11:40 Pulse Ox 97 05/17/18 11:40 Intake & Output 05/16/18 05/17/18 05/17/18 18:59 06:59 18:59 Intake Total 810 150 120 Output Total 700 500 Balance 110 150 -380 Weight 102 kg 102 kg Intake: IV 330 Invasive Line 3 30 Piperacillin-Tazobactam 3 100 .375 gm In Dextrose/Water 1 50ml.bag @ 12.5 mls/hr IVPB Q8HR [facility] Rx#: [id number] Sodium Chloride 0.45% 1, 200 000 ml @ 100 mls/hr IV . Q10H [facility] Rx#:[id number] Oral 480 150 120 Output: Urine 700 500 Other: Voiding Method Bedside Commode Bedside Commode Bedside Commode # Voids 2 # Bowel Movements 1 ABP, PAP, CO, CI - Last Documented Arterial Blood Pressure 147/45 - Exam PHYSICAL EXAMINATION: GENERAL: 82-year-old female sitting up in the chair at the time of my examination. HEENT: Head is atraumatic, normocephalic. Pupils equal, round. Sclera anicteric. Conjunctiva are clear. Mucous membranes of the mouth are moist. Neck is supple. There is no elevated jugular venous pressure.] bruit is heard. HEART EXAMINATION: Heart S1, S2 normal. No murmur or gallop heard. CHEST EXAMINATION: Lungs are clear to auscultation and precussion. No chest wall tenderness is noted on palpation or with deep breathing. ABDOMEN: Soft, nontender. Bowel sounds are heard. No organomegaly noted. EXTREMITIES: 2+ peripheral pulses with 1+ evidence of peripheral edema and no calf tenderness noted. NEUROLOGIC patient is awake, alert and oriented ?-3. . - Labs CBC & Chem 7: 05/17/18 06:02 05/17/18 06:02 Labs: Abnormal Lab Results - Last 24 Hours (Table) 05/14/18 05/16/18 05/16/18 Range/Units 00:48 16:13 21:04 WBC (3.8-10.6) k/uL RBC (3.80-5.40) m/uL Hgb (11.4-16.0) gm/dL Hct (34.0-46.0) % RDW (11.5-15.5) % Plt Count (150-450) k/uL Chloride (98-107) mmol/L Carbon Dioxide (22-30) mmol/L Creatinine (0.52-1.04) mg/dL Glucose (74-99) mg/dL POC Glucose (mg/dL) 159 H 117 H 122 H (75-99) mg/dL Calcium (8.4-10.2) mg/dL 05/17/18 05/17/18 05/17/18 Range/Units 06:02 06:02 06:16 WBC 0.8 L* (3.8-10.6) k/uL RBC 2.33 L (3.80-5.40) m/uL Hgb 7.5 L (11.4-16.0) gm/dL Hct 23.0 L (34.0-46.0) % RDW 17.9 H (11.5-15.5) % Plt Count 25 L* (150-450) k/uL Chloride 116 H (98-107) mmol/L Carbon Dioxide 20 L (22-30) mmol/L Creatinine 1.36 H (0.52-1.04) mg/dL Glucose 121 H (74-99) mg/dL POC Glucose (mg/dL) 126 H (75-99) mg/dL Calcium 7.9 L (8.4-10.2) mg/dL 05/17/18 Range/Units 11:16 WBC (3.8-10.6) k/uL RBC (3.80-5.40) m/uL Hgb (11.4-16.0) gm/dL Hct (34.0-46.0) % RDW (11.5-15.5) % Plt Count (150-450) k/uL Chloride (98-107) mmol/L Carbon Dioxide (22-30) mmol/L Creatinine (0.52-1.04) mg/dL Glucose (74-99) mg/dL POC Glucose (mg/dL) 123 H (75-99) mg/dL Calcium (8.4-10.2) mg/dL Microbiology - Last 24 Hours (Table) 05/14/18 08:18 Blood Culture - Preliminary Blood No Growth after 72 hours 05/11/18 00:13 Blood Culture - Final Blood No Growth after 144 hours 05/13/18 15:56 Blood Culture - Preliminary Blood No Growth after 72 hours Assessment and Plan Plan: Assessment and plan #1 pancytopenia, persistent #2 known history of coronary artery disease with prior bypass surgery and PCI #3 cardiomyopathy, new, could be related to acute event of respiratory failure and status epilepticus #4 chronic kidney disease #5 episode of nonsustained ventricular tachycardia, resolved #6 hyperlipidemia Plan We will start the patient on hydralazine for more optimal blood pressure control. Patient is also noted today to have bilateral peripheral edema, we will give her a one-time dose of IV Lasix. Check labs in the morning. DNP note has been reviewed, I agree with a documented findings and plan of care. Patient was seen and examined.
[2018-05-17 16:30] LABS: Glucose,Whole Blood 129 mg/dL (75-99)
[2018-05-17] MEDS: LOPERAMIDE 2 MG CAP PO PRN (18:10)
[2018-05-17] MEDS: ATORVASTATIN 40 MG TAB PO SCH (20:09)
[2018-05-17 20:57] LABS: Glucose,Whole Blood 140 mg/dL (75-99)
[2018-05-18] MEDS ORDERED: BENZONATATE 100 MG CAP PO PRN (00:09)
[2018-05-18] MEDS: IPRATROPIUM-ALBUTEROL 3 ML NEB INHALATION PRN ×4 (03:41→16:07)
--- NOTE | 2018-05-18 04:41 | XR ---
EXAMINATION TYPE: XR chest 1V portable DATE OF EXAM: 05/18/2018 COMPARISON: 05/16/2018 HISTORY: Aspiration of a pill TECHNIQUE: Single frontal view of the chest is obtained. FINDINGS: There is no heart failure nor confluent pneumonic infiltrate. There is blunting of left co stophrenic angle. There is left central venous catheter with tip in the superior vena cava. There are chest leads. IMPRESSION: Left pleural effusion. There is clearing of the pulmonary vascular congestion with impro anthony inspiration compared to yesterday. I see no volume loss to suggest atelectasis.
[2018-05-18 05:46] LABS: Glucose,Whole Blood 143 mg/dL (75-99)
[2018-05-18 06:37] LABS: Anisocytosis Slight; HCT 21.9 % (34.0-46.0); HGB 7.2 gm/dL (11.4-16.0); MCH 32.4 pg (25.0-35.0); MCHC 32.9 g/dL (31.0-37.0); MCV 98.4 fL (80.0-100.0); Macrocytosis Slight; Mean Platelet Volume 14.3; RBC 2.23 m/uL (3.80-5.40); RDW 17.9 % (11.5-15.5)
[2018-05-18 06:38] LABS: Platelet Count 25 k/uL (150-450); WBC 0.9 k/uL (3.8-10.6)
[2018-05-18 06:48] LABS: Albumin 2.6 g/dL (3.5-5.0); Potassium 3.3 mmol/L (3.5-5.1); Total Protein 5.4 g/dL (6.3-8.2)
--- NOTE | 2018-05-18 07:06 | P.PN ---
Subjective Progress Note Date: 05/18/18 Principal diagnosis: Acute mental status change with epileptic activity. This is a 82-year-old black female essentially admitted for mild dysplasia found to have seizure related to hypoxia and CVA. The patient is now stabilized after being respiratory dependent several days ago. Discharge planning for appropriate rehab needs to be instituted. Guaiac stool was supposedly positive. We will go ahead and consult surgery although somewhat leery for any type of procedure invasive at this time. Objective - Vital Signs Vital signs: Vital Signs Temp 98.6 F 05/18/18 04:00 Pulse 68 05/18/18 04:00 Resp 19 05/18/18 04:00 BP 147/56 05/18/18 04:00 Pulse Ox 95 05/18/18 04:00 Intake & Output 05/17/18 05/18/18 05/18/18 18:59 06:59 18:59 Intake Total 120 1700 Output Total 1300 Balance -1180 1700 Weight 102 kg 99.2 kg Intake: IV 1300 Piperacillin-Tazobactam 3 100 .375 gm In Dextrose/Water 1 50ml.bag @ 12.5 mls/hr IVPB Q8HR [facility] Rx#: [id number] Sodium Chloride 0.45% 1, 1100 000 ml @ 100 mls/hr IV . Q10H [facility] Rx#:[id number] levETIRAcetam IV 750 mg 100 In Sodium Chloride 0.9% 100 ml @ 400 mls/hr IVPB Q12H [facility] Rx#:[id number] Oral 120 400 Output: Urine 1300 Other: Voiding Method Bedside Commode Bedside Commode # Voids 1 ABP, PAP, CO, CI - Last Documented Arterial Blood Pressure 147/45 - Constitutional General appearance: Present: obese - EENT Eyes: Absent: abnormal pupil - Respiratory Respiratory: bilateral: CTA - Cardiovascular Rhythm: regular Heart sounds: normal: S1, S2 Abnormal Heart Sounds: Absent: S3 Gallop - Gastrointestinal General gastrointestinal: Present: soft. Absent: tenderness - Labs CBC & Chem 7: 05/18/18 06:22 05/18/18 06:22 Labs: Abnormal Lab Results - Last 24 Hours (Table) 05/15/18 05/17/18 05/17/18 Range/Units 14:35 11:16 16:27 WBC (3.8-10.6) k/uL RBC (3.80-5.40) m/uL Hgb (11.4-16.0) gm/dL Hct (34.0-46.0) % RDW (11.5-15.5) % Plt Count (150-450) k/uL Potassium (3.5-5.1) mmol/L Chloride (98-107) mmol/L Carbon Dioxide (22-30) mmol/L Creatinine (0.52-1.04) mg/dL Glucose (74-99) mg/dL POC Glucose (mg/dL) 123 H 129 H (75-99) mg/dL Calcium (8.4-10.2) mg/dL Total Protein (6.3-8.2) g/dL Albumin (3.5-5.0) g/dL Stool Occult Blood Positive H (Negative) 05/17/18 05/18/18 05/18/18 Range/Units 20:56 05:45 06:22 WBC 0.9 L* (3.8-10.6) k/uL RBC 2.23 L (3.80-5.40) m/uL Hgb 7.2 L (11.4-16.0) gm/dL Hct 21.9 L (34.0-46.0) % RDW 17.9 H (11.5-15.5) % Plt Count 25 L* (150-450) k/uL Potassium (3.5-5.1) mmol/L Chloride (98-107) mmol/L Carbon Dioxide (22-30) mmol/L Creatinine (0.52-1.04) mg/dL Glucose (74-99) mg/dL POC Glucose (mg/dL) 140 H 143 H (75-99) mg/dL Calcium (8.4-10.2) mg/dL Total Protein (6.3-8.2) g/dL Albumin (3.5-5.0) g/dL Stool Occult Blood (Negative) 05/18/18 Range/Units 06:22 WBC (3.8-10.6) k/uL RBC (3.80-5.40) m/uL Hgb (11.4-16.0) gm/dL Hct (34.0-46.0) % RDW (11.5-15.5) % Plt Count (150-450) k/uL Potassium 3.3 L (3.5-5.1) mmol/L Chloride 115 H (98-107) mmol/L Carbon Dioxide 19 L (22-30) mmol/L Creatinine 1.20 H (0.52-1.04) mg/dL Glucose 125 H (74-99) mg/dL POC Glucose (mg/dL) (75-99) mg/dL Calcium 8.0 L (8.4-10.2) mg/dL Total Protein 5.4 L (6.3-8.2) g/dL Albumin 2.6 L (3.5-5.0) g/dL Stool Occult Blood (Negative) Microbiology - Last 24 Hours (Table) 05/13/18 15:56 Blood Culture - Preliminary Blood No Growth after 96 hours 05/14/18 08:18 Blood Culture - Preliminary Blood No Growth after 72 hours Assessment and Plan (1) Anemia Current Visit: No Status: Acute Code(s): D64.9 - ANEMIA, UNSPECIFIED SNOMED Code(s): 653407812 (2) At risk for readmission to hospital Current Visit: No Status: Acute Code(s): Z91.89 - OTH PERSONAL RISK FACTORS , NOT ELSEWHERE CLASSIFIED SNOMED Code(s): 9808832978383 (3) Atrial fibrillation Current Visit: No Status: Acute Code(s): I48.91 - UNSPECIFIED ATRIAL FIBRILLATION SNOMED Code(s): 97024998 (4) 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 Current Visit: No Status: Acute Code(s): Z95.5 - PRESENCE OF CORONARY ANGIOPLASTY IMPLANT AND GRAFT SNOMED Code(s): 030715636 (5) Shortness of breath Current Visit: No Status: Acute Code(s): R06.02 - SHORTNESS OF BREATH SNOMED Code(s): 829554558 (6) Acute left [employer] stroke Current Visit: Yes Status: Acute Code(s): I63.532 - CEREB INFRC D/T UNSP OCCLS OR STENOS OF LEFT POST CEREB ART SNOMED Code(s): 818201968 (7) Cerebrovascular accident Current Visit: Yes Status: Acute Code(s): I63.9 - CEREBRAL INFARCTION, UNSPECIFIED SNOMED Code(s): 517835326 (8) New onset seizure Current Visit: Yes Status: Acute Code(s): R56.9 - UNSPECIFIED CONVULSIONS SNOMED Code(s): 24154580 Plan: Continue current regimen or treatment. New. Discharge planning. Dr. Zelaya's group will be covering starting tomorrow through next Thursday. Prognosis is guarded secondary to her multiple comorbidities. Follow CBC in the a.m. Time with Patient: Less than 30
[2018-05-18] MEDS: INSULIN ASPART 100 UNIT/ML 1 ML 10 ML VIAL SQ SCH ×4 (07:08→20:56)
[2018-05-18] MEDS: levETIRAcetam IV 750 MG in SODIUM CHLORIDE 0.9% 100 ML IVPB SCH ×2 (08:42→16:21)
[2018-05-18] MEDS: METOPROLOL TARTRATE 25 MG TAB PO SCH ×2 (08:43→19:43)
[2018-05-18] MEDS: PANTOPRAZOLE 40 MG/10 ML VIAL IVP SCH (08:43)
[2018-05-18] MEDS: AMIODARONE 200 MG TAB PO SCH ×2 (08:43→19:43)
[2018-05-18] MEDS: PIPERACILLIN-TAZOBACTAM 3.375 GM in DEXTROSE/WATER 1 50ML.BAG IVPB SCH ×2 (08:43→16:21)
[2018-05-18] MEDS: FERROUS SULFATE 325 MG TAB PO SCH (08:43)
[2018-05-18] MEDS: guaiFENesin-DM 600/30MG 1 EACH TAB.ER.12H PO SCH ×2 (08:43→19:43)
[2018-05-18 11:43] LABS: Glucose,Whole Blood 119 mg/dL (75-99)
[2018-05-18] MEDS ORDERED: FUROSEMIDE 10 MG/ML 4 ML VIAL IV STA (14:28)
--- NOTE | 2018-05-18 14:29 | P.PN ---
Subjective Progress Note Date: 05/18/18 This is an 82-year-old female who presented to the hospital with respiratory failure, status post epilepticus who had an episode of nonsustained ventricular tachycardia. Patient also has pancytopenia. She has evidence of impaired left ventricular systolic function on this admission, although in the past at his been documented to be normal. Patient has known history of coronary artery disease with prior bypass surgery and percutaneous revascularization. Patient was seen and examined today, sitting up in the chair at bedside. Apparently the patient has been having frequent diarrhea stools today, and also has been coughing up a significant amount of sputum. She is also noted today to have increase in her peripheral edema. Blood pressure 152/70 with a heart rate in the 70s, 97% on 2 L of oxygen. Blood cell count 0.8, hemoglobin 7.5, platelet count 25. Sodium 141, potassium 3.6, BUN 11, creatinine 1.3. 05/18/2018 Patient seen and examined this morning, back in bed at the time of our examination. Doing somewhat better overall. Continues to have persistent cough , edema is improving however continues to have some swelling. Diarrhea improving. Blood pressure 152/60, heart rate in the 70s, 94% on room air. We did give the patient a dose of IV Lasix yesterday, we will again give her a dose of IV Lasix today. Objective - Vital Signs Vital signs: Vital Signs Temp 97.9 F 05/18/18 12:00 Pulse 89 05/18/18 12:13 Resp 16 05/18/18 12:13 BP 157/67 05/18/18 12:00 Pulse Ox 94 L 05/18/18 12:00 Intake & Output 05/17/18 05/18/18 05/18/18 18:59 06:59 18:59 Intake Total 120 1700 440 Output Total 1300 Balance -1180 1700 440 Weight 102 kg 99.2 kg Intake: IV 1300 200 Piperacillin-Tazobactam 3 100 .375 gm In Dextrose/Water 1 50ml.bag @ 12.5 mls/hr IVPB Q8HR [facility] Rx#: [id number] Sodium Chloride 0.45% 1, 1100 200 000 ml @ 100 mls/hr IV . Q10H [facility] Rx#:[id number] levETIRAcetam IV 750 mg 100 In Sodium Chloride 0.9% 100 ml @ 400 mls/hr IVPB Q12H [facility] Rx#:[id number] Oral 120 400 240 Output: Urine 1300 Other: Voiding Method Bedside Commode Bedside Commode Bedside Commode # Voids 1 ABP, PAP, CO, CI - Last Documented Arterial Blood Pressure 147/45 - Exam PHYSICAL EXAMINATION: GENERAL: 82-year-old female sitting up in the chair at the time of my examination. HEENT: Head is atraumatic, normocephalic. Pupils equal, round. Sclera anicteric. Conjunctiva are clear. Mucous membranes of the mouth are moist. Neck is supple. There is no elevated jugular venous pressure.] bruit is heard. HEART EXAMINATION: Heart S1, S2 normal. No murmur or gallop heard. CHEST EXAMINATION: Lungs are clear to auscultation and precussion. No chest wall tenderness is noted on palpation or with deep breathing. ABDOMEN: Soft, nontender. Bowel sounds are heard. No organomegaly noted. EXTREMITIES: 2+ peripheral pulses with trace to 1+ evidence of peripheral edema and no calf tenderness noted. NEUROLOGIC patient is awake, alert and oriented ?-3. . - Labs CBC & Chem 7: 05/18/18 06:22 05/18/18 06:22 Labs: Abnormal Lab Results - Last 24 Hours (Table) 05/15/18 05/17/18 05/17/18 Range/Units 14:35 16:27 20:56 WBC (3.8-10.6) k/uL RBC (3.80-5.40) m/uL Hgb (11.4-16.0) gm/dL Hct (34.0-46.0) % RDW (11.5-15.5) % Plt Count (150-450) k/uL Potassium (3.5-5.1) mmol/L Chloride (98-107) mmol/L Carbon Dioxide (22-30) mmol/L Creatinine (0.52-1.04) mg/dL Glucose (74-99) mg/dL POC Glucose (mg/dL) 129 H 140 H (75-99) mg/dL Calcium (8.4-10.2) mg/dL Total Protein (6.3-8.2) g/dL Albumin (3.5-5.0) g/dL Stool Occult Blood Positive H (Negative) 05/18/18 05/18/18 05/18/18 Range/Units 05:45 06:22 06:22 WBC 0.9 L* (3.8-10.6) k/uL RBC 2.23 L (3.80-5.40) m/uL Hgb 7.2 L (11.4-16.0) gm/dL Hct 21.9 L (34.0-46.0) % RDW 17.9 H (11.5-15.5) % Plt Count 25 L* (150-450) k/uL Potassium 3.3 L (3.5-5.1) mmol/L Chloride 115 H (98-107) mmol/L Carbon Dioxide 19 L (22-30) mmol/L Creatinine 1.20 H (0.52-1.04) mg/dL Glucose 125 H (74-99) mg/dL POC Glucose (mg/dL) 143 H (75-99) mg/dL Calcium 8.0 L (8.4-10.2) mg/dL Total Protein 5.4 L (6.3-8.2) g/dL Albumin 2.6 L (3.5-5.0) g/dL Stool Occult Blood (Negative) 05/18/18 Range/Units 11:31 WBC (3.8-10.6) k/uL RBC (3.80-5.40) m/uL Hgb (11.4-16.0) gm/dL Hct (34.0-46.0) % RDW (11.5-15.5) % Plt Count (150-450) k/uL Potassium (3.5-5.1) mmol/L Chloride (98-107) mmol/L Carbon Dioxide (22-30) mmol/L Creatinine (0.52-1.04) mg/dL Glucose (74-99) mg/dL POC Glucose (mg/dL) 119 H (75-99) mg/dL Calcium (8.4-10.2) mg/dL Total Protein (6.3-8.2) g/dL Albumin (3.5-5.0) g/dL Stool Occult Blood (Negative) Microbiology - Last 24 Hours (Table) 05/14/18 08:18 Blood Culture - Preliminary Blood No Growth after 96 hours 07/19/18 15:56 Blood Culture - Preliminary Blood No Growth after 96 hours Assessment and Plan Plan: Assessment and plan #1 pancytopenia, persistent #2 known history of coronary artery disease with prior bypass surgery and PCI #3 cardiomyopathy, new, could be related to acute event of respiratory failure and status epilepticus #4 chronic kidney disease #5 episode of nonsustained ventricular tachycardia, resolved #6 hyperlipidemia Plan We will give the patient another dose of IV Lasix, check labs in the morning. DNP note has been reviewed, I agree with a documented findings and plan of care. Patient was seen and examined.
--- NOTE | 2018-05-18 15:00 | P.GSCN ---
History of Present Illness Consult date: 05/18/18 Reason for Consult: GI bleeding History of present illness: Patient with a recent diagnosis of myelodysplastic syndrome. She came to the hospital this admission and was found to have acute CVA and respiratory failure. She had some dark-colored stools. She was guaiac positive. Platelet count currently 25. We are asked to see this patient for GI bleed. Denies bright red blood per rectum. Denies abdominal pain. Currently tolerating regular diet. Review of Systems The patient denies any acute changes in vision or hearing, no dysphagia or odynophagia, no chest pain or shortness of breath, no dysuria or hematuria, no headache, no runny nose, no rectal bleeding, no unexplained weight loss Past Medical History Past Medical History: Coronary Artery Disease (CAD), Chest Pain / Angina, Heart Failure, COPD, CVA/TIA, Diabetes Mellitus, GI Bleed, Hyperlipidemia, Hypertension, Myocardial Infarction (IN) Additional Past Medical History / Comment(s): 04/20/16 possible GI bleed with low Hgb. kdiney stones, parkinsons Last Myocardial Infarction Date:: 1997 History of Any Multi-Drug Resistant Organisms: None Reported Past Surgical History: Coronary Bypass/CABG, Heart Catheterization With Stent, Hysterectomy, Orthopedic Surgery Additional Past Surgical History / Comment(s): CABG 1997. Left total hip replacement, colonoscopy nov 2015, angioplasty left leg. kidney surgery with stone removal. multiple heart stents. Past Anesthesia/Blood Transfusion Reactions: No Reported Reaction Additional Past Anesthesia/Blood Transfusion Reaction / Comm: Pt has recieved blood in the past with kidney surgery without reaction. Date of Last Stent Placement:: 04/15/2017 Past Psychological History: No Psychological Hx Reported Additional Psychological History / Comment(s): Pt resides with her spouse and daughter. She uses no assistive device. She is independent. She drives a car. Smoking Status: Former smoker Past Alcohol Use History: None Reported Additional Past Alcohol Use History / Comment(s): Pt started smoking in 1953 and quit in 1993. She had been a 2-3 ppd smoker. Past Drug Use History: None Reported, Prescription Drug Abuse - Past Family History Mother Family Medical History: Cancer Father Additional Family Medical History / Comment(s): aneurysm Medications and Allergies Home Medications Medication Instructions Recorded Confirmed Type Metoprolol Tartrate [Lopressor] 100 mg PO BID 05/02/17 05/11/18 History amLODIPine [Norvasc] 10 mg PO DAILY 05/02/17 05/11/18 History Ferrous Sulfate [Feosol] 325 mg PO DAILY 04/19/18 05/11/18 History Aspirin 81 mg PO DAILY #30 chewable 04/25/18 05/11/18 Rx Atorvastatin [Lipitor] 40 mg PO HS 05/11/18 05/11/18 History Esomeprazole Magnesium [NexIUM] 40 mg PO BID 05/11/18 05/11/18 History metFORMIN HCL [Glucophage] 500 mg PO BID 05/11/18 05/11/18 History Allergies Allergy/AdvReac Type Severity Reaction Status Date / Time Iodinated Contrast- Oral and Allergy Rash/Hives Verified 05/11/18 07:21 IV Dye [Iodinated Contrast Media - IV Dye] shellfish derived [Shellfish] Allergy Rash/Hives Verified 05/11/18 07:21 Surgical - Exam Vital Signs Temp Pulse Resp BP Pulse Ox 98.4 F 74 18 161/75 99 05/10/18 23:20 05/10/18 23:20 05/10/18 23:20 05/10/18 23:20 05/10/18 23:20 Physical exam: General: Well-developed, well-nourished HEENT: Normocephalic, sclerae nonicteric Abdomen: Nontender, nondistended Extremities: No edema Neuro: Alert and oriented Results - Labs 05/18/18 06:22 05/18/18 06:22 Abnormal Lab Results - Last 24 Hours (Table) 05/15/18 05/17/18 05/17/18 Range/Units 14:35 16:27 20:56 WBC (3.8-10.6) k/uL RBC (3.80-5.40) m/uL Hgb (11.4-16.0) gm/dL Hct (34.0-46.0) % RDW (11.5-15.5) % Plt Count (150-450) k/uL Potassium (3.5-5.1) mmol/L Chloride (98-107) mmol/L Carbon Dioxide (22-30) mmol/L Creatinine (0.52-1.04) mg/dL Glucose (74-99) mg/dL POC Glucose (mg/dL) 129 H 140 H (75-99) mg/dL Calcium (8.4-10.2) mg/dL Total Protein (6.3-8.2) g/dL Albumin (3.5-5.0) g/dL Stool Occult Blood Positive H (Negative) 05/18/18 05/18/18 05/18/18 Range/Units 05:45 06:22 06:22 WBC 0.9 L* (3.8-10.6) k/uL RBC 2.23 L (3.80-5.40) m/uL Hgb 7.2 L (11.4-16.0) gm/dL Hct 21.9 L (34.0-46.0) % RDW 17.9 H (11.5-15.5) % Plt Count 25 L* (150-450) k/uL Potassium 3.3 L (3.5-5.1) mmol/L Chloride 115 H (98-107) mmol/L Carbon Dioxide 19 L (22-30) mmol/L Creatinine 1.20 H (0.52-1.04) mg/dL Glucose 125 H (74-99) mg/dL POC Glucose (mg/dL) 143 H (75-99) mg/dL Calcium 8.0 L (8.4-10.2) mg/dL Total Protein 5.4 L (6.3-8.2) g/dL Albumin 2.6 L (3.5-5.0) g/dL Stool Occult Blood (Negative) 05/18/18 Range/Units 11:31 WBC (3.8-10.6) k/uL RBC (3.80-5.40) m/uL Hgb (11.4-16.0) gm/dL Hct (34.0-46.0) % RDW (11.5-15.5) % Plt Count (150-450) k/uL Potassium (3.5-5.1) mmol/L Chloride (98-107) mmol/L Carbon Dioxide (22-30) mmol/L Creatinine (0.52-1.04) mg/dL Glucose (74-99) mg/dL POC Glucose (mg/dL) 119 H (75-99) mg/dL Calcium (8.4-10.2) mg/dL Total Protein (6.3-8.2) g/dL Albumin (3.5-5.0) g/dL Stool Occult Blood (Negative) Microbiology - Last 24 Hours (Table) 05/14/18 08:18 Blood Culture - Preliminary Blood No Growth after 96 hours 05/13/18 15:56 Blood Culture - Preliminary Blood No Growth after 96 hours Diabetes panel 05/18/18 Range/Units 06:22 Sodium 140 (137-145) mmol/L Potassium 3.3 L (3.5-5.1) mmol/L Chloride 115 H (98-107) mmol/L Carbon Dioxide 19 L (22-30) mmol/L BUN 9 (7-17) mg/dL Creatinine 1.20 H (0.52-1.04) mg/dL Glucose 125 H (74-99) mg/dL Calcium 8.0 L (8.4-10.2) mg/dL AST 21 (14-36) U/L ALT 32 (9-52) U/L Alkaline Phosphatase 77 (38-126) U/L Total Protein 5.4 L (6.3-8.2) g/dL Albumin 2.6 L (3.5-5.0) g/dL Calcium panel 05/18/18 Range/Units 06:22 Calcium 8.0 L (8.4-10.2) mg/dL Albumin 2.6 L (3.5-5.0) g/dL Pituitary panel 05/18/18 Range/Units 06:22 Sodium 140 (137-145) mmol/L Potassium 3.3 L (3.5-5.1) mmol/L Chloride 115 H (98-107) mmol/L Carbon Dioxide 19 L (22-30) mmol/L BUN 9 (7-17) mg/dL Creatinine 1.20 H (0.52-1.04) mg/dL Glucose 125 H (74-99) mg/dL Calcium 8.0 L (8.4-10.2) mg/dL Adrenal panel 05/18/18 Range/Units 06:22 Sodium 140 (137-145) mmol/L Potassium 3.3 L (3.5-5.1) mmol/L Chloride 115 H (98-107) mmol/L Carbon Dioxide 19 L (22-30) mmol/L BUN 9 (7-17) mg/dL Creatinine 1.20 H (0.52-1.04) mg/dL Glucose 125 H (74-99) mg/dL Calcium 8.0 L (8.4-10.2) mg/dL Total Bilirubin 1.0 (0.2-1.3) mg/dL AST 21 (14-36) U/L ALT 32 (9-52) U/L Alkaline Phosphatase 77 (38-126) U/L Total Protein 5.4 L (6.3-8.2) g/dL Albumin 2.6 L (3.5-5.0) g/dL Assessment and Plan (1) GI bleed Narrative/Plan: Patient with thrombocytopenia. This may be contributing to a GI source of bleeding. Will discuss further with hematology but no immediate plans for endoscopy at this time. Patient's family was not interested in intervention at this time as well. Will follow. Current Visit: No Status: Acute Code(s): K92.2 - GASTROINTESTINAL HEMORRHAGE , UNSPECIFIED SNOMED Code(s): 67098245
[2018-05-18] MEDS: POTASSIUM CHLORIDE ER 20 MEQ TAB.ER PO SCH ×2 (16:21→18:02)
[2018-05-18] MEDS: HYDROcodone/APAP 5-325MG 1 EACH TAB PO PRN ×2 (16:27→23:00)
[2018-05-18 16:54] LABS: Glucose,Whole Blood 133 mg/dL (75-99)
[2018-05-18] MEDS: ATORVASTATIN 40 MG TAB PO SCH (19:43)
[2018-05-18 20:53] LABS: Glucose,Whole Blood 133 mg/dL (75-99)
[2018-05-18] MEDS: SODIUM CHLORIDE 0.45% 1,000 ML IV SCH (23:29)
[2018-05-19] MEDS: PIPERACILLIN-TAZOBACTAM 3.375 GM in DEXTROSE/WATER 1 50ML.BAG IVPB SCH ×3 (00:01→16:25)
[2018-05-19] MEDS: guaiFENesin SYRUP 100MG/5ML 200 MG/10 ML CUP PO PRN (03:45)
[2018-05-19] MEDS: SODIUM CHLORIDE 0.45% 1,000 ML IV SCH ×2 (04:03→16:37)
[2018-05-19 06:05] LABS: Glucose,Whole Blood 118 mg/dL (75-99)
[2018-05-19] MEDS: INSULIN ASPART 100 UNIT/ML 1 ML 10 ML VIAL SQ SCH ×7 (06:09→21:51)
[2018-05-19] MEDS: levETIRAcetam IV 750 MG in SODIUM CHLORIDE 0.9% 100 ML IVPB SCH ×2 (06:27→19:50)
[2018-05-19 06:33] LABS: Anisocytosis Slight; HCT 22.3 % (34.0-46.0); HGB 7.3 gm/dL (11.4-16.0); MCH 32.1 pg (25.0-35.0); MCHC 32.6 g/dL (31.0-37.0); MCV 98.4 fL (80.0-100.0); Macrocytosis Slight; Mean Platelet Volume 7.9; RBC 2.27 m/uL (3.80-5.40); RDW 18.6 % (11.5-15.5)
[2018-05-19 06:46] LABS: Platelet Count 18 k/uL (150-450)
[2018-05-19 06:49] LABS: Calcium 7.9 mg/dL (8.4-10.2); Potassium 3.6 mmol/L (3.5-5.1)
[2018-05-19] MEDS: METOPROLOL TARTRATE 25 MG TAB PO SCH ×2 (08:06→20:33)
[2018-05-19] MEDS: PANTOPRAZOLE 40 MG TABLET PO SCH (08:07)
[2018-05-19] MEDS: AMIODARONE 200 MG TAB PO SCH (08:07)
[2018-05-19] MEDS: guaiFENesin-DM 600/30MG 1 EACH TAB.ER.12H PO SCH ×2 (08:07→20:33)
[2018-05-19] MEDS: FERROUS SULFATE 325 MG TAB PO SCH (08:07)
[2018-05-19 11:35] LABS: Glucose,Whole Blood 127 mg/dL (75-99)
[2018-05-19] MEDS: ENALAPRILAT 1.25 MG/ML 1 ML VIAL IVP SCH ×2 (11:45→11:46)
[2018-05-19] MEDS: ACETAMINOPHEN IV (For NPO) 1,000 MG in EMPTY BAG 1 BAG IVPB SCH (11:46)
--- NOTE | 2018-05-19 12:31 | P.PN ---
Subjective Progress Note Date: 05/19/18 Principal diagnosis: Rectal bleeding Patient feels weak today. Denies abdominal pain. The patient was is having some side pain when coughing last night. That is resolved currently. Appetite is diminished. Some black colored stools but no rectal bleeding or melena. Objective - Vital Signs Vital signs: Vital Signs Temp 97.5 F L 05/19/18 09:00 Pulse 84 05/19/18 09:00 Resp 18 05/19/18 09:00 BP 162/78 05/19/18 09:00 Pulse Ox 95 05/19/18 09:00 Intake & Output 05/18/18 05/19/18 05/19/18 18:59 06:59 18:59 Intake Total 680 1300 240 Output Total 1400 Balance 680 -100 240 Weight 98.2 kg Intake: IV 200 1050 Piperacillin-Tazobactam 3 50 .375 gm In Dextrose/Water 1 50ml.bag @ 12.5 mls/hr IVPB Q8HR [facility] Rx#: [id number] Sodium Chloride 0.45% 1, 200 1000 000 ml @ 100 mls/hr IV . Q10H [facility] Rx#:[id number] Oral 480 250 240 Output: Urine 1400 Other: Voiding Method Bedside Commode Bedside Commode Bedside Commode # Voids 2 1 # Bowel Movements 1 1 ABP, PAP, CO, CI - Last Documented Arterial Blood Pressure 147/45 - Exam Abdomen: Soft, nontender, nondistended - Labs CBC & Chem 7: 05/19/18 05:26 05/19/18 05:26 Labs: Abnormal Lab Results - Last 24 Hours (Table) 05/18/18 05/18/18 05/19/18 Range/Units 16:19 20:47 05:26 WBC 1.0 L* (3.8-10.6) k/uL RBC 2.27 L (3.80-5.40) m/uL Hgb 7.3 L (11.4-16.0) gm/dL Hct 22.3 L (34.0-46.0) % RDW 18.6 H (11.5-15.5) % Plt Count 18 L* (150-450) k/uL Chloride (98-107) mmol/L Carbon Dioxide (22-30) mmol/L Creatinine (0.52-1.04) mg/dL Glucose (74-99) mg/dL POC Glucose (mg/dL) 133 H 133 H (75-99) mg/dL Calcium (8.4-10.2) mg/dL 05/19/18 05/19/18 05/19/18 Range/Units 05:26 06:00 11:07 WBC (3.8-10.6) k/uL RBC (3.80-5.40) m/uL Hgb (11.4-16.0) gm/dL Hct (34.0-46.0) % RDW (11.5-15.5) % Plt Count (150-450) k/uL Chloride 114 H (98-107) mmol/L Carbon Dioxide 21 L (22-30) mmol/L Creatinine 1.25 H (0.52-1.04) mg/dL Glucose 112 H (74-99) mg/dL POC Glucose (mg/dL) 118 H 127 H (75-99) mg/dL Calcium 7.9 L (8.4-10.2) mg/dL Microbiology - Last 24 Hours (Table) 05/14/18 08:18 Blood Culture - Preliminary Blood No Growth after 120 hours 05/13/18 15:56 Blood Culture - Preliminary Blood No Growth after 120 hours Assessment and Plan (1) GI bleed Narrative/Plan: Patient with persistent thrombocytopenia. Some melanotic colored stools. No GI workup plan at this time unless requested by oncology. Current Visit: No Status: Acute Code(s): K92.2 - GASTROINTESTINAL HEMORRHAGE , UNSPECIFIED SNOMED Code(s): 62177371
--- NOTE | 2018-05-19 13:39 | P.PN ---
Subjective Progress Note Date: 05/19/18 This is an 82-year-old female who presented to the hospital with respiratory failure, status post epilepticus who had an episode of nonsustained ventricular tachycardia. Patient also has pancytopenia. She has evidence of impaired left ventricular systolic function on this admission, although in the past at his been documented to be normal. Patient has known history of coronary artery disease with prior bypass surgery and percutaneous revascularization. Patient was seen and examined today, sitting up in the chair at bedside. Apparently the patient has been having frequent diarrhea stools today, and also has been coughing up a significant amount of sputum. She is also noted today to have increase in her peripheral edema. Blood pressure 152/70 with a heart rate in the 70s, 97% on 2 L of oxygen. Blood cell count 0.8, hemoglobin 7.5, platelet count 25. Sodium 141, potassium 3.6, BUN 11, creatinine 1.3. 05/18/2018 Patient seen and examined this morning, back in bed at the time of our examination. Doing somewhat better overall. Continues to have persistent cough , edema is improving however continues to have some swelling. Diarrhea improving. Blood pressure 152/60, heart rate in the 70s, 94% on room air. We did give the patient a dose of IV Lasix yesterday, we will again give her a dose of IV Lasix today. 05/19/2018 Patient seen and examined this morning, edema is almost completely gone, breathing is overall stable. Blood pressure 154/60 heart rate in the 70s, 96% on room air. White blood cell count 1.0, hemoglobin 7.3, platelet count 18. Sodium 146, potassium 3.6, BUN 9, creatinine 1.2 we will start the patient on Lasix 20 mg one tablet by mouth twice a day. From our perspective we will follow her along with you now on an as-needed basis only, please don't hesitate to call with any questions. We will make a follow-up appointment for the patient to see Dr. Kellogg in the office post discharge. Objective - Vital Signs Vital signs: Vital Signs Temp 97.8 F 05/19/18 12:00 Pulse 70 05/19/18 12:00 Resp 16 05/19/18 12:00 BP 156/65 05/19/18 12:00 Pulse Ox 96 05/19/18 12:00 Intake & Output 05/18/18 05/19/18 05/19/18 18:59 06:59 18:59 Intake Total 680 1300 240 Output Total 1400 Balance 680 -100 240 Weight 98.2 kg Intake: IV 200 1050 Piperacillin-Tazobactam 3 50 .375 gm In Dextrose/Water 1 50ml.bag @ 12.5 mls/hr IVPB Q8HR [facility] Rx#: [id number] Sodium Chloride 0.45% 1, 200 1000 000 ml @ 100 mls/hr IV . Q10H [facility] Rx#:[id number] Oral 480 250 240 Output: Urine 1400 Other: Voiding Method Bedside Commode Bedside Commode Bedside Commode # Voids 2 1 # Bowel Movements 1 1 ABP, PAP, CO, CI - Last Documented Arterial Blood Pressure 147/45 - Exam PHYSICAL EXAMINATION: GENERAL: 82-year-old female sitting up in the chair at the time of my examination. HEENT: Head is atraumatic, normocephalic. Pupils equal, round. Sclera anicteric. Conjunctiva are clear. Mucous membranes of the mouth are moist. Neck is supple. There is no elevated jugular venous pressure.] bruit is heard. HEART EXAMINATION: Heart S1, S2 normal. No murmur or gallop heard. CHEST EXAMINATION: Lungs are clear to auscultation and precussion. No chest wall tenderness is noted on palpation or with deep breathing. ABDOMEN: Soft, nontender. Bowel sounds are heard. No organomegaly noted. EXTREMITIES: 2+ peripheral pulses with trace to 1+ evidence of peripheral edema and no calf tenderness noted. NEUROLOGIC patient is awake, alert and oriented ?-3. . - Labs CBC & Chem 7: 05/19/18 05:26 05/19/18 05:26 Labs: Abnormal Lab Results - Last 24 Hours (Table) 05/18/18 05/18/18 05/19/18 Range/Units 16:19 20:47 05:26 WBC 1.0 L* (3.8-10.6) k/uL RBC 2.27 L (3.80-5.40) m/uL Hgb 7.3 L (11.4-16.0) gm/dL Hct 22.3 L (34.0-46.0) % RDW 18.6 H (11.5-15.5) % Plt Count 18 L* (150-450) k/uL Chloride (98-107) mmol/L Carbon Dioxide (22-30) mmol/L Creatinine (0.52-1.04) mg/dL Glucose (74-99) mg/dL POC Glucose (mg/dL) 133 H 133 H (75-99) mg/dL Calcium (8.4-10.2) mg/dL 05/19/18 05/19/18 05/19/18 Range/Units 05:26 06:00 11:07 WBC (3.8-10.6) k/uL RBC (3.80-5.40) m/uL Hgb (11.4-16.0) gm/dL Hct (34.0-46.0) % RDW (11.5-15.5) % Plt Count (150-450) k/uL Chloride 114 H (98-107) mmol/L Carbon Dioxide 21 L (22-30) mmol/L Creatinine 1.25 H (0.52-1.04) mg/dL Glucose 112 H (74-99) mg/dL POC Glucose (mg/dL) 118 H 127 H (75-99) mg/dL Calcium 7.9 L (8.4-10.2) mg/dL Microbiology - Last 24 Hours (Table) 05/14/18 08:18 Blood Culture - Preliminary Blood No Growth after 120 hours 05/13/18 15:56 Blood Culture - Preliminary Blood No Growth after 120 hours Assessment and Plan Plan: Assessment and plan #1 pancytopenia, persistent #2 known history of coronary artery disease with prior bypass surgery and PCI #3 cardiomyopathy, new, could be related to acute event of respiratory failure and status epilepticus #4 chronic kidney disease #5 episode of nonsustained ventricular tachycardia, resolved #6 hyperlipidemia Plan From cardiology's perspective, we'll start the patient on Lasix 20 mg one tablet by mouth twice a day. We will follow her along with you now on an as- needed basis only, please don't hesitate to call if you have any questions. Upon discharge we will make a follow-up appointment to see Dr. Kellogg in the office. DNP note has been reviewed, I agree with a documented findings and plan of care. Patient was seen and examined.
[2018-05-19] MEDS: FUROSEMIDE 20 MG TAB PO SCH (16:23)
[2018-05-19 16:34] LABS: Glucose,Whole Blood 104 mg/dL (75-99)
--- NOTE | 2018-05-19 16:52 | P.PN ---
Subjective This is a pleasant 82 old female with past medical history of mild dysplastic syndrome with pancytopenia, coronary artery disease, CHF, COPD, CVA/TIA, diabetes mellitus, GI bleed, hyperlipidemia, hypertension, who presents from home because originally she was confused where she has difficulty operating her TV, so she came to emergency room. On admission patient has low hemoglobin at 8.3 and 67 going down to 6.6. Patient got blood transfusion which was complicated by status epilepticus and V. tach, patient was intubated temporarily and sent to the ICU patient was extubated yesterday and clinically she is more stable currently. Her last hemoglobin is 7.6, patient also noticed to be pancytopenia with WBC 1.2 and platelets 31 area that INR is 1.1. Her creatinine is trending up from 1.1-1.4 subjective pt is resting in bed comfortably , not in distress, complaining from coughing and some dyspnea, family were at bed side and updated them and all their questions were answered to their satisfaction's. So complains from loose stool. C. diff was negative. Objective - Vital Signs Vital signs: Vital Signs Temp 98.1 F 05/16/18 11:30 Pulse 68 05/16/18 12:00 Resp 18 05/16/18 12:00 BP 135/64 05/16/18 11:30 Pulse Ox 98 05/16/18 11:30 Intake & Output 05/15/18 05/16/18 05/16/18 18:59 06:59 18:59 Intake Total 2280.0 570 Output Total 1365 800 Balance 915.0 -800 570 Weight 101 kg Intake: IV 1750.0 330 Invasive Line 3 30 Magnesium Sulfate-D5w Pmx 200 1 gm In Dextrose/Water 1 100ml.bag @ 100 mls/hr IVPB Q1H [facility] Rx#: [id number] Piperacillin-Tazobactam 3 50.0 100 .375 gm In Dextrose/Water 1 50ml.bag @ 12.5 mls/hr IVPB Q8HR [facility] Rx#: [id number] Sodium Chloride 0.45% 1, 500 000 ml @ 100 mls/hr IV . Q10H [facility] Rx#:[id number] Sodium Chloride 0.45% 1, 900 200 000 ml @ 100 mls/hr IV . Q10H [facility] Rx#:[id number] levETIRAcetam IV 750 mg 100 In Sodium Chloride 0.9% 100 ml @ 400 mls/hr IVPB Q12H [facility] Rx#:[id number] Oral 530 240 Output: Urine 1365 800 Other: Voiding Method Indwelling Catheter Bedside Commode Bedside Commode ABP, PAP, CO, CI - Last Documented Arterial Blood Pressure 147/45 - Exam GENERAL: The patient is alert and oriented x3, not in any acute distress. Well developed, well nourished. HEENT: Pupils are round and equally reacting to light. EOMI. No scleral icterus. No conjunctival pallor. Normocephalic, atraumatic. No pharyngeal erythema. No thyromegaly. CARDIOVASCULAR: S1 and S2 present. No murmurs, rubs, or gallops. PULMONARY: Chest is clear to auscultation, no wheezing or crackles. ABDOMEN: Soft, nontender, nondistended, normoactive bowel sounds. No palpable organomegaly. MUSCULOSKELETAL: No joint swelling or deformity. EXTREMITIES: No cyanosis, clubbing, or pedal edema. NEUROLOGICAL: Gross neurological examination did not reveal any focal deficits. SKIN: No rashes. - Labs CBC & Chem 7: 05/19/18 05:26 05/19/18 05:26 Labs: Abnormal Lab Results - Last 24 Hours (Table) 05/15/18 05/15/18 05/16/18 Range/Units 17:23 20:44 06:15 WBC (3.8-10.6) k/uL RBC (3.80-5.40) m/uL Hgb (11.4-16.0) gm/dL Hct (34.0-46.0) % RDW (11.5-15.5) % Plt Count (150-450) k/uL Neutrophils # (Manual) (1.3-7.7) k/uL Lymphocytes # (Manual) (1.0-4.8) k/uL Chloride (98-107) mmol/L Carbon Dioxide (22-30) mmol/L Creatinine (0.52-1.04) mg/dL Glucose (74-99) mg/dL POC Glucose (mg/dL) 111 H 116 H 102 H (75-99) mg/dL Calcium (8.4-10.2) mg/dL Total Bilirubin (0.2-1.3) mg/dL Total Protein (6.3-8.2) g/dL Albumin (3.5-5.0) g/dL 05/16/18 05/16/18 05/16/18 Range/Units 06:24 06:24 11:25 WBC 1.0 L* (3.8-10.6) k/uL RBC 2.37 L (3.80-5.40) m/uL Hgb 7.6 L (11.4-16.0) gm/dL Hct 23.2 L (34.0-46.0) % RDW 17.8 H (11.5-15.5) % Plt Count 29 L* (150-450) k/uL Neutrophils # (Manual) 0.30 L (1.3-7.7) k/uL Lymphocytes # (Manual) 0.68 L (1.0-4.8) k/uL Chloride 118 H (98-107) mmol/L Carbon Dioxide 18 L (22-30) mmol/L Creatinine 1.39 H (0.52-1.04) mg/dL Glucose 101 H (74-99) mg/dL POC Glucose (mg/dL) 113 H (75-99) mg/dL Calcium 7.8 L (8.4-10.2) mg/dL Total Bilirubin 1.4 H (0.2-1.3) mg/dL Total Protein 5.1 L (6.3-8.2) g/dL Albumin 2.5 L (3.5-5.0) g/dL Microbiology - Last 24 Hours (Table) 05/14/18 08:18 Blood Culture - Preliminary Blood No Growth after 48 hours 05/11/18 00:13 Blood Culture - Preliminary Blood No Growth after 120 hours 05/13/18 15:56 Blood Culture - Preliminary Blood No Growth after 48 hours 05/14/18 11:55 Urine Culture - Final Urine,Catheterized Assessment and Plan Assessment: Ovarian cancer with metastases Pancytopenia Metabolic encephalopathy, resolving Severe anemia, status post blood transfusion Seizure Episodic V. tach Acute renal failure Plan: This is a 82 years old female with musculoskeletal history of metastatic cancer who presents with pancytopenia picture and metabolic encephalopathy. At the complicated by blood transfusion reaction. Intensive care and put on follow-up is appreciated. Cardiology and hem/onc are on the case. Her antihypertensives were restarted with metoprolol 25 mg twice a day. And Lasix. Continue with antibiotics to Zosyn, got 1 dose of vancomycin. Patient on amiodarone per cardiology team and [facility], neurology and hematology/oncology are following the patient. Continue with GI and DVT prophylaxis. Further recommendation based on the clinical course. Prognosis is guarded
--- NOTE | 2018-05-19 16:56 | P.PN ---
Subjective ON-call hospitalist covering for from 05/19 till 05/24 This is a pleasant 82 old female with past medical history of mild dysplastic syndrome with pancytopenia, coronary artery disease, CHF, COPD, CVA/TIA, diabetes mellitus, GI bleed, hyperlipidemia, hypertension, who presents from home because originally she was confused where she has difficulty operating her TV, so she came to emergency room. On admission patient has low hemoglobin at 8.3 and 67 going down to 6.6. Patient got blood transfusion which was complicated by status epilepticus and V. tach, patient was intubated temporarily and sent to the ICU patient was extubated yesterday and clinically she is more stable currently. Her last hemoglobin is 7.6, patient also noticed to be pancytopenia with WBC 1.2 and platelets 31 area that INR is 1.1. Her creatinine is trending up from 1.1-1.4 subjective pt is resting in bed comfortably , in mild distress due to nausea, complaining from coughing and some dyspnea, family were at bed side and updated them and all their questions were answered to their satisfaction's. So complains from loose stool. C. diff was negative., has mild abd pain when she coughs , abd exam looks benign, pt will have meeting with hem/onc team Objective - Vital Signs Vital signs: Vital Signs Temp 97.8 F 05/19/18 12:00 Pulse 70 05/19/18 12:00 Resp 16 05/19/18 12:00 BP 156/65 05/19/18 12:00 Pulse Ox 96 05/19/18 12:00 Intake & Output 05/18/18 05/19/18 05/19/18 18:59 06:59 18:59 Intake Total 680 1300 600 Output Total 1400 400 Balance 680 -100 200 Weight 98.2 kg Intake: IV 200 1050 Piperacillin-Tazobactam 3 50 .375 gm In Dextrose/Water 1 50ml.bag @ 12.5 mls/hr IVPB Q8HR [facility] Rx#: [id number] Sodium Chloride 0.45% 1, 200 1000 000 ml @ 100 mls/hr IV . Q10H [facility] Rx#:[id number] Oral 480 250 600 Output: Urine 1400 400 Other: Voiding Method Bedside Commode Bedside Commode Bedside Commode # Voids 2 1 # Bowel Movements 1 1 ABP, PAP, CO, CI - Last Documented Arterial Blood Pressure 147/45 - Exam GENERAL: The patient is alert and oriented x3, not in any acute distress. Well developed, well nourished. HEENT: Pupils are round and equally reacting to light. EOMI. No scleral icterus. No conjunctival pallor. Normocephalic, atraumatic. No pharyngeal erythema. No thyromegaly. CARDIOVASCULAR: S1 and S2 present. No murmurs, rubs, or gallops. PULMONARY: Chest is clear to auscultation, no wheezing or crackles. ABDOMEN: Soft, nontender, nondistended, normoactive bowel sounds. No palpable organomegaly. MUSCULOSKELETAL: No joint swelling or deformity. EXTREMITIES: No cyanosis, clubbing, or pedal edema. NEUROLOGICAL: Gross neurological examination did not reveal any focal deficits. SKIN: No rashes. - Labs CBC & Chem 7: 05/19/18 05:26 05/19/18 05:26 Labs: Abnormal Lab Results - Last 24 Hours (Table) 05/18/18 05/18/18 05/19/18 Range/Units 16:19 20:47 05:26 WBC 1.0 L* (3.8-10.6) k/uL RBC 2.27 L (3.80-5.40) m/uL Hgb 7.3 L (11.4-16.0) gm/dL Hct 22.3 L (34.0-46.0) % RDW 18.6 H (11.5-15.5) % Plt Count 18 L* (150-450) k/uL Chloride (98-107) mmol/L Carbon Dioxide (22-30) mmol/L Creatinine (0.52-1.04) mg/dL Glucose (74-99) mg/dL POC Glucose (mg/dL) 133 H 133 H (75-99) mg/dL Calcium (8.4-10.2) mg/dL 05/19/18 05/19/18 05/19/18 Range/Units 05:26 06:00 11:07 WBC (3.8-10.6) k/uL RBC (3.80-5.40) m/uL Hgb (11.4-16.0) gm/dL Hct (34.0-46.0) % RDW (11.5-15.5) % Plt Count (150-450) k/uL Chloride 114 H (98-107) mmol/L Carbon Dioxide 21 L (22-30) mmol/L Creatinine 1.25 H (0.52-1.04) mg/dL Glucose 112 H (74-99) mg/dL POC Glucose (mg/dL) 118 H 127 H (75-99) mg/dL Calcium 7.9 L (8.4-10.2) mg/dL 05/19/18 Range/Units 16:28 WBC (3.8-10.6) k/uL RBC (3.80-5.40) m/uL Hgb (11.4-16.0) gm/dL Hct (34.0-46.0) % RDW (11.5-15.5) % Plt Count (150-450) k/uL Chloride (98-107) mmol/L Carbon Dioxide (22-30) mmol/L Creatinine (0.52-1.04) mg/dL Glucose (74-99) mg/dL POC Glucose (mg/dL) 104 H (75-99) mg/dL Calcium (8.4-10.2) mg/dL Microbiology - Last 24 Hours (Table) 05/14/18 08:18 Blood Culture - Preliminary Blood No Growth after 120 hours 05/13/18 15:56 Blood Culture - Preliminary Blood No Growth after 120 hours Assessment and Plan Assessment: Ovarian cancer with metastases Pancytopenia Metabolic encephalopathy, resolving Severe anemia, status post blood transfusion Seizure Episodic V. tach Acute renal failure Plan: This is a 82 years old female with history of metastatic cancer who presents with pancytopenia picture and metabolic encephalopathy. At the complicated by blood transfusion reaction. Intensive care and put on follow-up is appreciated. Cardiology and hem/onc are on the case. Her antihypertensives were restarted with metoprolol 25 mg twice a day. And Lasix. Continue with antibiotics to Zosyn, got 1 dose of vancomycin. Patient on amiodarone per cardiology team and [facility], neurology and hematology/oncology are following the patient. surgical evaluation is appreciated as well, Continue with GI and DVT prophylaxis. Further recommendation based on the clinical course. Prognosis is guarded
[2018-05-19] MEDS: ONDANSETRON 4 MG/2 ML VIAL IVP PRN (20:33)
[2018-05-19] MEDS: ATORVASTATIN 40 MG TAB PO SCH (20:33)
[2018-05-19 21:01] LABS: Glucose,Whole Blood 164 mg/dL (75-99)
[2018-05-19] MEDS ORDERED: SODIUM CHLORIDE 0.9% 1,000 ML BAG ONE (22:30)
[2018-05-19] MEDS ORDERED: INSULIN ASPART 100 UNIT/ML 1 ML 10 ML VIAL SQ ONE (22:30)
[2018-05-19] MEDS ORDERED: ENALAPRILAT 1.25 MG/ML 1 ML VIAL ONE (22:30)
[2018-05-19] MEDS ORDERED: diphenhydrAMINE 50 MG/ML 1 ML VIAL ONE (22:30)
[2018-05-19] MEDS ORDERED: methylPREDNISolone SOD SUCCI 125 MG/2 ML VIAL ONE (22:30)
[2018-05-19] MEDS ORDERED: HYDROcodone/APAP 5-325MG 1 EACH TAB ONE (23:20)
[2018-05-19] MEDS ORDERED: PIPERACILLIN-TAZO 3.375 GM/50 ML PMX BAG ONE (23:20)
[2018-05-19] MEDS ORDERED: SODIUM CHLORIDE 0.45% 1,000 ML BAG ONE (23:20)
[2018-05-20] MEDS: PIPERACILLIN-TAZOBACTAM 3.375 GM in DEXTROSE/WATER 1 50ML.BAG IVPB SCH ×3 (04:27→17:07)
[2018-05-20] MEDS: SODIUM CHLORIDE 0.45% 1,000 ML IV SCH ×2 (04:27→10:36)
[2018-05-20] MEDS: PANTOPRAZOLE 40 MG TABLET PO SCH (06:17)
[2018-05-20] MEDS: levETIRAcetam IV 750 MG in SODIUM CHLORIDE 0.9% 100 ML IVPB SCH ×2 (06:17→17:08)
[2018-05-20 06:49] LABS: Glucose,Whole Blood 118 mg/dL (75-99)
[2018-05-20] MEDS: INSULIN ASPART 100 UNIT/ML 1 ML 10 ML VIAL SQ SCH ×4 (06:49→21:40)
[2018-05-20] MEDS: AMIODARONE 200 MG TAB PO SCH (10:25)
[2018-05-20] MEDS: FUROSEMIDE 20 MG TAB PO SCH ×2 (10:26→17:08)
[2018-05-20] MEDS: FERROUS SULFATE 325 MG TAB PO SCH (10:26)
[2018-05-20] MEDS: METOPROLOL TARTRATE 25 MG TAB PO SCH ×2 (10:26→21:41)
[2018-05-20] MEDS: guaiFENesin-DM 600/30MG 1 EACH TAB.ER.12H PO SCH ×2 (10:26→21:41)
[2018-05-20] MEDS: HYDROcodone/APAP 5-325MG 1 EACH TAB PO PRN ×2 (10:32→21:40)
[2018-05-20] MEDS: guaiFENesin SYRUP 100MG/5ML 200 MG/10 ML CUP PO PRN (10:33)
[2018-05-20 11:21] LABS: Glucose,Whole Blood 135 mg/dL (75-99)
[2018-05-20] MEDS: DRONABINOL 2.5 MG CAP PO SCH ×2 (12:47→17:08)
[2018-05-20] MEDS ORDERED: MEGESTROL 40 MG TAB PO SCH (13:00)
--- NOTE | 2018-05-20 16:50 | P.PN ---
Subjective Progress Note Date: 05/20/18 Principal diagnosis: Rectal bleeding Patient seems to be more energetic today. Appetite improved. Still with dark- colored stools. No melena or hematochezia. Objective - Vital Signs Vital signs: Vital Signs Temp 98.5 F 05/20/18 16:00 Pulse 75 05/20/18 16:00 Resp 18 05/20/18 16:00 BP 127/75 05/20/18 16:00 Pulse Ox 97 05/20/18 16:00 Intake & Output 05/19/18 05/20/18 05/20/18 18:59 06:59 18:59 Intake Total 600 1600 360 Output Total 400 600 200 Balance 200 1000 160 Weight 97.3 kg 97.3 kg Intake: IV 1600 Sodium Chloride 0.45% 1, 1600 000 ml @ 100 mls/hr IV . Q10H [facility] Rx#:[id number] Oral 600 360 Output: Urine 400 600 200 Other: Voiding Method Bedside Commode Bedside Commode Bedside Commode # Voids 1 1 # Bowel Movements 1 1 ABP, PAP, CO, CI - Last Documented Arterial Blood Pressure 147/45 - Exam Abdomen: Soft, nontender, nondistended - Labs CBC & Chem 7: 05/19/18 05:26 05/19/18 05:26 Labs: Abnormal Lab Results - Last 24 Hours (Table) 05/19/18 05/20/18 05/20/18 Range/Units 20:49 06:48 11:19 POC Glucose (mg/dL) 164 H 118 H 135 H (75-99) mg/dL Microbiology - Last 24 Hours (Table) 05/14/18 08:18 Blood Culture - Final Blood No Growth after 144 hours 05/13/18 15:56 Blood Culture - Final Blood No Growth after 144 hours Assessment and Plan (1) GI bleed Narrative/Plan: Case discussed again with hematology. There may be some benefit to upper endoscopy to rule out ulcer disease prior to the initiation of chemotherapy if the patient and her family decided to proceed with aggressive workup. We'll follow closely. Current Visit: No Status: Acute Code(s): K92.2 - GASTROINTESTINAL HEMORRHAGE , UNSPECIFIED SNOMED Code(s): 79358367
[2018-05-20 17:01] LABS: Glucose,Whole Blood 94 mg/dL (75-99)
--- NOTE | 2018-05-20 20:12 | P.PN ---
Subjective ON-call hospitalist covering for from 05/19 till 05/24 This is a pleasant 82 old female with past medical history of mild dysplastic syndrome with pancytopenia, coronary artery disease, CHF, COPD, CVA/TIA, diabetes mellitus, GI bleed, hyperlipidemia, hypertension, who presents from home because originally she was confused where she has difficulty operating her TV, so she came to emergency room. On admission patient has low hemoglobin at 8.3 and 67 going down to 6.6. Patient got blood transfusion which was complicated by status epilepticus and V. tach, patient was intubated temporarily and sent to the ICU patient was extubated yesterday and clinically she is more stable currently. Her last hemoglobin is 7.6, patient also noticed to be pancytopenia with WBC 1.2 and platelets 31 area that INR is 1.1. Her creatinine is trending up from 1.1-1.4 subjective 05/19/2018 pt is resting in bed comfortably , in mild distress due to nausea, complaining from coughing and some dyspnea, family were at bed side and updated them and all their questions were answered to their satisfaction's. So complains from loose stool. C. diff was negative., has mild abd pain when she coughs , abd exam looks benign, pt will have meeting with hem/onc team 05/20/2018 pt is sitting on chair, look tires and pale, in no distress, less coughing , breathing quietly , family at bed side, pt and family/sister had discussion with the oncology team about the treatment plan, and they most likely going to go with chemotherapy, however pt does not want to go to rehab as recommended because she does not want to be seperated from her family and be alone without them. risk / benefits are explained from them .pt has no new complaints, no pain labs shows positive FOBT ( surgical team are considering EGD if pt/family agree to aggressive therapy ); cr 1.1-1.3, Hb A1c: 6.5%, pt with positive troponin with EF 30-35% and cardiology on the case , platelets low at 18K, carotid doplux ordered by neurology team in view of her stroke shows 50-69% stenosis on the left side ( we will ask for neurology f/u), CXR : left pleural effusion ( pt is on lasix 20 mg bid) REVIEW OF SYSTEMS: CONSTITUTIONAL: No fever, no malaise, no fatigue. HEENT: No recent visual problems or hearing problems. Denied any sore throat. CARDIOVASCULAR: no palpitations, no syncope. PULMONARY: no hemoptysis. GASTROINTESTINAL: No diarrhea, no nausea, no vomiting, no abdominal pain. Normoactive bowel sounds. NEUROLOGICAL: No headaches, no weakness, no numbness. HEMATOLOGICAL: Denies any bleeding or petechiae. GENITOURINARY: Denies any burning micturition, frequency, or urgency. MUSCULOSKELETAL/RHEUMATOLOGICAL: Denies any joint pain, swelling, or any muscle pain. ENDOCRINE: Denies any polyuria or polydipsia. meds: keppra , zosyn , robitussin , NS 0.45% at 50 ml/hr,albuterol , amiodarone , tylenol, ferrous sulfate, lasix, benzonatate , imodium , ativan , lopressor, zofran , pronotix Objective - Vital Signs Vital signs: Vital Signs Temp 98.5 F 05/20/18 16:00 Pulse 75 05/20/18 16:00 Resp 18 05/20/18 16:00 BP 127/75 05/20/18 16:00 Pulse Ox 97 05/20/18 16:00 Intake & Output 05/20/18 05/20/18 05/21/18 06:59 18:59 06:59 Intake Total 1600 1760 237 Output Total 600 500 Balance 1000 1260 237 Weight 97.3 kg 97.3 kg Intake: IV 1600 1400 Piperacillin-Tazobactam 3 100 .375 gm In Dextrose/Water 1 50ml.bag @ 12.5 mls/hr IVPB Q8HR [facility] Rx#: [id number] Sodium Chloride 0.45% 1, 1600 1200 000 ml @ 100 mls/hr IV . Q10H [facility] Rx#:[id number] levETIRAcetam IV 750 mg 100 In Sodium Chloride 0.9% 100 ml @ 400 mls/hr IVPB Q12H [facility] Rx#:[id number] Oral 360 237 Output: Urine 600 500 Other: Voiding Method Bedside Commode Bedside Commode # Voids 1 1 # Bowel Movements 1 ABP, PAP, CO, CI - Last Documented Arterial Blood Pressure 147/45 - Exam GENERAL: The patient is alert and oriented x3, not in any acute distress. Well developed, well nourished. HEENT: Pupils are round and equally reacting to light. EOMI. No scleral icterus. No conjunctival pallor. Normocephalic, atraumatic. No pharyngeal erythema. No thyromegaly. CARDIOVASCULAR: S1 and S2 present. No murmurs, rubs, or gallops. PULMONARY: Chest is clear to auscultation, no wheezing or crackles. ABDOMEN: Soft, nontender, nondistended, normoactive bowel sounds. No palpable organomegaly. MUSCULOSKELETAL: No joint swelling or deformity. EXTREMITIES: No cyanosis, clubbing, or pedal edema. NEUROLOGICAL: Gross neurological examination did not reveal any focal deficits. SKIN: No rashes. - Labs CBC & Chem 7: 05/19/18 05:26 05/19/18 05:26 Labs: Abnormal Lab Results - Last 24 Hours (Table) 05/19/18 05/20/18 05/20/18 Range/Units 20:49 06:48 11:19 POC Glucose (mg/dL) 164 H 118 H 135 H (75-99) mg/dL Microbiology - Last 24 Hours (Table) 05/14/18 08:18 Blood Culture - Final Blood No Growth after 144 hours 05/13/18 15:56 Blood Culture - Final Blood No Growth after 144 hours Assessment and Plan Assessment: Ovarian cancer with metastases Pancytopenia Metabolic encephalopathy, resolving Severe anemia, status post blood transfusion Seizure Episodic V. tach Acute renal failure Plan: This is a 82 years old female with history of metastatic cancer who presents with pancytopenia picture and metabolic encephalopathy. At the complicated by blood transfusion reaction. Intensive care and put on follow-up is appreciated. Cardiology and hem/onc are on the case. Her antihypertensives were restarted with metoprolol 25 mg twice a day. And Lasix. Continue with antibiotics to Zosyn, got 1 dose of vancomycin. Patient on amiodarone per cardiology team and [facility], neurology and hematology/oncology are following the patient. surgical evaluation is appreciated as well,pt might be going to EGD in view of his positive blood in stool ( pt informed) if family agree to aggressive therapy Continue with GI and DVT prophylaxis. Further recommendation based on the clinical course. Prognosis is guarded
[2018-05-20 20:39] LABS: Glucose,Whole Blood 210 mg/dL (75-99)
[2018-05-20] MEDS: ATORVASTATIN 40 MG TAB PO SCH (21:41)
--- NOTE | 2018-05-20 22:26 | P.PN ---
Subjective Progress Note Date: 05/20/18 The patient is continuing to improve slowly, in terms of strength and endurance. She denies any obvious bleeding. No history of any fevers/chills/ nausea/vomiting. Objective - Vital Signs Vital signs: Vital Signs Temp 98.5 F 05/20/18 16:00 Pulse 75 05/20/18 16:00 Resp 18 05/20/18 16:00 BP 127/75 05/20/18 16:00 Pulse Ox 97 05/20/18 16:00 Intake & Output 05/20/18 05/20/18 05/21/18 06:59 18:59 06:59 Intake Total 1600 1760 237 Output Total 600 500 Balance 1000 1260 237 Weight 97.3 kg 97.3 kg Intake: IV 1600 1400 Piperacillin-Tazobactam 3 100 .375 gm In Dextrose/Water 1 50ml.bag @ 12.5 mls/hr IVPB Q8HR [facility] Rx#: [id number] Sodium Chloride 0.45% 1, 1600 1200 000 ml @ 100 mls/hr IV . Q10H [facility] Rx#:[id number] levETIRAcetam IV 750 mg 100 In Sodium Chloride 0.9% 100 ml @ 400 mls/hr IVPB Q12H [facility] Rx#:[id number] Oral 360 237 Output: Urine 600 500 Other: Voiding Method Bedside Commode Bedside Commode # Voids 1 1 # Bowel Movements 1 ABP, PAP, CO, CI - Last Documented Arterial Blood Pressure 147/45 - Constitutional General appearance: Present: no acute distress - EENT Eyes: Present: EOMI ENT: Present: hearing grossly normal, normal oropharynx - Respiratory Respiratory: bilateral: CTA - Cardiovascular Rhythm: regular Heart sounds: normal: S1, S2 - Gastrointestinal General gastrointestinal: Present: normal bowel sounds, soft - Integumentary Integumentary: Present: normal - Neurologic Neurologic: Present: CNII-XII intact - Musculoskeletal Musculoskeletal: Present: generalized weakness, strength equal bilaterally - Psychiatric Psychiatric: Present: A&O x's 3, appropriate affect - Labs CBC & Chem 7: 05/19/18 05:26 05/19/18 05:26 Labs: Abnormal Lab Results - Last 24 Hours (Table) 05/20/18 05/20/18 05/20/18 Range/Units 06:48 11:19 20:37 POC Glucose (mg/dL) 118 H 135 H 210 H (75-99) mg/dL Microbiology - Last 24 Hours (Table) 05/14/18 08:18 Blood Culture - Final Blood No Growth after 144 hours Assessment and Plan (1) Myelodysplastic syndrome Narrative/Plan: The patient's diagnosis was discussed in detail with her today, along with multiple family members including some for listening in on the phone. The pathophysiology was described. She was advised that this following a comparatively aggressive course given the rate of change in her counts, severe pancytopenia, as well as blast percentage approaching 10% in the bone marrow. In this situation, prognosis is likely to be comparatively poor with observation, or supportive treatment such as transfusion/growth factors. Ideally the patient should be treated with chemotherapy with a hypo-methylating agent. The the logistics of administration, possible side effects, and response rate/improvement in survival were discussed. It was emphasized that the treatment is not curative. If the patient's performance status continues to improve, she could be a potential candidate for treatment. However given the fact that the treatment is not curative, that response rate is generally in the 40% range, and progression of life on average is in the 7-8 month range, the patient at this time was not decided that she wants active treatment. She will like to consider all options further and discuss it with her family, and then let us know her decision. She was advised that if she decides against active treatment, then pursuing a comfort care approach would be recommended Current Visit: Yes Status: Acute Code(s): D46.9 - MYELODYSPLASTIC SYNDROME, UNSPECIFIED SNOMED Code(s): 485822632 (2) Acute respiratory failure Narrative/Plan: The patient continues to improve slowly, but steadily since coming off the ventilator. Her endurance is slowly increasing. Defer to the admitting service and pulmonary medicine for continued management Current Visit: Yes Status: Acute Code(s): J96.00 - ACUTE RESPIRATORY FAILURE , UNSP W HYPOXIA OR HYPERCAPNIA SNOMED Code(s): 86045371 (3) Pancytopenia Narrative/Plan: Due to underlying myelodysplastic syndrome. Continue to follow, with supportive transfusions as needed. It was however discussed with the patient, that if she decides against active treatment, then the benefit from continued transfusions, versus risks/adverse outcomes would be quite limited. The patient has continued to have black stools. Surgery has been consulted to evaluate for possible GI bleed. The case was discussed with them. If the patient's decides against active treatment, then there will be no benefit to pursuing a GI workup, as her prognosis from her underlying MDS would be quite limited. However if she does decide to pursue active treatment, then in the reasonable to do a GI workup to rule out another GI pathology that could potentially affect her prognosis Current Visit: Yes Status: Acute Priority: High Code(s): D61.818 - OTHER PANCYTOPENIA SNOMED Code(s): 601459678
[2018-05-21] MEDS: SODIUM CHLORIDE 0.45% 1,000 ML IV SCH ×4 (00:11→23:29)
[2018-05-21] MEDS: PIPERACILLIN-TAZOBACTAM 3.375 GM in DEXTROSE/WATER 1 50ML.BAG IVPB SCH ×4 (00:11→23:29)
[2018-05-21 05:36] LABS: Glucose,Whole Blood 111 mg/dL (75-99)
[2018-05-21] MEDS: INSULIN ASPART 100 UNIT/ML 1 ML 10 ML VIAL SQ SCH ×4 (06:22→21:26)
[2018-05-21] MEDS: ONDANSETRON 4 MG/2 ML VIAL IVP PRN (06:36)
[2018-05-21] MEDS: levETIRAcetam IV 750 MG in SODIUM CHLORIDE 0.9% 100 ML IVPB SCH ×2 (06:36→18:31)
[2018-05-21] MEDS: PANTOPRAZOLE 40 MG TABLET PO SCH (06:38)
[2018-05-21] MEDS: METOPROLOL TARTRATE 25 MG TAB PO SCH ×2 (09:24→21:27)
[2018-05-21] MEDS: FERROUS SULFATE 325 MG TAB PO SCH (09:24)
[2018-05-21] MEDS: guaiFENesin-DM 600/30MG 1 EACH TAB.ER.12H PO SCH ×2 (09:24→21:26)
[2018-05-21] MEDS: AMIODARONE 200 MG TAB PO SCH (09:24)
[2018-05-21] MEDS: FUROSEMIDE 20 MG TAB PO SCH ×2 (09:24→16:40)
[2018-05-21 12:22] LABS: Glucose,Whole Blood 143 mg/dL (75-99)
[2018-05-21 12:56] LABS: Appearance,Urine Clear (Clear); Bilirubin,Urine Negative (Negative); Blood,Urine Negative (Negative); Color,Urine Light Yellow; Glucose,Urine (UA) Negative (Negative); Ketones,Urine Negative (Negative); Leukocyte Esterase,Urine Negative (Negative); Nitrite,Urine Negative (Negative); PH, Urine 5.5 (5.0-8.0); Protein,Urine Negative (Negative); Specific Gravity,Urine 1.005 (1.001-1.035); Urobilinogen,Urine <2.0 mg/dL (<2.0)
[2018-05-21 14:05] LABS: Anisocytosis Slight; HCT 22.9 % (34.0-46.0); HGB 7.3 gm/dL (11.4-16.0); MCH 31.2 pg (25.0-35.0); MCHC 31.8 g/dL (31.0-37.0); MCV 98.2 fL (80.0-100.0); Macrocytosis Slight; Mean Platelet Volume 9.1; RBC 2.33 m/uL (3.80-5.40); RDW 17.7 % (11.5-15.5)
[2018-05-21 14:11] LABS: Albumin 2.6 g/dL (3.5-5.0); Calcium 7.6 mg/dL (8.4-10.2); Potassium 3.2 mmol/L (3.5-5.1); Total Bilirubin 0.7 mg/dL (0.2-1.3); Total Protein 5.4 g/dL (6.3-8.2)
[2018-05-21 14:16] LABS: Platelet Count 16 k/uL (150-450); WBC 0.9 k/uL (3.8-10.6)
[2018-05-21] MEDS: POTASSIUM CHLORIDE 20 MEQ in WATER FOR INJECTION 1 100ML.BAG IVPB SCH ×2 (15:12→16:40)
[2018-05-21 17:13] LABS: Glucose,Whole Blood 104 mg/dL (75-99)
--- NOTE | 2018-05-21 18:08 | P.PN ---
Subjective Progress Note Date: 05/21/18 Principal diagnosis: MDS patient seen in follow-up today, she has decided to move forward on treatment as outpatient Objective - Vital Signs Vital signs: Vital Signs Temp 98.0 F 05/21/18 16:00 Pulse 70 05/21/18 16:00 Resp 14 05/21/18 16:00 BP 144/78 05/21/18 16:00 Pulse Ox 97 05/21/18 16:00 Intake & Output 05/20/18 05/21/18 05/21/18 18:59 06:59 18:59 Intake Total 7844 478 2794 Output Total 500 600 Balance 1010 107 4295 Weight 97.3 kg 99 kg Intake: IV 1400 1250 Piperacillin-Tazobactam 3 100 150 .375 gm In Dextrose/Water 1 50ml.bag @ 12.5 mls/hr IVPB Q8HR [facility] Rx#: [id number] Sodium Chloride 0.45% 1, 1200 1100 000 ml @ 100 mls/hr IV . Q10H [facility] Rx#:[id number] levETIRAcetam IV 750 mg 100 In Sodium Chloride 0.9% 100 ml @ 400 mls/hr IVPB Q12H [facility] Rx#:[id number] Intake, IV Titration 200 Amount Potassium Chloride 20 meq 200 In Water For Injection 1 100ml.bag @ 50 mls/hr IVPB Q2H [facility] Rx#: [id number] Oral 360 237 960 Output: Urine 500 600 Other: Voiding Method Bedside Commode Bedside Commode Bedside Commode # Voids 1 2 # Bowel Movements 1 ABP, PAP, CO, CI - Last Documented Arterial Blood Pressure 147/45 - Constitutional General appearance: Present: cooperative, no acute distress - EENT Eyes: Present: EOMI, dentition normal ENT: Present: hard of hearing, NA/AT, normal oropharynx - Neck Details: supple Neck: Present: normal ROM - Respiratory Respiratory: bilateral: CTA - Cardiovascular Rhythm: regular Heart sounds: normal: S1, S2 - Gastrointestinal General gastrointestinal: Present: normal bowel sounds, soft, tenderness - Integumentary Integumentary: Present: pale - Neurologic Neurologic Comment(s): non focal Neurologic: Present: CNII-XII intact - Musculoskeletal Musculoskeletal: Present: generalized weakness, strength equal bilaterally - Psychiatric Psychiatric: Present: A&O x's 3, appropriate affect, intact judgment & insight - Labs CBC & Chem 7: 05/21/18 13:49 05/21/18 13:49 Labs: Abnormal Lab Results - Last 24 Hours (Table) 05/20/18 05/21/18 05/21/18 Range/Units 20:37 05:32 11:53 WBC (3.8-10.6) k/uL RBC (3.80-5.40) m/uL Hgb (11.4-16.0) gm/dL Hct (34.0-46.0) % RDW (11.5-15.5) % Plt Count (150-450) k/uL Potassium (3.5-5.1) mmol/L Chloride (98-107) mmol/L BUN (7-17) mg/dL Creatinine (0.52-1.04) mg/dL Glucose (74-99) mg/dL POC Glucose (mg/dL) 210 H 111 H 143 H (75-99) mg/dL Calcium (8.4-10.2) mg/dL Total Protein (6.3-8.2) g/dL Albumin (3.5-5.0) g/dL 05/21/18 05/21/18 05/21/18 Range/Units 13:49 13:49 16:58 WBC 0.9 L* (3.8-10.6) k/uL RBC 2.33 L (3.80-5.40) m/uL Hgb 7.3 L (11.4-16.0) gm/dL Hct 22.9 L (34.0-46.0) % RDW 17.7 H (11.5-15.5) % Plt Count 16 L* (150-450) k/uL Potassium 3.2 L (3.5-5.1) mmol/L Chloride 110 H (98-107) mmol/L BUN 6 L (7-17) mg/dL Creatinine 1.30 H (0.52-1.04) mg/dL Glucose 156 H (74-99) mg/dL POC Glucose (mg/dL) 104 H (75-99) mg/dL Calcium 7.6 L (8.4-10.2) mg/dL Total Protein 5.4 L (6.3-8.2) g/dL Albumin 2.6 L (3.5-5.0) g/dL Assessment and Plan Plan: Assessment and Plan (1) Myelodysplastic syndrome Narrative/Plan: The patient's diagnosis was discussed in detail with her yesterday by Dr. Gonzalez, along with multiple family members including some for listening in on the phone. The pathophysiology was described. She was advised that this following a comparatively aggressive course given the rate of change in her counts, severe pancytopenia, as well as blast percentage approaching 10% in the bone marrow. In this situation, prognosis is likely to be comparatively poor with observation, or supportive treatment such as transfusion/growth factors. Ideally the patient should be treated with chemotherapy with a hypo-methylating agent. The the logistics of administration, possible side effects, and response rate/improvement in survival were discussed. It was emphasized that the treatment is not curative. If the patient's performance status continues to improve, she could be a potential candidate for treatment. However given the fact that the treatment is not curative, that response rate is generally in the 40% range, and progression of life on average is in the 7-8 month range, the patient at this time was not decided that she wants active treatment. She will like to consider all options further and discuss it with her family, and then let us know her decision. She was advised that if she decides against active treatment, then pursuing a comfort care approach would be recommended - Today Patient has decided she would like to move forward with the plan to undergo treatment as an outpatient, we will set her up with a follow-up at discharge and plan for outpatient treatment. Risks and benfits of treatment were again discussed face to face today in detail. Current Visit: Yes Status: Acute Code(s): D46.9 - MYELODYSPLASTIC SYNDROME, UNSPECIFIED SNOMED Code(s): 200795320 (2) Acute respiratory failure Narrative/Plan: The patient continues to improve slowly, Her endurance is slowly increasing. Defer to the admitting service and pulmonary medicine for continued management Current Visit: Yes Status: Acute Code(s): J96.00 - ACUTE RESPIRATORY FAILURE , UNSP W HYPOXIA OR HYPERCAPNIA SNOMED Code(s): 84549843 (3) Pancytopenia Narrative/Plan: Due to underlying myelodysplastic syndrome. Continue to follow, with supportive transfusions as needed. It was however discussed with the patient, that if she decides against active treatment, then the benefit from continued transfusions, versus risks/adverse outcomes would be quite limited. The patient has continued to have black stools. Surgery has been consulted to evaluate for possible GI bleed. The case was discussed with them. If the patient's decides against active treatment, then there will be no benefit to pursuing a GI workup, as her prognosis from her underlying MDS would be quite limited. However if she does decide to pursue active treatment, then in the reasonable to do a GI workup to rule out another GI pathology that could potentially affect her prognosis - Since she is motivated to move forward with treatment of underlying diagnosis we will check a CBC and monitor daily Current Visit: Yes Status: Acute Priority: High Code(s): D61.818 - OTHER PANCYTOPENIA SNOMED Code(s): 650444870 Physician Attestation: I have completed the full history and physical of this patient and agree with the above dictation by Apoorva Saucedo NP. Dictated as a scribe.
--- NOTE | 2018-05-21 19:46 | P.PN ---
Subjective Progress Note Date: 05/21/18 Principal diagnosis: Rectal bleeding Patient feels weak. Appetite remains diminished. White blood cell count and platelet level remained quite low. Patient is not interested in aggressive therapy currently. She would like to go home. Objective - Vital Signs Vital signs: Vital Signs Temp 98.0 F 05/21/18 16:00 Pulse 70 05/21/18 16:00 Resp 14 05/21/18 16:00 BP 144/78 05/21/18 16:00 Pulse Ox 97 05/21/18 16:00 Intake & Output 05/21/18 05/21/18 05/22/18 06:59 18:59 06:59 Intake Total 237 2650 Output Total 600 Balance 237 2050 Weight 99 kg Intake: IV 1250 Piperacillin-Tazobactam 3 150 .375 gm In Dextrose/Water 1 50ml.bag @ 12.5 mls/hr IVPB Q8HR [facility] Rx#: [id number] Sodium Chloride 0.45% 1, 1100 000 ml @ 100 mls/hr IV . Q10H [facility] Rx#:[id number] Intake, IV Titration 200 Amount Potassium Chloride 20 meq 200 In Water For Injection 1 100ml.bag @ 50 mls/hr IVPB Q2H [facility] Rx#: [id number] Oral 237 1200 Output: Urine 600 Other: Voiding Method Bedside Commode Bedside Commode # Voids 2 2 # Bowel Movements 1 ABP, PAP, CO, CI - Last Documented Arterial Blood Pressure 147/45 - Exam Abdomen: Soft, nondistended, nontender - Labs CBC & Chem 7: 05/21/18 13:49 05/21/18 13:49 Labs: Abnormal Lab Results - Last 24 Hours (Table) 05/20/18 05/21/18 05/21/18 Range/Units 20:37 05:32 11:53 WBC (3.8-10.6) k/uL RBC (3.80-5.40) m/uL Hgb (11.4-16.0) gm/dL Hct (34.0-46.0) % RDW (11.5-15.5) % Plt Count (150-450) k/uL Potassium (3.5-5.1) mmol/L Chloride (98-107) mmol/L BUN (7-17) mg/dL Creatinine (0.52-1.04) mg/dL Glucose (74-99) mg/dL POC Glucose (mg/dL) 210 H 111 H 143 H (75-99) mg/dL Calcium (8.4-10.2) mg/dL Total Protein (6.3-8.2) g/dL Albumin (3.5-5.0) g/dL 05/21/18 05/21/18 05/21/18 Range/Units 13:49 13:49 16:58 WBC 0.9 L* (3.8-10.6) k/uL RBC 2.33 L (3.80-5.40) m/uL Hgb 7.3 L (11.4-16.0) gm/dL Hct 22.9 L (34.0-46.0) % RDW 17.7 H (11.5-15.5) % Plt Count 16 L* (150-450) k/uL Potassium 3.2 L (3.5-5.1) mmol/L Chloride 110 H (98-107) mmol/L BUN 6 L (7-17) mg/dL Creatinine 1.30 H (0.52-1.04) mg/dL Glucose 156 H (74-99) mg/dL POC Glucose (mg/dL) 104 H (75-99) mg/dL Calcium 7.6 L (8.4-10.2) mg/dL Total Protein 5.4 L (6.3-8.2) g/dL Albumin 2.6 L (3.5-5.0) g/dL Microbiology - Last 24 Hours (Table) 05/21/18 12:30 Urine Culture - Preliminary Urine,Clean Catch Assessment and Plan (1) GI bleed Narrative/Plan: Continue diet as tolerated. Monitor CBC. If the patient improves she will consider chemotherapy for myelodysplastic syndrome. No plans for endoscopy currently. Current Visit: No Status: Acute Code(s): K92.2 - GASTROINTESTINAL HEMORRHAGE , UNSPECIFIED SNOMED Code(s): 13757223
[2018-05-21 21:01] LABS: Glucose,Whole Blood 136 mg/dL (75-99)
[2018-05-21] MEDS: ATORVASTATIN 40 MG TAB PO SCH (21:26)
--- NOTE | 2018-05-21 23:49 | P.PN ---
Subjective ON-call hospitalist covering for from 05/19 till 05/24 This is a pleasant 82 old female with past medical history of mild dysplastic syndrome with pancytopenia, coronary artery disease, CHF, COPD, CVA/TIA, diabetes mellitus, GI bleed, hyperlipidemia, hypertension, who presents from home because originally she was confused where she has difficulty operating her TV, so she came to emergency room. On admission patient has low hemoglobin at 8.3 and 67 going down to 6.6. Patient got blood transfusion which was complicated by status epilepticus and V. tach, patient was intubated temporarily and sent to the ICU patient was extubated yesterday and clinically she is more stable currently. Her last hemoglobin is 7.6, patient also noticed to be pancytopenia with WBC 1.2 and platelets 31 area that INR is 1.1. Her creatinine is trending up from 1.1-1.4 subjective 05/19/2018 pt is resting in bed comfortably , in mild distress due to nausea, complaining from coughing and some dyspnea, family were at bed side and updated them and all their questions were answered to their satisfaction's. So complains from loose stool. C. diff was negative., has mild abd pain when she coughs , abd exam looks benign, pt will have meeting with hem/onc team 05/20/2018 pt is sitting on chair, look tires and pale, in no distress, less coughing , breathing quietly , family at bed side, pt and family/sister had discussion with the oncology team about the treatment plan, and they most likely going to go with chemotherapy, however pt does not want to go to rehab as recommended because she does not want to be seperated from her family and be alone without them. risk / benefits are explained from them .pt has no new complaints, no pain labs shows positive FOBT ( surgical team are considering EGD if pt/family agree to aggressive therapy ); cr 1.1-1.3, Hb A1c: 6.5%, pt with positive troponin with EF 30-35% and cardiology on the case , platelets low at 18K, carotid doplux ordered by neurology team in view of her stroke shows 50-69% stenosis on the left side ( we will ask for neurology f/u), CXR : left pleural effusion ( pt is on lasix 20 mg bid) 05/21/2018 surgical f/u appreciated , no plan for endoscopy for now , pt has low plt at 16, discussed with onco today , she might benefit from chemotherapy but prognosis overall is poor REVIEW OF SYSTEMS: CONSTITUTIONAL: No fever, no malaise, no fatigue. HEENT: No recent visual problems or hearing problems. Denied any sore throat. CARDIOVASCULAR: no palpitations, no syncope. PULMONARY: no hemoptysis. GASTROINTESTINAL: No diarrhea, no nausea, no vomiting, no abdominal pain. Normoactive bowel sounds. NEUROLOGICAL: No headaches, no weakness, no numbness. HEMATOLOGICAL: Denies any bleeding or petechiae. GENITOURINARY: Denies any burning micturition, frequency, or urgency. MUSCULOSKELETAL/RHEUMATOLOGICAL: Denies any joint pain, swelling, or any muscle pain. ENDOCRINE: Denies any polyuria or polydipsia. meds: keppra , zosyn , robitussin , NS 0.45% at 50 ml/hr,albuterol , amiodarone , tylenol, ferrous sulfate, lasix, benzonatate , imodium , ativan , lopressor, zofran , pronotix Objective - Vital Signs Vital signs: Vital Signs Temp 98.0 F 05/21/18 20:20 Pulse 78 05/21/18 20:20 Resp 16 05/21/18 20:20 BP 144/78 05/21/18 20:20 Pulse Ox 96 05/21/18 20:20 Intake & Output 05/21/18 05/21/18 05/22/18 06:59 18:59 06:59 Intake Total 237 2650 Output Total 600 Balance 237 2050 Weight 99 kg Intake: IV 1250 Piperacillin-Tazobactam 3 150 .375 gm In Dextrose/Water 1 50ml.bag @ 12.5 mls/hr IVPB Q8HR [facility] Rx#: [id number] Sodium Chloride 0.45% 1, 1100 000 ml @ 100 mls/hr IV . Q10H [facility] Rx#:[id number] Intake, IV Titration 200 Amount Potassium Chloride 20 meq 200 In Water For Injection 1 100ml.bag @ 50 mls/hr IVPB Q2H [facility] Rx#: [id number] Oral 237 1200 Output: Urine 600 Other: Voiding Method Bedside Commode Bedside Commode Bedside Commode # Voids 2 2 1 # Bowel Movements 1 ABP, PAP, CO, CI - Last Documented Arterial Blood Pressure 147/45 - Exam GENERAL: The patient is alert and oriented x3, not in any acute distress. Well developed, well nourished. HEENT: Pupils are round and equally reacting to light. EOMI. No scleral icterus. No conjunctival pallor. Normocephalic, atraumatic. No pharyngeal erythema. No thyromegaly. CARDIOVASCULAR: S1 and S2 present. No murmurs, rubs, or gallops. PULMONARY: Chest is clear to auscultation, no wheezing or crackles. ABDOMEN: Soft, nontender, nondistended, normoactive bowel sounds. No palpable organomegaly. MUSCULOSKELETAL: No joint swelling or deformity. EXTREMITIES: No cyanosis, clubbing, or pedal edema. NEUROLOGICAL: Gross neurological examination did not reveal any focal deficits. SKIN: No rashes. - Labs CBC & Chem 7: 05/21/18 13:49 05/21/18 13:49 Labs: Abnormal Lab Results - Last 24 Hours (Table) 05/21/18 05/21/18 05/21/18 Range/Units 05:32 11:53 13:49 WBC 0.9 L* (3.8-10.6) k/uL RBC 2.33 L (3.80-5.40) m/uL Hgb 7.3 L (11.4-16.0) gm/dL Hct 22.9 L (34.0-46.0) % RDW 17.7 H (11.5-15.5) % Plt Count 16 L* (150-450) k/uL Potassium (3.5-5.1) mmol/L Chloride (98-107) mmol/L BUN (7-17) mg/dL Creatinine (0.52-1.04) mg/dL Glucose (74-99) mg/dL POC Glucose (mg/dL) 111 H 143 H (75-99) mg/dL Calcium (8.4-10.2) mg/dL Total Protein (6.3-8.2) g/dL Albumin (3.5-5.0) g/dL 05/21/18 05/21/18 05/21/18 Range/Units 13:49 16:58 20:58 WBC (3.8-10.6) k/uL RBC (3.80-5.40) m/uL Hgb (11.4-16.0) gm/dL Hct (34.0-46.0) % RDW (11.5-15.5) % Plt Count (150-450) k/uL Potassium 3.2 L (3.5-5.1) mmol/L Chloride 110 H (98-107) mmol/L BUN 6 L (7-17) mg/dL Creatinine 1.30 H (0.52-1.04) mg/dL Glucose 156 H (74-99) mg/dL POC Glucose (mg/dL) 104 H 136 H (75-99) mg/dL Calcium 7.6 L (8.4-10.2) mg/dL Total Protein 5.4 L (6.3-8.2) g/dL Albumin 2.6 L (3.5-5.0) g/dL Microbiology - Last 24 Hours (Table) 05/21/18 12:30 Urine Culture - Preliminary Urine,Clean Catch Assessment and Plan Assessment: Ovarian cancer with metastases Pancytopenia Metabolic encephalopathy, resolving Severe anemia, status post blood transfusion Seizure Episodic V. tach Acute renal failure Plan: This is a 82 years old female with history of metastatic cancer who presents with pancytopenia picture and metabolic encephalopathy. At the complicated by blood transfusion reaction. Intensive care and put on follow-up is appreciated. Cardiology and hem/onc are on the case. Her antihypertensives were restarted with metoprolol 25 mg twice a day. And Lasix. Continue with antibiotics to Zosyn, got 1 dose of vancomycin. Patient on amiodarone per cardiology team and [facility], neurology and hematology/oncology are following the patient. surgical evaluation is appreciated as well,pt might be going to EGD in view of his positive blood in stool ( pt informed) if family agree to aggressive therapy Continue with GI and DVT prophylaxis. Further recommendation based on the clinical course. Prognosis is guarded
[2018-05-21] MEDS: HYDROcodone/APAP 5-325MG 1 EACH TAB PO PRN (23:55)
[2018-05-22] MEDS: levETIRAcetam IV 750 MG in SODIUM CHLORIDE 0.9% 100 ML IVPB SCH ×2 (06:07→17:30)
[2018-05-22 06:09] LABS: Glucose,Whole Blood 112 mg/dL (75-99)
[2018-05-22] MEDS: PANTOPRAZOLE 40 MG TABLET PO SCH (06:12)
[2018-05-22] MEDS: INSULIN ASPART 100 UNIT/ML 1 ML 10 ML VIAL SQ SCH ×4 (06:12→21:24)
[2018-05-22] MEDS: guaiFENesin-DM 600/30MG 1 EACH TAB.ER.12H PO SCH ×2 (08:38→21:23)
[2018-05-22] MEDS: AMIODARONE 200 MG TAB PO SCH (08:39)
[2018-05-22] MEDS: FUROSEMIDE 20 MG TAB PO SCH ×2 (08:39→15:30)
[2018-05-22] MEDS: METOPROLOL TARTRATE 25 MG TAB PO SCH ×2 (08:39→21:23)
[2018-05-22] MEDS: ONDANSETRON 4 MG/2 ML VIAL IVP PRN (08:45)
[2018-05-22] MEDS: SODIUM CHLORIDE 0.45% 1,000 ML IV SCH ×2 (09:29→21:14)
[2018-05-22] MEDS: PIPERACILLIN-TAZOBACTAM 3.375 GM in DEXTROSE/WATER 1 50ML.BAG IVPB SCH ×3 (09:29→23:06)
[2018-05-22] MEDS: FERROUS SULFATE 325 MG TAB PO SCH (09:29)
--- NOTE | 2018-05-22 10:06 | P.PN ---
Subjective Progress Note Date: 05/22/18 Principal diagnosis: Rectal bleeding Patient without significant changes. Still feels weak. Appetite minimal. Objective - Vital Signs Vital signs: Vital Signs Temp 98.0 F 05/22/18 03:10 Pulse 65 05/22/18 03:10 Resp 18 05/22/18 03:10 BP 131/53 05/22/18 03:10 Pulse Ox 92 L 05/22/18 03:10 Intake & Output 05/21/18 05/22/18 05/22/18 18:59 06:59 18:59 Intake Total 2650 Output Total 600 800 Balance 2049 - Weight 97.2 kg Intake: IV 1250 Piperacillin-Tazobactam 3 150 .375 gm In Dextrose/Water 1 50ml.bag @ 12.5 mls/hr IVPB Q8HR [facility] Rx#: [id number] Sodium Chloride 0.45% 1, 1100 000 ml @ 100 mls/hr IV . Q10H [facility] Rx#:[id number] Intake, IV Titration 200 Amount Potassium Chloride 20 meq 200 In Water For Injection 1 100ml.bag @ 50 mls/hr IVPB Q2H [facility] Rx#: [id number] Oral 1200 Output: Urine 600 800 Other: Voiding Method Bedside Commode Bedside Commode # Voids 2 1 # Bowel Movements 1 ABP, PAP, CO, CI - Last Documented Arterial Blood Pressure 147/45 - Exam Abdomen: Soft, nontender, nondistended - Labs CBC & Chem 7: 05/21/18 13:49 05/21/18 13:49 Labs: Abnormal Lab Results - Last 24 Hours (Table) 05/21/18 05/21/18 05/21/18 Range/Units 11:53 13:49 13:49 WBC 0.9 L* (3.8-10.6) k/uL RBC 2.33 L (3.80-5.40) m/uL Hgb 7.3 L (11.4-16.0) gm/dL Hct 22.9 L (34.0-46.0) % RDW 17.7 H (11.5-15.5) % Plt Count 16 L* (150-450) k/uL Potassium 3.2 L (3.5-5.1) mmol/L Chloride 110 H (98-107) mmol/L BUN 6 L (7-17) mg/dL Creatinine 1.30 H (0.52-1.04) mg/dL Glucose 156 H (74-99) mg/dL POC Glucose (mg/dL) 143 H (75-99) mg/dL Calcium 7.6 L (8.4-10.2) mg/dL Total Protein 5.4 L (6.3-8.2) g/dL Albumin 2.6 L (3.5-5.0) g/dL 05/21/18 05/21/18 05/22/18 Range/Units 16:58 20:58 06:08 WBC (3.8-10.6) k/uL RBC (3.80-5.40) m/uL Hgb (11.4-16.0) gm/dL Hct (34.0-46.0) % RDW (11.5-15.5) % Plt Count (150-450) k/uL Potassium (3.5-5.1) mmol/L Chloride (98-107) mmol/L BUN (7-17) mg/dL Creatinine (0.52-1.04) mg/dL Glucose (74-99) mg/dL POC Glucose (mg/dL) 104 H 136 H 112 H (75-99) mg/dL Calcium (8.4-10.2) mg/dL Total Protein (6.3-8.2) g/dL Albumin (3.5-5.0) g/dL Microbiology - Last 24 Hours (Table) 05/21/18 12:30 Urine Culture - Preliminary Urine,Clean Catch Assessment and Plan (1) GI bleed Narrative/Plan: Continue encouraging oral intake. Continue monitor labwork. No labs from today we'll recheck tomorrow. Current Visit: No Status: Acute Code(s): K92.2 - GASTROINTESTINAL HEMORRHAGE , UNSPECIFIED SNOMED Code(s): 35233258
[2018-05-22 12:11] LABS: Glucose,Whole Blood 127 mg/dL (75-99)
[2018-05-22 17:25] LABS: Glucose,Whole Blood 122 mg/dL (75-99)
--- NOTE | 2018-05-22 20:47 | P.PN ---
Subjective ON-call hospitalist covering for from 05/19 till 05/24 This is a pleasant 82 old female with past medical history of mild dysplastic syndrome with pancytopenia, coronary artery disease, CHF, COPD, CVA/TIA, diabetes mellitus, GI bleed, hyperlipidemia, hypertension, who presents from home because originally she was confused where she has difficulty operating her TV, so she came to emergency room. On admission patient has low hemoglobin at 8.3 and 67 going down to 6.6. Patient got blood transfusion which was complicated by status epilepticus and V. tach, patient was intubated temporarily and sent to the ICU patient was extubated yesterday and clinically she is more stable currently. Her last hemoglobin is 7.6, patient also noticed to be pancytopenia with WBC 1.2 and platelets 31 area that INR is 1.1. Her creatinine is trending up from 1.1-1.4 subjective 05/19/2018 pt is resting in bed comfortably , in mild distress due to nausea, complaining from coughing and some dyspnea, family were at bed side and updated them and all their questions were answered to their satisfaction's. So complains from loose stool. C. diff was negative., has mild abd pain when she coughs , abd exam looks benign, pt will have meeting with hem/onc team 05/20/2018 pt is sitting on chair, look tires and pale, in no distress, less coughing , breathing quietly , family at bed side, pt and family/sister had discussion with the oncology team about the treatment plan, and they most likely going to go with chemotherapy, however pt does not want to go to rehab as recommended because she does not want to be seperated from her family and be alone without them. risk / benefits are explained from them .pt has no new complaints, no pain labs shows positive FOBT ( surgical team are considering EGD if pt/family agree to aggressive therapy ); cr 1.1-1.3, Hb A1c: 6.5%, pt with positive troponin with EF 30-35% and cardiology on the case , platelets low at 18K, carotid doplux ordered by neurology team in view of her stroke shows 50-69% stenosis on the left side ( we will ask for neurology f/u), CXR : left pleural effusion ( pt is on lasix 20 mg bid) 05/21/2018 surgical f/u appreciated , no plan for endoscopy for now , pt has low plt at 16, discussed with onco today , she might benefit from chemotherapy but prognosis overall is poor 05/22/2018 no change in pt condition , pt is still weak, REVIEW OF SYSTEMS: CONSTITUTIONAL: No fever, no malaise, no fatigue. HEENT: No recent visual problems or hearing problems. Denied any sore throat. CARDIOVASCULAR: no palpitations, no syncope. PULMONARY: no hemoptysis. GASTROINTESTINAL: No diarrhea, no nausea, no vomiting, no abdominal pain. Normoactive bowel sounds. NEUROLOGICAL: No headaches, no weakness, no numbness. HEMATOLOGICAL: Denies any bleeding or petechiae. GENITOURINARY: Denies any burning micturition, frequency, or urgency. MUSCULOSKELETAL/RHEUMATOLOGICAL: Denies any joint pain, swelling, or any muscle pain. ENDOCRINE: Denies any polyuria or polydipsia. meds: keppra , zosyn , robitussin , NS 0.45% at 50 ml/hr,albuterol , amiodarone , tylenol, ferrous sulfate, lasix, benzonatate , imodium , ativan , lopressor, zofran , pronotix Objective - Vital Signs Vital signs: Vital Signs Temp 97.7 F 05/22/18 15:30 Pulse 72 05/22/18 15:30 Resp 18 05/22/18 15:30 BP 156/77 05/22/18 15:30 Pulse Ox 96 05/22/18 11:20 Intake & Output 05/22/18 05/22/18 05/23/18 06:59 18:59 06:59 Intake Total 1310 Output Total 800 1350 Balance -800 -40 Weight 97.2 kg Intake: IV 850 Piperacillin-Tazobactam 3 50 .375 gm In Dextrose/Water 1 50ml.bag @ 12.5 mls/hr IVPB Q8HR [facility] Rx#: [id number] Sodium Chloride 0.45% 1, 800 000 ml @ 100 mls/hr IV . Q10H [facility] Rx#:[id number] Oral 460 Output: Urine 800 1350 Other: Voiding Method Bedside Commode # Voids 1 1 ABP, PAP, CO, CI - Last Documented Arterial Blood Pressure 147/45 - Exam GENERAL: The patient is alert and oriented x3, not in any acute distress. Well developed, well nourished. HEENT: Pupils are round and equally reacting to light. EOMI. No scleral icterus. No conjunctival pallor. Normocephalic, atraumatic. No pharyngeal erythema. No thyromegaly. CARDIOVASCULAR: S1 and S2 present. No murmurs, rubs, or gallops. PULMONARY: Chest is clear to auscultation, no wheezing or crackles. ABDOMEN: Soft, nontender, nondistended, normoactive bowel sounds. No palpable organomegaly. MUSCULOSKELETAL: No joint swelling or deformity. EXTREMITIES: No cyanosis, clubbing, or pedal edema. NEUROLOGICAL: Gross neurological examination did not reveal any focal deficits. SKIN: No rashes. - Labs CBC & Chem 7: 05/21/18 13:49 05/21/18 13:49 Labs: Abnormal Lab Results - Last 24 Hours (Table) 05/21/18 05/22/18 05/22/18 Range/Units 20:58 06:08 11:50 POC Glucose (mg/dL) 136 H 112 H 127 H (75-99) mg/dL 05/22/18 Range/Units 17:23 POC Glucose (mg/dL) 122 H (75-99) mg/dL Microbiology - Last 24 Hours (Table) 05/21/18 12:30 Urine Culture - Preliminary Urine,Clean Catch Assessment and Plan Assessment: Ovarian cancer with metastases Pancytopenia Metabolic encephalopathy, resolving Severe anemia, status post blood transfusion Seizure Episodic V. tach Acute renal failure Plan: This is a 82 years old female with history of metastatic cancer who presents with pancytopenia picture and metabolic encephalopathy. At the complicated by blood transfusion reaction. Intensive care and put on follow-up is appreciated. Cardiology and hem/onc are on the case. Her antihypertensives were restarted with metoprolol 25 mg twice a day. And Lasix. Continue with antibiotics to Zosyn, got 1 dose of vancomycin. Patient on amiodarone per cardiology team and [facility], neurology and hematology/oncology are following the patient. surgical evaluation is appreciated as well,pt might be going to EGD in view of his positive blood in stool ( pt informed) if family agree to aggressive therapy Continue with GI and DVT prophylaxis. Further recommendation based on the clinical course. Prognosis is guarded
[2018-05-22 21:19] LABS: Glucose,Whole Blood 144 mg/dL (75-99)
[2018-05-22] MEDS: ATORVASTATIN 40 MG TAB PO SCH (21:23)
[2018-05-22] MEDS: HYDROcodone/APAP 5-325MG 1 EACH TAB PO PRN (23:40)
[2018-05-23 06:00] LABS: Glucose,Whole Blood 123 mg/dL (75-99)
[2018-05-23] MEDS: INSULIN ASPART 100 UNIT/ML 1 ML 10 ML VIAL SQ SCH ×4 (06:13→21:25)
[2018-05-23] MEDS: levETIRAcetam IV 750 MG in SODIUM CHLORIDE 0.9% 100 ML IVPB SCH ×2 (06:24→17:33)
[2018-05-23] MEDS: PANTOPRAZOLE 40 MG TABLET PO SCH (06:25)
[2018-05-23 07:41] LABS: Anisocytosis Slight; HCT 22.5 % (34.0-46.0); HGB 7.7 gm/dL (11.4-16.0); MCH 32.9 pg (25.0-35.0); MCHC 34.1 g/dL (31.0-37.0); MCV 96.6 fL (80.0-100.0); Macrocytosis Slight; Mean Platelet Volume 9.9; RBC 2.32 m/uL (3.80-5.40); RDW 18.1 % (11.5-15.5)
[2018-05-23 07:43] LABS: Platelet Count 24 k/uL (150-450)
[2018-05-23] MEDS: PIPERACILLIN-TAZOBACTAM 3.375 GM in DEXTROSE/WATER 1 50ML.BAG IVPB SCH ×3 (07:57→23:40)
[2018-05-23] MEDS: FERROUS SULFATE 325 MG TAB PO SCH (09:29)
[2018-05-23] MEDS: guaiFENesin-DM 600/30MG 1 EACH TAB.ER.12H PO SCH ×2 (09:29→21:04)
[2018-05-23] MEDS: FUROSEMIDE 20 MG TAB PO SCH ×2 (09:29→17:32)
[2018-05-23] MEDS: AMIODARONE 200 MG TAB PO SCH (09:29)
[2018-05-23] MEDS: SODIUM CHLORIDE 0.45% 1,000 ML IV SCH (09:30)
[2018-05-23] MEDS: METOPROLOL TARTRATE 25 MG TAB PO SCH ×2 (09:30→21:03)
[2018-05-23 10:16] LABS: Eosinophils # (M) 0.03 k/uL (0-0.7); Lymphocytes # (M) 0.56 k/uL (1.0-4.8); Monocytes # (M) 0.04 k/uL (0-1.0); Neutrophils # (M) 0.37 k/uL (1.3-7.7); Neutrophils % (M) 37 %; Nucleated Red Blood Cells 0 /100 WBC (0-0); Total Cells Counted 100
[2018-05-23 10:17] LABS: RBC Fragments Present
--- NOTE | 2018-05-23 10:18 | P.PN ---
Subjective Progress Note Date: 05/23/18 Principal diagnosis: Rectal bleeding Patient remains fatigued. Tolerating some diet. No significant bleeding. Objective - Vital Signs Vital signs: Vital Signs Temp 98.4 F 05/23/18 07:45 Pulse 72 05/23/18 07:45 Resp 18 05/23/18 07:45 BP 130/54 05/23/18 07:45 Pulse Ox 95 05/23/18 07:45 Intake & Output 05/22/18 05/23/18 05/23/18 18:59 06:59 18:59 Intake Total 1310 Output Total 1350 Balance -40 Weight 96.3 kg Intake: IV 850 Piperacillin-Tazobactam 3 50 .375 gm In Dextrose/Water 1 50ml.bag @ 12.5 mls/hr IVPB Q8HR [facility] Rx#: [id number] Sodium Chloride 0.45% 1, 800 000 ml @ 100 mls/hr IV . Q10H [facility] Rx#:[id number] Oral 460 Output: Urine 1350 Other: Voiding Method Bedside Commode # Voids 1 2 # Bowel Movements 1 ABP, PAP, CO, CI - Last Documented Arterial Blood Pressure 147/45 - Exam Abdomen: Soft, nontender, nondistended - Labs CBC & Chem 7: 05/23/18 07:06 05/21/18 13:49 Labs: Abnormal Lab Results - Last 24 Hours (Table) 05/22/18 05/22/18 05/22/18 Range/Units 11:50 17:23 21:16 WBC (3.8-10.6) k/uL RBC (3.80-5.40) m/uL Hgb (11.4-16.0) gm/dL Hct (34.0-46.0) % RDW (11.5-15.5) % Plt Count (150-450) k/uL Neutrophils # (Manual) (1.3-7.7) k/uL Lymphocytes # (Manual) (1.0-4.8) k/uL POC Glucose (mg/dL) 127 H 122 H 144 H (75-99) mg/dL 05/23/18 05/23/18 Range/Units 05:59 07:06 WBC 1.0 L* (3.8-10.6) k/uL RBC 2.32 L (3.80-5.40) m/uL Hgb 7.7 L (11.4-16.0) gm/dL Hct 22.5 L (34.0-46.0) % RDW 18.1 H (11.5-15.5) % Plt Count 24 L* (150-450) k/uL Neutrophils # (Manual) 0.37 L (1.3-7.7) k/uL Lymphocytes # (Manual) 0.56 L (1.0-4.8) k/uL POC Glucose (mg/dL) 123 H (75-99) mg/dL Microbiology - Last 24 Hours (Table) 05/21/18 12:30 Urine Culture - Final Urine,Clean Catch Assessment and Plan (1) GI bleed Narrative/Plan: Continue diet as tolerated. Hemoglobin remained stable. No endoscopy plan. We 'll sign off. Current Visit: No Status: Acute Code(s): K92.2 - GASTROINTESTINAL HEMORRHAGE , UNSPECIFIED SNOMED Code(s): 14718452
[2018-05-23 12:15] LABS: Glucose,Whole Blood 114 mg/dL (75-99)
[2018-05-23 17:14] LABS: Glucose,Whole Blood 116 mg/dL (75-99)
[2018-05-23 20:49] LABS: Glucose,Whole Blood 145 mg/dL (75-99)
[2018-05-23] MEDS: ATORVASTATIN 40 MG TAB PO SCH (21:04)
--- NOTE | 2018-05-23 21:51 | P.PN ---
Subjective ON-call hospitalist covering for from 05/19 till 05/24 This is a pleasant 82 old female with past medical history of mild dysplastic syndrome with pancytopenia, coronary artery disease, CHF, COPD, CVA/TIA, diabetes mellitus, GI bleed, hyperlipidemia, hypertension, who presents from home because originally she was confused where she has difficulty operating her TV, so she came to emergency room. On admission patient has low hemoglobin at 8.3 and 67 going down to 6.6. Patient got blood transfusion which was complicated by status epilepticus and V. tach, patient was intubated temporarily and sent to the ICU patient was extubated yesterday and clinically she is more stable currently. Her last hemoglobin is 7.6, patient also noticed to be pancytopenia with WBC 1.2 and platelets 31 area that INR is 1.1. Her creatinine is trending up from 1.1-1.4 subjective 05/19/2018 pt is resting in bed comfortably , in mild distress due to nausea, complaining from coughing and some dyspnea, family were at bed side and updated them and all their questions were answered to their satisfaction's. So complains from loose stool. C. diff was negative., has mild abd pain when she coughs , abd exam looks benign, pt will have meeting with hem/onc team 05/20/2018 pt is sitting on chair, look tires and pale, in no distress, less coughing , breathing quietly , family at bed side, pt and family/sister had discussion with the oncology team about the treatment plan, and they most likely going to go with chemotherapy, however pt does not want to go to rehab as recommended because she does not want to be seperated from her family and be alone without them. risk / benefits are explained from them .pt has no new complaints, no pain labs shows positive FOBT ( surgical team are considering EGD if pt/family agree to aggressive therapy ); cr 1.1-1.3, Hb A1c: 6.5%, pt with positive troponin with EF 30-35% and cardiology on the case , platelets low at 18K, carotid doplux ordered by neurology team in view of her stroke shows 50-69% stenosis on the left side ( we will ask for neurology f/u), CXR : left pleural effusion ( pt is on lasix 20 mg bid) 05/21/2018 surgical f/u appreciated , no plan for endoscopy for now , pt has low plt at 16, discussed with onco today , she might benefit from chemotherapy but prognosis overall is poor 05/22/2018 no change in pt condition , pt is still weak, 05/23/2019 pt is lying in bed ,no new complaint , no chest pain , no dyspnea, no change in urine or bowel habits, no fever, pt was telling me she is feeling good her hb and platelet are little improved , surgery noted no more bleeding and they signed off REVIEW OF SYSTEMS: CONSTITUTIONAL: No fever, no malaise, no fatigue. HEENT: No recent visual problems or hearing problems. Denied any sore throat. CARDIOVASCULAR: no palpitations, no syncope. PULMONARY: no hemoptysis. GASTROINTESTINAL: No diarrhea, no nausea, no vomiting, no abdominal pain. Normoactive bowel sounds. NEUROLOGICAL: No headaches, no weakness, no numbness. HEMATOLOGICAL: Denies any bleeding or petechiae. GENITOURINARY: Denies any burning micturition, frequency, or urgency. MUSCULOSKELETAL/RHEUMATOLOGICAL: Denies any joint pain, swelling, or any muscle pain. ENDOCRINE: Denies any polyuria or polydipsia. meds: keppra , zosyn , robitussin , NS 0.45% at 50 ml/hr,albuterol , amiodarone , tylenol, ferrous sulfate, lasix, benzonatate , imodium , ativan , lopressor, zofran , pronotix Objective - Vital Signs Vital signs: Vital Signs Temp 98.4 F 05/23/18 07:45 Pulse 72 05/23/18 07:45 Resp 18 05/23/18 07:45 BP 130/54 05/23/18 07:45 Pulse Ox 95 05/23/18 07:45 Intake & Output 05/22/18 05/23/18 05/23/18 18:59 06:59 18:59 Intake Total 1310 Output Total 1350 Balance -40 Weight 96.3 kg Intake: IV 850 Piperacillin-Tazobactam 3 50 .375 gm In Dextrose/Water 1 50ml.bag @ 12.5 mls/hr IVPB Q8HR [facility] Rx#: [id number] Sodium Chloride 0.45% 1, 800 000 ml @ 100 mls/hr IV . Q10H [facility] Rx#:[id number] Oral 460 Output: Urine 1350 Other: Voiding Method Bedside Commode # Voids 1 2 # Bowel Movements 1 ABP, PAP, CO, CI - Last Documented Arterial Blood Pressure 147/45 - Exam GENERAL: The patient is alert and oriented x3, not in any acute distress. Well developed, well nourished. HEENT: Pupils are round and equally reacting to light. EOMI. No scleral icterus. No conjunctival pallor. Normocephalic, atraumatic. No pharyngeal erythema. No thyromegaly. CARDIOVASCULAR: S1 and S2 present. No murmurs, rubs, or gallops. PULMONARY: Chest is clear to auscultation, no wheezing or crackles. ABDOMEN: Soft, nontender, nondistended, normoactive bowel sounds. No palpable organomegaly. MUSCULOSKELETAL: No joint swelling or deformity. EXTREMITIES: No cyanosis, clubbing, or pedal edema. NEUROLOGICAL: Gross neurological examination did not reveal any focal deficits. SKIN: No rashes. - Labs CBC & Chem 7: 05/23/18 07:06 05/21/18 13:49 Labs: Abnormal Lab Results - Last 24 Hours (Table) 05/22/18 05/22/18 05/23/18 Range/Units 17:23 21:16 05:59 WBC (3.8-10.6) k/uL RBC (3.80-5.40) m/uL Hgb (11.4-16.0) gm/dL Hct (34.0-46.0) % RDW (11.5-15.5) % Plt Count (150-450) k/uL Neutrophils # (Manual) (1.3-7.7) k/uL Lymphocytes # (Manual) (1.0-4.8) k/uL POC Glucose (mg/dL) 122 H 144 H 123 H (75-99) mg/dL 05/23/18 05/23/18 Range/Units 07:06 12:04 WBC 1.0 L* (3.8-10.6) k/uL RBC 2.32 L (3.80-5.40) m/uL Hgb 7.7 L (11.4-16.0) gm/dL Hct 22.5 L (34.0-46.0) % RDW 18.1 H (11.5-15.5) % Plt Count 24 L* (150-450) k/uL Neutrophils # (Manual) 0.37 L (1.3-7.7) k/uL Lymphocytes # (Manual) 0.56 L (1.0-4.8) k/uL POC Glucose (mg/dL) 114 H (75-99) mg/dL Microbiology - Last 24 Hours (Table) 05/21/18 12:30 Urine Culture - Final Urine,Clean Catch Assessment and Plan Assessment: Ovarian cancer with metastases Pancytopenia Metabolic encephalopathy, resolving Severe anemia, status post blood transfusion Seizure Episodic V. tach Acute renal failure Plan: This is a 82 years old female with history of metastatic cancer who presents with pancytopenia picture and metabolic encephalopathy. At the complicated by blood transfusion reaction. Intensive care and put on follow-up is appreciated. Cardiology and hem/onc are on the case. Her antihypertensives were restarted with metoprolol 25 mg twice a day. And Lasix. Continue with antibiotics to Zosyn, got 1 dose of vancomycin. Patient on amiodarone per cardiology team and [facility], neurology and hematology/oncology are following the patient. surgical evaluation is appreciated as well,pt might be going to EGD in view of his positive blood in stool ( pt informed) if family agree to aggressive therapy Continue with GI and DVT prophylaxis. Further recommendation based on the clinical course. Prognosis is guarded
[2018-05-23] MEDS: HYDROcodone/APAP 5-325MG 1 EACH TAB PO PRN (23:36)
[2018-05-24] MEDS: SODIUM CHLORIDE 0.45% 1,000 ML IV SCH ×4 (01:27→22:22)
[2018-05-24 06:06] LABS: Glucose,Whole Blood 112 mg/dL (75-99)
[2018-05-24] MEDS: levETIRAcetam IV 750 MG in SODIUM CHLORIDE 0.9% 100 ML IVPB SCH ×2 (06:09→17:08)
[2018-05-24] MEDS: INSULIN ASPART 100 UNIT/ML 1 ML 10 ML VIAL SQ SCH ×4 (06:13→21:42)
[2018-05-24] MEDS: PANTOPRAZOLE 40 MG TABLET PO SCH (06:14)
[2018-05-24 07:55] LABS: Anisocytosis Slight; HCT 20.4 % (34.0-46.0); MCH 33.2 pg (25.0-35.0); MCV 97.9 fL (80.0-100.0); Macrocytosis Slight; Mean Platelet Volume 9.1; RBC 2.08 m/uL (3.80-5.40); RDW 18.5 % (11.5-15.5)
[2018-05-24 08:05] LABS: Platelet Count 20 k/uL (150-450); WBC 0.8 k/uL (3.8-10.6)
[2018-05-24 08:07] LABS: HGB 6.9 gm/dL (11.4-16.0)
[2018-05-24] MEDS: guaiFENesin-DM 600/30MG 1 EACH TAB.ER.12H PO SCH ×2 (08:30→21:38)
[2018-05-24] MEDS: METOPROLOL TARTRATE 25 MG TAB PO SCH ×2 (08:30→21:38)
[2018-05-24] MEDS: AMIODARONE 200 MG TAB PO SCH (08:30)
[2018-05-24] MEDS: FUROSEMIDE 20 MG TAB PO SCH ×2 (08:30→17:07)
[2018-05-24] MEDS: FERROUS SULFATE 325 MG TAB PO SCH (08:30)
[2018-05-24] MEDS: PIPERACILLIN-TAZOBACTAM 3.375 GM in DEXTROSE/WATER 1 50ML.BAG IVPB SCH (08:31)
[2018-05-24 08:38] LABS: Poikilocytosis (M) Present
[2018-05-24 09:05] LABS: Calcium 7.5 mg/dL (8.4-10.2)
[2018-05-24 09:08] LABS: Potassium 2.8 mmol/L (3.5-5.1)
[2018-05-24] MEDS: POTASSIUM CHLORIDE ER 20 MEQ TAB.ER PO SCH ×5 (09:14→19:01)
[2018-05-24 11:56] LABS: Glucose,Whole Blood 165 mg/dL (75-99)
[2018-05-24] MEDS ORDERED: MAG HYDROX/AL HYDROX/SIMETH 30 ML, LIDOCAINE VISCOUS 30 ML, diphenhydrAMINE ELIXIR 75 M... PO PRN ×8 (12:28→12:32)
--- NOTE | 2018-05-24 14:05 | P.PN ---
Subjective ON-call hospitalist covering for from 05/19 till 05/24 This is a pleasant 82 old female with past medical history of mild dysplastic syndrome with pancytopenia, coronary artery disease, CHF, COPD, CVA/TIA, diabetes mellitus, GI bleed, hyperlipidemia, hypertension, who presents from home because originally she was confused where she has difficulty operating her TV, so she came to emergency room. On admission patient has low hemoglobin at 8.3 and 67 going down to 6.6. Patient got blood transfusion which was complicated by status epilepticus and V. tach, patient was intubated temporarily and sent to the ICU patient was extubated yesterday and clinically she is more stable currently. Her last hemoglobin is 7.6, patient also noticed to be pancytopenia with WBC 1.2 and platelets 31 area that INR is 1.1. Her creatinine is trending up from 1.1-1.4 subjective 05/19/2018 pt is resting in bed comfortably , in mild distress due to nausea, complaining from coughing and some dyspnea, family were at bed side and updated them and all their questions were answered to their satisfaction's. So complains from loose stool. C. diff was negative., has mild abd pain when she coughs , abd exam looks benign, pt will have meeting with hem/onc team 05/20/2018 pt is sitting on chair, look tires and pale, in no distress, less coughing , breathing quietly , family at bed side, pt and family/sister had discussion with the oncology team about the treatment plan, and they most likely going to go with chemotherapy, however pt does not want to go to rehab as recommended because she does not want to be seperated from her family and be alone without them. risk / benefits are explained from them .pt has no new complaints, no pain labs shows positive FOBT ( surgical team are considering EGD if pt/family agree to aggressive therapy ); cr 1.1-1.3, Hb A1c: 6.5%, pt with positive troponin with EF 30-35% and cardiology on the case , platelets low at 18K, carotid doplux ordered by neurology team in view of her stroke shows 50-69% stenosis on the left side ( we will ask for neurology f/u), CXR : left pleural effusion ( pt is on lasix 20 mg bid) 05/21/2018 surgical f/u appreciated , no plan for endoscopy for now , pt has low plt at 16, discussed with onco today , she might benefit from chemotherapy but prognosis overall is poor 05/22/2018 no change in pt condition , pt is still weak, 05/23/2019 pt is lying in bed ,no new complaint , no chest pain , no dyspnea, no change in urine or bowel habits, no fever, pt was telling me she is feeling good her hb and platelet are little improved , surgery noted no more bleeding and they signed off 05/24/2019 No overnight events but the patient and family has lot of questions regarding chemotherapy, will discuss with the hematology oncology patient hemoglobin is 6.9 receiving 1 unit of blood transfusion today. Unsure why patient is on antibiotics appears to have been started empirically while she was in ICU these will be discontinued. Objective - Vital Signs Vital signs: Vital Signs Temp 98.3 F 05/24/18 12:12 Pulse 69 05/24/18 12:12 Resp 18 05/24/18 12:12 BP 139/91 05/24/18 12:12 Pulse Ox 93 L 05/24/18 12:12 Intake & Output 05/23/18 05/24/18 05/24/18 18:59 06:59 18:59 Intake Total 1450 950 500 Balance 1450 950 500 Weight 95.3 kg 95.3 kg Intake: IV 850 900 500 Piperacillin-Tazobactam 3 50 .375 gm In Dextrose/Water 1 50ml.bag @ 12.5 mls/hr IVPB Q8HR [facility] Rx#: [id number] Sodium Chloride 0.45% 1, 800 800 500 000 ml @ 100 mls/hr IV . Q10H [facility] Rx#:[id number] levETIRAcetam IV 750 mg 100 In Sodium Chloride 0.9% 100 ml @ 400 mls/hr IVPB Q12H [facility] Rx#:[id number] Oral 600 50 Other: Voiding Method Bedside Commode Bedside Commode # Voids 5 # Bowel Movements 1 ABP, PAP, CO, CI - Last Documented Arterial Blood Pressure 147/45 - Exam PHYSICAL EXAMINATION: GENERAL: The patient is alert and oriented x3, patient appears to be quite tired HEENT: Pupils are round and equally reacting to light. EOMI. No scleral icterus. No conjunctival pallor. Normocephalic, atraumatic. No pharyngeal erythema. No thyromegaly. CARDIOVASCULAR: S1 and S2 present. No murmurs, rubs, or gallops. PULMONARY: Chest is clear to auscultation, no wheezing or crackles. ABDOMEN: Soft, nontender, nondistended, normoactive bowel sounds. No palpable organomegaly. MUSCULOSKELETAL: No joint swelling or deformity. EXTREMITIES: No cyanosis, clubbing, or pedal edema. NEUROLOGICAL: Gross neurological examination did not reveal any focal deficits. SKIN: No rashes. - Labs CBC & Chem 7: 05/24/18 07:02 05/24/18 07:02 Labs: Abnormal Lab Results - Last 24 Hours (Table) 05/23/18 05/23/18 05/24/18 Range/Units 17:04 20:47 05:52 WBC (3.8-10.6) k/uL RBC (3.80-5.40) m/uL Hgb (11.4-16.0) gm/dL Hct (34.0-46.0) % RDW (11.5-15.5) % Plt Count (150-450) k/uL Potassium (3.5-5.1) mmol/L BUN (7-17) mg/dL Creatinine (0.52-1.04) mg/dL Glucose (74-99) mg/dL POC Glucose (mg/dL) 116 H 145 H 112 H (75-99) mg/dL Calcium (8.4-10.2) mg/dL 05/24/18 05/24/18 05/24/18 Range/Units 07:02 07:02 11:52 WBC 0.8 L* (3.8-10.6) k/uL RBC 2.08 L (3.80-5.40) m/uL Hgb 6.9 L* (11.4-16.0) gm/dL Hct 20.4 L (34.0-46.0) % RDW 18.5 H (11.5-15.5) % Plt Count 20 L* (150-450) k/uL Potassium 2.8 L* (3.5-5.1) mmol/L BUN 6 L (7-17) mg/dL Creatinine 1.20 H (0.52-1.04) mg/dL Glucose 102 H (74-99) mg/dL POC Glucose (mg/dL) 165 H (75-99) mg/dL Calcium 7.5 L (8.4-10.2) mg/dL Assessment and Plan Plan: Assessment and Plan Assessment: Ovarian cancer with metastases: Decisions regarding chemotherapy as per the patient and oncology Pancytopenia: Secondary to mild dysplastic syndrome blood transfusion today Metabolic encephalopathy, resolved Severe anemia, blood transfusion today Seizure Episodic V. tach Acute renal failure and improved
[2018-05-24] MEDS: ACETAMINOPHEN TAB 325 MG TAB PO PRN (15:46)
[2018-05-24 17:05] LABS: Glucose,Whole Blood 118 mg/dL (75-99)
--- NOTE | 2018-05-24 17:40 | P.PN ---
Subjective Progress Note Date: 05/24/18 The patient remains weak overall. She continues to have frequent bowel movements which are loose, and black intermittently. Appetite is diminished. She is able to sit up in the bed, and use the bedside commode without assistance. Objective - Vital Signs Vital signs: Vital Signs Temp 98.4 F 05/24/18 17:03 Pulse 72 05/24/18 16:00 Resp 18 05/24/18 16:00 BP 140/78 05/24/18 16:00 Pulse Ox 93 L 05/24/18 16:00 Intake & Output 05/23/18 05/24/18 05/24/18 18:59 06:59 18:59 Intake Total 1450 950 620 Balance 1450 950 620 Weight 95.3 kg 95.3 kg Intake: IV 850 900 500 Piperacillin-Tazobactam 3 50 .375 gm In Dextrose/Water 1 50ml.bag @ 12.5 mls/hr IVPB Q8HR [facility] Rx#: [id number] Sodium Chloride 0.45% 1, 800 800 500 000 ml @ 100 mls/hr IV . Q10H [facility] Rx#:[id number] levETIRAcetam IV 750 mg 100 In Sodium Chloride 0.9% 100 ml @ 400 mls/hr IVPB Q12H [facility] Rx#:[id number] Oral 600 50 120 Other: Voiding Method Bedside Commode Bedside Commode # Voids 5 # Bowel Movements 1 ABP, PAP, CO, CI - Last Documented Arterial Blood Pressure 147/45 - Constitutional General appearance: Present: no acute distress - EENT Eyes: Present: EOMI ENT: Present: normal oropharynx - Respiratory Respiratory: bilateral: CTA - Cardiovascular Rhythm: regular Heart sounds: normal: S1, S2 - Gastrointestinal General gastrointestinal: Present: normal bowel sounds, soft - Neurologic Neurologic: Present: CNII-XII intact - Musculoskeletal Musculoskeletal: Present: generalized weakness, strength equal bilaterally - Psychiatric Psychiatric: Present: A&O x's 3, appropriate affect - Labs CBC & Chem 7: 05/24/18 07:02 05/24/18 07:02 Labs: Abnormal Lab Results - Last 24 Hours (Table) 05/23/18 05/24/18 05/24/18 Range/Units 20:47 05:52 07:02 WBC 0.8 L* (3.8-10.6) k/uL RBC 2.08 L (3.80-5.40) m/uL Hgb 6.9 L* (11.4-16.0) gm/dL Hct 20.4 L (34.0-46.0) % RDW 18.5 H (11.5-15.5) % Plt Count 20 L* (150-450) k/uL Potassium (3.5-5.1) mmol/L BUN (7-17) mg/dL Creatinine (0.52-1.04) mg/dL Glucose (74-99) mg/dL POC Glucose (mg/dL) 145 H 112 H (75-99) mg/dL Calcium (8.4-10.2) mg/dL 05/24/18 05/24/18 05/24/18 Range/Units 07:02 11:52 17:04 WBC (3.8-10.6) k/uL RBC (3.80-5.40) m/uL Hgb (11.4-16.0) gm/dL Hct (34.0-46.0) % RDW (11.5-15.5) % Plt Count (150-450) k/uL Potassium 2.8 L* (3.5-5.1) mmol/L BUN 6 L (7-17) mg/dL Creatinine 1.20 H (0.52-1.04) mg/dL Glucose 102 H (74-99) mg/dL POC Glucose (mg/dL) 165 H 118 H (75-99) mg/dL Calcium 7.5 L (8.4-10.2) mg/dL Assessment and Plan (1) Myelodysplastic syndrome Narrative/Plan: I had a conversation again with the patient, as well as her daughter, regarding treatment options and prognosis. It was reiterated, that she has an aggressive condition that is unlikely to respond optimally to supportive care measures such as growth factors and transfusions. Therefore for effective treatment, the option would be chemotherapy. The patient is , at best, a borderline candidate for the proposed chemotherapy (Dacogen or Vidaza), despite her poor performance status, as well as the regimen is usually well tolerated. However her current performance status does put her at increased risk of side effects. In addition it was again discussed that response occurs in about 50-60 % of patients, and expected improvement in life expectancy is in the range of 7- 8 months. There were also advised again, that response sometimes may take 3-4 months to manifest and treatment would include commitment to frequent blood draws as well as visits back and forth to the hospital for transfusion. - At this time the patient remained unsure about her decision, whether to treat actively or not. She and her daughter were advised that the decision is hers. Opting for comfort care is a reasonable option in this situation. - The patient stated that she will consider it further and let us know her decision as soon as possible. - There were also advised that there is concern for GI blood loss given her black stools. Therefore IF she did choose active treatment, we would need to consider endoscopic workup. The case was also discussed with general surgery. Current Visit: Yes Status: Acute Code(s): D46.9 - MYELODYSPLASTIC SYNDROME, UNSPECIFIED SNOMED Code(s): 710700492 (2) Acute respiratory failure Current Visit: Yes Status: Acute Code(s): J96.00 - ACUTE RESPIRATORY FAILURE , UNSP W HYPOXIA OR HYPERCAPNIA SNOMED Code(s): 02969309 (3) Pancytopenia Narrative/Plan: Severe pancytopenia persists. Hemoglobin of 6.9 today and 1 unit of blood will be ordered. Platelets are greater than 10 without evidence of major active bleeding. Therefore we will continue to monitor. - As noted above, there is concern for GI blood loss. Therefore the patient does choose active treatment, we will need to consider endoscopic workup. Current Visit: Yes Status: Acute Priority: High Code(s): D61.818 - OTHER PANCYTOPENIA SNOMED Code(s): 544242858
[2018-05-24] MEDS: ONDANSETRON 4 MG/2 ML VIAL IVP PRN (19:52)
[2018-05-24 20:46] LABS: Glucose,Whole Blood 142 mg/dL (75-99)
[2018-05-24] MEDS: ATORVASTATIN 40 MG TAB PO SCH (21:38)
[2018-05-24] MEDS ORDERED: diphenhydrAMINE 50 MG/ML 1 ML VIAL IVP PRN (23:09)
[2018-05-25] MEDS ORDERED: POTASSIUM CHLORIDE ER 20 MEQ TAB.ER PO SCH
[2018-05-25] MEDS ORDERED: POTASSIUM CHLORIDE 10 MEQ in WATER FOR INJECTION 1 100ML.BAG IVPB STA ×2 (00:51→06:55)
[2018-05-25] MEDS: LOPERAMIDE 2 MG CAP PO PRN ×2 (06:08→21:39)
[2018-05-25] MEDS: PANTOPRAZOLE 40 MG TABLET PO SCH (06:08)
[2018-05-25] MEDS: levETIRAcetam IV 750 MG in SODIUM CHLORIDE 0.9% 100 ML IVPB SCH ×2 (06:10→18:28)
[2018-05-25 06:14] LABS: Glucose,Whole Blood 130 mg/dL (75-99)
[2018-05-25] MEDS: INSULIN ASPART 100 UNIT/ML 1 ML 10 ML VIAL SQ SCH ×4 (06:14→21:37)
[2018-05-25 06:48] LABS: Anisocytosis Slight; HCT 21.2 % (34.0-46.0); HGB 7.1 gm/dL (11.4-16.0); MCH 33.3 pg (25.0-35.0); MCHC 33.6 g/dL (31.0-37.0); MCV 99.1 fL (80.0-100.0); Macrocytosis Slight; Mean Platelet Volume 8.1; RBC 2.14 m/uL (3.80-5.40); RDW 18.7 % (11.5-15.5)
[2018-05-25] MEDS: ONDANSETRON 4 MG/2 ML VIAL IVP PRN ×2 (06:48→21:39)
[2018-05-25 06:51] LABS: Calcium 7.8 mg/dL (8.4-10.2); Potassium 3.5 mmol/L (3.5-5.1)
[2018-05-25 07:15] LABS: Platelet Count 20 k/uL (150-450); WBC 0.9 k/uL (3.8-10.6)
[2018-05-25] MEDS: FUROSEMIDE 20 MG TAB PO SCH ×2 (08:46→16:21)
[2018-05-25] MEDS: guaiFENesin-DM 600/30MG 1 EACH TAB.ER.12H PO SCH ×2 (08:46→21:40)
[2018-05-25] MEDS: METOPROLOL TARTRATE 25 MG TAB PO SCH ×2 (08:46→21:40)
[2018-05-25] MEDS: FERROUS SULFATE 325 MG TAB PO SCH (08:46)
[2018-05-25] MEDS: AMIODARONE 200 MG TAB PO SCH (08:46)
[2018-05-25] MEDS: SODIUM CHLORIDE 0.45% 1,000 ML IV SCH ×2 (08:54→16:17)
[2018-05-25] MEDS ORDERED: LORazepam 2 MG/ML INJ IV PRN (11:07)
[2018-05-25] MEDS: ACETAMINOPHEN TAB 325 MG TAB PO PRN (11:09)
[2018-05-25 11:59] LABS: Glucose,Whole Blood 137 mg/dL (75-99)
[2018-05-25] MEDS: POTASSIUM CHLORIDE 20 MEQ in WATER FOR INJECTION 1 100ML.BAG IVPB SCH ×2 (14:00→16:18)
--- NOTE | 2018-05-25 14:15 | P.PN ---
Subjective Progress Note Date: 05/25/18 Principal diagnosis: MDS patient seen in follow-up today, she continues to change mind about her treatment plan versus no treatment. There was no family at bedside during this mornings visit, and she states she would like to discuss with family prior. Objective - Vital Signs Vital signs: Vital Signs Temp 99 F 05/25/18 11:09 Pulse 63 05/25/18 11:09 Resp 18 05/25/18 11:09 BP 123/69 05/25/18 11:09 Pulse Ox 98 05/25/18 11:09 Intake & Output 05/24/18 05/25/18 05/25/18 18:59 06:59 18:59 Intake Total 620 480 575 Output Total 0 Balance 620 480 575 Weight 95.3 kg 95 kg Intake: IV 500 450 Sodium Chloride 0.45% 1, 500 450 000 ml @ 100 mls/hr IV . Q10H [facility] Rx#:[id number] Oral 120 480 125 Output: Urine 0 Other: Voiding Method Bedside Commode Bedside Commode Bedside Commode # Voids 1 # Bowel Movements 1 ABP, PAP, CO, CI - Last Documented Arterial Blood Pressure 147/45 - Constitutional General appearance: Present: cooperative, no acute distress - EENT Eyes: Present: EOMI, PERRLA, dentition normal ENT: Present: hard of hearing, NA/AT, normal oropharynx - Neck Details: supple, trachea midline Neck: Present: normal ROM - Respiratory Respiratory: bilateral: CTA (no increased effort) - Cardiovascular Rhythm: regular Heart sounds: normal: S1, S2 - Gastrointestinal General gastrointestinal: Present: normal bowel sounds, soft - Integumentary Integumentary: Present: pale - Neurologic Neurologic: Present: CNII-XII intact - Musculoskeletal Musculoskeletal: Present: generalized weakness, strength equal bilaterally - Psychiatric Psychiatric: Present: A&O x's 3, appropriate affect, intact judgment & insight - Labs CBC & Chem 7: 05/25/18 06:01 05/25/18 12:56 Labs: Abnormal Lab Results - Last 24 Hours (Table) 05/24/18 05/24/18 05/24/18 Range/Units 17:00 17:04 18:09 WBC (3.8-10.6) k/uL RBC (3.80-5.40) m/uL Hgb (11.4-16.0) gm/dL Hct (34.0-46.0) % RDW (11.5-15.5) % Plt Count (150-450) k/uL Potassium 3.0 L* (3.5-5.1) mmol/L Chloride (98-107) mmol/L BUN (7-17) mg/dL Creatinine (0.52-1.04) mg/dL Glucose (74-99) mg/dL POC Glucose (mg/dL) 118 H (75-99) mg/dL Calcium (8.4-10.2) mg/dL Crossmatch See Detail 05/24/18 05/24/18 05/25/18 Range/Units 20:45 22:05 06:01 WBC 0.9 L* (3.8-10.6) k/uL RBC 2.14 L (3.80-5.40) m/uL Hgb 7.1 L (11.4-16.0) gm/dL Hct 21.2 L (34.0-46.0) % RDW 18.7 H (11.5-15.5) % Plt Count 20 L* (150-450) k/uL Potassium 3.1 L (3.5-5.1) mmol/L Chloride (98-107) mmol/L BUN (7-17) mg/dL Creatinine (0.52-1.04) mg/dL Glucose (74-99) mg/dL POC Glucose (mg/dL) 142 H (75-99) mg/dL Calcium (8.4-10.2) mg/dL Crossmatch 05/25/18 05/25/18 05/25/18 Range/Units 06:01 06:13 11:45 WBC (3.8-10.6) k/uL RBC (3.80-5.40) m/uL Hgb (11.4-16.0) gm/dL Hct (34.0-46.0) % RDW (11.5-15.5) % Plt Count (150-450) k/uL Potassium (3.5-5.1) mmol/L Chloride 109 H (98-107) mmol/L BUN 5 L (7-17) mg/dL Creatinine 1.10 H (0.52-1.04) mg/dL Glucose 121 H (74-99) mg/dL POC Glucose (mg/dL) 130 H 137 H (75-99) mg/dL Calcium 7.8 L (8.4-10.2) mg/dL Crossmatch 05/25/18 Range/Units 12:56 WBC (3.8-10.6) k/uL RBC (3.80-5.40) m/uL Hgb (11.4-16.0) gm/dL Hct (34.0-46.0) % RDW (11.5-15.5) % Plt Count (150-450) k/uL Potassium 3.4 L (3.5-5.1) mmol/L Chloride (98-107) mmol/L BUN (7-17) mg/dL Creatinine (0.52-1.04) mg/dL Glucose (74-99) mg/dL POC Glucose (mg/dL) (75-99) mg/dL Calcium (8.4-10.2) mg/dL Crossmatch Assessment and Plan Plan: Assessment and Plan (1) Myelodysplastic syndrome Narrative/Plan: I had a conversation again with the patient, as well as her daughter, regarding treatment options and prognosis. It was reiterated, that she has an aggressive condition that is unlikely to respond optimally to supportive care measures such as growth factors and transfusions. Therefore for effective treatment, the option would be chemotherapy. The patient is , at best, a borderline candidate for the proposed chemotherapy (Dacogen or Vidaza), despite her poor performance status, as well as the regimen is usually well tolerated. However her current performance status does put her at increased risk of side effects. In addition it was again discussed that response occurs in about 50-60 % of patients, and expected improvement in life expectancy is in the range of 7- 8 months. There were also advised again, that response sometimes may take 3-4 months to manifest and treatment would include commitment to frequent blood draws as well as visits back and forth to the hospital for transfusion. - At this time the patient remained unsure about her decision, whether to treat actively or not. She and her daughter were advised that the decision is hers. Opting for comfort care is a reasonable option in this situation. - The patient stated that she will consider it further and let us know her decision as soon as possible. - There were also advised that there is concern for GI blood loss given her black stools. Therefore IF she did choose active treatment, we would need to consider endoscopic workup. The case was also discussed with general surgery yesterday by Dr. Gonzalez. - With the current situation not decided on, it is reasonable to move forward with GI work-up if patients overall risks are less then benefit, with current cytopenias would continue to onitor and re-iterate importance of decision making to patient. Current Visit: Yes Status: Acute Code(s): D46.9 - MYELODYSPLASTIC SYNDROME, UNSPECIFIED SNOMED Code(s): 965805099 (2) Acute respiratory failure Current Visit: Yes Status: Acute Code(s): J96.00 - ACUTE RESPIRATORY FAILURE , UNSP W HYPOXIA OR HYPERCAPNIA SNOMED Code(s): 75315804 (3) Pancytopenia Narrative/Plan: Severe pancytopenia persists. Hemoglobin of 7.1 after 1 unit of blood on 05/24. Platelets are greater than 10 without evidence of major active bleeding. Therefore we will continue to monitor. - As noted above, there is concern for GI blood loss. Since a decision has not been determined and she is very indescisive after repeated conversations regarding risks, and benefits Endoscopy will only outweigh risks with cytopenias if she would like aggressive treatment of underlying disease. I reviewed this with her today and will discuss further with Dr. Gonzalez. Current Visit: Yes Status: Acute Priority: High Code(s): D61.818 - OTHER PANCYTOPENIA SNOMED Code(s): 380401445
[2018-05-25] MEDS ORDERED: ACETAMINOPHEN TAB 325 MG TAB PO PRN (16:13)
[2018-05-25 16:34] LABS: Glucose,Whole Blood 111 mg/dL (75-99)
[2018-05-25] MEDS: ATORVASTATIN 40 MG TAB PO SCH (21:40)
[2018-05-25 22:52] LABS: Glucose,Whole Blood 150 mg/dL (75-99)
--- NOTE | 2018-05-25 23:20 | P.PN ---
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 We had a long discussion today regarding her overall prognosis which is somewhat poor related to her mild dysplasia and overlying elements. There has been some discussion about possible chemotherapy to treat the mild dysplastic syndrome. However, I will defer this to oncology and expect that because of her recent stroke that she would tolerate this somewhat poorly. The family and I had a significant discussion about her dissatisfaction with some nursing events that happened yesterday. I did my best to try to address these concerns, but ultimately I tried to tell the patient to focus on the immediate future. Objective - Vital Signs Vital signs: Vital Signs Temp 98.5 F 05/25/18 20:00 Pulse 80 05/25/18 20:00 Resp 18 05/25/18 20:00 BP 132/60 05/25/18 20:00 Pulse Ox 97 05/25/18 20:00 Intake & Output 05/25/18 05/25/18 05/26/18 06:59 18:59 06:59 Intake Total 480 665 240 Output Total 0 Balance 480 665 240 Weight 95 kg Intake: IV 450 Sodium Chloride 0.45% 1, 450 000 ml @ 100 mls/hr IV . Q10H [facility] Rx#:[id number] Oral 480 215 240 Output: Urine 0 Other: Voiding Method Bedside Commode Bedside Commode Bedside Commode # Voids 1 2 # Bowel Movements 1 ABP, PAP, CO, CI - Last Documented Arterial Blood Pressure 147/45 - Constitutional General appearance: Present: obese - EENT Eyes: Absent: abnormal pupil - Neck Neck: Absent: lymphadenopathy - Respiratory Respiratory: bilateral: CTA - Cardiovascular Rhythm: irregularly irregular Abnormal Heart Sounds: Absent: S3 Gallop - Gastrointestinal General gastrointestinal: Present: soft, tenderness - Integumentary Integumentary: Absent: cellulitis - Musculoskeletal Musculoskeletal: Present: generalized weakness - Labs CBC & Chem 7: 05/25/18 06:01 05/25/18 20:11 Labs: Abnormal Lab Results - Last 24 Hours (Table) 05/24/18 05/25/18 05/25/18 Range/Units 18:09 06:01 06:01 WBC 0.9 L* (3.8-10.6) k/uL RBC 2.14 L (3.80-5.40) m/uL Hgb 7.1 L (11.4-16.0) gm/dL Hct 21.2 L (34.0-46.0) % RDW 18.7 H (11.5-15.5) % Plt Count 20 L* (150-450) k/uL Potassium (3.5-5.1) mmol/L Chloride 109 H (98-107) mmol/L BUN 5 L (7-17) mg/dL Creatinine 1.10 H (0.52-1.04) mg/dL Glucose 121 H (74-99) mg/dL POC Glucose (mg/dL) (75-99) mg/dL Calcium 7.8 L (8.4-10.2) mg/dL Crossmatch See Detail 05/25/18 05/25/18 05/25/18 Range/Units 06:13 11:45 12:56 WBC (3.8-10.6) k/uL RBC (3.80-5.40) m/uL Hgb (11.4-16.0) gm/dL Hct (34.0-46.0) % RDW (11.5-15.5) % Plt Count (150-450) k/uL Potassium 3.4 L (3.5-5.1) mmol/L Chloride (98-107) mmol/L BUN (7-17) mg/dL Creatinine (0.52-1.04) mg/dL Glucose (74-99) mg/dL POC Glucose (mg/dL) 130 H 137 H (75-99) mg/dL Calcium (8.4-10.2) mg/dL Crossmatch 05/25/18 05/25/18 05/25/18 Range/Units 16:29 20:11 21:16 WBC (3.8-10.6) k/uL RBC (3.80-5.40) m/uL Hgb (11.4-16.0) gm/dL Hct (34.0-46.0) % RDW (11.5-15.5) % Plt Count (150-450) k/uL Potassium 3.4 L (3.5-5.1) mmol/L Chloride (98-107) mmol/L BUN (7-17) mg/dL Creatinine (0.52-1.04) mg/dL Glucose (74-99) mg/dL POC Glucose (mg/dL) 111 H 150 H (75-99) mg/dL Calcium (8.4-10.2) mg/dL Crossmatch Assessment and Plan (1) Anemia Current Visit: No Status: Acute Code(s): D64.9 - ANEMIA, UNSPECIFIED SNOMED Code(s): 989169680 (2) At risk for readmission to hospital Current Visit: No Status: Acute Code(s): Z91.89 - OTH PERSONAL RISK FACTORS , NOT ELSEWHERE CLASSIFIED SNOMED Code(s): 9360817034690 (3) Atrial fibrillation Current Visit: No Status: Acute Code(s): I48.91 - UNSPECIFIED ATRIAL FIBRILLATION SNOMED Code(s): 61438592 (4) 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 Current Visit: No Status: Acute Code(s): Z95.5 - PRESENCE OF CORONARY ANGIOPLASTY IMPLANT AND GRAFT SNOMED Code(s): 683701441 (5) Shortness of breath Current Visit: No Status: Acute Code(s): R06.02 - SHORTNESS OF BREATH SNOMED Code(s): 669864043 (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 Yesterday it was still low at 6.9. I attempted to address CODE STATUS-at this time she does not wish to have repeat full resuscitation. Hospice consult possibility. Check CBC in a.m. Prognosis is guarded secondary to multiple comorbidities. Time spent 45 minutes
[2018-05-26] MEDS: HYDROcodone/APAP 5-325MG 1 EACH TAB PO PRN (00:52)
[2018-05-26] MEDS: SODIUM CHLORIDE 0.45% 1,000 ML IV SCH ×2 (06:07→21:05)
[2018-05-26] MEDS: levETIRAcetam IV 750 MG in SODIUM CHLORIDE 0.9% 100 ML IVPB SCH ×2 (06:07→19:03)
[2018-05-26] MEDS: PANTOPRAZOLE 40 MG TABLET PO SCH (06:07)
[2018-05-26 06:17] LABS: Glucose,Whole Blood 115 mg/dL (75-99)
[2018-05-26] MEDS: INSULIN ASPART 100 UNIT/ML 1 ML 10 ML VIAL SQ SCH ×4 (06:22→21:34)
[2018-05-26 06:55] LABS: Anisocytosis Slight; HCT 20.2 % (34.0-46.0); MCH 31.1 pg (25.0-35.0); MCV 97.1 fL (80.0-100.0); Macrocytosis Slight; Mean Platelet Volume 8.3; RBC 2.08 m/uL (3.80-5.40); RDW 18.1 % (11.5-15.5)
[2018-05-26 07:05] LABS: WBC 0.9 k/uL (3.8-10.6)
[2018-05-26 07:07] LABS: HGB 6.5 gm/dL (11.4-16.0); Platelet Count 23 k/uL (150-450)
[2018-05-26 07:30] LABS: Albumin 2.4 g/dL (3.5-5.0); Calcium 7.6 mg/dL (8.4-10.2); Potassium 3.3 mmol/L (3.5-5.1); Total Bilirubin 0.7 mg/dL (0.2-1.3); Total Protein 5.2 g/dL (6.3-8.2)
[2018-05-26] MEDS: FUROSEMIDE 20 MG TAB PO SCH ×2 (08:38→19:03)
[2018-05-26] MEDS: guaiFENesin-DM 600/30MG 1 EACH TAB.ER.12H PO SCH ×2 (08:38→20:39)
[2018-05-26] MEDS: FERROUS SULFATE 325 MG TAB PO SCH (08:38)
[2018-05-26] MEDS: AMIODARONE 200 MG TAB PO SCH (08:38)
[2018-05-26] MEDS: METOPROLOL TARTRATE 25 MG TAB PO SCH ×2 (08:39→20:38)
--- NOTE | 2018-05-26 09:11 | P.PN ---
Subjective Principal diagnosis: Continuing Care This is a continue present an 82-year-old -[place] female who is essentially admitted for myelodysplastic syndrome. We had a long discussion about her overall prognosis and at this time, she is not willing to continue treatment from the perspective of chemotherapy. This would require colonoscopy secondary to history of supposed positive guaiac stool. Anemia is noted and hemoglobin is now 6.5. She seems quite alert and oriented today. Objective - Vital Signs Vital signs: Vital Signs Temp 98.2 F 05/26/18 04:00 Pulse 80 05/26/18 04:00 Resp 18 05/26/18 04:00 BP 138/70 05/26/18 04:00 Pulse Ox 96 05/26/18 04:00 Intake & Output 05/25/18 05/26/18 05/26/18 18:59 06:59 18:59 Intake Total 665 480 Output Total 0 Balance 665 480 Weight 99.5 kg Intake: IV 450 Sodium Chloride 0.45% 1, 450 000 ml @ 100 mls/hr IV . Q10H [facility] Rx#:[id number] Oral 215 480 Output: Urine 0 Other: Voiding Method Bedside Commode Bedside Commode # Voids 2 ABP, PAP, CO, CI - Last Documented Arterial Blood Pressure 147/45 - Constitutional General appearance: Present: obese - EENT Eyes: Absent: abnormal pupil - Respiratory Respiratory: bilateral: CTA - Cardiovascular Rhythm: irregularly irregular Heart sounds: normal: S1, S2 Abnormal Heart Sounds: Absent: S3 Gallop - Gastrointestinal General gastrointestinal: Present: soft. Absent: tenderness - Musculoskeletal Musculoskeletal: Present: generalized weakness - Psychiatric Psychiatric: Present: A&O x's 3, appropriate affect, intact judgment & insight - Labs CBC & Chem 7: 05/26/18 06:35 05/26/18 06:35 Labs: Abnormal Lab Results - Last 24 Hours (Table) 05/24/18 05/25/18 05/25/18 Range/Units 18:09 11:45 12:56 WBC (3.8-10.6) k/uL RBC (3.80-5.40) m/uL Hgb (11.4-16.0) gm/dL Hct (34.0-46.0) % RDW (11.5-15.5) % Plt Count (150-450) k/uL Potassium 3.4 L (3.5-5.1) mmol/L Chloride (98-107) mmol/L BUN (7-17) mg/dL Creatinine (0.52-1.04) mg/dL Glucose (74-99) mg/dL POC Glucose (mg/dL) 137 H (75-99) mg/dL Calcium (8.4-10.2) mg/dL Total Protein (6.3-8.2) g/dL Albumin (3.5-5.0) g/dL Crossmatch See Detail 05/25/18 05/25/18 05/25/18 Range/Units 16:29 20:11 21:16 WBC (3.8-10.6) k/uL RBC (3.80-5.40) m/uL Hgb (11.4-16.0) gm/dL Hct (34.0-46.0) % RDW (11.5-15.5) % Plt Count (150-450) k/uL Potassium 3.4 L (3.5-5.1) mmol/L Chloride (98-107) mmol/L BUN (7-17) mg/dL Creatinine (0.52-1.04) mg/dL Glucose (74-99) mg/dL POC Glucose (mg/dL) 111 H 150 H (75-99) mg/dL Calcium (8.4-10.2) mg/dL Total Protein (6.3-8.2) g/dL Albumin (3.5-5.0) g/dL Crossmatch 05/26/18 05/26/18 05/26/18 Range/Units 06:15 06:35 06:35 WBC 0.9 L* (3.8-10.6) k/uL RBC 2.08 L (3.80-5.40) m/uL Hgb 6.5 L* (11.4-16.0) gm/dL Hct 20.2 L (34.0-46.0) % RDW 18.1 H (11.5-15.5) % Plt Count 23 L* (150-450) k/uL Potassium 3.3 L (3.5-5.1) mmol/L Chloride 109 H (98-107) mmol/L BUN 5 L (7-17) mg/dL Creatinine 1.27 H (0.52-1.04) mg/dL Glucose 108 H (74-99) mg/dL POC Glucose (mg/dL) 115 H (75-99) mg/dL Calcium 7.6 L (8.4-10.2) mg/dL Total Protein 5.2 L (6.3-8.2) g/dL Albumin 2.4 L (3.5-5.0) g/dL Crossmatch Assessment and Plan (1) Anemia Current Visit: No Status: Acute Code(s): D64.9 - ANEMIA, UNSPECIFIED SNOMED Code(s): 388851963 (2) At risk for readmission to hospital Current Visit: No Status: Acute Code(s): Z91.89 - OTH PERSONAL RISK FACTORS , NOT ELSEWHERE CLASSIFIED SNOMED Code(s): 7973765548617 (3) Atrial fibrillation Current Visit: No Status: Acute Code(s): I48.91 - UNSPECIFIED ATRIAL FIBRILLATION SNOMED Code(s): 06625325 (4) 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 Current Visit: No Status: Acute Code(s): Z95.5 - PRESENCE OF CORONARY ANGIOPLASTY IMPLANT AND GRAFT SNOMED Code(s): 237121012 (5) Shortness of breath Current Visit: No Status: Acute Code(s): R06.02 - SHORTNESS OF BREATH SNOMED Code(s): 671428821 (6) Acute left CONSERVATION SCIENTIST stroke Current Visit: Yes Status: Acute Code(s): I63.532 - CEREB INFRC D/T UNSP OCCLS OR STENOS OF LEFT POST CEREB ART SNOMED Code(s): 474955600 (7) Cerebrovascular accident Current Visit: Yes Status: Acute Code(s): I63.9 - CEREBRAL INFARCTION, UNSPECIFIED SNOMED Code(s): 754106939 (8) New onset seizure Current Visit: Yes Status: Acute Code(s): R56.9 - UNSPECIFIED CONVULSIONS SNOMED Code(s): 04275951 Plan: Severe pancytopenia. Myelodysplastic syndrome. Atrial fibrillation. Recent occipital CVA. Continue supportive care. Prognosis is guarded secondary to her overall course of treatment. Consult hospice and anticipate discharge in the next 24-48 hours.
--- NOTE | 2018-05-26 13:13 | P.PN ---
Subjective Progress Note Date: 05/26/18 Principal diagnosis: MDS Ms. Mortensen has made the decision to not continue chemotherapy, as this would require further diagnostics with endoscopy and GI work-up for repeated anemia. Objective - Vital Signs Vital signs: Vital Signs Temp 98.2 F 05/26/18 04:00 Pulse 57 L 05/26/18 11:20 Resp 18 05/26/18 11:20 BP 162/73 05/26/18 08:00 Pulse Ox 93 L 05/26/18 08:00 Intake & Output 05/25/18 05/26/18 05/26/18 18:59 06:59 18:59 Intake Total 665 480 600 Output Total 0 Balance 665 480 600 Weight 99.5 kg Intake: IV 450 500 Sodium Chloride 0.45% 1, 450 500 000 ml @ 100 mls/hr IV . Q10H MACIEL Rx#:[id number] Oral 215 480 100 Output: Urine 0 Other: Voiding Method Bedside Commode Bedside Commode # Voids 2 ABP, PAP, CO, CI - Last Documented Arterial Blood Pressure 147/45 - Constitutional General appearance: Present: cooperative, no acute distress - EENT Eyes: Present: EOMI, dentition normal ENT: Present: hard of hearing, NA/AT, normal oropharynx - Neck Details: supple Neck: Present: normal ROM - Respiratory Respiratory: bilateral: CTA, negative: rhonchi, wheezing - Cardiovascular Rhythm: regular Heart sounds: normal: S1, S2 - Peripheral edema leg Peripheral Edema: bilateral: Trace - Gastrointestinal General gastrointestinal: Present: normal bowel sounds, soft, tenderness - Integumentary Integumentary: Present: pale - Neurologic Neurologic Comment(s): no focal defects Neurologic: Present: CNII-XII intact - Psychiatric Psychiatric: Present: A&O x's 3, appropriate affect - Labs CBC & Chem 7: 05/26/18 06:35 05/26/18 06:35 Labs: Abnormal Lab Results - Last 24 Hours (Table) 05/24/18 05/25/18 05/25/18 Range/Units 18:09 12:56 16:29 WBC (3.8-10.6) k/uL RBC (3.80-5.40) m/uL Hgb (11.4-16.0) gm/dL Hct (34.0-46.0) % RDW (11.5-15.5) % Plt Count (150-450) k/uL Potassium 3.4 L (3.5-5.1) mmol/L Chloride (98-107) mmol/L BUN (7-17) mg/dL Creatinine (0.52-1.04) mg/dL Glucose (74-99) mg/dL POC Glucose (mg/dL) 111 H (75-99) mg/dL Calcium (8.4-10.2) mg/dL Total Protein (6.3-8.2) g/dL Albumin (3.5-5.0) g/dL Crossmatch See Detail 05/25/18 05/25/18 05/26/18 Range/Units 20:11 21:16 06:15 WBC (3.8-10.6) k/uL RBC (3.80-5.40) m/uL Hgb (11.4-16.0) gm/dL Hct (34.0-46.0) % RDW (11.5-15.5) % Plt Count (150-450) k/uL Potassium 3.4 L (3.5-5.1) mmol/L Chloride (98-107) mmol/L BUN (7-17) mg/dL Creatinine (0.52-1.04) mg/dL Glucose (74-99) mg/dL POC Glucose (mg/dL) 150 H 115 H (75-99) mg/dL Calcium (8.4-10.2) mg/dL Total Protein (6.3-8.2) g/dL Albumin (3.5-5.0) g/dL Crossmatch 05/26/18 05/26/18 Range/Units 06:35 06:35 WBC 0.9 L* (3.8-10.6) k/uL RBC 2.08 L (3.80-5.40) m/uL Hgb 6.5 L* (11.4-16.0) gm/dL Hct 20.2 L (34.0-46.0) % RDW 18.1 H (11.5-15.5) % Plt Count 23 L* (150-450) k/uL Potassium 3.3 L (3.5-5.1) mmol/L Chloride 109 H (98-107) mmol/L BUN 5 L (7-17) mg/dL Creatinine 1.27 H (0.52-1.04) mg/dL Glucose 108 H (74-99) mg/dL POC Glucose (mg/dL) (75-99) mg/dL Calcium 7.6 L (8.4-10.2) mg/dL Total Protein 5.2 L (6.3-8.2) g/dL Albumin 2.4 L (3.5-5.0) g/dL Crossmatch Assessment and Plan Plan: Assessment and Plan (1) Myelodysplastic syndrome Narrative/Plan: I had a conversation again with the patient, as well as her daughter, regarding treatment options and prognosis. It was reiterated, that she has an aggressive condition that is unlikely to respond optimally to supportive care measures such as growth factors and transfusions. Therefore for effective treatment, the option would be chemotherapy. The patient is , at best, a borderline candidate for the proposed chemotherapy (Dacogen or Vidaza), despite her poor performance status, as well as the regimen is usually well tolerated. However her current performance status does put her at increased risk of side effects. In addition it was again discussed that response occurs in about 50-60 % of patients, and expected improvement in life expectancy is in the range of 7- 8 months. There were also advised again, that response sometimes may take 3-4 months to manifest and treatment would include commitment to frequent blood draws as well as visits back and forth to the hospital for transfusion. - At this time the patient remained unsure about her decision, whether to treat actively or not. She and her daughter were advised that the decision is hers. Opting for comfort care is a reasonable option in this situation. - The patient stated that she will consider it further and let us know her decision as soon as possible. - There were also advised that there is concern for GI blood loss given her black stools. Therefore IF she did choose active treatment, we would need to consider endoscopic workup. The case was also discussed with general surgery yesterday by Dr. Gonzalez. - Patient has decided against further treatment and GI work-up - Agree with plan for Hospice consult, will transfuse for comfort today hgb 6.5 Current Visit: Yes Status: Acute Code(s): D46.9 - MYELODYSPLASTIC SYNDROME, UNSPECIFIED SNOMED Code(s): 841533483 (2) Acute respiratory failure Current Visit: Yes Status: Acute Code(s): J96.00 - ACUTE RESPIRATORY FAILURE , UNSP W HYPOXIA OR HYPERCAPNIA SNOMED Code(s): 97853561 (3) Pancytopenia Narrative/Plan: Severe pancytopenia persists. Hemoglobin of 7.1 after 1 unit of blood on 05/24. Platelets are greater than 10 without evidence of major active bleeding. Therefore we will continue to monitor. - Transfuse one unit of PRBC today Current Visit: Yes Status: Acute Priority: High Code(s): D61.818 - OTHER PANCYTOPENIA SNOMED Code(s): 418994659
[2018-05-26] MEDS: ATORVASTATIN 40 MG TAB PO SCH (20:39)
[2018-05-26] MEDS: ONDANSETRON 4 MG/2 ML VIAL IVP PRN (21:04)
[2018-05-26 21:28] LABS: Glucose,Whole Blood 176 mg/dL (75-99)
[2018-05-27] MEDS: HYDROcodone/APAP 5-325MG 1 EACH TAB PO PRN (01:23)
[2018-05-27 05:59] LABS: Glucose,Whole Blood 126 mg/dL (75-99)
[2018-05-27] MEDS: INSULIN ASPART 100 UNIT/ML 1 ML 10 ML VIAL SQ SCH ×2 (06:19→12:17)
[2018-05-27] MEDS: levETIRAcetam IV 750 MG in SODIUM CHLORIDE 0.9% 100 ML IVPB SCH (06:27)
[2018-05-27] MEDS: PANTOPRAZOLE 40 MG TABLET PO SCH (06:27)
[2018-05-27] MEDS: SODIUM CHLORIDE 0.45% 1,000 ML IV SCH ×2 (06:27→12:17)
--- NOTE | 2018-05-27 07:44 | P.DS ---
Providers Date of admission: 05/11/18 02:26 Expected date of discharge: 05/27/18 Attending physician: Kwan Lyn Consults: 05/11/18 02:27 Consult Physician Routine Consulting Provider: Wen Aguilar Consult Reason/Comments: Anemia, leukopenia Do you want consulting provider notified?: Yes 05/11/18 04:06 Consult Physician Routine Consulting Provider: Natasha Oscar Consult Reason/Comments: CVA Do you want consulting provider notified?: Yes 05/12/18 06:47 Consult Physician Urgent Consulting Provider: Jules Briones Consult Reason/Comments: V-Tach Do you want consulting provider notified?: Yes 05/12/18 08:54 Consult Physician Urgent Consulting Provider: Dianne Serrano Consult Reason/Comments: vent management Do you want consulting provider notified?: Already Contacted 05/18/18 07:00 Consult Physician Routine Consulting Provider: Haider Beasley Consult Reason/Comments: occult blood positive Do you want consulting provider notified?: Yes, Notify in am Primary care physician: Kwan Lyn - Discharge Diagnosis(es) (1) Anemia Current Visit: No Status: Acute (2) At risk for readmission to hospital Current Visit: No Status: Acute (3) Atrial fibrillation Current Visit: No Status: Acute (4) 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 The patient was being treated with multiple transfusions and has had difficulty now retaining appropriate transition protocol secondary to multiplle antibody reactions. The prognosis given with treatment with chemotherapy is somewhat poor. 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 Patient stabilized but again she has chosen to go home with hospice for comfort care given her overall prognosis. comfort measures are instituted. Patient Condition at Discharge: Poor Plan - Discharge Summary Discharge Rx Participant: No New Discharge Prescriptions: New Acetaminophen Tab [Tylenol] 325 mg PO Q4HR PRN tab PRN Reason: Fever And/ Or Pain Amiodarone [Cordarone] 200 mg PO DAILY #30 tab Benzonatate [Tessalon Perles] 100 mg PO TID PRN #90 cap PRN Reason: Cough diphenhydrAMINE ELIXIR [Benadryl Elixir] 75 mg PO TID PRN cup PRN Reason: Dry Mouth guaiFENesin SYRUP 100MG/5ML [Robitussin] 200 mg PO Q6H PRN cup PRN Reason: Cough guaiFENesin-DM 600/30MG [Mucinex Dm] 1 each PO Q12HR tab.er.12h HYDROcodone/APAP 5-325MG [[place] 5-325] 1 each PO Q4HR PRN #120 tab PRN Reason: Moderate Pain Loperamide [Imodium] 2 mg PO QID PRN cap PRN Reason: Diarrhea Mag Hydrox/Al Hydrox/Simeth [Maalox] 30 ml PO TID PRN cup PRN Reason: Dry Mouth Pantoprazole [Protonix] 40 mg PO AC-BRKFST #30 tablet.dr Continue amLODIPine [Norvasc] 10 mg PO DAILY Metoprolol Tartrate [Lopressor] 100 mg PO BID Ferrous Sulfate [Iron (65 MG Elemental)] 325 mg PO DAILY Aspirin 81 mg PO DAILY #30 chewable metFORMIN HCL [Glucophage] 500 mg PO BID Discontinued Esomeprazole Magnesium [NexIUM] 40 mg PO BID Atorvastatin [Lipitor] 40 mg PO HS Discharge Medication List Metoprolol Tartrate [Lopressor] 100 mg PO BID 05/02/17 [History] amLODIPine [Norvasc] 10 mg PO DAILY 05/02/17 [History] Ferrous Sulfate [Iron (65 MG Elemental)] 325 mg PO DAILY 04/19/18 [History] Aspirin 81 mg PO DAILY #30 chewable 04/25/18 [Rx] metFORMIN HCL [Glucophage] 500 mg PO BID 05/11/18 [History] Acetaminophen Tab [Tylenol] 325 mg PO Q4HR PRN tab 05/27/18 [Rx] Amiodarone [Cordarone] 200 mg PO DAILY #30 tab 05/27/18 [Rx] Benzonatate [Tessalon Perles] 100 mg PO TID PRN #90 cap 05/27/18 [Rx] HYDROcodone/APAP 5-325MG [[place] 5-325] 1 each PO Q4HR PRN #120 tab 05/27/18 [Rx] Loperamide [Imodium] 2 mg PO QID PRN cap 05/27/18 [Rx] Mag Hydrox/Al Hydrox/Simeth [Maalox] 30 ml PO TID PRN cup 05/27/18 [Rx] Pantoprazole [Protonix] 40 mg PO AC-BRKFST #30 tablet. 05/27/18 [Rx] diphenhydrAMINE ELIXIR [Benadryl Elixir] 75 mg PO TID PRN cup 05/27/18 [Rx] guaiFENesin SYRUP 100MG/5ML [Robitussin] 200 mg PO Q6H PRN cup 05/27/18 [Rx] guaiFENesin-DM 600/30MG [Mucinex Dm] 1 each PO Q12HR tab.er.12h 05/27/18 [Rx] Follow up Appointment(s)/Referral(s): Dianne Serrano MD [STAFF PHYSICIAN] - 06/10/18 1:45 pm Jules Briones MD [STAFF PHYSICIAN] - 06/11/18 1:45 pm Kwan Lyn MD [Primary Care Provider] - 05/27/18 2:10 pm () [facility], [NON-STAFF] - As Needed Holli Oscar MD [STAFF PHYSICIAN] - 1 Week (Office to call with follow up appointment.) Patient Instructions/Handouts: Myelodysplastic Syndromes (GEN) Activity/Diet/Wound Care/Special Instructions: Hospital bed and wheelchair ordered through [facility]: #[phone]
[2018-05-27] MEDS: guaiFENesin-DM 600/30MG 1 EACH TAB.ER.12H PO SCH (09:47)
[2018-05-27] MEDS: FUROSEMIDE 20 MG TAB PO SCH ×2 (09:47→15:39)
[2018-05-27] MEDS: guaiFENesin SYRUP 100MG/5ML 200 MG/10 ML CUP PO PRN (09:47)
[2018-05-27] MEDS: METOPROLOL TARTRATE 25 MG TAB PO SCH (09:47)
[2018-05-27] MEDS: FERROUS SULFATE 325 MG TAB PO SCH (09:47)
[2018-05-27] MEDS: AMIODARONE 200 MG TAB PO SCH (09:47)
[2018-05-27 10:15] VITALS: BMI 36.1
[2018-05-27 11:20] LABS: Anisocytosis Slight; HCT 21.5 % (34.0-46.0); HGB 7.1 gm/dL (11.4-16.0); MCH 32.5 pg (25.0-35.0); MCHC 32.9 g/dL (31.0-37.0); MCV 98.7 fL (80.0-100.0); Macrocytosis Slight; Mean Platelet Volume 8.3; RBC 2.17 m/uL (3.80-5.40); RDW 18.6 % (11.5-15.5)
[2018-05-27 11:22] LABS: Platelet Count 26 k/uL (150-450); WBC 0.9 k/uL (3.8-10.6)
[2018-05-27 12:14] LABS: Poikilocytosis (M) Present
[2018-05-27 12:15] LABS: RBC Fragments Present
[2018-05-27 12:16] LABS: Glucose,Whole Blood 119 mg/dL (75-99)
[2018-05-27] MEDS ORDERED: SIMETHICONE 80 MG CHEWABLE PO SCH (13:00)
[2018-05-27 13:52] VITALS: BP 138/95; PULSE 69; RESP 14; TEMP 97.6
== END 2018-05-27 16:06 | disposition hospice, home (50) | DRG 808 ==
LOC: EC 23:14 → 6SEL 05-11 02:26 → 6ICU 05-12 06:19 → 6SEL 05-15 17:21
PROVIDERS: ADMIT Family Medicine; ATTEND Family Medicine
PROC: 30233N1 Transfusion of Nonautologous Red Blood Cells into Peripheral Vein, Percutaneous Approach (ICD-10-PCS; principal; 2018-05-12)
PROC: 5A1945Z Respiratory Ventilation, 24-96 Consecutive Hours (ICD-10-PCS; principal; 2018-05-12)
PROC: 4A133B1 Monitoring of Arterial Pressure, Peripheral, Percutaneous Approach (ICD-10-PCS; principal; 2018-05-12)
PROC: 0BH18EZ Insertion of Endotracheal Airway into Trachea, Via Natural or Artificial Opening Endoscopic (ICD-10-PCS; principal; 2018-05-12)
PROC: 03HY32Z Insertion of Monitoring Device into Upper Artery, Percutaneous Approach (ICD-10-PCS; principal; 2018-05-12)
PROC: 4A133J1 Monitoring of Arterial Pulse, Peripheral, Percutaneous Approach (ICD-10-PCS; principal; 2018-05-12)
PROC: 02H633Z Insertion of Infusion Device into Right Atrium, Percutaneous Approach (ICD-10-PCS; principal; 2018-05-12)
DX: D61.818 Other pancytopenia (principal); I63.532 Cerebral infarction due to unspecified occlusion or stenosis of left posterior cerebral artery; G93.41 Metabolic encephalopathy; I46.9 Cardiac arrest, cause unspecified; J96.01 Acute respiratory failure with hypoxia; J96.02 Acute respiratory failure with hypercapnia; I13.0 Hypertensive heart and chronic kidney disease with heart failure and stage 1 through stage 4 chronic kidney disease, or unspecified chronic kidney disease; I47.2 Ventricular tachycardia; N17.9 Acute kidney failure, unspecified; C56.9 Malignant neoplasm of unspecified ovary; C79.9 Secondary malignant neoplasm of unspecified site; K92.2 Gastrointestinal hemorrhage, unspecified; D46.9 Myelodysplastic syndrome, unspecified; E11.22 Type 2 diabetes mellitus with diabetic chronic kidney disease; E78.5 Hyperlipidemia, unspecified; G20 Parkinson's disease; G40.401 Other generalized epilepsy and epileptic syndromes, not intractable, with status epilepticus; I25.10 Atherosclerotic heart disease of native coronary artery without angina pectoris; I25.2 Old myocardial infarction; I25.5 Ischemic cardiomyopathy; I44.7 Left bundle-branch block, unspecified; I48.0 Paroxysmal atrial fibrillation; I50.9 Heart failure, unspecified; J44.9 Chronic obstructive pulmonary disease, unspecified; N18.9 Chronic kidney disease, unspecified; Z51.5 Encounter for palliative care; Z79.51 Long term (current) use of inhaled steroids; Z79.82 Long term (current) use of aspirin; Z79.899 Other long term (current) drug therapy; Z87.891 Personal history of nicotine dependence; Z90.710 Acquired absence of both cervix and uterus; Z95.5 Presence of coronary angioplasty implant and graft; Z96.642 Presence of left artificial hip joint; Z91.041 Radiographic dye allergy status; Z91.013 Allergy to seafood; Z79.84 Long term (current) use of oral hypoglycemic drugs; E66.9 Obesity, unspecified; Z68.36 Body mass index [BMI] 36.0-36.9, adult; T80.89XA Other complications following infusion, transfusion and therapeutic injection, initial encounter
CPT/HCPCS: 36415; 36600; 70450; 71045; 71046; 80048; 80053; 80061; 80177; 81003; 82272; 82550; 82553; 82805; 83036; 83605; 83735; 84100; 84132; 84484; 85025; 85027; 85610; 85730; 86850; 86880; 86900; 86901; 86902; 86920; 87040; 87086; 87324; 87493; 93005; 93306; 93880; 94002; 94003; 94640; 94667; 95819; 99285